=== PATIENT | female | born 1970 | race Caucasian/White ===

== ENCOUNTER → 2018-06-21 08:00 | Outpatient (CLI) | payer BC, SELFPAY ==
--- NOTE | 2018-06-21 08:11 | RAD_ITS ---
PROCEDURE: SMALL BOWEL SERIES DATE OF EXAMINATION: June 21, 2018.. INDICATION: Female, 47 years old. History of small bowel obstruction. PHYSICIAN: Prabhu Andrade M.D. TECHNIQUE: Radiographic and fluoroscopic images were taken of the small intestine following the ingestion of barium. COMPARISON: None. FINDINGS: A preliminary supine KUB was obtained. There is an unremarkable bowel gas pattern. Fecal material is present throughout the colon. Phleboliths are present within the pelvis. Degenerative changes of the lower lumbar spine with mild levoscoliosis. The patient orally ingested approximately 12 ounces of thin barium Normal visualized fundus, body, and antrum of the stomach. Normal duodenal bulb, C-loop, and proximal jejunum. Normal visualized mucosal folds of the jejunum and ileum. There are no demonstrated dilatations, strictures, or masses of the small intestine. There is no mass displacement of the loops of small intestine. There is a normal motor pattern with barium reaching the colon within approximately 16 minutes. Spot films under fluoroscopic observation demonstrated a normal terminal ileum and ileocecal valve. RAD/Small Bowel Series Only IMPRESSION: Normal small bowel series. Electronically Signed: Prabhu Andrade MD at 15:04 EDT Tel [phone], Service support ,
== END ==
PROVIDERS: Referring Provider Internal Medicine Gastroenterology; Visit Provider Internal Medicine Gastroenterology
DX: K56.600 Partial intestinal obstruction, unspecified as to cause (principal); R10.9 Unspecified abdominal pain
CPT/HCPCS: 74250

== ENCOUNTER 2020-02-19 05:54 | Inpatient (IN) | payer BC, SELFPAY ==
[2020-02-19] VITALS (8 sets, daily range): BP systolic 97–124; BP diastolic 53–81; PULSE 52–97; RESP 16–25; TEMP 36.1–37.1; O2SAT 92–100; BMI 30.5; BMI 30.3
--- NOTE | 2020-02-19 06:02 | CT_ITS ---
STUDY: CT ABDOMEN AND PELVIS WITH CONTRAST REASON FOR EXAM: Female, 49 years old. LLQ AND PELVIC PAIN, ACUTE ONSET, HX-COLECTOMY 1997 DUE TO TWISTED COLON RADIATION DOSAGE (If Supplied By Facility): CTDIvol = ( 18.62 ) mGy, DLP = ( 1079.63 ) mGycm TECHNIQUE: Transaxial images were obtained from the dome of the diaphragm to the symphysis pubis without oral contrast. IV 100mL Isovue-370 was administered. Sagittal and coronal images were reconstructed. Individualized dose optimization techniques were used for this CT. COMPARISON: None. FINDINGS: The visualized lung bases are unremarkable. The visualized portions of the heart are within normal limits. Normal liver. Normal gallbladder and extrahepatic biliary system. Normal spleen. Normal pancreas. Normal bilateral adrenal glands. Normal right kidney. Normal left kidney. There is a small hiatal hernia. There is dilatation of few small bowel loops in the pelvis may represent partial small bowel obstruction or ileus. Normal colon. There is non-visualization of the appendix. I Normal abdominal aorta. Normal inferior vena cava. Normal retroperitoneum. Normal urinary bladder. Normal abdominal wall. Normal osseous structures. CT/Abdomen/Pelvis W IV Cont ONLY IMPRESSION: There is dilatation of few small bowel loops in the pelvis may represent partial small bowel obstruction or ileus. Electronically Signed: Jatin Armstrong, at 7:09 EDT Tel , Service support ,
--- NOTE | 2020-02-19 06:04 | ED.DCSUM_ITS ---
- ER Visit Summary Date of Service: 02/19/20 Chief Complaint: Left lower quadrant abdominal and pelvic pain History of Present Illness: The patient is a 49 F history of small bowel obstruction, kidney stone, Niesen fundoplication and a right-sided hemicolectomy. Patient states that she was in her normal state of health. About an hour ago started having severe cramping lower abdominal pelvic pain. She denies any nausea or vomiting. No diarrhea. She states she has chronic constipation. She denies any dysuria or fever. Her last menstrual period was 5 years ago she denies any vaginal bleeding. States she felt fine this morning when she first got up made her breakfast before he went to work. She started having severe pain called him home to bring her to the emergency department. She denies ever having pain like this before. She denies any trauma. Physical Examination: Middle-aged female complaining of pain. Vital signs are stable afebrile. H EENT exam unremarkable. Moist membranes. Neck nontender. Lungs clear to auscultation bilaterally. Heart regular rhythm rate about 70. Abdomen soft. Nondistended. Normal bowel sounds. No peritoneal signs. She points to tenderness in the left lower abdomen and suprapubic area. It is not reproducibly tender. There is no obvious hernia or mass. There is a well- healed midline surgical incision from her prior hemicolectomy. The right upper and right lower quadrants are unremarkable. She is moving all 4 extremities. They are neurovascular intact. There is no edema. Neurologically she is awake and alert with no focal motor deficits. Test Results: White count 7. Hemoglobin 13. No bands. Chemistries unremarkable normal creatinine and gap. UA unremarkable. Serum test negative. CAT scan abdomen and pelvis with IV contrast as read by the radiologist reviewed by me shows partial small bowel obstruction versus ileus. There is also significant stool. I went over all test results with the patient and her . Emergency Department Course and Treatment: Patient was severely suprapubic and left lower quadrant abdominal pain. Not reproducible. Treated with IV fluids, morphine and Zofran. CAT scan and labs are being obtained along with urinalysis. Treatment Plan: Patient is improving at the pain medication but needs some more medication on repeat exam at 07:10 AM. I have the hospitalist and general surgeon on page. Disposition: admission Impression: Acute left lower quadrant and suprapubic abdominal and pelvic pain secondary to partial small bowel obstruction History of prior partial small bowel obstruction History of prior hemicolectomy This note was generated with [employer] dictation software. It may contain incorrect words, spelling, and punctuation that were not noted in review of the chart prior to signing ED Disposition - Plan for ED Patient: Referrals: Roderick Wellington MD [Primary Care Provider] -
[2020-02-19] MEDS: morphine 8 MG/ML Syringe IV (06:09)
[2020-02-19 06:10] LABS: Absolute Lymphocyte Count 3.73 X10^3/uL (0.83-4.51); Absolute Neutrophil Count 2.8 X10^3/uL (2.0-7.7); Basophil# 0.07 X10^3/uL; Basophil% 0.9 % (0-1); Eosinophil# 0.12 X10^3/uL; Eosinophils% 1.6 % (0-5); Hematocrit 43.7 % (37-47); Hemoglobin 13.6 g/dL (12.0-15.0); Lymphocyte # 3.73 X10^3/ul (4.0); Lymphocyte % 49.5 % (19-41); Mean Corp Hgb Conc 31.1 g/dL (32-36); Mean Corpuscular Hgb 28.1 pg (27.0-32.0); Mean Corpuscular Volume 90.3 fL (81-99); Mean Platelet Vol. 9.5 fl (6.2-12.0); Monocyte# 0.81 X10^3/uL; Monocyte% 10.7 % (0-10); NRBC Flagged by Analyzer 0 % (0-5); Neutrophil # 2.79 X10^3/uL (2.7-7.7); Platelet Count 318 K/mm3 (150-450); RBC Distribution Width CV 14.3 % (11.6-14.6); RBC Distribution Width SD 46.7 fl (35.1-43.9); Red Blood Count 4.84 M/mm3 (4.2-5.4); White Blood Count 7.5 K/mm3 (4.4-11.0)
[2020-02-19] MEDS: Ondansetron 4 MG/2 ML Vial IV ×2 (06:10→13:15)
[2020-02-19] MEDS: 0.9% Normal Saline 1,000 ML 125 ML IV (06:20)
[2020-02-19 06:27] LABS: Anion Gap 8 (5-15); BUN 13 mg/dL (7-18); BUN/Creat Ratio 14.8 RATIO (10-20); Calcium,Total 9.5 mg/dL (8.5-10.1); Chloride 105 mmol/L (98-107); Creatinine, Serum 0.88 mg/dL (0.55-1.02); EST Glomerular Filtration Rate 73 mL/min (>60); Est Glom Filt Rate - Afr Amer 88 mL/min (>60); Estimated Creatinine Clearance 82.71 ml/min; Glucose 127 mg/dL (74-106); Potassium 3.7 mmol/L (3.5-5.1); Sodium Level 139 mmol/L (136-145)
[2020-02-19 06:37] LABS: Internal QC Validated? YES +Cl - CLEAR BKGD; Pregnancy, Serum, hCG Quali. NEGATIVE Negative
[2020-02-19 06:47] LABS: Bacteria 0 SEEN /hpf (None Seen); Mucous, Urine 0 SEEN /hpf (<or=2+)
[2020-02-19 06:49] LABS: Color, Urine Yellow (Yellow); Glucose, Dipstick Normal (Normal); Ketone-Dipstick Negative (Negative); Leukocyte Esterase-Dipstick 25 /ul (Negative); Nitrite-Dipstick Negative (Negative); Occult Blood-Urine 10 /ul (Negative); Protein-Dipstick 15 mg/dl (Negative); Urine Bilirubin Dipstick Negative (Negative); Urine Clarity Clear (Clear); Urine Urobilinogen Normal (Normal)
[2020-02-19 07:02] LABS: Red Blood Cells-Urine 0-5 SEEN /hpf (0-5); Squamous Epithelial Cells - UA 5-10 SEEN /hpf (5-10); White Blood Cells 0-5 SEEN /hpf (0-5)
--- NOTE | 2020-02-19 07:23 | PCM.HP.STD ---
Problem List (1) Small bowel obstruction Status: Acute (2) Hypokalemia Status: Acute (3) Abdominal pain Status: Acute (4) Pituitary tumor Status: Chronic (5) Chronic constipation Status: Chronic History of Present Illness Date of Admission: 02/19/20 Chief Complaint: Abdominal pain and constipation The patient is a 49 year old F with history of chronic idiopathic constipation since on amitiza, 2 abdominal surgeries, Jasbir's fundoplication and partial sigmoid colectomy for redundant bowel probably from came to ER with sudden onset of severe crampy lower abdominal pain in the morning today. She had usual bowel movement yesterday which was semisolid but no blood or mucus. Denies nausea or vomiting but has loss of appetite. No fever or chills. She had 2 previous bowel ileus/obstruction which was managed conservatively and did not require surgery, when she was admitted in [place] and last 1 here in 2017. Her surgeon is Dr. Blackburn. In ED, CT abdomen with IV contrast was done which shows dilatation of small bowel loops in the pelvis suggestive of partial small bowel obstruction or ileus. ED vital was in acceptable limit, blood pressure 124/81 no tachycardia or hypoxia or tachypnea. Past Medical History Past Medical History (Chronic Problems): Chronic Problems Pituitary tumor (Chronic) Chronic constipation (Chronic) Allergies No Known Allergies Allergy (Verified 02/19/20 05:59) Home Medications: Ambulatory Orders Medication Instructions Recorded Lubiprostone [Amitiza] 24 mcg PO BID 03/18/17 Surgical History: - - 1998 volvulus and had partial sigmoidectemy jasbir 2 years ago. Smoking Status: Never smoker - *Family History Maternal History Items: Heart Disease, Pulmonary Disease, - - Interstitial lung disease Paternal History Items: Heart Disease Review of Systems Constitutional: Denies: Chills, Fever, Weight Change HEENT: Denies: Head Aches, Sinus Congestion, Sinus Drainage Cardiovascular: Denies: Chest Pain, Palpitations Respiratory: Denies: Cough, Shortness of breath at rest, Sputum production Gastrointestinal: Reports: Abdominal Pain, Constipation. Denies: Hematemesis, Hematochezia, Nausea, Melena, Vomiting Genitourinary: Denies: Dysuria, Frequency, Hesitancy, Incontinence, Retention, Urgency Musculoskeletal: Denies: Joint Pain, Joint Tenderness Skin: Denies: Rash, Wounds Neurological: Denies: Numbness, Tingling, Focal weakness Psychiatric: Denies: Anxiety, Depression, Homicidal Ideations, Suicidal Ideations Hematologic/ Lymphatic: Denies: Easy Bruising, Easy Bleeding VTE Information - Inpt Only VTE Present on Admission: No VTE Mechan Device Prophylaxis: None VTE Pharm Prophylaxis ordered?: Yes Patient Problems: Active and Suspected Problems Small bowel obstruction (Acute) - Physical Exam Vitals/I&O's: Vital Signs Temp Pulse Resp BP Pulse Ox 96.9 F L 70 25 H 124/81 H 100 02/19/20 05:56 02/19/20 05:56 02/19/20 05:56 02/19/20 05:56 02/19/20 05:56 Oxygen Delivery Method Room Air Weight: 212 lb 11.937 oz Body Mass Index (BMI) 30.5 General: Alert, Oriented x3, Cooperative HEENT: Atraumatic, PERRLA, EOMI, Normocephalic Oral: No Gingival or Mucosal Lesions/ Ulcerations, Dry Mucosa Neck: Supple, No JVD, Negative Carotid Bruits Lungs: Clear to auscultation, Normal air movement, No rhonchi, No wheeze, No rales Cardiovascular: Regular rate, Regular Rhythm, Normal S1, Normal S2, No murmurs Abdomen: Bowel Sounds Present, Soft, Non-Distended, Hyperactive Bowel Sounds - Bowel sounds are hyperactive, Tender - Mild tenderness present in left lower quadrant. Extremities: No edema, Capillary Refill Less than 3 Seconds Skin: No rashes, No breakdown Musculoskeletal: No Tenderness to Palpation of Joints or Extremities Neurological: Cranial nerves II-XII grossly intact, Deep Tendon Reflexes 2+/4 and Symmetrical, Neuro grossly intact, Motor Exam 5/5 strength throughout Psych/Mental Status: Normal Affect, Appropriate Laboratory Results 02/19/20 06:00: WBC 7.5, RBC 4.84, Hgb 13.6, Hct 43.7, MCV 90.3, MCH 28.1, MCHC 31.1 L, RDW Std Deviation 46.7 H, RDW Coeff of Aan 14.3, Plt Count 318, MPV 9.5, Immature Gran % (Auto) 0.300, Neut % (Auto) 37.0 L, Lymph % (Auto) 49.5 H, [place] % (Auto) 10.7 H, Eos % (Auto) 1.6, Baso % (Auto) 0.9, Absolute Neuts (auto) 2.8, Absolute Lymphs (auto) 3.73, Nucleated RBC % 0 02/19/20 06:00: Sodium 139, Potassium 3.7, Chloride 105, Carbon Dioxide 26.0, Anion Gap 8, BUN 13, Creatinine 0.88, Estim Creat Clear Calc 82.71, Est GFR (MDRD) Af Amer 88, Est GFR (MDRD) Non-Af 73, BUN/Creatinine Ratio 14.8, Glucose 127 H, Calcium 9.5 02/19/20 06:15: Serum , Qual NEGATIVE 02/19/20 06:38: Urine Color Yellow, Urine Clarity Clear, Urine pH 5.0, Ur Specific Gilman 1.020, Urine Protein 15 H, Urine Glucose (UA) Normal, Urine Ketones Negative, Urine Occult Blood 10 H, Urine Nitrite Negative, Urine Bilirubin Negative, Urine Urobilinogen Normal, Ur Leukocyte Esterase 25 H, Urine RBC 0-5 SEEN, Urine WBC 0-5 SEEN, Ur Squamous Epith Cells 5-10 SEEN, Urine Bacteria 0 SEEN, Urine Mucus 0 SEEN Current Medications Sodium Chloride () 1,000 mls @ 125 mls/hr IV .Q8H MONIQUE Last Admin: 02/19/20 06:20 Dose: 125 mls/hr Documented by: Assessment/Plan All Active Problems Small bowel obstruction (Acute) Hypokalemia (Acute) Abdominal pain (Acute) The patient is a 49 year old F with history of chronic idiopathic constipation since on amitiza, 2 abdominal surgeries, Jasbir's fundoplication and partial sigmoid colectomy for redundant bowel probably from came to ER with sudden onset of severe crampy lower abdominal pain in the morning today. She had usual bowel movement yesterday which was semisolid but no blood or mucus. Denies nausea or vomiting but has loss of appetite. No fever or chills. She had 2 previous bowel ileus/obstruction which was managed conservatively and did not require surgery, when she was admitted in [place] and last 1 here in 2017. Her surgeon is Dr. Blackburn. In ED, CT abdomen with IV contrast was done which shows dilatation of small bowel loops in the pelvis suggestive of partial small bowel obstruction or ileus. 1. Partial small bowel obstruction or ileus probably secondary to adhesions or redundant bowel: [facility] IV fluid Ringer lactate. N.p.o. CT abdomen shows small hiatus hernia but no dilatation of stomach or probable to require NG suction. Surgeon is been consulted. Stool for occult blood, leukocytes and enteric bacteriology panel ordered. Electrolytes including potassium and magnesium levels are normal. No leukocytosis. 2. Chronic idiopathic constipation with history of 2 abdominal surgery and redundant bowel: Amitiza is on hold secondary to ileus. 3. Pituitary tumor in remission: She was on cabergoline for pituitary tumor but she is off for last 5 years and her prolactin hormone is normal as per the patient. 4. DVT prophylaxis: Lovenox 40 minutes of daily. Clinical Impression(s) from Imaging Studies Abdomen/Pelvis CT 02/19/20 06:02 IMPRESSION: There is dilatation of few small bowel loops in the pelvis may represent partial small bowel obstruction or ileus. Inpatient E&M: 72478 Init Hosp L3
[2020-02-19] MEDS: morphine 8 MG/ML Syringe 6 MG IV (08:32)
[2020-02-19] MEDS: Enoxaparin 40 MG/0.4 ML Syringe SC (09:26)
[2020-02-19 10:08] LABS: Magnesium 2.2 mg/dL (1.6-2.6)
[2020-02-19] MEDS: 0.9% Saline Lock 10 ML Syringe IV ×4 (10:41→16:44)
[2020-02-19] MEDS: Morphine 2 MG/ML Syringe IV ×2 (10:41→16:43)
[2020-02-19] MEDS: Lactated Ringers 1,000 ML 125 ML IV ×2 (10:50→19:16)
--- NOTE | 2020-02-19 11:41 | PCM.CONS.B ---
- Consult Date of Consult: 02/19/20 - Reason for Consult Chief Complaint: abdominal pain History of Present Illness: 49 y/o WF presents with sudden onset of sharp lower quadrant abdominal pain early this morning. She states that she had a bowel movement yesterday, does not recall when she last passed flatus but believes that it was yesterday also. She states that normally she would have a bowel movement about once a day, but does have history of chronic constipation and is on Amitiza for this and has been for several years. Denies fevers/chills/sweats. Had previous abdominal pain/SBO admission in 2016. She had abdominal surgery for sigmoid volvulus in . Also had Yomaira fundoplication Denies nausea/emesis. had colonoscopy by Dr. Granados several years ago. Denies changes in bowel habits. Denies noting blood in stools. Denies known colon cancer in family. Past Medical History: pituitary tumor right sided heart position Past Surgical History: sigmoid colon resection for sigmoid volvulus laparoscopic Yomaira Lasix eye surgery Medications: cabergoline lubiprostone Allergies: Has no known drug allergies Social history: TOB use denies ETOH use minimal, occasional social only Review of Systems: General - denies fevers/sweats/chills Cardiovascular denies chest pain, denies history of heart attack Pulmonary denies shortness of breath, denies coughing up blooda Gastrointestinal as per HPI, denies blood in stools Neurological has occasional headaches, denies seizures Genitourinary denies burning with urination, denies blood in urine Hematological denies spontaneous/prolonged bleeding Skin denies open non healing wounds Musculoskeletal denies arthritis Endocrine denies diabetes Psychological denies hallucinations Physical examination: Vital signs Temp 98.7F General WD/WN WF in no apparent distress, alert and oriented, not septic appearing HEENT Normocephalic. EOM intact with sclera clear and no icterus noted. Neck is supple with no jugular venous distention noted. Trachea is midline. Lungs normal breath sounds No rales/rhonchi/wheezing noted. No labored breathing noted, such as retractions. Heart normal S1 and S2 auscultated. No rubs/clicks/murmurs noted. Abdomen soft but distended and generalized tenderness to palpation but no peritoneal signs. Extremities no calf tenderness noted. No pitting edema noted. Genitourinary/Rectal deferred Skin normal skin integrity. Neurological no focal deficits noted Psychological normal affect, patient is calm and appropriate Impression: partial small bowel obstruction Discussion/Plan: I have discussed the above with the patient. I have recommended repeat CT scan with oral contrast - this can be both diagnostic and therapeutic. I suspect that this may be due to patient's chronic constipation - she may have colonic inertia. Will follow patient during hospitalization. I have answered all questions to the patient?s satisfaction and the patient has no further questions.
--- NOTE | 2020-02-19 11:52 | CT_ITS ---
STUDY: CT ABDOMEN AND PELVIS WITHOUT CONTRAST REASON FOR EXAM: Female, 49 years old. ABD PAIN STARTED SUDDENLY. PRIOR CT SHOWED POSS SBO. Pt drank oral contrast but vomited much of it. RADIATION DOSAGE (If Supplied By Facility): CTDIvol = ( 15.74 ) mGy, DLP = ( 798.26 ) mGycm TECHNIQUE: Transaxial images were obtained from the dome of the diaphragm to the symphysis pubis with oral contrast, and without intravenous contrast. Sagittal and coronal images were reconstructed. Individualized dose optimization techniques were used for this CT. COMPARISON: CT abdomen and pelvis same day. FINDINGS: The visualized lung bases are unremarkable. The visualized portions of the heart are within normal limits. Normal liver. Normal gallbladder and extrahepatic biliary system. Normal spleen. Normal pancreas. Normal bilateral adrenal glands. Normal right kidney. Normal left kidney. There is residual contrast within the kidneys ureters and bladder from the prior CT IV contrast exam. Stable postsurgical changes at the GE junction. There is previous partial bowel resection within the pelvis. There is stable calcification right adnexa likely calcified ovary and/or postsurgical changes. There is significant decrease distention of small bowel when compared to prior exam. There is hyperdensity within the colon likely pill Normal abdominal aorta. Normal inferior vena cava. Normal retroperitoneum. Normal urinary bladder. Normal abdominal wall. There is stable multilevel degenerative changes of the lumbar spine. CT/Abdomen/Pel W ORAL Cont Only IMPRESSION: Improving small bowel ileus versus partial small bowel obstruction no CT evidence for complete small bowel obstruction Postsurgical changes with prior partial bowel resection, postsurgical changes at the GE junction Stable calcifications right adnexa, calcified ovary and/or postsurgical changes Stable multilevel spondylosis lumbar spine Electronically Signed: Samson De Los Santos, at 16:34 EDT Tel , Service support ,
--- NOTE | 2020-02-19 13:23 | NURSING ---
Angie in CT scan notified that pt threw up 1/2 of contrast, and ordered to finish the rest very slowly, so the CT scan could be done at 15 or 1600. Will plan to do the scan at 1600.
[2020-02-19] MEDS: proCHLORPERazine 10 MG/2 ML Vial 5 MG IV (16:47)
[2020-02-20 03:00] VITALS: BP 108/61; PULSE 73; RESP 16; TEMP 36.7; O2SAT 95
[2020-02-20] MEDS: Lactated Ringers 1,000 ML 125 ML IV ×2 (03:00→10:57)
[2020-02-20 05:40] LABS: Absolute Lymphocyte Count 1.67 X10^3/uL (0.83-4.51); Absolute Neutrophil Count 4.5 X10^3/uL (2.0-7.7); Basophil# 0.03 X10^3/uL; Basophil% 0.4 % (0-1); Eosinophil# 0.03 X10^3/uL; Eosinophils% 0.4 % (0-5); Hematocrit 36.3 % (37-47); Hemoglobin 11.3 g/dL (12.0-15.0); Lymphocyte # 1.67 X10^3/ul (4.0); Lymphocyte % 24.6 % (19-41); Mean Corp Hgb Conc 31.1 g/dL (32-36); Mean Corpuscular Hgb 28.2 pg (27.0-32.0); Mean Corpuscular Volume 90.5 fL (81-99); Mean Platelet Vol. 9.8 fl (6.2-12.0); Monocyte# 0.55 X10^3/uL; Monocyte% 8.1 % (0-10); NRBC Flagged by Analyzer 0 % (0-5); Neutrophil % 66.4 % (47-70); Platelet Count 215 K/mm3 (150-450); RBC Distribution Width CV 14.5 % (11.6-14.6); RBC Distribution Width SD 47.9 fl (35.1-43.9); Red Blood Count 4.01 M/mm3 (4.2-5.4); White Blood Count 6.8 K/mm3 (4.4-11.0)
[2020-02-20 06:04] LABS: Anion Gap 6 (5-15); BUN 11 mg/dL (7-18); BUN/Creat Ratio 18.4 RATIO (10-20); Calcium,Total 8.4 mg/dL (8.5-10.1); Chloride 109 mmol/L (98-107); EST Glomerular Filtration Rate 113 mL/min (>60); Est Glom Filt Rate - Afr Amer 137 mL/min (>60); Glucose 101 mg/dL (74-106); Potassium 3.5 mmol/L (3.5-5.1); Sodium Level 143 mmol/L (136-145)
[2020-02-20 09:30] VITALS: BP 119/75; PULSE 63; RESP 18; TEMP 36.9; O2SAT 96
[2020-02-20] MEDS: Enoxaparin 40 MG/0.4 ML Syringe SC (09:59)
--- NOTE | 2020-02-20 10:50 | CASEMGMT ---
RN CM Face to Face with patient for initial transition planning/care coordination assessment. RN CM introduced self and role at [facility]. Patient lying in bed, alert and oriented. Patient willing to participate in assessment and is able to answer all questions appropriately. Care providers, pharmacy, and demographics verified. Patient wishes to discharge home, denies need for home health at this time. Patient states he has no further needs or concerns at this time. CM to follow for discharge planning needs that may arise. PCP: [facility] Specialists: RONALDO Granados Preferred Pharmacy: [facility] Insurance: [employer] Prescription Benefit: yes Living Will/HPOA: yes, [place] LNOK: Living Arrangements: Patient lives with in 1 story home with no steps to enter. Patient states she is independent at home. Transportation: self/ DME/HHC: Patient denied HHC and DME Disposition Plan: Patient to discharge home with family support and follow-up plans in place. Yazmin RUIZN, RN, CM
[2020-02-20] MEDS: Acetaminophen 325 MG Tablet 650 MG PO (10:57)
--- NOTE | 2020-02-20 11:46 | DCINST_ITS ---
- Discharge Diagnoses Current Active Problems: Current Active and Chronic Problems Small bowel obstruction (Acute) You will use the following diet at home:: Clear liquid - for 3 days, soft diet. Your food should be the consistency of: Regular Discharge Activity: May Not Drive Call your doctor if you observe: Fever of 101 or Higher, Coldness, Increased Pain, Numbness or Tingling, Change in Color, Inability to urinate, Inability to have a bowel movement, Shortness of breath, Dizziness, Fainting spells, Swelling in the ankles, Chest pain, Prolonged hiccoughing, Increased palpitations (irregular heartbeat), Calf discomfort, Uncontrolled pain Allergies/Adverse Reactions: Allergies No Known Allergies Allergy (Verified 02/19/20 05:59) Medications to take at Discharge Lubiprostone [Amitiza] 24 mcg PO BID 03/18/17 Primary Care Physician: Roderick Wellington MD [Primary Care Provider] - Please follow up with your Primary Care Physician in: in 2 weeks Test Results: Test results from this visit will be discussed in further detail at your follow- up appointment, if applicable. Please Follow Up With: Tessie Blackburn MD When: in 1-2 weeks for referral to [facility]
--- NOTE | 2020-02-20 11:48 | DS.PCM_ITS ---
Discharge Date and Diagnosis Date of Admission: 02/19/20 Date of Discharge: 02/20/20 - Primary Discharge Diagnosis Acute Problems: Active Problems Small bowel obstruction (Acute) - Secondary Discharge Diagnosis Chronic Problems: Chronic Problems Pituitary tumor (Chronic) Chronic constipation (Chronic) Hospital Course and Treatment Summary of Care Provided: [] The patient is a 49 year old F with history of chronic idiopathic constipation since on amitiza, 2 abdominal surgeries, Yomaira's fundoplication and partial sigmoid colectomy for redundant bowel probably from came to ER with sudden onset of severe crampy lower abdominal pain in the morning today. She had usual bowel movement yesterday which was semisolid but no blood or mucus. Denies nausea or vomiting but has loss of appetite. No fever or chills. She had 2 previous bowel ileus/obstruction which was managed conservatively and did not require surgery, when she was admitted in [place] and last 1 here in 2017. Her surgeon is Dr. Blackburn. In ED, CT abdomen with IV contrast was done which shows dilatation of small bowel loops in the pelvis suggestive of partial small bowel obstruction or ileus. 1. Partial small bowel obstruction or ileus probably secondary to redundant large bowel/slow colonic transit time/colonic inertia: [facility] She was managed with IV fluid Ringer lactate. Initially kept n.p.o. and then started on clear liquid. Patient passed flatus. Was given 1 dose of milk of magnesia. She takes milk of magnesia at home. Was co-managed with surgeon Dr. Blackburn. CT abdomen shows small hiatus hernia but no dilatation of stomach or small bowel therefore did not require NG suction. Patient did not have bowel movement for stool collection for enteric bacteriology panel or stool leukocytes. Electrolytes including potassium and magnesium levels are normal. No leukocytosis. 2. Chronic idiopathic constipation with history of 2 abdominal surgery and redundant bowel: Resume Amitiza 3. Pituitary tumor in remission: She was on cabergoline for pituitary tumor but she is off for last 5 years and her prolactin hormone is normal as per the pat ient. 4. DVT prophylaxis: Lovenox 40 minutes of daily. Discharge medication reconciliation done. Discharge follow-up instructions completed. Discharge process discussed with the patient and all questions were answered to patient's satisfaction. Patient is being discharged home. Discussed with surgeon and she will make arrangement for follow-up with [facility] for further work-up for colonic inertia Total time spent, exact 35 minutes on discharge meds reconciliation, examination, coordination of care with nurses and ancillary staff, review of imaging and blood test and discussion with the patient on follow-up instructions Clinical Impression(s) from Imaging Studies Abdomen/Pelvis CT 02/19/20 06:02 IMPRESSION: There is dilatation of few small bowel loops in the pelvis may represent partial small bowel obstruction or ileus. Objective: Patient does not have abdominal pain. Passing flatus. Blood pressure and heart rate is in acceptable limit. No hypoxia or tachypnea. General: Alert, Oriented x3, Cooperative HEENT: Atraumatic, PERRLA, EOMI, Normocephalic Oral: No Gingival or Mucosal Lesions/ Ulcerations, Dry Mucosa Neck: Supple, No JVD, Negative Carotid Bruits Lungs: Clear to auscultation, Normal air movement, No rhonchi, No wheeze, No rales Cardiovascular: Regular rate, Regular Rhythm, Normal S1, Normal S2, No murmurs Abdomen: Bowel Sounds Present, Soft, Non-Distended, hypoactive bowel sounds. No tenderness. No bowel movement. Extremities: No edema, Capillary Refill Less than 3 Seconds Skin: No rashes, No breakdown Musculoskeletal: No Tenderness to Palpation of Joints or Extremities Neurological: Cranial nerves II-XII grossly intact, Deep Tendon Reflexes 2+/4 and Symmetrical, Neuro grossly intact, Motor Exam 5/5 strength throughout Psych/Mental Status: Normal Affect, Appropriate - Physical Exam Vitals/I&O's: Vital Signs Temp Pulse Resp BP Pulse Ox 98.4 F 63 18 119/75 96 02/20/20 09:30 02/20/20 09:30 02/20/20 09:30 02/20/20 09:30 02/20/20 09:30 Oxygen Delivery Method Room Air Weight: 211 lb 3.245 oz Body Mass Index (BMI) 30.3 Intake and Output for Last 24 Hours 02/18/20 02/19/20 02/20/20 23:59 23:59 23:59 Intake Total 1506.25 / 1506.25 1960.42 / 1960.42 Output Total 1100 / 1100 1000 / 1000 Balance 406.25 / 406.25 960.42 / 960.42 Laboratory Results 02/20/20 05:06: Sodium 143, Potassium 3.5, Chloride 109 H, Carbon Dioxide 28.0, Anion Gap 6, BUN 11, Creatinine 0.60, Estim Creat Clear Calc 121.30, Est GFR (MDRD) Af Amer 137, Est GFR (MDRD) Non-Af 113, BUN/Creatinine Ratio 18.4, Glucose 101, Calcium 8.4 L, TSH 1.60 02/20/20 05:06: WBC 6.8, RBC 4.01 L, Hgb 11.3 L, Hct 36.3 L, MCV 90.5, MCH 28.2, MCHC 31.1 L, RDW Std Deviation 47.9 H, RDW Coeff of Ana 14.5, Plt Count 215, MPV 9.8, Immature Gran % (Auto) 0.100, Neut % (Auto) 66.4, Lymph % (Auto) 24.6, [place] % (Auto) 8.1, Eos % (Auto) 0.4, Baso % (Auto) 0.4, Absolute Neuts (auto) 4.5, Absolute Lymphs (auto) 1.67, Nucleated RBC % 0 Current Medications Acetaminophen (Tylenol) 650 mg PO Q4H PRN PRN PRN Reason: Pain or Fever Last Admin: 02/20/20 10:57 Dose: 650 mg Documented by: Dextrose (D50w Syringe) 0 gm IV X1 PRN; Protocol PRN Reason: Hypoglycemia Enoxaparin Sodium (Lovenox) 40 mg SC DAILY [facility] Last Admin: 02/20/20 09:59 Dose: 40 mg Documented by: Glucagon () 1 mg IM .X1 PRN PRN Reason: Hypoglycemia Sodium Chloride () 250 mls @ 15 mls/hr IV .[id number] PRN PRN Reason: Saline Flush Sodium Chloride () 250 mls @ 15 mls/hr IV .[id number] PRN PRN Reason: Additional IVPB Infusion Lactated Ringer's () 1,000 mls @ 125 mls/hr IV .Q8H [facility] Last Admin: 02/20/20 10:57 Dose: 125 mls/hr Documented by: Magnesium Hydroxide (Milk Of Magnesia) 30 ml PO X1 ONE Stop: 02/20/20 11:46 Morphine Sulfate () 2 mg IV Q3H PRN PRN PRN Reason: Pain Score 6-10/10 Last Admin: 02/19/20 16:43 Dose: 2 mg Documented by: Ondansetron HCl (Zofran) 4 mg IV Q8H PRN PRN PRN Reason: NAUSEA/VOMITING Last Admin: 02/19/20 13:15 Dose: 4 mg Documented by: Prochlorperazine Edisylate (Compazine Iv) 5 mg IV Q4H PRN PRN PRN Reason: Breakthrough nausea/vomiting Last Admin: 02/19/20 16:47 Dose: 5 mg Documented by: Sodium Chloride () 10 - 40 ml IV UD PRN PRN Reason: SALINE FLUSH Last Admin: 02/19/20 16:44 Dose: 30 ml Documented by: Discharge Activity: May Not Drive Call your doctor if you observe: Fever of 101 or Higher, Coldness, Increased Pain, Numbness or Tingling, Change in Color, Inability to urinate, Inability to have a bowel movement, Shortness of breath, Dizziness, Fainting spells, Swelling in the ankles, Chest pain, Prolonged hiccoughing, Increased palpitations (irregular heartbeat), Calf discomfort, Uncontrolled pain Home Medications: Medications to take at Discharge Lubiprostone [Amitiza] 24 mcg PO BID 03/18/17 Primary Care Physician: Roderick Wellington MD [Primary Care Provider] - Please follow up with your Primary Care Physician in: in 2 weeks Please Follow Up With: Tessie Blackburn MD When: in 1-2 weeks for referral to [facility] Medical Necessity - Tobacco Use Smoking Status: Never smoker Meaningful Use Info Meaningful Use Diagnoses (Choose all that apply): None applicable Inpatient E&M: 16102 [facility]
[2020-02-20] MEDS: Magnesium Hydroxide 30 ML UDC PO (11:51)
--- NOTE | 2020-02-20 13:06 | PCM.PN.SRG ---
Patient Problems: Active and Suspected Problems Small bowel obstruction (Acute) Subjective: Patient is much improved, denies abdominal pain passing flatus, hasn't had bowel movement yet, but she notes she has chronic constipation - Physical Exam Vitals/I&O's: Vital Signs Temp Pulse Resp BP Pulse Ox 98.4 F 63 18 119/75 96 02/20/20 09:30 02/20/20 09:30 02/20/20 09:30 02/20/20 09:30 02/20/20 09:30 Oxygen Delivery Method Room Air Weight: 95.8 kg Body Mass Index (BMI) 30.3 Intake and Output for Last 24 Hours 02/18/20 02/19/20 02/20/20 23:59 23:59 23:59 Intake Total 1506.25 / 1506.25 2077.09 / 2077.09 Output Total 1100 / 1100 1000 / 1000 Balance 406.25 / 406.25 1077.09 / 1077.09 General: Alert, Oriented x3 Oral: Moist Mucosa Neck: Supple Lungs: Normal air movement Cardiovascular: Regular rate Abdomen: Bowel Sounds Present, Soft Laboratory Results 02/20/20 05:06: Sodium 143, Potassium 3.5, Chloride 109 H, Carbon Dioxide 28.0, Anion Gap 6, BUN 11, Creatinine 0.60, Estim Creat Clear Calc 121.30, Est GFR (MDRD) Af Amer 137, Est GFR (MDRD) Non-Af 113, BUN/Creatinine Ratio 18.4, Glucose 101, Calcium 8.4 L, TSH 1.60 02/20/20 05:06: WBC 6.8, RBC 4.01 L, Hgb 11.3 L, Hct 36.3 L, MCV 90.5, MCH 28.2, MCHC 31.1 L, RDW Std Deviation 47.9 H, RDW Coeff of Ana 14.5, Plt Count 215, MPV 9.8, Immature Gran % (Auto) 0.100, Neut % (Auto) 66.4, Lymph % (Auto) 24.6, [place] % (Auto) 8.1, Eos % (Auto) 0.4, Baso % (Auto) 0.4, Absolute Neuts (auto) 4.5, Absolute Lymphs (auto) 1.67, Nucleated RBC % 0 Current Medications Acetaminophen (Tylenol) 650 mg PO Q4H PRN PRN PRN Reason: Pain or Fever Last Admin: 02/20/20 10:57 Dose: 650 mg Documented by: Dextrose (D50w Syringe) 0 gm IV X1 PRN; Protocol PRN Reason: Hypoglycemia Enoxaparin Sodium (Lovenox) 40 mg SC DAILY [facility] Last Admin: 02/20/20 09:59 Dose: 40 mg Documented by: Glucagon () 1 mg IM .X1 PRN PRN Reason: Hypoglycemia Sodium Chloride () 250 mls @ 15 mls/hr IV .[id number] PRN PRN Reason: Saline Flush Sodium Chloride () 250 mls @ 15 mls/hr IV .[id number] PRN PRN Reason: Additional IVPB Infusion Lactated Ringer's () 1,000 mls @ 125 mls/hr IV .Q8H [facility] Last Infusion: 02/20/20 11:53 Dose: Infused Documented by: Morphine Sulfate () 2 mg IV Q3H PRN PRN PRN Reason: Pain Score 6-10/10 Last Admin: 02/19/20 16:43 Dose: 2 mg Documented by: Ondansetron HCl (Zofran) 4 mg IV Q8H PRN PRN PRN Reason: NAUSEA/VOMITING Last Admin: 02/19/20 13:15 Dose: 4 mg Documented by: Prochlorperazine Edisylate (Compazine Iv) 5 mg IV Q4H PRN PRN PRN Reason: Breakthrough nausea/vomiting Last Admin: 02/19/20 16:47 Dose: 5 mg Documented by: Sodium Chloride () 10 - 40 ml IV UD PRN PRN Reason: SALINE FLUSH Last Admin: 02/19/20 16:44 Dose: 30 ml Documented by: Medical Necessity - Tobacco Use Smoking Status: Never smoker Assessment/Plan All Active Problems Small bowel obstruction (Acute) Hypokalemia (Acute) Abdominal pain (Acute) Impression: bowel obstruction/abdominal pain - resolved Plan: advance diet I will consult main [facility] for patient's diagnosis of colonic inertia and see what options they can give patient. She can be discharged to home
[2020-02-20 13:07] VITALS: BP 118/69; PULSE 72; TEMP 36.7; O2SAT 99
== END 2020-02-20 13:14 | disposition home or self-care (01) | DRG 390 ==
LOC: ED 06:58 → MS3 08:01
PROVIDERS: Admitting Provider Internal Medicine; Emergency Provider Emergency Medicine; PCP Family Medicine; Visit Provider Internal Medicine
DX: K56.600 Partial intestinal obstruction, unspecified as to cause (principal); D49.7 Neoplasm of unspecified behavior of endocrine glands and other parts of nervous system; Z90.49 Acquired absence of other specified parts of digestive tract; K59.04 Chronic idiopathic constipation; K44.9 Diaphragmatic hernia without obstruction or gangrene
CPT/HCPCS: 36415; 74176; 74177; 80048; 81001; 83735; 84443; 84703; 85025; 99251; 99285; J7030; J7120; Q9967; A4216; G0463; J2405

== ENCOUNTER 2020-03-12 09:45 | Inpatient (IN) | payer BC, SELFPAY ==
[2020-02-19 08:47] VITALS: BMI 30.3
[2020-03-12 09:46] VITALS: BP 113/81; PULSE 80; RESP 18; TEMP 36.8; O2SAT 100; BMI 29.3
--- NOTE | 2020-03-12 09:48 | ED.VIS.GEN ---
History of Present Illness Chief Complaint: Abd Pain Narrative: 49-year-old female presenting with abdominal pain. She states she has had this in the past multiple times. She is concerned she has a small bowel obstruction. Patient recently admitted for partial small bowel obstruction. She states that her pain started yesterday and has worsened over the course of 24 hours. She is not had a fever. She states she is nauseous but not vomiting yet. She is not passing gas. Past Medical History - Allergies and Home Meds Allergies/Adverse Reactions: Allergies No Known Allergies Allergy (Verified 03/12/20 09:48) Prior records reviewed: Yes Surgical History: - - 1997 volvulus and had partial sigmoidectemy jasbir 2 years ago. Smoking Status: Never smoker Alcohol: None Drugs: None - Family History Maternal Family History: Reports: Heart Disease, Pulmonary Disease, - - Interstitial lung disease Paternal Family History: Reports: Heart Disease Review of Systems General: Denies: Chills, Fever Eyes: Denies: Visual changes - bilaterally, Diplopia ENT: Denies: Rhinorrhea, Sore throat Cardiovascular: Denies: Chest pain, Palpitations Respiratory: Denies: Dyspnea, Cough, Dyspnea on exertion Gastrointestinal: Reports: Abdominal pain, Nausea, Constipation Genitourinary: Denies: Dysuria Musculoskeletal: Denies: Myalgias Skin: Denies: Rash Neurological: Denies: Headache Psych: Denies: Depression, Anxiety Physical Exam Vital Signs/Narrative: Vital Signs Temp Pulse Resp BP Pulse Ox 03/12/20 09:46 98.3 F 80 18 113/81 H 100 General: Well nourished, Well developed, No Acute Distress Head: Normocephalic, Atraumatic Eyes: Perrl. Negative for: Pale conjunctiva ENT: Moist mucous membranes Cardiovascular: Regular rate, Regular rhythm Respiratory: No distress, CTA bilaterally Abdomen: Tender - Underneath the palpation over the central abdomen Back: Nontender Extremities: Nontender Skin: Normal color, No rash Neurological: Alert, Oriented x3 Psychological: Normal affect Diagnostic/Tx/Re-eval Clinical Impression(s) from Imaging Studies Abdomen/Pelvis CT 03/12/20 09:56 IMPRESSION: Small bowel obstruction. Transition point not clearly identified but is likely in the ileum. Likely causes due to adhesions from previous surgery. No suspicious solid organ abnormality Free fluid in the dependent pelvis Postsurgical changes in the sigmoid Electronically Signed: Maximiliano Albert MD at 12:28 EDT , Service support , Laboratory Data 03/12/20 03/12/20 03/12/20 10:20 10:20 12:00 WBC 8.1 RBC 5.13 Hgb 14.5 Hct 45.3 MCV 88.3 MCH 28.3 MCHC 32.0 RDW Std Deviation 46.4 H RDW Coeff of Ana 14.5 Plt Count 294 MPV 9.6 Immature Gran % (Auto) 0.400 Neut % (Auto) 81.3 H Lymph % (Auto) 11.[address] [facility] % (Auto) 5.8 Eos % (Auto) 0.2 Baso % (Auto) 0.4 Absolute Neuts (auto) 6.6 Absolute Lymphs (auto) 0.97 Nucleated RBC % 0 Sodium 134 L Potassium 3.5 Chloride 99 Carbon Dioxide 30.0 Anion Gap 5 BUN 11 Creatinine 0.96 Estim Creat Clear Calc 75.81 Est GFR (MDRD) Af Amer 79 Est GFR (MDRD) Non-Af 66 BUN/Creatinine Ratio 11.5 Glucose 109 H Calcium 9.5 Total Bilirubin 0.50 AST 15 ALT 20 Alkaline Phosphatase 53 Total Protein 7.8 Albumin 4.3 Globulin 3.5 Albumin/Globulin Ratio 1.2 Lipase 61 L Urine Color Yellow Urine Clarity Clear Urine pH 8.0 Ur Specific [place] 1.010 Urine Protein Negative Urine Glucose (UA) Normal Urine Ketones 5 H Urine Occult Blood 10 H Urine Nitrite Negative Urine Bilirubin Negative Urine Urobilinogen Normal Ur Leukocyte Esterase Negative Urine RBC 0 SEEN Urine WBC 0 SEEN Ur Squamous Epith Cells 0-5 SEEN Urine Bacteria RARE Urine Mucus 0 SEEN - Medical Decision Making Presents with abdominal pain and history of bowel obstruction. Vital signs are stable and she is afebrile. She is nontoxic-appearing. She does have tenderness to palpation over the central portion of her abdomen. Her blood work is unremarkable. CT of the abdomen pelvis with oral and IV contrast shows a small bowel obstruction. Case was discussed with her surgeon Dr. Blackburn however she is out of town and Dr. Lazar felt comfortable managing it. He recommended medical admit. Patient was given an NG tube. ED Disposition - Plan for ED Patient: Disposition: Acute Care Hospital [facility] Diagnosis: Small bowel obstruction
--- NOTE | 2020-03-12 09:56 | CT_ITS ---
STUDY: CT ABDOMEN AND PELVIS WITH CONTRAST REASON FOR EXAM: Female, 49 years old. DIFFUSE ABD PAIN RADIATING INTO BACK, NAUSEA. 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 Oral and amp; IV Gastrografin and amp; 100mL Isovue-300 was administered. Sagittal and coronal images were reconstructed. Individualized dose optimization techniques were used for this CT. COMPARISON: 02/19/2020 FINDINGS: The visualized lung bases are unremarkable. The visualized portions of the heart are within normal limits. Stable elevation of the left hemidiaphragm Normal liver. Normal gallbladder and extrahepatic biliary system. Normal spleen. Normal pancreas. Normal bilateral adrenal glands. Normal right kidney. Normal left kidney. Normal visualized stomach. There are dilated loops of the small intestine with a non-distended colon consistent with a small bowel obstruction. There is a surgical anastomosis in the sigmoid colon free of complication. Majority of the colon is decompressed and unremarkable. There is non-visualization of the appendix. Normal abdominal aorta. Normal inferior vena cava. Normal retroperitoneum. Normal urinary bladder. Normal visualized uterus. No suspicious adnexal mass or the small amount of free fluid in the cul-de-sac. Normal abdominal wall. There are diffuse degenerative changes of the visualized lumbar spine. CT/Abdomen/Pelvis WITH Contrast IMPRESSION: Small bowel obstruction. Transition point not clearly identified but is likely in the ileum. Likely causes due to adhesions from previous surgery. No suspicious solid organ abnormality Free fluid in the dependent pelvis Postsurgical changes in the sigmoid Electronically Signed: Maximiliano Albert MD at 12:28 EDT , Service support ,
[2020-03-12] MEDS: 0.9% Normal Saline 1,000 ML 1000 ML IV (10:17)
[2020-03-12] MEDS: HYDROmorphone 1 MG/ML Syringe 0.5 MG IV (10:17)
[2020-03-12] MEDS: Ondansetron 4 MG/2 ML Vial IM (10:17)
[2020-03-12 10:30] LABS: Absolute Lymphocyte Count 0.97 X10^3/uL (0.83-4.51); Absolute Neutrophil Count 6.6 X10^3/uL (2.0-7.7); Basophil# 0.03 X10^3/uL; Basophil% 0.4 % (0-1); Eosinophil# 0.02 X10^3/uL; Eosinophils% 0.2 % (0-5); Hematocrit 45.3 % (37-47); Hemoglobin 14.5 g/dL (12.0-15.0); Lymphocyte # 0.97 X10^3/ul (4.0); Lymphocyte % 11.9 % (19-41); Mean Corpuscular Hgb 28.3 pg (27.0-32.0); Mean Corpuscular Volume 88.3 fL (81-99); Mean Platelet Vol. 9.6 fl (6.2-12.0); Monocyte# 0.47 X10^3/uL; Monocyte% 5.8 % (0-10); NRBC Flagged by Analyzer 0 % (0-5); Neutrophil % 81.3 % (47-70); Platelet Count 294 K/mm3 (150-450); RBC Distribution Width CV 14.5 % (11.6-14.6); RBC Distribution Width SD 46.4 fl (35.1-43.9); Red Blood Count 5.13 M/mm3 (4.2-5.4); White Blood Count 8.1 K/mm3 (4.4-11.0)
[2020-03-12 10:48] LABS: ALB/GLOB Ratio 1.2 RATIO (0.9-2.4); AST(SGOT) 15 U/L (15-37); Alanine Aminotransfer ALT/SGPT 20 U/L (13-56); Albumin, Serum 4.3 g/dL (3.2-5.0); Alkaline Phosphatase 53 U/L (45-117); Anion Gap 5 (5-15); BUN 11 mg/dL (7-18); BUN/Creat Ratio 11.5 RATIO (10-20); Calcium,Total 9.5 mg/dL (8.5-10.1); Chloride 99 mmol/L (98-107); Creatinine, Serum 0.96 mg/dL (0.55-1.02); EST Glomerular Filtration Rate 66 mL/min (>60); Est Glom Filt Rate - Afr Amer 79 mL/min (>60); Estimated Creatinine Clearance 75.81 ml/min; Globulin 3.5 g/dL (2.2-4.2); Glucose 109 mg/dL (74-106); Lipase 61 U/L (73-393); Potassium 3.5 mmol/L (3.5-5.1); Protein, Total 7.8 g/dL (6.4-8.2); Sodium Level 134 mmol/L (136-145)
[2020-03-12 12:20] LABS: Mucous, Urine 0 SEEN /hpf (<or=2+); Red Blood Cells-Urine 0 SEEN /hpf (0-5); White Blood Cells 0 SEEN /hpf (0-5)
[2020-03-12] MEDS: HYDROmorphone 0.5 MG/0.5 ML SYRINGE IV ×4 (12:22→23:15)
[2020-03-12 12:26] LABS: Color, Urine Yellow (Yellow); Glucose, Dipstick Normal (Normal); Ketone-Dipstick 5 mg/dl (Negative); Leukocyte Esterase-Dipstick Negative /ul (Negative); Nitrite-Dipstick Negative (Negative); Occult Blood-Urine 10 /ul (Negative); Protein-Dipstick Negative (Negative); Urine Bilirubin Dipstick Negative (Negative); Urine Clarity Clear (Clear); Urine Urobilinogen Normal (Normal)
[2020-03-12 12:27] VITALS: BP 138/79; PULSE 61; RESP 16; O2SAT 98
[2020-03-12 12:39] LABS: Bacteria RARE /hpf (None Seen); Squamous Epithelial Cells - UA 0-5 SEEN /hpf (5-10)
--- NOTE | 2020-03-12 13:14 | ED.RN ---
THIS NURSE ATTEMPTED TO INSERT 16 MAORI NG IN BOTH NARES. MEET RESISTANCE ABOUT [address] IN[address] THE TUBE. [address] ROOT IN THE ROOM. NOTIFIED OF THE SAME
--- NOTE | 2020-03-12 13:30 | HP.PCM_ITS ---
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 Patient's abdominal pain began yesterday after eating breakfast. She did have some distention. Similar presentation to when she has had bowel obstructions before. Patient states that her pain is similar but less severe than her bowel obstruction that she had last month. She has been having vomiting and nausea. Also complaining of abdominal distention. NG tube was attempted but was unable to advance very far bilaterally. She is subsequently developed some epistaxis that was mild afterwards. [] Past Medical History Past Medical History (Chronic Problems): Chronic Problems Pituitary tumor (Chronic) Chronic constipation (Chronic) Allergies No Known Allergies Allergy (Verified 03/12/20 09:48) Home Medications: Ambulatory Orders Medication Instructions Recorded Lubiprostone [Amitiza] 24 mcg PO BID 03/18/17 Hyoscyamine Sulfate 0.125 mg SL Q4H PRN PRN 03/12/20 Multivitamin/Iron/Folic Acid 1 ea PO DAILY 03/12/20 [Centrum Women Tablet] Pseudoephedrine [Sudafed] 60 mg PO Q6H PRN PRN 03/12/20 Surgical History: - - 1998 volvulus and had partial sigmoidectemy jasbir 2 years ago. Smoking Status: Never smoker Alcohol: None Drugs: None - *Family History Maternal History Items: Heart Disease, Pulmonary Disease, - - Interstitial lung disease Paternal History Items: Heart Disease Review of Systems Constitutional: Reports: Anorexia. Denies: Chills, Fever Eyes: Denies: Blurred vision, Double vision HEENT: Reports: Sinus Congestion, Sinus Drainage. Denies: Head Aches Cardiovascular: Denies: Chest Pain, Palpitations Respiratory: Denies: Cough, Shortness of breath at rest, Sputum production Gastrointestinal: Denies: Abdominal Pain, Nausea, Vomiting Genitourinary: Denies: Dysuria Musculoskeletal: Denies: Joint Pain, Joint Tenderness Skin: Reports: Dryness - On elbows and on the back of her neck.. Denies: Rash, Wounds Neurological: Denies: Numbness, Tingling, Focal weakness Psychiatric: Denies: Anxiety, Depression, Homicidal Ideations, Suicidal Ideations Hematologic/ Lymphatic: Denies: Easy Bruising, Easy Bleeding, Hx of blood clot VTE Information - Inpt Only VTE Present on Admission: No VTE Mechan Device Prophylaxis: None VTE Pharm Prophylaxis ordered?: Yes - Physical Exam Vitals/I&O's: Vital Signs Temp Pulse Resp BP Pulse Ox 36.8 C 61 16 138/79 H 98 03/12/20 09:46 03/12/20 12:27 03/12/20 12:27 03/12/20 12:27 03/12/20 12:27 Oxygen Delivery Method Room Air Weight: 92.9 kg Body Mass Index (BMI) 29.3 Intake and Output for Last 24 Hours 03/10/20 03/11/20 03/12/20 23:59 23:59 23:59 Intake Total 1000 / 1000 Balance 1000 / 1000 General: Alert, Cooperative, No apparent distress HEENT: Atraumatic, Normocephalic Oral: Moist Mucosa, No Gingival or Mucosal Lesions/ Ulcerations Neck: No Nodes, Thyroid Normal Size and Texture Lungs: Clear to auscultation, Normal air movement, No rhonchi, No wheeze, No rales Cardiovascular: Regular rate, Regular Rhythm, Normal S1, Normal S2, No murmurs Abdomen: Bowel Sounds Present - High-pitched, Soft, Non-Distended, Tender Extremities: No edema, No Calf Tenderness Skin: No rashes, No breakdown Musculoskeletal: No Tenderness to Palpation of Joints or Extremities, No Muscle Wasting Neurological: Muscle tone normal, Sensory exam intact to light touch and pain Psych/Mental Status: Appropriate, Anxious Laboratory Results 03/12/20 10:20: WBC 8.1, RBC 5.13, Hgb 14.5, Hct 45.3, MCV 88.3, MCH 28.3, MCHC 32.0, RDW Std Deviation 46.4 H, RDW Coeff of Ana 14.5, Plt Count 294, MPV 9.6, Immature Gran % (Auto) 0.400, Neut % (Auto) 81.3 H, Lymph % (Auto) 11.9 L, [place] % (Auto) 5.8, Eos % (Auto) 0.2, Baso % (Auto) 0.4, Absolute Neuts (auto) 6.6, Absolute Lymphs (auto) 0.97, Nucleated RBC % 0 03/12/20 10:20: Sodium 134 L, Potassium 3.5, Chloride 99, Carbon Dioxide 30.0, Anion Gap 5, BUN 11, Creatinine 0.96, Estim Creat Clear Calc 75.81, Est GFR ( RD) Af Amer 79, Est GFR (MDRD) Non-Af 66, BUN/Creatinine Ratio 11.5, Glucose 109 H, Calcium 9.5, Total Bilirubin 0.50, AST 15, ALT 20, Alkaline Phosphatase 53, Total Protein 7.8, Albumin 4.3, Globulin 3.5, Albumin/Globulin Ratio 1.2, Lipase 61 L 03/12/20 12:00: Urine Color Yellow, Urine Clarity Clear, Urine pH 8.0, Ur Specific [place] 1.010, Urine Protein Negative, Urine Glucose (UA) Normal, Urine Ketones 5 H, Urine Occult Blood 10 H, Urine Nitrite Negative, Urine Bilirubin Negative, Urine Urobilinogen Normal, Ur Leukocyte Esterase Negative, Urine RBC 0 SEEN, Urine WBC 0 SEEN, Ur Squamous Epith Cells 0-5 SEEN, Urine Bacteria RARE, Urine Mucus 0 SEEN Clinical Impression(s) from Imaging Studies Abdomen/Pelvis CT 03/12/20 09:56 IMPRESSION: Small bowel obstruction. Transition point not clearly identified but is likely in the ileum. Likely causes due to adhesions from previous surgery. No suspicious solid organ abnormality Free fluid in the dependent pelvis Postsurgical changes in the sigmoid Electronically Signed: Maximiliano Albert MD at 12:28 EDT , Service support , Assessment/Plan All Active Problems Small bowel obstruction (Acute) Hypokalemia (Acute) Abdominal pain (Acute) 1. Small bowel obstruction: Subjectively improved and not as severe the patient as it was last month. Patient's normal surgeon, Dr. Blackburn, is out of town so Dr. Lazar will be seeing the patient in consultation. NG tube was attempted in bilateral nares was unsuccessful. Discussed with the patient that we can hold off on that for now being that her abdomen is flat and she is not actively vomiting told her that if her condition changes or worsens that we may need to consider reattempting that. Plan is to make her n.p.o., IV fluids, pain control and antiemetics. Discussed with the patient that the plan is for conservative measures unless symptoms become refractory were surgery would be necessary. 2. VTE prophylaxis moderate risk with low migrate heparin. Inpatient E&M: 18445 Init Hosp L3
[2020-03-12 13:37] VITALS: BP 128/79; PULSE 67; RESP 16; TEMP 36.6; O2SAT 98
[2020-03-12] MEDS: Lidocaine Jelly 2% 20 ML Syringe (URO-JET) 20 APPLIC TOPICAL (13:39)
[2020-03-12] MEDS: Oxymetazoline 0.05% 1 SPRAY SPRAY.BTL 2 SPRAY NASAL (13:39)
--- NOTE | 2020-03-12 13:56 | NURSING ---
DR FAUSTIN IN ROOM
[2020-03-12 14:44] VITALS: BP 113/75; PULSE 51; RESP 16; TEMP 36.8; O2SAT 96; BMI 29.3; BMI 29.4
[2020-03-12] MEDS: 0.9% Normal Saline 1,000 ML 150 ML IV ×2 (15:00→21:25)
[2020-03-12] MEDS: Ondansetron 4 MG/2 ML Vial IV ×2 (15:01→23:12)
--- NOTE | 2020-03-12 15:58 | PCM.CONS.GEN ---
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 Patient's abdominal pain began yesterday after eating breakfast. She did have some distention. Similar presentation to when she has had bowel obstructions before. Patient states that her pain is similar but less severe than her bowel obstruction that she had last month. She has been having vomiting and nausea. Also complaining of abdominal distention. NG tube was attempted but was unable to advance very far bilaterally. She is subsequently developed some epistaxis that was mild afterwards. Past Medical History Past Medical History (Chronic Problems): Chronic Problems Pituitary tumor (Chronic) Chronic constipation (Chronic) Allergies No Known Allergies Allergy (Verified 03/12/20 09:48) Home Medications: Ambulatory Orders Medication Instructions Recorded Lubiprostone [Amitiza] 24 mcg PO BID 03/18/17 Hyoscyamine Sulfate 0.125 mg SL Q4H PRN PRN 03/12/20 Multivitamin/Iron/Folic Acid 1 ea PO DAILY 03/12/20 [Centrum Women Tablet] Pseudoephedrine [Sudafed] 60 mg PO Q6H PRN PRN 03/12/20 Surgical History: - - 1998 volvulus and had partial sigmoidectemy jasbir 2 years ago. Smoking Status: Never smoker Tobacco Use: Non-smoker Alcohol: None Drugs: None - *Family History Maternal History Items: Heart Disease, Pulmonary Disease, - - Interstitial lung disease Paternal History Items: Heart Disease Review of Systems Cardiovascular: Denies: Chest Pain, Chest Pressure, Chest Tightness, Palpitations Respiratory: Denies: Cough, Hemoptysis, Shortness of breath at rest, Shortness of breath upon exertion, Wheezing Gastrointestinal: Reports: Abdominal Pain, Nausea. Denies: Vomiting Genitourinary: Denies: Dysuria, Frequency, Hematuria, Urgency - Physical Exam Vitals/I&O's: Vital Signs Temp Pulse Resp BP Pulse Ox 98.2 F 51 L 16 113/75 96 03/12/20 14:44 03/12/20 14:44 03/12/20 14:44 03/12/20 14:44 03/12/20 14:44 Oxygen Delivery Method Room Air Weight: 204 lb 12.951 oz Body Mass Index (BMI) 29.3 Intake and Output for Last 24 Hours 03/10/20 03/11/20 03/12/20 23:59 23:59 23:59 Intake Total 1000 / 1000 Balance 1000 / 1000 General: Alert, Oriented x3 Lungs: Clear to auscultation Cardiovascular: Regular rate, Regular Rhythm, No murmurs Abdomen: Hypoactive Bowel Sounds, Distended, Tender - No rebound guarding or peritoneal signs are identified Laboratory Results 03/12/20 10:20: WBC 8.1, RBC 5.13, Hgb 14.5, Hct 45.3, MCV 88.3, MCH 28.3, MCHC 32.0, RDW Std Deviation 46.4 H, RDW Coeff of Ana 14.5, Plt Count 294, MPV 9.6, Immature Gran % (Auto) 0.400, Neut % (Auto) 81.3 H, Lymph % (Auto) 11.9 L, [place] % (Auto) 5.8, Eos % (Auto) 0.2, Baso % (Auto) 0.4, Absolute Neuts (auto) 6.6, Absolute Lymphs (auto) 0.97, Nucleated RBC % 0 03/12/20 10:20: Sodium 134 L, Potassium 3.5, Chloride 99, Carbon Dioxide 30.0, Anion Gap 5, BUN 11, Creatinine 0.96, Estim Creat Clear Calc 75.81, Est GFR (MDRD) Af Amer 79, Est GFR (MDRD) Non-Af 66, BUN/Creatinine Ratio 11.5, Glucose 109 H, Calcium 9.5, Total Bilirubin 0.50, AST 15, ALT 20, Alkaline Phosphatase 53, Total Protein 7.8, Albumin 4.3, Globulin 3.5, Albumin/Globulin Ratio 1.2, Lipase 61 L 03/12/20 12:00: Urine Color Yellow, Urine Clarity Clear, Urine pH 8.0, Ur Specific [place] 1.010, Urine Protein Negative, Urine Glucose (UA) Normal, Urine Ketones 5 H, Urine Occult Blood 10 H, Urine Nitrite Negative, Urine Bilirubin Negative, Urine Urobilinogen Normal, Ur Leukocyte Esterase Negative, Urine RBC 0 SEEN, Urine WBC 0 SEEN, Ur Squamous Epith Cells 0-5 SEEN, Urine Bacteria RARE, Urine Mucus 0 SEEN Current Medications Dextrose (D50w Syringe) 0 gm IV X1 PRN; Protocol PRN Reason: Hypoglycemia Enoxaparin Sodium (Lovenox) 40 mg SC DAILY [facility] Glucagon () 1 mg IM .X1 PRN PRN Reason: Hypoglycemia Hydromorphone HCl (Dilaudid Inj) 0.5 mg IV Q4H PRN PRN PRN Reason: Pain Score 6-10/10 Last Admin: 03/12/20 15:01 Dose: 0.5 mg Documented by: Sodium Chloride () 1,000 mls @ 150 mls/hr IV .Q6H40M MONIQUE Last Admin: 03/12/20 15:00 Dose: 150 mls/hr Documented by: Sodium Chloride () 250 mls @ 15 mls/hr IV .[id number] PRN PRN Reason: Saline Flush Sodium Chloride () 250 mls @ 15 mls/hr IV .[id number] PRN PRN Reason: Additional IVPB Infusion Morphine Sulfate () 4 mg IV Q3H PRN PRN PRN Reason: Pain Score 4-5/10 Ondansetron HCl (Zofran) 4 mg IV Q8H PRN PRN PRN Reason: NAUSEA/VOMITING Last Admin: 03/12/20 15:01 Dose: 4 mg Documented by: Sodium Chloride () 10 - 40 ml IV UD PRN PRN Reason: SALINE FLUSH Assessment/Plan All Active Problems Small bowel obstruction (Acute) Hypokalemia (Acute) Abdominal pain (Acute) This point I think conservative measures are appropriate. Her stomach is not greatly distended and she is not vomiting and hopefully I will not need to attempt to place an NG tube in her. Vital signs are stable and her white count is normal and I do not think that she is in need of an emergent exploratory laparotomy and lysis of adhesions. I reviewed her CAT scan from back in 2017 and it is very similar to her appearance today. She resolved on her own at that time and I have hopes that this will be the same. Office Visits / Consults: [id number] IP Consult L3
[2020-03-12] MEDS: Morphine 4 MG/ML Syringe IV ×2 (17:01→21:28)
[2020-03-12 21:18] VITALS: BP 121/64; PULSE 59; RESP 18; TEMP 37.3; O2SAT 95
[2020-03-12] MEDS: 0.9% Saline Lock 10 ML Syringe IV (21:28)
[2020-03-13] MEDS: 0.9% Saline Lock 10 ML Syringe IV (03:55)
[2020-03-13] MEDS: HYDROmorphone 0.5 MG/0.5 ML SYRINGE IV (03:56)
[2020-03-13 04:01] VITALS: BP 137/78; PULSE 75; RESP 18; TEMP 36.9; O2SAT 97
[2020-03-13] MEDS: 0.9% Normal Saline 1,000 ML 150 ML IV ×4 (04:04→23:33)
[2020-03-13 05:39] LABS: Basophil# 0.01 X10^3/uL; Basophil% 0.1 % (0-1); Eosinophil# 0.01 X10^3/uL; Eosinophils% 0.1 % (0-5); Hematocrit 41.7 % (37-47); Hemoglobin 13.2 g/dL (12.0-15.0); Lymphocyte % 7.1 % (19-41); Mean Corp Hgb Conc 31.7 g/dL (32-36); Mean Corpuscular Hgb 28.4 pg (27.0-32.0); Mean Corpuscular Volume 89.7 fL (81-99); Mean Platelet Vol. 9.7 fl (6.2-12.0); Monocyte% 9.5 % (0-10); NRBC Flagged by Analyzer 0 % (0-5); Neutrophil # 7.03 X10^3/uL (2.7-7.7); Neutrophil % 83.1 % (47-70); POSITIVE DIFFERENTIAL YES; Platelet Count 268 K/mm3 (150-450); RBC Distribution Width CV 14.9 % (11.6-14.6); RBC Distribution Width SD 48.4 fl (35.1-43.9); Red Blood Count 4.65 M/mm3 (4.2-5.4); White Blood Count 8.5 K/mm3 (4.4-11.0)
[2020-03-13 05:59] LABS: Anion Gap 4 (5-15); BUN 14 mg/dL (7-18); BUN/Creat Ratio 21.1 RATIO (10-20); Calcium,Total 8.2 mg/dL (8.5-10.1); Chloride 108 mmol/L (98-107); Creatinine, Serum 0.66 mg/dL (0.55-1.02); EST Glomerular Filtration Rate 100 mL/min (>60); Est Glom Filt Rate - Afr Amer 121 mL/min (>60); Estimated Creatinine Clearance 110.27 ml/min; Glucose 120 mg/dL (74-106); Potassium 3.8 mmol/L (3.5-5.1); Sodium Level 139 mmol/L (136-145)
[2020-03-13 06:42] LABS: Differential Indicated SCAN CRITERIA MET
[2020-03-13 07:40] LABS: Red Cell Morphology NORM C+C NORMAL (NORM C&C)
[2020-03-13 07:59] VITALS: BP 137/89; PULSE 100; RESP 16; TEMP 36.8; O2SAT 93
[2020-03-13] MEDS: Acetaminophen 500 MG Tablet PO ×4 (08:14→21:40)
--- NOTE | 2020-03-13 09:55 | CASEMGMT ---
RN CM Face to Face with patient for initial transition planning/care coordination assessment. RN CM introduced self and role at [facility]. Patient lying in bed, alert and oriented. Patient willing to participate in assessment and is able to answer all questions appropriately. Care providers, pharmacy, and demographics verified. Patient wishes to discharge home, denies need for home health at this time. Patient states she has no further needs or concerns at this time. CM to follow for discharge planning needs that may arise. PCP: [facility] Specialists: RONALDO Granados; Patient to see Dr. Soto, colorectal specialist Preferred Pharmacy: [facility] Insurance: [employer] Prescription Benefit: yes Living Will/HPOA: yes, Papo Pierre LNOK: Living Arrangements: Patient lives with in 1 story home. Patient states she is independent Transportation: self/ DME/HHC: Patient denies need for DME or HHC. Disposition Plan: Patient to discharge home with family support and follow-up plans in place. Yazmin HIGGINS, RN, CM
[2020-03-13] MEDS: Enoxaparin 40 MG/0.4 ML Syringe SC (10:29)
[2020-03-13 11:36] VITALS: BP 133/84; PULSE 103; RESP 16; TEMP 37.7; O2SAT 94
--- NOTE | 2020-03-13 11:40 | PCM.PN.HOSP ---
Reason for Visit: SBO Subjective: Feeling better. had vomiting this AM. +Diarrhea this AM. Vitals/I&O's: Vital Signs Temp Pulse Resp BP Pulse Ox 37.7 C H 103 H 16 133/84 H 94 03/13/20 11:36 03/13/20 11:36 03/13/20 11:36 03/13/20 11:36 03/13/20 11:36 Oxygen Delivery Method Room Air Weight: 92.9 kg Body Mass Index (BMI) 29.3 Intake and Output for Last 24 Hours 03/11/20 03/12/20 03/13/20 23:59 23:59 23:59 Intake Total 1962.5 / 1962.5 1967.5 / 1966.5 Output Total 500 / 500 75 / 75 Balance 1462.5 / 1462.5 1892.5 / 1892.5 General: Alert, No apparent distress HEENT: Atraumatic, Normocephalic Oral: Moist Mucosa, No Gingival or Mucosal Lesions/ Ulcerations Neck: No Nodes, Thyroid Normal Size and Texture Lungs: Clear to auscultation, Normal air movement, No rhonchi, No wheeze Cardiovascular: Regular rate, Regular Rhythm, Normal S1, Normal S2, No murmurs Abdomen: Bowel Sounds Present, Soft, Non Tender, Non-Distended, No Hepato-splenomegaly Extremities: No edema, No Calf Tenderness Psych/Mental Status: Normal Affect, Appropriate Laboratory Results 03/12/20 12:00: Urine Color Yellow, Urine Clarity Clear, Urine pH 8.0, Ur Specific [place] 1.010, Urine Protein Negative, Urine Glucose (UA) Normal, Urine Ketones 5 H, Urine Occult Blood 10 H, Urine Nitrite Negative, Urine Bilirubin Negative, Urine Urobilinogen Normal, Ur Leukocyte Esterase Negative, Urine RBC 0 SEEN, Urine WBC 0 SEEN, Ur Squamous Epith Cells 0-5 SEEN, Urine Bacteria RARE, Urine Mucus 0 SEEN 03/13/20 05:10: WBC 8.5, RBC 4.65, Hgb 13.2, Hct 41.7, MCV 89.7, MCH 28.4, MCHC 31.7 L, RDW Std Deviation 48.4 H, RDW Coeff of Ana 14.9 H, Plt Count 268, MPV 9.7, Immature Gran % (Auto) 0.100, Neut % (Auto) 83.1 H, Lymph % (Auto) 7.1 L, [place] % (Auto) 9.5, Eos % (Auto) 0.1, Baso % (Auto) 0.1, Absolute Neuts (auto) 7.0, Absolute Lymphs (auto) 0.60 L, Nucleated RBC % 0, Differential Comment , RBC Morphology NORM C+C 03/13/20 05:10: Sodium 139, Potassium 3.8, Chloride 108 H, Carbon Dioxide 27.0, Anion Gap 4 L, BUN 14, Creatinine 0.66, Estim Creat Clear Calc 110.27, Est GFR (MDRD) Af Amer 121, Est GFR (MDRD) Non-Af 100, BUN/Creatinine Ratio 21.1 H, Glucose 120 H, Calcium 8.2 L Current Medications Acetaminophen (Tylenol) 500 mg PO Q4H PRN PRN PRN Reason: HEADACHE/FEVER (T>102.5) Last Admin: 03/13/20 08:14 Dose: 500 mg Documented by: Acetaminophen (Tylenol) 650 mg RECTAL Q4H PRN PRN PRN Reason: HEADACHE/FEVER (T>102.5) Dextrose (D50w Syringe) 0 gm IV X1 PRN; Protocol PRN Reason: Hypoglycemia Enoxaparin Sodium (Lovenox) 40 mg SC DAILY [facility] Last Admin: 03/13/20 10:29 Dose: 40 mg Documented by: Glucagon () 1 mg IM .X1 PRN PRN Reason: Hypoglycemia Hydromorphone HCl (Dilaudid Inj) 0.5 mg IV Q4H PRN PRN PRN Reason: Pain Score 6-10/10 Last Admin: 03/13/20 03:56 Dose: 0.5 mg Documented by: Sodium Chloride () 1,000 mls @ 150 mls/hr IV .Q6H40M [facility] Last Admin: 03/13/20 10:32 Dose: 150 mls/hr Documented by: Sodium Chloride () 250 mls @ 15 mls/hr IV .[id number] PRN PRN Reason: Saline Flush Sodium Chloride () 250 mls @ 15 mls/hr IV .[id number] PRN PRN Reason: Additional IVPB Infusion Morphine Sulfate () 4 mg IV Q3H PRN PRN PRN Reason: Pain Score 4-5/10 Last Admin: 03/12/20 21:28 Dose: 4 mg Documented by: Ondansetron HCl (Zofran) 4 mg IV Q8H PRN PRN PRN Reason: NAUSEA/VOMITING Last Admin: 03/12/20 23:12 Dose: 4 mg Documented by: Sodium Chloride () 10 - 40 ml IV UD PRN PRN Reason: SALINE FLUSH Last Admin: 03/13/20 03:55 Dose: 10 ml Documented by: STROKE Vital Signs/Narrative: Vital Signs Temp Pulse Resp BP Pulse Ox 03/13/20 11:36 37.7 C H 103 H 16 133/84 H 94 03/13/20 07:59 36.8 C 100 16 137/89 H 93 Medical Necessity - Tobacco Use Smoking Status: Never smoker Tobacco Use: Non-smoker Assessment/Plan All Active Problems Small bowel obstruction (Acute) Hypokalemia (Acute) Abdominal pain (Acute) 1. Small bowel obstruction: Improved today with BM. Advance to clear liquids If tolerates, could possibly discharge 2. VTE prophylaxis moderate risk with low migrate heparin. Inpatient E&M: 89302 [facility] Hosp L2
--- NOTE | 2020-03-13 12:01 | PCM.PN.SRG ---
Subjective: Patient feels much better today. Has had a bowel movement.. Objective: Abdomen is soft nondistended normal active bowel sounds no discomfort - Physical Exam Vitals/I&O's: Vital Signs Temp Pulse Resp BP Pulse Ox 100 F H 103 H 16 133/84 H 94 03/13/20 11:36 03/13/20 11:36 03/13/20 11:36 03/13/20 11:36 03/13/20 11:36 Oxygen Delivery Method Room Air Weight: 204 lb 12.951 oz Body Mass Index (BMI) 29.3 Intake and Output for Last 24 Hours 03/11/20 03/12/20 03/13/20 23:59 23:59 23:59 Intake Total 1962.5 / 1962.5 1967.5 / 1967.5 Output Total 500 / 500 75 / 75 Balance 1462.5 / 1462.5 1892.5 / 1892.5 Laboratory Results 03/12/20 12:00: Urine Color Yellow, Urine Clarity Clear, Urine pH 8.0, Ur Specific [place] 1.010, Urine Protein Negative, Urine Glucose (UA) Normal, Urine Ketones 5 H, Urine Occult Blood 10 H, Urine Nitrite Negative, Urine Bilirubin Negative, Urine Urobilinogen Normal, Ur Leukocyte Esterase Negative, Urine RBC 0 SEEN, Urine WBC 0 SEEN, Ur Squamous Epith Cells 0-5 SEEN, Urine Bacteria RARE, Urine Mucus 0 SEEN 03/13/20 05:10: WBC 8.5, RBC 4.65, Hgb 13.2, Hct 41.7, MCV 89.7, MCH 28.4, MCHC 31.7 L, RDW Std Deviation 48.4 H, RDW Coeff of Ana 14.9 H, Plt Count 268, MPV 9.7, Immature Gran % (Auto) 0.100, Neut % (Auto) 83.1 H, Lymph % (Auto) 7.1 L, [place] % (Auto) 9.5, Eos % (Auto) 0.1, Baso % (Auto) 0.1, Absolute Neuts (auto) 7.0, Absolute Lymphs (auto) 0.60 L, Nucleated RBC % 0, Differential Comment , RBC Morphology NORM C+C 03/13/20 05:10: Sodium 139, Potassium 3.8, Chloride 108 H, Carbon Dioxide 27.0, Anion Gap 4 L, BUN 14, Creatinine 0.66, Estim Creat Clear Calc 110.27, Est GFR (MDRD) Af Amer 121, Est GFR (MDRD) Non-Af 100, BUN/Creatinine Ratio 21.1 H, Glucose 120 H, Calcium 8.2 L Current Medications Acetaminophen (Tylenol) 500 mg PO Q4H PRN PRN PRN Reason: HEADACHE/FEVER (T>102.5) Last Admin: 03/13/20 08:14 Dose: 500 mg Documented by: Acetaminophen (Tylenol) 650 mg RECTAL Q4H PRN PRN PRN Reason: HEADACHE/FEVER (T>102.5) Dextrose (D50w Syringe) 0 gm IV X1 PRN; Protocol PRN Reason: Hypoglycemia Enoxaparin Sodium (Lovenox) 40 mg SC DAILY [facility] Last Admin: 03/13/20 10:29 Dose: 40 mg Documented by: Glucagon () 1 mg IM .X1 PRN PRN Reason: Hypoglycemia Hydromorphone HCl (Dilaudid Inj) 0.5 mg IV Q4H PRN PRN PRN Reason: Pain Score 6-10/10 Last Admin: 03/13/20 03:56 Dose: 0.5 mg Documented by: Sodium Chloride () 1,000 mls @ 150 mls/hr IV .Q6H40M [facility] Last Admin: 03/13/20 10:32 Dose: 150 mls/hr Documented by: Sodium Chloride () 250 mls @ 15 mls/hr IV .[id number] PRN PRN Reason: Saline Flush Sodium Chloride () 250 mls @ 15 mls/hr IV .[id number] PRN PRN Reason: Additional IVPB Infusion Morphine Sulfate () 4 mg IV Q3H PRN PRN PRN Reason: Pain Score 4-5/10 Last Admin: 03/12/20 21:28 Dose: 4 mg Documented by: Ondansetron HCl (Zofran) 4 mg IV Q8H PRN PRN PRN Reason: NAUSEA/VOMITING Last Admin: 03/12/20 23:12 Dose: 4 mg Documented by: Sodium Chloride () 10 - 40 ml IV UD PRN PRN Reason: SALINE FLUSH Last Admin: 03/13/20 03:55 Dose: 10 ml Documented by: Medical Necessity - Tobacco Use Smoking Status: Never smoker Tobacco Use: Non-smoker Assessment/Plan All Active Problems Small bowel obstruction (Acute) Hypokalemia (Acute) Abdominal pain (Acute) Patient is now feeling better I think advancing her diet more likely allowing her to be discharged today would be appropriate. Inpatient E&M: 67842 Subs Hosp L2
[2020-03-13 14:00] VITALS: BP 136/83; PULSE 105; RESP 16; TEMP 37.2; O2SAT 93
[2020-03-13 19:52] VITALS: BP 128/82; PULSE 95; RESP 18; TEMP 37.2; O2SAT 95
[2020-03-13] MEDS: Lubiprostone 24 MCG Capsule PO (21:50)
[2020-03-14 02:01] VITALS: BP 120/78; PULSE 91; RESP 18; TEMP 37; O2SAT 96
[2020-03-14] MEDS: Acetaminophen 500 MG Tablet PO (05:28)
[2020-03-14] MEDS: 0.9% Normal Saline 1,000 ML 150 ML IV (05:30)
[2020-03-14 07:35] VITALS: BP 119/74; PULSE 85; RESP 16; TEMP 37; O2SAT 96
[2020-03-14] MEDS: Enoxaparin 40 MG/0.4 ML Syringe SC (08:32)
[2020-03-14] MEDS: Lubiprostone 24 MCG Capsule PO (08:32)
--- NOTE | 2020-03-14 10:45 | DCINST_ITS ---
You will use the following diet at home:: Other - soft diet, advance slowly as tolerated Call your doctor if you observe: Fever of 101 or Higher, - - worsening abdominal pain. Refractory nausea and vomiting. Allergies/Adverse Reactions: Allergies No Known Allergies Allergy (Verified 03/12/20 09:48) Medications to take at Discharge Lubiprostone [Amitiza] 24 mcg PO BID 03/18/17 Hyoscyamine Sulfate 0.125 mg SL Q4H PRN PRN 03/12/20 Multivitamin/Iron/Folic Acid [Centrum Women Tablet] 1 ea PO DAILY 03/12/20 Pseudoephedrine [Sudafed] 60 mg PO Q6H PRN PRN 03/12/20 Acetaminophen [Tylenol] 500 mg PO Q4H PRN PRN tablet 03/14/20 Ondansetron HCl [Zofran] 8 mg PO TID PRN #20 tab 03/14/20 The following prescriptions were given: Ondansetron HCl [Zofran] 8 mg PO TID PRN #20 tab PRN Reason: nausea and vomiting Transmission Status: Pending to [id number] Primary Care Physician: Roderick Wellington MD [Primary Care Provider] - Within 2 Weeks Test Results: Test results from this visit will be discussed in further detail at your follow- up appointment, if applicable. Please Follow Up With: Tessie Blackburn MD When: 4-6 weeks (or other general surgeon) Proposed Discharge Date: 03/14/20
--- NOTE | 2020-03-14 10:50 | PCM.DC.SUM ---
Discharge Date and Diagnosis - Problem List Patient Problems: Active and Suspected Problems Small bowel obstruction (Acute) Date of Admission: 03/12/20 Date of Discharge: 03/14/20 - Primary Discharge Diagnosis Acute Problems: Active Problems Small bowel obstruction (Acute) - Secondary Discharge Diagnosis Chronic Problems: Chronic Problems Pituitary tumor (Chronic) Chronic constipation (Chronic) Hospital Course and Treatment Imaging Results: Clinical Impression(s) from Imaging Studies Abdomen/Pelvis CT 03/12/20 09:56 IMPRESSION: Small bowel obstruction. Transition point not clearly identified but is likely in the ileum. Likely causes due to adhesions from previous surgery. No suspicious solid organ abnormality Free fluid in the dependent pelvis Postsurgical changes in the sigmoid Electronically Signed: Maximiliano Albert MD at 12:28 EDT , Service support , Telma Lazar, general surgery Operations: None Procedures: None Summary of Care Provided: The patient is a 49 year old F presents with abdominal pain. 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 She had a CAT scan that shows small bowel obstruction both no clear transition point. NG tube was attempted but due to likely nasal turbinate inflammation, was unable to be passed and patient did experience some mild epistaxis following the attempts in both nares. Patient did improve slowly. Patient has been able to tolerate clear diet. Patient was seen in consultation by Dr. Lazar, general surgery, no surgery was recommended at this time as patient has not gotten better. Patient will be discharged home today in stable condition but advised to return if she has worsening abdominal pain, refractory nausea and vomiting. Patient recommend follow-up with general surgery in the next a month or 2 for follow-up. [] Patient Problems: Active and Suspected Problems Small bowel obstruction (Acute) - Physical Exam Vitals/I&O's: Vital Signs Temp Pulse Resp BP Pulse Ox 37.0 C 85 16 119/74 96 03/14/20 07:35 03/14/20 07:35 03/14/20 07:35 03/14/20 07:35 03/14/20 07:35 Oxygen Delivery Method Room Air Weight: 92.9 kg Body Mass Index (BMI) 29.3 Intake and Output for Last 24 Hours 03/12/20 03/13/20 03/14/20 23:59 23:59 23:59 Intake Total 1962.5 / 1962.5 4155.0 / 4155.0 892.5 / 892.5 Output Total 500 / 500 75 / 75 Balance 1462.5 / 1462.5 4080.0 / 4080.0 892.5 / 892.5 General: Alert, No apparent distress HEENT: Atraumatic, Normocephalic Oral: Moist Mucosa, No Gingival or Mucosal Lesions/ Ulcerations Neck: No Nodes, Thyroid Normal Size and Texture Lungs: Clear to auscultation, Normal air movement, No rhonchi, No wheeze Cardiovascular: Regular rate, Regular Rhythm, Normal S1, Normal S2 Abdomen: Bowel Sounds Present, Soft, Non-Distended, Hypoactive Bowel Sounds, Tender Current Medications Acetaminophen (Tylenol) 500 mg PO Q4H PRN PRN PRN Reason: HEADACHE/FEVER (T>102.5) Last Admin: 03/14/20 05:28 Dose: 500 mg Documented by: Acetaminophen (Tylenol) 650 mg RECTAL Q4H PRN PRN PRN Reason: HEADACHE/FEVER (T>102.5) Dextrose (D50w Syringe) 0 gm IV X1 PRN; Protocol PRN Reason: Hypoglycemia Enoxaparin Sodium (Lovenox) 40 mg SC DAILY [facility] Last Admin: 03/14/20 08:32 Dose: 40 mg Documented by: Glucagon () 1 mg IM .X1 PRN PRN Reason: Hypoglycemia Hydromorphone HCl (Dilaudid Inj) 0.5 mg IV Q4H PRN PRN PRN Reason: Pain Score 6-10/10 Last Admin: 03/13/20 03:56 Dose: 0.5 mg Documented by: Hyoscyamine Sulfate (Levsin/Sl) 0.125 mg PO Q4H PRN PRN PRN Reason: stomach Sodium Chloride () 1,000 mls @ 150 mls/hr IV .Q6H40M [facility] Last Admin: 03/14/20 05:30 Dose: 150 mls/hr Documented by: Sodium Chloride () 250 mls @ 15 mls/hr IV .[id number] PRN PRN Reason: Saline Flush Sodium Chloride () 250 mls @ 15 mls/hr IV .[id number] PRN PRN Reason: Additional IVPB Infusion Lubiprostone (Amitiza) 24 mcg PO BID MONIQUE Last Admin: 03/14/20 08:32 Dose: 24 mcg Documented by: Morphine Sulfate () 4 mg IV Q3H PRN PRN PRN Reason: Pain Score 4-5/10 Last Admin: 03/12/20 21:28 Dose: 4 mg Documented by: Ondansetron HCl (Zofran) 4 mg IV Q8H PRN PRN PRN Reason: NAUSEA/VOMITING Last Admin: 03/12/20 23:12 Dose: 4 mg Documented by: Pseudoephedrine HCl (Sudafed) 60 mg PO Q6H PRN PRN PRN Reason: SINUS CONGESTION Last Admin: 03/14/20 05:28 Dose: 60 mg Documented by: Sodium Chloride () 10 - 40 ml IV UD PRN PRN Reason: SALINE FLUSH Last Admin: 03/13/20 03:55 Dose: 10 ml Documented by: Discharge Diet: - - soft, advance as tolerated Discharge Activity: Return to Normal Activity, No Restrictions Call your doctor if you observe: Fever of 101 or Higher, - - worsening abdominal pain. Refractory nausea and vomiting. Home Medications: Medications to take at Discharge Lubiprostone [Amitiza] 24 mcg PO BID 03/18/17 Hyoscyamine Sulfate 0.125 mg SL Q4H PRN PRN 03/12/20 Multivitamin/Iron/Folic Acid [Centrum Women Tablet] 1 ea PO DAILY 03/12/20 Pseudoephedrine [Sudafed] 60 mg PO Q6H PRN PRN 03/12/20 Acetaminophen [Tylenol] 500 mg PO Q4H PRN PRN tablet 03/14/20 Ondansetron HCl [Zofran] 8 mg PO TID PRN #20 tab 03/14/20 Following Prescrptions Were Given to Patient: Ondansetron HCl [Zofran] 8 mg PO TID PRN #20 tab PRN Reason: nausea and vomiting Transmission Status: Pending to [facility]/pharmacy #[id number] Primary Care Physician: Roderick Wellington MD [Primary Care Provider] - Within 2 Weeks Please Follow Up With: Tessie Blackburn MD When: 4-6 weeks (or other general surgeon) Disposition: Home Minutes spent on discharge:: 32 Patient Condition:: Good Medical Necessity - Tobacco Use Smoking Status: Never smoker Tobacco Use: Non-smoker Meaningful Use Info Meaningful Use Diagnoses (Choose all that apply): None applicable Inpatient E&M: 39272 Disch Hosp
[2020-03-14 12:00] VITALS: BP 124/83; PULSE 80; RESP 16; TEMP 36.6; O2SAT 99
--- NOTE | 2020-03-14 12:11 | PHA.DC.MC ---
Pharmacy Service has performed discharge medication reconciliation and counseling for this patient. The patient was counseled on the following discharge medications and changes in medications for homegoing were reviewed. 1. ZOFRAN 2. TYLENOL The Reason for Use, instructions for use, and potential side effects were reviewed for all new medications. The patient's questions regarding all of their medications were answered. The patient was able to verbally demonstrate an understanding of their discharge medications. Home Medications Lubiprostone [Amitiza] 24 mcg PO BID 03/18/17 Hyoscyamine Sulfate 0.125 mg SL Q4H PRN PRN 03/12/20 Multivitamin/Iron/Folic Acid [Centrum Women Tablet] 1 ea PO DAILY 03/12/20 Pseudoephedrine [Sudafed] 60 mg PO Q6H PRN PRN 03/12/20 Acetaminophen [Tylenol] 500 mg PO Q4H PRN PRN tab 03/14/20 Ondansetron HCl [Zofran] 8 mg PO TID PRN #20 tab 03/14/20 The patient's discharge medication list was reviewed for discrepancies and discrepancies were resolved.
== END 2020-03-14 13:30 | disposition home or self-care (01) | DRG 389 ==
LOC: ED 10:01 → MS3 13:30
PROVIDERS: Emergency Provider Student in an Organized Health Care Education/Training Program; PCP Family Medicine
DX: K56.609 Unspecified intestinal obstruction, unspecified as to partial versus complete obstruction (principal); I97.89 Other postprocedural complications and disorders of the circulatory system, not elsewhere classified; Z90.49 Acquired absence of other specified parts of digestive tract; E87.6 Hypokalemia; R04.0 Epistaxis; Y84.8 Other medical procedures as the cause of abnormal reaction of the patient, or of later complication, without mention of misadventure at the time of the procedure
CPT/HCPCS: 36415; 74177; 80048; 80053; 81001; 83690; 85025; 99284; J7030; Q9967; A4216; J2405

== ENCOUNTER 2023-08-09 22:43 | Inpatient (IN) | payer BC, SELFPAY ==
[2023-08-09 22:44] VITALS: BP 116/72; PULSE 66; RESP 18; TEMP 36.3; O2SAT 98
--- NOTE | 2023-08-09 22:55 | EKG12_ITS ---
Test Reason : DYSRHYTHMIA Blood Pressure : / mmHG Vent. Rate : 050 BPM Atrial Rate : 050 BPM P-R Int : 124 ms QRS Dur : 096 ms QT Int : 436 ms P-R-T Axes : 030 057 064 degrees QTc Int : 397 ms Sinus bradycardia Otherwise normal ECG Confirmed by WILL MCELROY, SASCHA ([id number]), video news editor KENDALL YEH ([id number]) on 08/11/2023 5:56:44 AM Referred By: Confirmed By:SASCHA SOLIS MD
--- NOTE | 2023-08-09 22:55 | CT_ITS ---
We are attempting to reach an attending provider to discuss findings. An addendum with communication details will be sent when the communication is complete. EXAM: CT abdomen and pelvis with contrast. HISTORY: abd pain, vomiting. H/O SBO TECHNIQUE: CT Abdomen And Pelvis W/ Contrast Injection. A radiation dose optimization technique was used for this scan. COMPARISON: CT abdomen pelvis March 12, 2020. LIMITATIONS: None. LOWER CHEST: Mild hiatal hernia. Small pericardial effusion. LIVER: Normal. GALLBLADDER: Normal. BILE DUCTS: Normal. PANCREAS: Normal. SPLEEN: Normal. ADRENAL GLANDS: Normal. KIDNEYS/URETERS/BLADDER: Normal. AORTA: Normal caliber. BOWEL/MESENTERY: Postsurgical changes in the epigastric region. There is twisting and distortion of the mesentery in the lower abdomen near the midline. Multiple loops of small bowel are dilated up to 5 cm with air-fluid levels. A zone of transition is in the mid small bowel in the mid abdomen just to the right of midline near the mesenteric twisting. APPENDIX: Not visualized. PERITONEUM: Trace free pelvic fluid. REPRODUCTIVE ORGANS: 1.8 cm fibroid.. BONES/SOFT TISSUES: No acute fracture. OTHER: None. CONCLUSION: High-grade mid small bowel obstruction. Associated distortion and twisting of the mesentery near the zone of transition concerning for adhesions or internal hernia. Electronically Signed: Mason Horvath MD at 0:27 EST , CT/Abdomen/Pelvis W IV Cont ONLY IMPRESSION: undefined
--- NOTE | 2023-08-09 22:57 | EX.ED.DYSGE1 ---
HPI History of Present Illness Chief Complaint: Abd Pain Informant: patient Onset/Context/Timing Onset: Today Current Severity: Moderate Maximum Severity: Moderate Narrative Narrative: Patient presents secondary to abdominal pain with nausea and vomiting. She states her last bowel movement was this morning but she has not been able to pass gas or stool since that time. She does have a history of small bowel obstructions. She states she felt lightheaded and near syncopal but does not believe she has had a fever. No chest pain. [facility] Medical History (Updated 08/10/23 @ 02:[address] Anu Ochoa MD) Pituitary tumor Small bowel obstruction Home Medications lubiprostone 24 mcg capsule (Amitiza) 24 mcg PO BID ibs 03/18/17 [History Last Taken 03/11/20] hyoscyamine sulfate 0.125 mg sublingual tablet 0.125 mg SL Q4H PRN PRN stomach 03/12/20 [History Last Taken 03/12/20] multivitamin-ferrous fumarate-folic acid 18 mg-400 mcg tablet 1 ea PO DAILY supplement 03/12/20 [History Last Taken 03/11/20] pseudoephedrine HCl 60 mg tablet 60 mg PO Q6H PRN PRN Sinus Congestion 03/12/20 [History Last Taken 03/08/20] acetaminophen 500 mg tablet 500 mg PO Q4H PRN PRN Headache/Fever (T>102.5) 03/14/20 [Rx Last Taken Unknown] ondansetron HCl 8 mg tablet 8 mg PO TID PRN nausea and vomiting #20 tabs 03/14/20 [Rx Last Taken Unknown] Allergy/AdvReac Type Severity Reaction Status Date / Time No Known Allergies Allergy Verified 08/09/23 22:44 Surgical History (Updated 08/09/23 @ 23:[address] Anu Ochoa MD) History of bowel resection Status post Yomaira fundoplication Social History Smoking Status: Never smoker ROS ROS ED Constitutional Constitutional ED: Denies chills or fever(s) Eyes Eyes: Denies discharge from eye(s) ENT ENT ED: Denies discharge from eye(s), rhinorrhea or sore throat Cardiovascular Cardiovascular: Denies chest pain or palpitations Respiratory/Chest Respiratory/Chest: Denies cough or dyspnea Gastrointestinal Gastrointestinal: Reports abdominal pain, nausea and vomiting; Denies diarrhea Genitourinary Genitourinary ED: Denies dysuria Musculoskeletal Musculoskeletal: Denies back pain or extremity pain Integumentary Denies Abrasions or rash Neurologic Neurologic: Denies headache(s) or weakness Psychiatric Psychiatric: Denies anxiety or depression Allergic/Immunologic Allergic/Immunologic ED: Denies lip swelling or urticaria EXAM Physical Exam Const Vital Signs: 08/09/23 22:44 08/10/23 00:00 Temperature 97.3 F L Temperature Source Temporal Pulse Rate 66 44 L Respiratory Rate 18 12 Blood Pressure 116/72 112/71 Blood Pressure Mean 86 84 Pulse Ox 98 98 Oxygen Delivery Method Room Air Room Air Positive well nourished and well developed General Appearance ED: well developed Eyes EOMs intact bilaterally Chest Wall inspection of chest normal and palpation of chest normal Resp normal respiratory effort and clear to auscultation bilaterally Cardio regular rate and regular rhythm GI GI Narrative: Abdomen is soft with mild diffuse tenderness. No guarding or rebound. Hypoactive but present bowel sounds are noted. 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 EKG obtained to evaluate for cardiac arrhythmia/ischemia. Labwork obtained to evaluate for leukocytosis, anemia, and electrolyte derangement. CT scan with IV contrast obtained to evaluate for possible small bowel obstruction. History & Record Review Discussion w/independent historian: Patient and Family Additional record(s) reviewed:: Prior inpatient record, Prior ED visit and Prior labs Lab Data Attestation: I reviewed the patient's lab results. Labs: Laboratory Results - last 24 hr 08/09/23 23:10 WBC 11.3 H RBC 5.23 Hgb 13.7 Hct 43.6 MCV 83.4 MCH 26.2 L MCHC 31.4 L RDW Std Deviation 48.5 H RDW Coeff of Ana 16.1 H Plt Count 334 MPV 9.7 Immature Gran % (Auto) 0.300 Neut % (Auto) 77.4 H Lymph % (Auto) 16.1 L [place] % (Auto) 5.4 Eos % (Auto) 0.4 Baso % (Auto) 0.4 Absolute Neuts (auto) 8.7 H Absolute Lymphs (auto) 1.81 Nucleated RBC % 0 Sodium 135 L Potassium 3.4 L Chloride 99 Carbon Dioxide 30.0 Anion Gap 6 BUN 10 Creatinine 0.92 Est GFR (MDRD) Af Amer 82 Est GFR (MDRD) Non-Af 68 BUN/Creatinine Ratio 10.9 Glucose 175 H Calcium 11.2 H Total Bilirubin 0.40 Direct Bilirubin 0.14 AST 16 ALT 22 Alkaline Phosphatase 51 Total Protein 7.8 Albumin 4.1 Globulin 3.7 Lipase 18 Radiography Diagnostic Testing: Clinical Impression(s) from Imaging Studies Abdomen/Pelvis CT 08/09/23 22:55 IMPRESSION: undefined ADDENDUM: 08/10/23 0038 IMPRESSION: undefined Treatment and Re-Evaluation :: CBC was a white count of 11.3 with 77% neutrophils. Chemistry studies reveal slightly low potassium at 3.4. Renal function is normal. Glucose is 175. LFTs and lipase are normal. CT scan of the abdomen pelvis with IV contrast reveals a high-grade mid small bowel obstruction. Associated distortion and twisting of the mesentery near the zone of transition concerning for adhesions or internal hernia. Test results are discussed with Dr. Brennan who reviewed the patient's images. She spoke with the radiologist herself and noted that the images are very similar to her most recent bowel obstruction in 2019. We attempted an NG tube but were unable to pass this. Dr. Brennan asked that I speak with hospitalist to see if they will admit for medical management at this time. Dr. Brennan will see the patient first thing in the morning to discuss options with her at that time. Patient is comfortable with this plan. It is noted the patient has been bradycardic with heart rate in the 40s during her ER stay. Her blood pressure has been adequate. Discharge Plan Triage Chief Complaint: Abd Pain Other Complaint: Nausea/Vomiting ED Provider: Anu Ochoa Dx/Rx/DC Orders Clinical Impression: Bradycardia, Small bowel obstruction Prescriptions: No Action lubiprostone [Amitiza] 24 MCG capsule 24 mcg PO BID Patient Comments: constipation hyoscyamine sulfate 0.125 MG tablet, sublingual 0.125 mg SL Q4H PRN PRN (Reason: stomach) pseudoephedrine HCl 60 MG tablet 60 mg PO Q6H PRN PRN (Reason: Sinus Congestion) [id number] acid 1 EACH tablet 1 ea PO DAILY acetaminophen 500 MG tablet 500 mg PO Q4H PRN PRN (Reason: Headache/Fever (T>102.5)) 0RF ondansetron HCl 8 MG tablet 8 mg PO TID PRN (Reason: nausea and vomiting) Qty: 20 0RF Primary Care Provider: Roderick Wellington Referrals: Roderick Wellington MD [Primary Care Provider] - Disposition Disposition: Acute Care Hospital [facility] [place] [facility]
[2023-08-09 23:22] LABS: Absolute Lymphocyte Count 1.81 X10^3/uL (0.83-4.51); Absolute Neutrophil Count 8.7 X10^3/uL (2.0-7.7); Basophil# 0.04 X10^3/uL; Basophil% 0.4 % (0-1); Eosinophil# 0.04 X10^3/uL; Eosinophils% 0.4 % (0-5); Hematocrit 43.6 % (37-47); Hemoglobin 13.7 g/dL (12.0-15.0); Lymphocyte # 1.81 X10^3/ul (0.83-4.51); Lymphocyte % 16.1 % (19-41); Mean Corp Hgb Conc 31.4 g/dL (32-36); Mean Corpuscular Hgb 26.2 pg (27.0-32.0); Mean Corpuscular Volume 83.4 fL (81-99); Mean Platelet Vol. 9.7 fl (6.2-12.0); Monocyte# 0.61 X10^3/uL; Monocyte% 5.4 % (0-10); NRBC Flagged by Analyzer 0 % (0-5); Neutrophil # 8.73 X10^3/uL (2.7-7.7); Neutrophil % 77.4 % (47-70); Platelet Count 334 K/mm3 (150-450); RBC Distribution Width CV 16.1 % (11.6-14.6); RBC Distribution Width SD 48.5 fl (35.1-43.9); Red Blood Count 5.23 M/mm3 (4.2-5.4); White Blood Count 11.3 K/mm3 (4.4-11.0)
[2023-08-09] MEDS: 0.9% Normal Saline (1000mL) 1,000 ML 150 ML IV (23:23)
[2023-08-09] MEDS: Ondansetron 4 MG/2 ML Vial IV (23:24)
[2023-08-09] MEDS: Morphine 4 MG/ML Syringe IV (23:24)
[2023-08-09 23:40] LABS: AST(SGOT) 16 U/L (15-37); Alanine Aminotransfer ALT/SGPT 22 U/L (13-56); Albumin, Serum 4.1 g/dL (3.2-5.0); Alkaline Phosphatase 51 U/L (45-117); Anion Gap 6 (5-15); BUN 10 mg/dL (7-18); BUN/Creat Ratio 10.9 RATIO (10-20); Bilirubin, Direct 0.14 mg/dL (0.00-0.30); Calcium,Total 11.2 mg/dL (8.5-10.1); Chloride 99 mmol/L (98-107); Creatinine, Serum 0.92 mg/dL (0.55-1.02); EST Glomerular Filtration Rate 68 mL/min (>60); Est Glom Filt Rate - Afr Amer 82 mL/min (>60); Globulin 3.7 g/dL (2.2-4.2); Glucose 175 mg/dL (74-106); Lipase 18 U/L (13-75); Potassium 3.4 mmol/L (3.5-5.1); Protein, Total 7.8 g/dL (6.4-8.2); Sodium Level 135 mmol/L (136-145)
[2023-08-10] VITALS (35 sets, daily range): BP systolic 98–136; BP diastolic 62–93; PULSE 39–102; RESP 12–21; TEMP 36.3–37.4; O2SAT 88–100; BMI 27.9; BMI 28.0
[2023-08-10] MEDS: fentaNYL 100 MCG/2 ML Ampul 25 MCG IV ×3 (00:11→06:31)
--- OUTSIDE RECORDS SUMMARY | 2023-08-10 00:24 | XMS RPT_ITS | CCD ---
Author Name Unknown Address [address] [place] [address] Organization [facility] Care Team Providers Care Diamond Powder Technician Name Role Phone DORETHA HERNÁNDEZ Unavailable Unavailable TASIA BRIONES Unavailable Unavailable Chelsea Wellington MD Primary Care Provider Chelsea Wellington MD Primary Care Provider Chelsea Wellington MD Primary Care Provider Chelsea Wellington MD Primary Care Provider TOM MONSIVAIS Referring Unavailable CHELSEA WELLINGTON Primary Care Unavailable MILAGRO CRAFT Attending Unavailalfredo e CHELSEA WELLINGTON Primary Care Unavailable Allergies Allergy Classification Reported Allergen(s) Allergy Type Date of Onset Reaction(s) Facility (20 sources) Domperidone; Translations: [DOMPERIDONE (BULK)] Drug Allergy 05-06-2005 [facility] Medications Current Medications Medication Drug Class(es) Dates Sig (Normalized) Sig (Original) amoxicillin 875 mg oral tablet (1 source) Penicillin-class Antibacterial Start: 07-13-2022 End: 07-23-2022 take 1 tablet by mouth twice daily amoxicillin (AMOXIL) 875 mg tablet Indications: Pharyngitis, unspecified etiology Take 1 tablet by mouth twice daily for 10 days. 20 tablet 0 07/13/2022 07/23/2022 Active Completed/Discontinued Medications Medication Drug Class(es) Dates Sig (Normalized) Sig (Original) benoxinate hydrochloride 4 mg/ml / fluorescein sodium 2.5 mg/ml ophthalmic solution (3 sources) Diagnostic Dye Start: 04-13-2023 End: 04-14-2023 fluorescein-benoxi isabell 0.25-0.4 % 1 Drop (FLURESS) Problems Active Problems Problem Classification Problem Date Documented Date Episodic/Chronic Allergic reactions (1 source) Inflammatory dermatosis; Translations: [Irritant contact dermatitis, unspecified cause] Episodic Cancer; other and unspecified primary (1 source) History of pituitary adenoma; Translations: [Personal history of other benign neoplasm] Episodic Disorders of lipid metabolism (8 sources) Pure hypercholesterolemia; Translations: [Pure hypercholesterolemia, unspecified] Onset: 06-19-2022 Chronic Headache; including migraine (1 source) Headache; Translations: [Headache, unspecified headache type] Episodic Inflammation; infection of eye (except that caused by tuberculosis or sexually transmitteddisease) (8 sources) Episcleritis of right eye; Translations: [Unspecified episcleritis, right eye] Onset: 04-07-2022 Episodic Joint disorders and dislocations; trauma-related (1 source) Chondromalacia; Translations: [Chondromalacia patellae, left knee] Chronic Other circulatory disease (20 sources) Raynaud's phenomenon; Translations: [Raynaud's syndrome without gangrene] Onset: 03-27-2013 03-27-2013 Chronic Other eye disorders (20 sources) Bilateral vitreous floaters; Translations: [Other vitreous opacities, bilateral] Onset: 10-31-2015 Chronic Other eye disorders (5 sources) Subconjunctival hemorrhage of right eye; Translations: [Conjunctival hemorrhage, right eye] Onset: 04-07-2022 Episodic Other eye disorders (3 sources) Pain around eye; Translations: [Ocular pain, right eye] Onset: 05-12-2022 Episodic Other nutritional; endocrine; and metabolic disorders (7 sources) Obese class I; Translations: [Obesity, unspecified] Onset: 06-19-2022 06-19-2022 Chronic Other screening for suspected conditions (not mental disorders or infectious disease) (3 sources) Patient encounter status; Translations: [Encounter for screening for lipoid disorders] Episodic Other upper respiratory infections (2 sources) Pharyngitis; Translations: [Acute pharyngitis, unspecified] Episodic Past or Other Problems Problem Classification Problem Date Documented Da te Episodic/Chronic Abdominal pain (13 sources) Right upper quadrant pain; Translations: [Right upper quadrant pain] Onset: 06-17-2020 06-17-2020 Episodic Other and unspecified benign neoplasm (14 sources) Pituitary adenoma; Translations: [Benign neoplasm of pituitary gland] Onset: 03-27-2013 08-20-2021 Episodic Other connective tissue disease (20 sources) Pes anserinus bursitis of left knee; Translations: [Other bursitis of knee, left knee] Onset: 03-13-2022 Episodic Other eye disorders (20 sources) Tear film insufficiency; Translations: [Dry eye syndrome of bilateral lacrimal glands] Onset: 10-31-2015 Episodic Other gastrointestinal disorders (13 sources) Disorder of colon; Translations: [Disease of intestine, unspecified] Onset: 03-27-2013 03-27-2013 Episodic Other non-traumatic joint disorders (20 sources) Pain in left knee; Translations: [Pain in joint, lower leg] Onset: 03-13-2022 Episodic Other upper respiratory disease (13 sources) Congestion of nasal sinus; Translations: [Nasal congestion] Onset: 06-17-2020 06-17-2020 Episodic Results Test Name Value Interpretation Reference Range Facil ity Vital Signs Date Time Vital Sign Value Performing Clinician Sruthi ramon 09-17-2022 08:34-0500 Body temperature 97.59 [degF] Bambi Athy PA-C Work Phone: [facility] 09-17-2022 08:34-0500 Body weight 97.16 kg Bambi Athy PA-C Work Phone: [facility] 09-17-2022 08:34-0500 Diastolic blood pressure 82 mm[Hg] Bambi Athy PA-C Work Phone: [facility] 09-17-2022 08:34-0500 Heart rate 68 /min Bambi Athy PA-C Work Phone: [facility] 09-17-2022 08:34-0500 Respiratory rate 18 /min Bambi Athy PA-C Work Phone: [facility] 09-17-2022 08:34-0500 SaO2% (BldA) [Mass fraction] 100 % Bambi Athy PA-C Work Phone: [facility] 09-17-2022 08:34-0500 Systolic blood pressure 122 mm[Hg] Bambi Pelletier PA-C Work Phone: [facility] 07-13-2022 14:55-0500 Body height 175.3 cm Chelsea Wellington MD Work Phone: [facility] 07-13-2022 14:55-0500 Body temperature 98.1 [degF] Chelsea Wellington MD Work Phone: [facility] 07-13-2022 14:55-0500 Body weight 95.71 kg Chelsea Wellington MD Work Phone: [facility] 07-13-2022 14:55-0500 Diastolic blood pressure 88 mm[Hg] Chelsea Wellington MD Work Phone: [facility] 07-13-2022 14:55-0500 Heart rate 83 /min Chelsea Wellington MD Work Phone: [facility] 07-13-2022 14:55-0500 SaO2% (BldA) [Mass fraction] 99 % Chelsea Wellington MD Work Phone: [facility] 07-13-2022 14:55-0500 Systolic blood pressure 124 mm[Hg] Chelsea Wellington MD Work Phone: [facility] 06-19-2022 09:26-0400 Body height 174 cm Tariq Hurt MD Work Phone: [facility] 06-19-2022 09:26-0400 Body weight 94.8 kg Tariq Hurt MD Work Phone: [facility] 06-19-2022 09:26-0400 Diastolic blood pressure 81 mm[Hg] Tariq Hurt MD Work Phone: [facility] 06-19-2022 09:26-0400 Heart rate 88 /min Tariq Hurt MD Work Phone: [facility] 06-19-2022 09:26-0400 SaO2% (BldA) [Mass fraction] 99 % Tariq Hurt MD Work Phone: [facility] 06-19-2022 09:26-0400 Systolic blood pressure 113 mm[Hg] Tariq Hurt MD Work Phone: [facility] 04-20-2022 14:35-0400 Body height 177.8 cm Gabi Clever PA-C Work Phone: [facility] 04-20-2022 14:35-0400 Body weight 99.79 kg Gabi Joseph PA-C Work Phone: [facility] 03-09-2022 15:00-0400 Body height 177.8 cm Gabi Clever PA-C Work Phone: [facility] 03-09-2022 15:00-0400 Body weight 99.79 kg Gabi Joseph PA-C Work Phone: [facility] 02-19-2022 13:10-0400 Diastolic blood pressure 84 mm[Hg] Chelsea Wellington MD Work Phone: [facility] 02-19-2022 13:10-0400 Heart rate 97 /min Chelsea Wellington MD Work Phone: [facility] 02-19-2022 13:10-0400 SaO2% (BldA) [Mass fraction] 96 % Chelsea Wellington MD Work Phone: [facility] 02-19-2022 13:10-0400 Systolic blood pressure 122 mm[Hg] Chelsea Wellington MD Work Phone: [facility] Encounters Encounter Date Encounter Type Care Provider Facility Start: 07-28-2023 ambulatory Chelsea Wellington MD Work Phone: Internal Medicine [facility] Start: 04-13-2023 End: 04-13-2023 ambulatory TOM MONSIVAIS Facility:[facility] Start: 04-13-2023 End: 04-13-2023 Patient encounter procedure Milagro Craft OD Work Phone: Ophthalmology Procedures Date Procedure Procedure Detail Performing Clinician Start: 07-13-2022 STREP A MOLECULAR (POC) Chelsea Patricio Work Phone: Start: 06-24-2022 End: 06-24-2022 Mammography Bulk Order Provider Start: 06-13-2022 Lipid 1996 panel - Serum or Plasma Screen Wstr Start: 05-12-2022 End: 05-12-2022 Visual field xm uni/bi w/interp extended exam Tom Monsivais MD Work Phone: Start: 04-20-2022 Arthrocentesis aspir&/inj major jt/bursa w/o us Gabi Ruiz PA-C Work Phone: Start: 07-24-2021 Adult depression screening assessment Milagro rCaft OD Work Phone: Start: 04-23-2021 Mammography Milagro Craft O D Work Phone: Start: 11-25-2020 Colonoscopy Milagro Craft O D Work Phone: Start: 06-27-2014 History of laser assisted in situ keratomileusis S/P LASIK surgery of both eyes Milagro Craft OD Work Phone: History of laser ass isted in situ keratomileusis S/P LASIK surgery of both eyes Milagro Craft OD Work Phone: History of laser ass isted in situ keratomileusis S/P LASIK surgery of both eyes Tom Monsivais MD Work Phone: History of laser ass isted in situ keratomileusis S/P LASIK surgery of both eyes Tom Monsivais MD Work Phone: History of laser ass isted in situ keratomileusis S/P LASIK surgery of both eyes Tom Monsivais MD Work Phone: History of laser ass isted in situ keratomileusis S/P LASIK surgery of both eyes Milagro Craft OD Work Phone: Plan of Treatment Date Care Activity Detail Author Start: 06-13-2027 Lipid 1996 panel - Serum or Plasma Lipid Screening [facility] Start: 06-13-2027 LIPID SCREEN LIPID SCREEN [facility] Start: 06-13-2025 DIABETES SCREEN DIABETES SCREEN [facility] Start: 06-13-2025 Diabetes Screening Diabetes Screenin g [facility] Start: 07-19-2024 LIPID SCREEN LIPID SCREEN [facility] Start: 11-26-2023 Colonoscopy COLONOSCOPY [facility] Start: 11-26-2023 COLORECTAL CANCER SCREENING COLORECTAL CANCER SCREENING [facility] Start: 06-24-2023 Mammography [facility] Start: 06-13-2023 [facility] Start: 06-10-2023 HPV TESTING HPV TESTING [facility] Start: 06-10-2023 PAP TESTING PAP TESTING [facility] Start: 04-23-2023 Covid-19 Vaccine () Covid-19 Vaccine () [facility] Start: 04-23-2023 Influenza vaccination C [facility] Start: 11-10-2022 SHINGRIX VACCINE (2 of 2) SHINGRIX VACCINE (2 of 2) [facility] Start: 08-23-2022 DEPRESSION ASSESSMENT DEPRESSION ASS ESSMENT [facility] Start: 08-21-2022 End: 10-21-2022 Lipid 1996 panel - Serum or Plasma LIPID PANEL BASIC Lab Routine Screening for lipid disorders Expected: 08/21/2022, Expires: 10/21/2022 [facility] Work Phone: Immunizations Immunization Date Immunization Notes Care Provider Hyacinth stern 09-15-2022 zoster vaccine recombinant Bambi Pelletier PA-C Work Phone: [facility] 06-24-2022 COVID-19 booster vaccine, age 12+ yr, bivalent (PFIZER-BIONTECH) Mammography Coordinator [facility] 06-24-2022 influenza, injectabl e, quadrivalent, contains preservative Mammography Coordinator [facility] 06-24-2022 influenza virus vaccine, unspecified formulation Screen Wstr [facility] 08-07-2021 COVID-19 original vaccine, full dose, monovalent (MODERNA) Mammography Coordinator [facility] 07-28-2021 influenza, injectabl e, quadrivalent, contains preservative Milagro Coopersteveer OD Work Phone: [facility] 06-13-2020 influenza, injectabl e, quadrivalent, contains preservative Milagro Cooperrider OD Work Phone: [facility] 07-04-2019 influenza, injectabl e, quadrivalent, contains preservative Milagro Craft OD Work Phone: [facility] 06-15-2018 influenza virus vaccine, unspecified formulation Milagro Pollarder OD Work Phone: [facility] 06-15-2018 influenza, injectabl e, quadrivalent, preservative free Milagro Craft OD Work Phone: [facility] Payers Date Payer Category Payer Unknown [employer] SS PPO [id number] 2017-Present [phone] [address] [place] [address] PPO [id number] 2017 Unknown [employer]ST[employer] ACCE SS PPO [id number] 2017-Present [phone] [address] [place] [address] PPO [id number] 2017 Unknown [id number] 2017 Unknown [id number] Social History Date Type Detail Facility Start: 02-20-2011 End: 04-20-2022 Tobacco smoking status NHIS Never smoked tobacco [facility] Work Phone: Start: 02-06-2022 End: 04-13-2023 Alcohol intake Current non-drinker of alcohol (finding) [facility] Start: 07-24-2021 End: 07-13-2022 History SDOH Alcohol Frequency 2 [facility] Start: 07-24-2021 End: 07-13-2022 History SDOH Alcohol Std Drinks 1 [facility] Start: 07-24-2021 End: 07-13-2022 History SDOH Social Connections Phone 5 [facility] Start: 07-24-2021 End: 07-13-2022 History SDOH Social Connections Psychiatric 3 [facility] Start: 07-24-2021 History SDOH Social Connections Meetings 98 [facility] Start: 07-24-2021 History SDOH Physica l Activity DPW 4 [facility] Start: 06-13-2020 Education 17 [facility] Start: 1970 Sex Assigned At Not on file C [facility] Start: 02-09-2022 End: 07-13-2022 Exposure to SARS-CoV-2 (event) Not sure [facility] Start: 02-20-2011 End: 04-20-2022 Tobacco use and exposure Smokeless tobacco non-user [facility] Work Phone: Start: 07-13-2022 End: 04-13-2023 History of Social function [place] [facility] Start: 07-13-2022 End: 04-13-2023 Social connection and isolation panel [facility] Do you belong to any clubs or organizations such as anabaptism groups, unions, fraternal or athletic groups, or school groups? Yes [facility] Are you now , , , , never or living with a partner? [facility] How often to you hav e a drink containing alcohol? Monthly or less [facility] How many standard dr inks containing alcohol do you have on a typical day? 1 or 2 [facility] How often do you hav e 6 or more drinks on 1 occasion? Never [facility] How hard is it for y ou to pay for the very basics like food, housing, medical care, and heating Not hard at all [facility] Do you feel stress - tense, restless, nervous, or anxious, or unable to sleep at night because your mind is troubled all the time - these days [OSQ] To some extent [facility] (I/We) worried kristina er (my/our) food would run out before (I/we) got money to buy more. Never true [facility] In the past 12 month s, was there a time when you were not able to pay the mortgage or rent on time? No [facility] Clinical Notes 06-27-2014 to 07-28-2023 Patient InstructionsMilagro Craft OD - 04/13/2023 4:44 PM Bobby Pelletier PA-C - 09/17/2022 10:38 AM ESTPatient InstructionsChelsea Wellington MD - 07/13/2022 2:56 PM ESTPatient Instructions Note Date & Type Note Facility 07-28-2023 Note Patient Outreach (IN [facility]) SANDRA PIERRE ([id number]) 1970 F Date Time Provider Department 07/28/23 CHELSEA WELLINGTON During your visit today, we recorded the following information about you: Allergies As of Date: 07/28/2023 Noted Allergy Reaction DOMPERIDONE (BULK) 05/06/2005 Comments: contraindicated for pituitary tumor, increases prolactin Date Reviewed: 04/13/2023 Reviewed by: Milagro Craft OD - Fully Assessed Visit Diagnosis:Encounter for screening mammogram for breast cancer [Z12.31] Order(s):[facility] SCREENING [[id number]] Order #: [id number] FUTURE Prescriptions as of 08/02/2023 - omega-3 fatty acids (FISH OIL CONCENTRATE ORAL) Take by mouth. - Hyoscyamine Sulfate 0.125 mg-0.25 mg (0.375 mg) TbMP Take 1 tablet by mouth every 4 hours as needed. - lubiprostone (AMITIZA) 24 mcg capsule Take 24 mcg by mouth twice daily with meals. - omeprazole (PRILOSEC) 20 mg capsule Take 1 capsule by mouth twice daily. - multivitamins(DAILY MULTIVITAMIN TAB) Take one(1) tablet daily. - MILK OF MAGNESIA 400 MG/5 ML ORAL SUSP as necessary Problem List As Of Date 07/28/2023 Noted Resolved Raynaud's phenomenon [I73.00] 03/27/2013 Pituitary adenoma (HCC) [D35.2] 03/27/2013 06/19/2022 Other vitreous opacities - Both Eyes [H43.399] 06/27/2014 10/31/2015 Tear film insufficiency, unspecified - Both Eye*06/27/2014 10/31/2015 S/P LASIK surgery of both eyes [Z98.890] 06/27/2014 Dry eye syndrome of both eyes [H04.123] 10/31/2015 Sinus congestion [R09.81] 06/17/2020 06/19/2022 RUQ pain [R10.11] 06/17/2020 06/19/2022 Chronic pain of left knee [M25.562, G89.29] 03/13/2022 Pes anserinus bursitis of left knee [M70.52] 03/13/2022 Subconjunctival hemorrhage of right eye [H11.31]04/07/2022 05/12/2022 Episcleritis of right eye [H15.101] 04/07/2022 06/19/2022 Vitreous floaters, bilateral [H43.393] 04/07/2022 06/19/2022 Pain around right eye [H57.11] 05/12/2022 06/19/2022 Bowel obstruction (HCC) [K56.609] 03/18/2017 06/19/2022 Hyperlipidemia [E78.5] 06/19/2022 Obesity, Class I, BMI 30-34.9 [E66.9] 06/19/2022 Encounter Status:Closed by [employer], PRODUSER on 08/02/23 [facility] 04-13-2023 Note HNO ID: [id number] Author: Milagro Craft OD Service: ? Author Type: CRUSHER SCREEN REPAIRER Type: Progress Notes Filed: 04/13/2023 4:47 PM Note Text: ASSESSMENT/PLAN: 1. Dry eye syndrome of both eyes - ICD9: 375.15, ICD10: H04.123 (primary diagnosis) Controlled at this time. Recommended the use of artificial tears four times per day to maintain good vision and comfort. Discussed contacting the office if there is a change in comfort or vision. Suggested Systane Complete. 2. Vitreous floaters of both eyes - ICD9: 379.24, ICD10: H43.393 Vitreal floaters stable both eyes. Retinas flat and intact with no apparent retinal tear or traction. Discussed symptoms of retinal tear/detachment and if seen patient will return to clinic without delay. 3. S/P LASIK surgery of both eyes - ICD9: V45.69, ICD10: Z98.890 Stable at this time. Recommended yearly dilated exams. Milagro Craft, OD I have confirmed and edited as necessary the relevant ophthalmic history, ROS, and the neuro exam findings as obtained by others. [facility] 04-13-2023 Instructions Milagro Craft, OD - 04/13/2023 4:46 PM EDT ASSESSMENT/PLAN: 1. Dry eye syndrome of both eyes - ICD9: 375.15, ICD10: H04.123 (primary diagnosis) Controlled at this time. Recommended the use of artificial tears four times per day to maintain good vision and comfort. Discussed contacting the office if there is a change in comfort or vision. Suggested Systane Complete. 2. Vitreous floaters of both eyes - ICD9: 379.24, ICD10: H43.393 Vitreal floaters stable both eyes. Retinas flat and intact with no apparent retinal tear or traction. Discussed symptoms of retinal tear/detachment and if seen patient will return to clinic without delay. 3. S/P LASIK surgery of both eyes - ICD9: V45.69, ICD10: Z98.890 Stable at this time. Recommended yearly dilated exams. documented in this encounter [facility] 04-13-2023 History of Present illness Narrative ASSESSMENT/PLAN: 1. Dry eye syndrome of both eyes - ICD9: 375.15, ICD10: H04.123 (primary diagnosis) Controlled at this time. Recommended the use of artificial tears four times per day to maintain good vision and comfort. Discussed contacting the office if there is a change in comfort or vision. Suggested Systane Complete. 2. Vitreous floaters of both eyes - ICD9: 379.24, ICD10: H43.393 Vitreal floaters stable both eyes. Retinas flat and intact with no apparent retinal tear or traction. Discussed symptoms of retinal tear/detachment and if seen patient will return to clinic without delay. 3. S/P LASIK surgery of both eyes - ICD9: V45.69, ICD10: Z98.890 Stable at this time. Recommended yearly dilated exams. Milagro Craft, OD I have confirmed and edited as necessary the relevant ophthalmic history, ROS, and the neuro exam findings as obtained by others. documented in this encounter [facility] 09-17-2022 Note HNO ID: [id number] Author: Bambi Pelletier PA-C Service: ? Author Type: Physician Client Technical Specialist Type: Progress Notes Filed: 09/17/2022 11:16 AM Note Text: This note was created using [employer]. Subjective Sandra Pierre is a 52 year old female. HPI Patient presents with itchiness on the front of her neck over the past 5 or 6 days. She had gotten her hair done at the salon and they had put a piece of tissue paper on her neck underneath of the [place] before they had cut her hair. She states they did wash her hair. She did not get her hair dyed. Later that evening she started getting itchiness in the anterior neck area. No blisters. She has tried cortisone cream for the past 5 days without relief. No new medications. No new soaps. No new foods. No trouble breathing or swelling of her lips tongue or throat. Denies history of eczema or psoriasis. Review of Systems Skin: Positive for rash. All other systems reviewed and are negative. PAST MEDICAL HISTORY Diagnosis Date Bowel obstruction (HCC) 03/18/2017 Migraines Pituitary adenoma (HCC) 03/27/2013 MRI normal 08/12, prolactin normal in 05/2022 PMH - PAST MEDICAL HISTORY OF [place] [facility] - PAST MEDICAL HISTORY OF Raynauds PMH - PAST MEDICAL HISTORY OF pituitary adenoma Seasonal allergies Vitreous floaters, bilateral 04/07/2022 Current Outpatient Medications Medication Sig Dispense Refill omega-3 fatty acids (FISH OIL CONCENTRATE ORAL) Take by mouth. Hyoscyamine Sulfate 0.125 mg-0.25 mg (0.375 mg) TbMP Take 1 tablet by mouth every 4 hours as needed. lubiprostone (AMITIZA) 24 mcg capsule Take 24 mcg by mouth twice daily with meals. omeprazole (PRILOSEC) 20 mg capsule Take 1 capsule by mouth twice daily. 0 multivitamins(DAILY MULTIVITAMIN TAB) Take one(1) tablet daily. 0 MILK OF MAGNESIA 400 MG/5 ML ORAL SUSP as necessary 0 predniSONE (DELTASONE) 10 mg tablet Take 4 tabs daily for 3 days, then 2 tabs daily for 3 days, then 1 tab daily for 3 days with food. 21 tablet 0 No current facility-administered medications for this visit. PAST SURGICAL HISTORY Procedure Laterality Date COLECTOMY PARTIAL W/ANASTOMOSIS 1997 Sigmoidectomy LAP, REVISION CHHAYA FUNDOPLASTY 2016 LASIK Bilateral 10/21/2000 FAMILY HISTORY Problem Relation Age of Onset Diabetes Mother other (benign brain tumor) Mother other (Pulmonary Disease) Mother Diabetes Father Heart Father CABG X2 Heart Maternal Grandmother Cancer Maternal Grandmother SKIN CANCER Heart Maternal Grandfather Cancer Paternal Grandfather Heart Paternal Grandfather Social History Tobacco Use Smoking status: Never Smokeless tobacco: Never Substance Use Topics Alcohol use: No Drug use: No Objective BP 122/82 Pulse 68 Temp 36.4 ?C (97.6 ?F) (Tympanic) Resp 18 Wt 97.2 kg (214 lb 3.2 oz) LMP 11/06/2013 SpO2 100% BMI 31.63 kg/m? Physical Exam Vitals reviewed. Constitutional: Appearance: Normal appearance. HENT: Head: Normocephalic and atraumatic. Neck: Comments: Patient has some erythema of the anterior neck upper chest area. Nonraised. Blanchable. No vesicles. No petechia or purpura. Skin: General: Skin is warm and dry. Neurological: Mental Status: She is alert. Assessment and Plan ASSESSMENT/PLAN: 1. Irritant dermatitis - ICD9: 692.9, ICD10: L24.9 -likely from the tissue paper that was placed on the area during her haircut. - Oral Steriod tx -Prednisone taper - Anti itch therapy of OTC 1% Hydrocortisone cream recommended prn, zyrtec x 1 week - discussed skin care of rash - follow up if symptoms persist or worsen. Bambi Pelletier PA-C [facility] 09-17-2022 History of Present illness Narrative Images from the original note were not included. This note was created using NoteWriter. Subjective Sandra Pierre is a 52 year old female. HPI Patient presents with itchiness on the front of her neck over the past 5 or 6 days. She had gotten her hair done at the salon and they had put a piece of tissue paper on her neck underneath of the [place] before they had cut her hair. She states they did wash her hair. She did not get her hair dyed. Later that evening she started getting itchiness in the anterior neck area. No blisters. She has tried cortisone cream for the past 5 days without relief. No new medications. No new soaps. No new foods. No trouble breathing or swelling of her lips tongue or throat. Denies history of eczema or psoriasis. Review of Systems Skin: Positive for rash. All other systems reviewed and are negative. PAST MEDICAL HISTORY Diagnosis Date Bowel obstruction (HCC) 03/18/2017 Migraines Pituitary adenoma ([facility]) 03/27/2013 MRI normal 08/12, prolactin normal in 05/2022 PMH - PAST MEDICAL HISTORY OF [place] PMH - PAST MEDICAL HISTORY OF [facility] PMH - PAST MEDICAL HISTORY OF pituitary adenoma Seasonal allergies Vitreous floaters, bilateral 04/07/2022 Current Outpatient Medications Medication Sig Dispense Refill omega-3 fatty acids (FISH OIL CONCENTRATE ORAL) Take by mouth. Hyoscyamine Sulfate 0.125 mg-0.25 mg (0.375 mg) TbMP Take 1 tablet by mouth every 4 hours as needed. lubiprostone (AMITIZA) 24 mcg capsule Take 24 mcg by mouth twice daily with meals. omeprazole (PRILOSEC) 20 mg capsule Take 1 capsule by mouth twice daily. 0 multivitamins(DAILY MULTIVITAMIN TAB) Take one(1) tablet daily. 0 MILK OF MAGNESIA 400 MG/5 ML ORAL SUSP as necessary 0 predniSONE (DELTASONE) 10 mg tablet Take 4 tabs daily for 3 days, then 2 tabs daily for 3 days, then 1 tab daily for 3 days with food. 21 tablet 0 No current facility-administered medications for this visit. PAST SURGICAL HISTORY Procedure Laterality Date COLECTOMY PARTIAL W/ANASTOMOSIS 1997 Sigmoidectomy LAP, REVISION CHHAYA FUNDOPLASTY 2016 LASIK Bilateral 10/21/2000 FAMILY HISTORY Problem Relation Age of Onset Diabetes Mother other (benign brain tumor) Mother other (Pulmonary Disease) Mother Diabetes Father Heart Father CABG X2 Heart Maternal Grandmother Cancer Maternal Grandmother SKIN CANCER Heart Maternal Grandfather Cancer Paternal Grandfather Heart Paternal Grandfather Social History Tobacco Use Smoking status: Never Smokeless tobacco: Never Substance Use Topics Alcohol use: No Drug use: No Objective BP 122/82 Pulse 68 Temp 36.4 C (97.6 F) (Tympanic) Resp 18 Wt 97.2 kg (214 lb 3.2 oz) LMP 11/06/2013 SpO2 100% BMI 31.63 kg/m Physical Exam Vitals reviewed. Constitutional: Appearance: Normal appearance. HENT: Head: Normocephalic and atraumatic. Neck: Comments: Patient has some erythema of the anterior neck upper chest area. Nonraised. Blanchable. No vesicles. No petechia or purpura. Skin: General: Skin is warm and dry. Neurological: Mental Status: She is alert. Assessment and Plan ASSESSMENT/PLAN: 1. Irritant dermatitis - ICD9: 692.9, ICD10: L24.9 -likely from the tissue paper that was placed on the area during her haircut. - Oral Steriod tx -Prednisone taper - Anti itch therapy of OTC 1% Hydrocortisone cream recommended prn, zyrtec x 1 week - discussed skin care of rash - follow up if symptoms persist or worsen. Bambi Pelletier PA-C documented in this encounter [facility] 09-17-2022 Instructions Bambi Pelletier PA-C - 09/17/2022 8:55 AM EST May continue cortisone otc for 1 week. Zyrtec 10 mg otc for 1 week. Moisturizing lotion over area. documented in this encounter [facility] 07-13-2022 History of Present illness Narrative Patient presents with: Sore Throat HPI: Patient presents today for office visit for sore throat. Hurts to swallow. Ongoing for 5 days. Was visiting [facility] 07[facility]. Both parents came down with illness on 07/07/22 (cough, congestion). She has tried OTC Tylenol with some relief. Denies fever or any other symptoms. Took at home covid test on 07/10/22 and was NEG. No fever or chills. No significant rhinorrhea or congestion. Mild cough. No shortness of breath. Some fatigue and achiness. Has a bad taste in her mouth but wonders if from her throat intermittently. No nausea or vomiting or diarrhea. Using dayquil, nyquil and tylenol. MEDICATIONS: Current Outpatient Medications Medication Sig omega-3 fatty acids (FISH OIL CONCENTRATE ORAL) Take by mouth. Hyoscyamine Sulfate 0.125 mg-0.25 mg (0.375 mg) TbMP Take 1 tablet by mouth every 4 hours as needed. lubiprostone (AMITIZA) 24 mcg capsule Take 24 mcg by mouth twice daily with meals. omeprazole (PRILOSEC) 20 mg capsule Take 1 capsule by mouth twice daily. multivitamins(DAILY MULTIVITAMIN TAB) Take one(1) tablet daily. MILK OF MAGNESIA 400 MG/5 ML ORAL SUSP as necessary No current facility-administered medications for this visit. ALLERGIES: ALLERGIES Allergen Reactions Domperidone (Bulk) contraindicated for pituitary tumor, increases prolactin PAST MEDICAL HISTORY Diagnosis Date Bowel obstruction (HCC) 03/18/2017 Migraines Pituitary adenoma (HCC) 03/27/2013 MRI normal 08/12, prolactin normal in 05/2022 PMH - PAST MEDICAL HISTORY OF [place] PMH - PAST MEDICAL HISTORY OF [facility] PMH - PAST MEDICAL HISTORY OF pituitary adenoma Seasonal allergies Vitreous floaters, bilateral 04/07/2022 PAST SURGICAL HISTORY Procedure Laterality Date COLECTOMY PARTIAL W/ANASTOMOSIS 1997 Sigmoidectomy LAP, REVISION CHHAYA FUNDOPLASTY 2016 LASIK Bilateral 10/21/2000 FAMILY HISTORY Problem Relation Age of Onset Diabetes Mother other (benign brain tumor) Mother other (Pulmonary Disease) Mother Diabetes Father Heart Father CABG X2 Heart Maternal Grandmother Cancer Maternal Grandmother SKIN CANCER Heart Maternal Grandfather Cancer Paternal Grandfather Heart Paternal Grandfather Social History Tobacco Use Smoking status: Never Smokeless tobacco: Never Substance Use Topics Alcohol use: No Drug use: No Reviewed current medications, allergies, past medical history, surgical history, family history and social history today. REVIEW OF SYSTEMS All other reviewed and negative other than HPI. HEALTH MAINTENANCE: Reviewed health maintenance issues today and recommended the following in detail. HIV SCREENING Never done VITALS: BP 124/88 Pulse 83 Temp 36.7 C (98.1 F) Ht 175.3 cm (5' 9 ) Wt 95.7 kg (211 lb) LMP 11/06/2013 SpO2 99% BMI 31.16 kg/m Last 4 Encounter Wt Readings: Date: Wt: 06/24/2022 96.1 kg (211 lb 12.8 oz) 06/19/2022 94.8 kg (209 lb) 04/20/2022 99.8 kg (220 lb) 03/09/2022 99.8 kg (220 lb) PHYSICAL EXAMINATION: General appearance: Well appearing, alert, in no acute distress, well-hydrated, well nourished. Skin: Skin color, texture, turgor normal, no suspicious rashes or lesions Head: Normocephalic, no masses, lesions, tenderness or abnormalities Eyes: Anicteric sclera. Pupils are equally round and reactive to light. Extraocular movements are intact. Ears: External ears normal, canals clear Nose/Sinuses: Nares normal, septum midline, mucosa normal, no drainage or sinus tenderness Oropharynx: erythematous. No exudate. Uvula midline. Neck: Supple, shoddy lymphadenopathy Lungs: Lungs clear to auscultation. No wheezing, rhonchi, rales Heart: RRR without murmur, gallop, or rubs. No ectopy Abdomen: Normal abdominal exam, Abdomen soft, non-tender. Bowel sounds normal. No masses, organomegaly ASSESSMENT/PLAN: 1. Pharyngitis, unspecified etiology - ICD9: 462, ICD10: J02.9 (primary diagnosis) - Rapid Strep positive in the office today - Discussed risks and benefits of new medication with the patient. Advised them to call if any side effects or questions. Red flags for re-assessment reviewed with patient in detail. Call if symptoms worsen at all or if not better in one to two weeks Reviewed diagnosis and treatment options in detail. Questions were answered. Patient expressed understanding of treatment plan. - STREP A MOLECULAR (POC) 2. URI, acute - ICD9: 465.9, ICD10: J06.9 - Supportive care with fluids and rest - COVID WITH FLUA+B, ROUTINE Chelsea Wellington MD documented in this encounter [facility] 06-25-2022 Miscellaneous Notes June 25, 2022 PID: [id number] Sandra Pierre [address] [place] [address] Dear Ms. Pierre, We are pleased to inform you that the results of your recent breast imaging exam on 06/24/2022 are normal. Early detection of cancer is very important. We also understand recommendations regarding breast cancer screening are controversial. Please discuss with your primary care provider which strategy is best for you and whether a mammogram is right for you. Your imaging studies and report will be kept on file at [facility] as part of your permanent medical record and are available for your continuing care. Thank you for allowing us to help in meeting your health care needs. Sincerely, Dr. Wing Interpreting Radiologist [facility] (Normal over 40) documented in this encounter [facility] 06-24-2022 History of Present illness Narrative Radiology Service Progress Note PATIENT NAME: Sandra Pierre DATE OF SERVICE: June 24, 2022 TIME: 7:22 AM PATIENT IDENTITY VERIFICATION COMPLETED USING TWO (2) IDENTIFIERS: Name and Date of confirmed by patient verbally. FALL SCREENING: Has the patient had 2 falls in the last year or 1 fall with injury or currently using an Ambulatory Assistive Device (Walker, Cane, Wheelchair, Crutches, etc.)? No PATIENT GENDER DATA: Female. status: : No status: NO. PATIENT RELEVANT IMPLANT DATA REVIEWED: Not Applicable RADIOLOGY DEPARTMENT: Mammography PERIPHERAL IV DATA: Not applicable SIGNED BY: Antonio Samayoao Esme June 24, 2022 7:22 AM documented in this encounter [facility] 06-19-2022 Instructions Tariq Hurt MD - 06/19/2022 9:46 AM EDT No evidence of persisting pituitary disease. See me again at Dr. Wellington's suggestion. documented in this encounter [facility] 06-19-2022 History of Present illness Narrative 51 year-old female, patient of Dr. Chelsea Wellington, kindly referred for history of pituitary adenoma. Remote history of pituitary adenoma (1995), presented with galactorrhea. Was well controlled on cabergoline. Stopped cabergoline in 2016, had taken it for 12 years (tried weaning at 5 years, hyperprolactinemia recurred). Galactorrhea has not recurred. . Menses stopped at age 44. Has sinus headaches, no change in pattern. Says bone density test several years ago was normal. Current Outpatient Medications on File Prior to Visit Medication Sig Hyoscyamine Sulfate 0.125 mg-0.25 mg (0.375 mg) TbMP Take 1 tablet by mouth every 4 hours as needed. lubiprostone (AMITIZA) 24 mcg capsule Take 24 mcg by mouth twice daily with meals. omeprazole (PRILOSEC) 20 mg capsule Take 1 capsule by mouth twice daily. multivitamins(DAILY MULTIVITAMIN TAB) Take one(1) tablet daily. MILK OF MAGNESIA 400 MG/5 ML ORAL SUSP as necessary ALLERGIES Allergen Reactions Domperidone (Bulk) contraindicated for pituitary tumor, increases prolactin PAST MEDICAL HISTORY Diagnosis Date Migraines PMH - PAST MEDICAL HISTORY OF [place] PMH - PAST MEDICAL HISTORY OF [facility] PMH - PAST MEDICAL HISTORY OF pituitary adenoma Seasonal allergies PAST SURGICAL HISTORY Procedure Laterality Date COLECTOMY PARTIAL W/ANASTOMOSIS 1997 Sigmoidectomy LAP, REVISION CHHAYA FUNDOPLASTY 2016 LASIK Bilateral 10/21/2000 FAMILY HISTORY Problem Relation Age of Onset Diabetes Mother other (benign brain tumor) Mother other (Pulmonary Disease) Mother Diabetes Father Heart Father CABG X2 Heart Maternal Grandmother Cancer Maternal Grandmother SKIN CANCER Heart Maternal Grandfather Cancer Paternal Grandfather Heart Paternal Grandfather Social History Tobacco Use Smoking status: Never Smokeless tobacco: Never Substance Use Topics Alcohol use: No Drug use: No Answers submitted by the patient for this visit: Endocrine Review of Systems (Submitted on 06/17/2022) Fatigue: Yes Night Sweats: No Recent Unintentional Weight Change: No Skin Color Changes: No Post-Nasal Drip: Yes Thyroid Pain (lower neck): No Trouble Swallowing: No Vision Disturbance: No Chest Pain: No Leg Swelling: No Blood Clots?: No Leg Pain while walking?: No Difficulty Breathing?: No Heartburn: Yes Nausea: No Vomiting?: No Diarrhea: No Constipation: Yes Abdominal Pain: Yes Bone Pain?: No Muscle Aches: Yes Muscle Weakness: Yes Joint Pain or Stiffness: Yes Headaches: Yes Dizziness: No Numbness?: No Urgency to Urinate?: No Increased Urination?: No Slow or Small Urine Stream?: No Are your menstrual cycles regular?: No Are your menstrual cycles irregular?: No Have your menstrual cycles stopped?: Yes Flushing?: No Hot Flashes?: Yes Increased Thirst: No Change in Body Hair?: No Cold Intolerance: No Heat Intolerance?: Yes BP 113/81 Pulse 88 Ht 174 cm (5' 8.5 ) Wt 94.8 kg (209 lb) LMP 11/06/2013 SpO2 99% BMI 31.31 kg/m General appearance: Well-appearing, obese (BMI greater than 30) female, alert, in no acute distress, well-hydrated, well nourished. BP normal. Skin: Skin color, texture, turgor normal, no suspicious rashes or lesions Head: normocephalic, no masses, lesions, tenderness or abnormalities Eyes: Anicteric sclera. Pupils are equally round. Extraocular movements are intact. Ears: not examined Nose/Sinuses: Nares normal. No drainage or sinus tenderness. Oropharynx: Lips, mucosa, and tongue normal, teeth and gums not examined. Neck: Supple, no adenopathy; no palpable thyroid enlargement. Lungs: Breathing unlabored. Heart: RRR. No ectopy Abdomen: deferred Extremities: No deformities, edema, skin discoloration, clubbing or cyanosis. Good capillary refill. Musculoskeletal: Spine range of motion not tested. Muscular strength intact, No joint swelling, deformity, or tenderness Peripheral pulses: Normal Neuro: Gait normal. Sensation grossly intact. Latest Reference Range & Units 06/13/22 07:58 Sodium 136 - 144 mmol/L 139 Potassium 3.7 - 5.1 mmol/L 4.4 Chloride 97 - 105 mmol/L 103 CO2 22 - 30 mmol/L 25 BUN 7 - 21 mg/dL 13 Creatinine 0.58 - 0.96 mg/dL 0.81 Glucose 74 - 99 mg/dL 78 Protein, Total 6.3 - 8.0 g/dL 6.6 Calcium 8.5 - 10.2 mg/dL 9.6 Albumin 3.9 - 4.9 g/dL 4.4 Bilirubin, Total 0.2 - 1.3 mg/dL 0.3 Alkaline Phosphatase 34 - 123 U/L 46 ALT 7 - 38 U/L 13 AST 13 - 35 U/L 18 Anion Gap 9 - 18 mmol/L 11 eGFR >=60 mL/min/1.73m 87 Cholesterol, Total <200 mg/dL 246 (H) Triglyceride <150 mg/dL 79 HDL Cholesterol >39 mg/dL 62 LDL Cholesterol <100 mg/dL 168 (H) Hematocrit 36.0 - 46.0 % 42.4 TSH 0.270 - 4.200 mIU/L 1.530 Prolactin 4.5 - 26.8 ng/mL 15.0 (H): Data is abnormally high MRI pituitary 07/2021 showed no evidence of pituitary adenoma. IMPRESSION: History of pituitary adenoma - no evidence that this problem is presently active, no further testing needed presently Hyperlipidemia - she says she will discuss possible need for a statin with Dr. Wellington PLAN: Continue with Dr. Wellington for routine health care needs See me again at Dr. Wellington's suggestion Tariq Hurt MD Consultation requested by Dr. Chelsea Wellington for an opinion regarding pituitary adenoma. My final recommendations will be communicated back to the requesting physician by way of shared Medical record or letter to requesting physician via US mail. I spent 30 minutes in the visit, with more than 50% of the total [id number] time of the visit in counseling / coordination of care. documented in this encounter [facility] documented as of this encounter (statuses as of 06/19/2022) [facility] History of Past illness Narrative* Problem Noted Date Resolved Date Pain around right eye 05/12/2022 06/19/2022 Subconjunctival hemorrhage of right eye 04/07/2005/12/2022 Episcleritis of right eye 04/07/20222021 Vitreous floaters, bilateral 04/07/2022 Sinus congestion 06/17/2020 06/19/2022 RUQ pain 06/17/2020 06/19/2022 Bowel obstruction 03/18/2017 06/19/2022 Other vitreous opacities - Both Eyes 06/27/2014 10/31/2015 Tear film insufficiency, unspecified - Both Eyes 06/27/2014 10/31/2015 Pituitary adenoma 03/27/2013 06/19/2022 Overview: MRI normal 08/12, prolactin normal in 05/2022 documented as of this encounter (statuses as of 06/27/2022) [facility] History of Past illness Narrative* Problem Noted Date Resolved Date Pain around right eye 05/12/2022 06/19/2022 Subconjunctival hemorrhage of right eye 04/07/20 22 05/12/2022 Episcleritis of right eye 04/07/20222021 Vitreous floaters, bilateral 04/07/2022 Sinus congestion 06/17/2020 06/19/2022 RUQ pain 06/17/2020 06/19/2022 Bowel obstruction 03/18/2017 06/19/2022 Other vitreous opacities - Both Eyes 06/27/2014 10/31/2015 Tear film insufficiency, unspecified - Both Eyes 06/27/2014 10/31/2015 Pituitary adenoma 03/27/2013 06/19/2022 Overview: MRI normal 08/12, prolactin normal in 05/2022 documented as of this encounter (statuses as of 07/13/2022) [facility] History of Past illness Narrative* Problem Noted Date Resolved Date Pain around right eye 05/12/2022 06/19/2022 Subconjunctival hemorrhage of right eye 04/07/20 22 05/12/2022 Episcleritis of right eye 04/07/20222021 Vitreous floaters, bilateral 04/07/2022 Sinus congestion 06/17/2020 06/19/2022 RUQ pain 06/17/2020 06/19/2022 Bowel obstruction 03/18/2017 06/19/2022 Other vitreous opacities - Both Eyes 06/27/2014 10/31/2015 Tear film insufficiency, unspecified - Both Eyes 06/27/2014 10/31/2015 Pituitary adenoma 03/27/2013 06/19/2022 Overview: MRI normal /, prolactin normal in 05/2022 documented as of this encounter (statuses as of 09/17/2022) [facility] History of Past illness Narrative* Problem Noted Date Diagnosed Date Resolved Date Pain around right eye 05/12/20222021 Subconjunctival hemorrhage of right eye 04/07/2022 05/12/2022 Episcleritis of right eye 04/07/2022 Vitreous floaters, bilateral 04/07/2022 06/19/2022 Sinus congestion 06/17/2020 06/19/2022 RUQ pain 06/17/2020 06/19/2022 Bowel obstruction 03/18/2017 06/19/2022 Other vitreous opacities - Both Eyes 06/27/2014 10/31/2015 Tear film insufficiency, uns pecified - Both Eyes 06/27/2014 10/31/2015 Pituitary adenoma 03/27/2013 06/19/2022 Overview: MRI normal 08/12, prolactin normal in 05/2022 documented as of this encounter (statuses as of 04/14/2023) [facility] History of Past illness Narrative* Problem Noted Date Diagnosed Date Resolved Date Pain around right eye 05/12/20222021 Subconjunctival hemorrhage of right eye 04/07/2022 05/12/2022 Episcleritis of right eye 04/07/2022 Vitreous floaters, bilateral 04/07/2022 06/19/2022 Sinus congestion 06/17/2020 06/19/2022 RUQ pain 06/17/2020 06/19/2022 Bowel obstruction 03/18/2017 06/19/2022 Other vitreous opacities - Both Eyes 06/27/2014 10/31/2015 Tear film insufficiency, uns pecified - Both Eyes 06/27/2014 10/31/2015 Pituitary adenoma 03/27/2013 06/19/2022 Overview: MRI normal /, prolactin normal in 05/2022 documented as of this encounter (statuses as of 06/27/2023) [facility] History of Past illness Narrative* Problem Noted Date Diagnosed Date Resolved Date Pain around right eye 05/12/20222021 Subconjunctival hemorrhage of right eye 04/07/2022 05/12/2022 Episcleritis of right eye 04/07/2022 Vitreous floaters, bilateral 04/07/2022 06/19/2022 Sinus congestion 06/17/2020 06/19/2022 RUQ pain 06/17/2020 06/19/2022 Bowel obstruction 03/18/2017 06/19/2022 Other vitreous opacities - Both Eyes 06/27/2014 10/31/2015 Tear film insufficiency, uns pecified - Both Eyes 06/27/2014 10/31/2015 Pituitary adenoma 03/27/2013 06/19/2022 Overview: MRI normal 08/12, prolactin normal in 05/2022 documented as of this encounter (statuses as of 08/02/2023) [facility] Miscellaneous Notes* Telephone Encounter - Waldemar Hinton LPN - 05/12/2022 1:57 PM EDT Pt notified. Schedulers please assist pt with scheduling Neuro appt. Waldemar Hinton LPN * Telephone Encounter - Chelsea Wellington MD - 05/12/2022 1:42 PM EDT Yes keep appt * Telephone Encounter - Waldemar Hinton LPN - 05/12/2022 1:36 PM EDT TC to pt, notified of provider response. She states it's more of a dull, constant headache with pain behind R eye, not like headaches she's had in the past. However, it's not as painful as headaches she's had in the past either. She is agreeable to Neurology and aware she needs to go the ER with any severe symptoms. Pt asking if she needs to keep appt with you on 05/18? *Schedulers please assist pt with scheduling appt with Neurology. Waldemar Hinton LPN * Telephone Encounter - Chelsea Wellington MD - 05/12/2022 11:55 AM EDT Discussed with Dr. Monsivais. For the headache, he recommended neurology. If worst headache she has ever had or has unusual symptoms for her, needs seen by one of us or if severe, ER since may take a while to get into neuro [facility] History of Present illness Narrative* Tom Monsivais MD - 05/12/2022 11:43 AM EDT ASSESSMENT/PLAN: 1. Pain around right eye - ICD9: 379.91, ICD10: H57.11 (primary diagnosis) - VISUAL FIELD 24-2 OU (BOTH EYES) - OCT MACULA CIRRUS OU (BOTH EYES) Ocular examination normal. Patient has seen Neurology in the past. No organic cause found. Patient states she has sinus issues. Patient recommended to see Dr. Wellington and have him set up appointment with Neurology. Monitor 3. Dry eye syndrome of both eyes - ICD9: 375.15, ICD10: H04.123 Continue: Systane Complete solution instill 1 drop 3 times daily Both Eyes. Tom Monsivais MD I have confirmed and edited as necessary the relevant ophthalmic history, review of systems, surgical history, and ophthalmological examination findings as obtained by the ophthalmic technical staff.I have seen and examined Sandra Pierre. I have discussed the examination findings, diagnosis, and treatment options with Sandra Pierre and/or her family. I have also reviewed and agree withthe assessment and plan as stated above and agree with all its relevant components. I gave the patient the opportunity to ask questions about the findings, diagnosis, and treatment options. documented [place] encounter[facility] [id number] History of Present illness Narrative* Gabi Ruiz PA-C - 04/20/2022 2:49 PM EDTAssociated Order(s): Large Joint Arthro/Inj: L knee joint Post-Procedure Diagnose(s): Chronic pain of left knee; Chondromalacia of patellofemoral joint, left Gabi Ruiz PA-C Established Patient Department of Orthopaedics [facility] [address] [address] Dept: [phone] April 20, 2022 SUBJECTIVE: CHIEF COMPLAINT: Established Patient and Knee Pain of the Left Knee HPI: Ms. Sandra Pierre is a 51 year old female. She was last seen in the office on 03/09/2022 where she was consulted to physical therapy with iontophoresis. She is here today for follow up. Today she rates her pain a 3 on a scale of 0 to 10. She has been participating in therapy with somerelief in her symptoms but states she is not yet back to her baseline. She has not been taking any mediation for the pain. She denies any recent injury or the onset of new or worsening symptoms. Past Medical History: PAST MEDICAL HISTORY Diagnosis Date PMH - PAST MEDICAL HISTORY OF [place] PMH - PAST MEDICAL HISTORY OF [facility] PMH - PAST MEDICAL HISTORY OF pituitary adenoma Past Surgical History: PAST SURGICAL HISTORY Procedure Laterality Date COLECTOMY PARTIAL W/ANASTOMOSIS 1997 Sigmoidectomy LAP, REVISION CHHAYA FUNDOPLASTY 2016 LASIK Bilateral 10/21/2000 Family History: FAMILY HISTORY Problem Relation Age of Onset Diabetes Mother other (benign brain tumor) Mother other (Pulmonary Disease) Mother Diabetes Father Heart Father CABG X2 Heart Maternal Grandmother Cancer Maternal Grandmother SKIN CANCER Heart Maternal Grandfather Cancer Paternal Grandfather Heart Paternal Grandfather Social History: Social History Tobacco Use Smoking status: Never Smokeless tobacco: Never Substance Use Topics Alcohol use: No Drug use: No Medications: Current Outpatient Medications Medication Sig fluorometholone (FML LIQUID FILM) 0.1 % ophthalmic suspension Use 1 Drop in the right eye three times daily. Use 1 drop in the right eye 2 times daily for 2 days, 1 time daily for 2 days then discontinue dexAMETHasone sodium phosphate (DEXONTO) 0.4 % solution For use with iontophoresis meloxicam (MOBIC) 15 mg tablet Take 1 tablet by mouth once daily. Take with food. Hyoscyamine Sulfate 0.125 mg-0.25 mg (0.375 mg) TbMP Take 1 tablet by mouth every 4 hours as needed. lubiprostone (AMITIZA) 24 mcg capsule Take 24 mcg by mouth twice daily with meals. omeprazole (PRILOSEC) 20 mg capsule Take 1 capsule by mouth twice daily. multivitamins(DAILY MULTIVITAMIN TAB) Take one(1) tablet daily. MILK OF MAGNESIA 400 MG/5 ML ORAL SUSP as necessary No current facility-administered medications for this visit. Allergies: Domperidone (Bulk) ROS: General: negative for fatigue, malaise, weight loss/gain Musculoskeletal: see HPI Psych: no depression, anxiety OBJECTIVE: Ms. Sandra Pierre is a pleasant 51 year old in no apparent distress. Gen:Ht 5' 10 (1.78m) Wt 220 lb (99.8kg) LMP 11/06/2013 BMI 31.57 kg/(m^2). nl development, non obese, no deformities ENT: Normocephalic, normal hearing, moist mucosa CV: Pulses:DP/PT= 2+ and symmetric, capillary refill < 2 secs, no peripheral edema/varicosities Skin: no rash, bruising or lesions. Good turgor. Psych: cooperative and appropriate, alert and oriented x 3, good mood and affect. Musculoskeletal: Right knee, bilateral hips and ankles FROM without pain or limitation. 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 Discussed treatment options for persistent pain despite therapy including advanced imaging and corticosteroid injection. Left knee corticosteroid injection agreed upon and administered today. Patient agreeable with plan and will follow up as needed. PROCEDURE: Large Joint Arthro/Inj: L knee joint Informed Consent Consent Obtained: Verbal [place] Protocol A moment to CARE was completed. SIGN IN Personnel directly involved with the procedure wore the appropriate PPE. Special Equipment: N/A Patient/Surrogate Stated/Verified: Patient name, Date of , Relevant allergies and Intended procedure TIME OUT Intended patient and procedure match the source document(s). Consent documented and matches the intended procedure. Relevant labs, photos, and/or imaging studies have been reviewed. Correct side/site marked and visible. Medications required for procedure verified. No fire risk assessment and interventions applicable. No implant(s) inserted. 04/20/2022 4:19 PM The procedure site was prepped in the usual sterile fashion. Site: L knee joint Medications: 12 mg betamethasone acetate-betamethasone sodium phosphate 6 mg/mL Anesthetics: 3 mL lidocaine (PF) 10 mg/mL (1 %) Outcome: Tolerated well, no immediate complications Post-injection instructions were reviewed with the patient and the patient voiced understanding of these instructions. SIGN OUT No specimen collected. No instruments, equipment or retained foreign bodies applicable. Post-procedure follow-up management communicated and Plan of Care Visit completed when applicable FOLLOW UP INSTRUCTIONS: As needed Gabi Ruiz PA-C documented in this encounterNationwide [facility] History of Present illness Narrative* James Hoskins, PT - 04/14/2022 5:32 PM EDT Episode Visit Count: 5 Therapist That Will Oversee The Plan Of Care: James Hoskins Start of Care Date: 03/13/22 Onset Date: 02/17/22 Patient Identified by Name and Date of : Yes REHABILITATION AND SPORTS THERAPY PHYSICAL THERAPY PROGRESS REPORT PLAN OF CARE UPDATE: Assessment: Sandra Pierre demonstrates improvements in standing tolerance, LE strength, pain intensity, and improved level of independence with the HEP. She hasprogressed toward goals. Patient continues to present with impairments in ADL's, independence in exercise, and strength that interferewith standing;walking;stair negotiation . Current prognosis is Good due to: current objective clinical presentation;good overall health status . She will benefit from continued skilled therapy services to meet the updated goals for this plan of care as noted below. Goals updated 04/14/2022 Goals for Episode of Care: created on 03/13/22 through 05/08/22 Pt will demo LLE strength of 5/5 with MMT to imrpoved knee stability - Progressing, will continue Pt will report overall improvement of symptoms by 70% or greater in 8 weeks or less - Nearly met, will continue Pt will be able to stand for prolonged periods of time without increased Pain - MET [place] in home exercise program. - MET so far Patient Goals: Take away the pain Planned Interventions, Frequency, and Duration: 1x/week, 4 weeks Total Number of Visits Planned: 4 Patient to be seen for Therapeutic exercise (99490);Neuromuscular re-education (09092);Manual therapy (81751);Self-shelter management (32383);Patient/Family/Caregiver Education PLAN FOR NEXT VISIT: Progress wall slides as tolerated SUBJECTIVE: Patient Reason for Visit: No catching pain. Pt feels 65%. Pt feels the pain is better and so is the mobility. Pt states the pain with L knee flexion is still there. Pt still gets occasional swelling. Functional Limitations: standing;walking;stair negotiation Prior Level of Function: Independent without limitations Intake Information: Prescription present Pain: Pain Pain Level: 3 Pain Location: Knee - Left Description: Dull Post Treatment Pain Post Treatment Pain Level: No Change Post Treatment Pain Location: Knee - Left PROMIS Scales Higher is Better 02/17/2022 03/12/2022 04/13/2022 Phys Func - Score - 47 (within normal limits) 51 (within normal limits) Phys Func - Percentile - 38 % 54 % Social Roles - Score - 47 (within normal limits) 52 (within normal limits) Social Role - Percentile - 38 % 58 % GH Physical - Score 44.9 (Good) - - GH Physical - Percentile 31 % - - GH Mental - Score 48.3 (Very Good) - - GH Mental - Percentile 43 % - - Self-Eff Symptom - Score - 44 (Average) 42 (Average) Self-Eff Symptom - Percentile - 27 % 21 % T-scores: mean of general population = 50. 5 points is clinically meaningfully difference Percentiles provide an indication of how the patient's score ranks in relation to the general population. Higher percentile rankings indicate better function/quality of life. 50th percentile is the average of the general population and indicates half of respondents had a worse score. Lower is Better 03/12/2022 04/13/2022 Fatigue - Score 60 (mild) 59 (mild) Fatigue - Percentile 16 % 18 % T-scores: mean of general population = 50. 5 points is clinically meaningfully difference Percentiles provide an indication of how the patient's score ranks in relation to the general population. Higher percentile rankings indicate better function/quality of life. 50th percentile is the average of the general population and indicates half of respondents had a worse score. OBJECTIVE MEASURES WITH LEVEL OF FUNCTION: LE AROM R LE AROM: WNL L LE AROM: WNL L Knee Extension: 0 Degrees L Knee Flexion: 130 Degrees (Anterior knee pain) LE Strength R LE Strength: Grossly 5/5 L Knee Extension (L3): 4+/5 L Knee Flexion: 4+/5 L Ankle Dorsiflexion (L4): 4+/5 Gait Gait Observation: WNL TREATMENT: Therapeutic Exercise: 1: All objective measures taken this session 2: Heel slides x 20 reps 3: Discussed modifications to the HEP to prevent pain and improved LE strength and mobility 4: Wall slides 2 x 7 reps Skilled Intervention: Patient was educated in proper exercise technique and purpose for exercises. Provided written instruction for home exercise program to facilitate proper performance and compliance. Correct performance of therapeutic exercises was facilitated with verbal and visual cuing. Billing Therapeutic Exercise Treatment Minutes: 32 Total Treatment Time Minutes (timed/untimed): 32 James Hoskins PT documented in this encounterNationwide [facility]08-[facility] History of Present illness Narrative* Tom Monsivais MD - 04/13/2022 4:42 PM EDT ASSESSMENT/PLAN: 1. Episcleritis of right eye - ICD9: 379.00, ICD10: H15.101 (primary diagnosis) Current Ophthalmic Meds fluorometholone (FML LIQUID FILM) 0.1 % ophthalmic suspension Use 1 Drop in the right eye two timesdaily for 2 days, once daily for 2 days then discontinue 2. S/P LASIK surgery of both eyes - ICD9: V45.69, ICD10: Z98.890 3. Dry eye syndrome of both eyes - ICD9: 375.15, ICD10: H04.123 -Continue Systane Complete one drop in both eyes three times harshad 4. Vitreous floaters of both eyes - ICD9: 379.24, ICD10: H43.393 -Stable/Monitor I have confirmed and edited as necessary the relevant ophthalmic history, review of systems, surgical history, and ophthalmological examination findings as obtained by the ophthalmic technical staff.I have seen and examined Sandra Pierre. I have discussed the examination findings, diagnosis, and treatment options with Sandra Pierre and/or her family. I have also reviewed and agree withthe assessment and plan as stated above and agree with all its relevant components. I gave the patient the opportunity to ask questions about the findings, diagnosis, and treatment options. Tom Monsivais MD documented in this encounterNationwide [facility]08-16-2022 History of Past illness Narrative* Problem Noted Date Resolved Date Subconjunctival hemorrhage of right eye 04/07/20 22 05/12/2022 Other vitreous opacities - Both Eyes 06/27/2014 10/31/2015 Tear film insufficiency, unspecified - Both Eyes 06/27/2014 10/31/2015 documented as of this encounter (statuses as of 05/12/2022) [facility] of Past illness Narrative* Problem Noted Date Resolved Date Subconjunctival hemorrhage of right eye 04/07/20 22 05/12/2022 Other vitreous opacities - Both Eyes 06/27/2014 10/31/2015 Tear film insufficiency, unspecified - Both Eyes 06/27/2014 10/31/2015 documented as of this encounter (statuses as of 06/02/2022) [facility] Instructions* Patient Instructions* Tom Monsivais MD - 04/07/2022 9:17 AM EDT Begin: Current Ophthalmic Meds fluorometholone (FML LIQUID FILM) 0.1 % ophthalmic suspension Use 1 Drop in the right eye three times daily. Systane Complete 1 drop in both eyes three times daily Ice packs as directed documented in this encounterNationwide Children'[facility]08-16-2022 History of Present illness Narrative* Tom Monsivais MD - 04/07/2022 9:16 AM EDT ASSESSMENT/PLAN: 1. Subconjunctival hemorrhage of right eye - ICD9: 372.72, ICD10: H11.31 (primary diagnosis) 2. Episcleritis of right eye - ICD9: 379.00, ICD10: H15.101 Begin: Current Ophthalmic Meds fluorometholone (FML LIQUID FILM) 0.1 % ophthalmic suspension Use 1 Drop in the right eye three times daily. Systane Complete 1 drop in both eyes three times daily Ice packs as directed 3. Vitreous floaters, bilateral - ICD9: 379.24, ICD10: H43.393 - Patient was given both written and verbal information on flashes and floaters. Patient was instructed to call the office ([phone]) immediately upon noticing flashes of light, increase in floaters, or changes in vision. 4. S/P LASIK surgery of both eyes - ICD9: V45.69, ICD10: Z98.890 - Stable I have confirmed and edited as necessary the relevant ophthalmic history, review of systems, surgical history, and ophthalmological examination findings as obtained by the ophthalmic technical staff.I have seen and examined Sandra Pierre. I have discussed the examination findings, diagnosis, and treatment options with Sandra Pierre and/or her family. I have also reviewed and agree withthe assessment and plan as stated above and agree with all its relevant components. I gave the patient the opportunity to ask questions about the findings, diagnosis, and treatment options. Tom Monsivais MD documented in this encounterNationwide [facility]08-11-2022 History of Present illness Narrative* James Hoskins PT - 04/02/2022 7:33 AM EDT Episode Visit Count: 4 Therapist That Will Oversee The Plan Of Care: James Hoskins Start of Care Date: 03/13/22 Onset Date: 02/17/22 Patient Identified by Name and Date of : Yes REHABILITATION AND SPORTS THERAPY PHYSICAL THERAPY TREATMENT NOTE ASSESSMENT: Sandra Pierre tolerated the session with some pain with end range knee flexion. She demonstrated no increased pain with new HEP. The patient will continue to benefit from ongoing skilled physical therapy to progress toward set goals. PLAN FOR NEXT VISIT: POC update SUBJECTIVE: Patient Reason for Visit: The catching pain in the hip is better. The knee hurts the same. the swelling is still there Pain: Pain Pain Level: 3 Pain Location: Knee - Left OBJECTIVE MEASURES WITH LEVEL OF FUNCTION: Swelling medial joint line of L knee with pain TREATMENT: Therapeutic Exercise: 1: SciFit x 5 min (collecting subjective and discussing HEP) 2: Quad set on towel x 10 (3 sec hold) 3: Seated LAQ x 10 reps 4: Heel slides x 10 Skilled Intervention: Patient was educated in proper exercise technique and purpose for exercises. Correct performance of therapeutic exercises was facilitated with verbal cuing. Manual Therapy: 1: Knee distraction with flexion in prone x 10 Skilled Intervention: Manual skills to improve joint mobility, ROM, and decrease pain. Utilized anatomy knowledge of the therapist, and assessment of patient's response to intervention. Billing Therapeutic Exercise Treatment Minutes: 35 Manual TherapyTreatment Minutes: 5 Total Treatment Time Minutes (timed/untimed): 40 James Hoskins PT documented in this encounterNationwide [facility]08-02-2022 History of Present illness Narrative* James Hoskins PT - 03/24/2022 3:56 PM EDT Episode Visit Count: 3 Therapist That Will Oversee The Plan Of Care: James Hoskins Start of Care Date: 03/13/22 Onset Date: 02/17/22 Patient Identified by Name and Date of : Yes REHABILITATION AND SPORTS THERAPY PHYSICAL THERAPY TREATMENT NOTE ASSESSMENT: Sandra Pierre tolerated the session with continued pain of the L hip. The patient will continue to benefit from ongoing skilled physical therapy to progress toward set goals. PLAN FOR NEXT VISIT: Progress strengthening as tolerated SUBJECTIVE: Patient Reason for Visit: The knee was very swollen last night. tight still now. Pain: Pain Pain Level: 3 Pain Location: Knee - Left OBJECTIVE MEASURES WITH LEVEL OF FUNCTION: Catching in anterior hip with eccentric phase of SLR Pain with palpation at tendon of rectus femoris at AIIS Hip IR painful near end range Hip ER relieves pain Standing lumbar flexion WNL Standing lumbar ext WNL TREATMENT: Therapeutic Exercise: 1: Hooklying bridge x 10 reps 2: Clam GTB 3 x 10 3: Captain fl[place] 3 x 40 sec Skilled Intervention: Patient was educated in proper exercise technique and purpose for exercises. Skilled judgment was provided in selection of appropriate interventions. Provided written instruction for home exercise program to facilitate proper performance and compliance. Billing Therapeutic Exercise Treatment Minutes: 41 Total Treatment Time Minutes (timed/untimed): 41 James Hoskins PT documented in this encounterNationwide [facility]07-28-2022 History of Present illness Narrative* James Hoskins PT - 03/19/2022 7:31 AM EDT Episode Visit Count: 2 Therapist That Will Oversee The Plan Of Care: James Hoskins Start of Care Date: 03/13/22 Onset Date: 02/17/22 Patient Identified by Name and Date of : Yes REHABILITATION AND SPORTS THERAPY PHYSICAL THERAPY TREATMENT NOTE ASSESSMENT: Sandra Pierre tolerated the session with no issues. She demonstrated no increased pain with therapeutic exercises and good form with all. The patient will continue to benefit from ongoing skilled physical therapy to progress toward set goals. PLAN FOR NEXT VISIT: Possibly add in glute bridges. Re-assess knee SUBJECTIVE: Patient Reason for Visit: Pt fell yesterday. This may be the reason she has some pain today. Was walking down to the pond and there was a hole. Pain: Pain Pain Level: 3 Pain Location: Knee - Left Description: Dull ( You just know it's there ) OBJECTIVE MEASURES WITH LEVEL OF FUNCTION: LE Flexibility Flexibility: Quadriceps Flexibility;Hip Flexor Flexibility R Hip Flexor Flexibility: WNL L Hip Flexor Flexibility: WNL R Quadriceps Flexibility: WNL L Quadriceps Flexibility: WNL TREATMENT: Therapeutic Exercise: 1: Supine SLR x 10 2: Supine SLR 1# 2 x 10 3: S/L hip abd 2 x 10 reps 4: S/L clam x 10 5: S/L clam GTB 2 x 10 reps 6: Discussed extensor hallucis stretch and proper length of time to hold any stretch 7: SciFit x 4 min (Discussed HEP and subjective at this time) Skilled Intervention: Patient was educated in proper exercise technique and purpose for exercises. Provided written instruction for home exercise program to facilitate proper performance and compliance. Correct performance of therapeutic exercises was facilitated with verbal and visual cuing. Billing Therapeutic Exercise Treatment Minutes: 38 Total Treatment Time Minutes (timed/untimed): 38 James Hoskins PT documented in this encounterNationwide Children'[facility]07-22-2022 History of Present illness Narrative* James Hoskins PT - 03/13/2022 7:24 AM EDT Episode Visit Count: 1 Therapist That Will Oversee The Plan Of Care: James Hoskins Start of Care Date: 03/13/22 Onset Date: 02/17/22 Patient Identified by Name and Date of : Yes REHABILITATION AND SPORTS THERAPY PHYSICAL THERAPY EVALUATION PLAN OF CARE: Assessment: Sandra Pierre presents with chief complaint of L knee pain that interferes with standing;walking . She presents with impairments in ADL's, independence in exercise, strength and tissue tenderness. PROMIS (Patient- Reported Outcomes Measurement Information System) scores were reviewed and fatigue domain identified as a rehabilitation concern. Prognosis for therapy is Good due to: current objective clinical presentation;good overall health status . PT demonstrates negative ligamentous and meniscus testing. She will benefit from skilled therapy services to meet the goals established for this plan of care as noted below. Goals for Episode of Care: created on 03/13/22 through 05/08/22 Pt will demo LLE strength of 5/5 with MMT to imrpoved knee stability Pt will report overall improvement of symptoms by 70% or greater in 8 weeks or less Pt will be able to stand for prolonged periods of time without increased pain [place] in home exercise program. Patient Goals: Take away the pain Planned Interventions, Frequency, and Duration: Current Frequency: 1x/week Duration: 4 weeks Total Number of Visits Planned: 4 Planned Treatment Interventions: Therapeutic exercise (46735);Neuromuscular re- education (41179);Manual therapy (05061);Self-shelter management (69551);Patient/Family/Caregiver Education PLAN FOR NEXT VISIT: Progress L knee strengthening as tolerated. Assess LE flexibility Patient demonstrates good understanding of plan of care and treatment. The above goals and plan of care were discussed and agreed upon by patient/family. SUBJECTIVE: Sandra Pierre is a 51 year old female seen today for L knee pain. Jumping rope when injured. [place] a pop and pain after this. The front of the knee gets swollen. No continuous popping. No giving out. Was not able to walk on it when it happened. Was on crutches for 1 week. Pain originally shoot down to the ankle. Going up/down stairs is pretty good . Ice and elevation helps. When at its worst there was pain in the back of the knee.Feels like there is a band around the bottom of the knee. 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 Hobbies / Interests: [employer] Intake Information: Prescription present Previous Treatment: [place] Interview: No positive findings with falls interview Pain: Pain Pain Level: 3 (810 last night) Pain Location: Knee - Right Description: Dull;Aching PROMIS Scales Higher is Better 07/24/2021 02/17/2022 03/12/2022 Phys Func - Score - - 47 (within normal limits) Phys Func - Percentile - - 38 % Social Roles - Score - - 47 (within normal limits) Social Role - Percentile - - 38 % GH Physical - Score 47.7 (Good) 44.9 (Good) - GH Physical - Percentile 41 % 31 % - GH Mental - Score 50.8 (Very Good) 48.3 (Very Good) - GH Mental - Percentile 53 % 43 % - Self-Eff Symptom - Score - - 44 (Average) Self-Eff Symptom - Percentile - - 27 % T-scores: mean of general population = 50. 5 points is clinically meaningfully difference Percentiles provide an indication of how the patient's score ranks in relation to the general population. Higher percentile rankings indicate better function/quality of life. 50th percentile is the average of the general population and indicates half of respondents had a worse score. Lower is Better 03/12/2022 Fatigue - Score 60 (mild) Fatigue - Percentile 16 % T-scores: mean of general population = 50. 5 points is clinically meaningfully difference Percentiles provide an indication of how the patient's score ranks in relation to the general population. Higher percentile rankings indicate better function/quality of life. 50th percentile is the average of the general population and indicates half of respondents had a worse score. OBJECTIVE MEASURES WITH LEVEL OF FUNCTION: Posture / Alignment Posture: Good Knee Observations L Knee Presents with: Swelling L Knee Palpation Tenderness: Patellar tendon;Medial joint line;Lateral joint line;Pes anserinus LE AROM R LE AROM: WNL L LE AROM: WNL L Knee Flexion: (Full but painful all over the knee) LE Strength R LE Strength: Grossly 5/5 L LE Strength: Grossly 5/5 L Hip ABduction: 3+/5 L Hip External Rotation: (painful and causes a catch in the Lateral knee) L Knee Extension (L3): 4/5 L Knee Flexion: 4/5 Special Tests - Knee Knee Special Tests: Anterior Drawer;Shadi's Test Anterior Drawer: Right Negative;Left Negative Shadi's Test: Right Negative;Left Negative Gait Gait Observation: WNL Education: Education Learning Preferences: Demonstration;Explanation;Performance;Printed Materials Barriers: None Learning/educational needs: Home exercise program;Plan of Care Education Provided: Yes, see treatment interventions for education provided Education Provided To: Patient Education Mode/Type: Demonstration;Explanation/Discussion;Literature/Printed Materials;Performance Response to Education/Teach Back: States/Identifies;Return Demonstration TREATMENT: PT Treatment Interventions: Therapeutic Exercise Evaluation Therapeutic Exercise: 1: Discussed therapy goals, exam findings, and purpose of the HEP. 2: Supine SLR 3 x 10 reps 3: SL hip abd x 10 Skilled Intervention: Patient was educated in proper exercise technique and purpose for exercises. Skilled judgment was provided in selection of appropriate interventions. Provided written instruction for home exercise program to facilitate proper performance and compliance. Correct performance of therapeutic exercises was facilitated with verbal cuing. Billing * Evaluation Low Complexity: 1 Unit Therapeutic Exercise Treatment Minutes: 24 Total Treatment Time Minutes (timed/untimed): 46 James Hoskins PT documented in this encounterNationwide Children'[facility]07-18-2022 History of Present illness Narrative* Gabi Ruiz PA-C - 03/09/2022 3:06 PM EDT Gabi Ruiz PA-C Department of Orthopaedics Orthopaedics [address] [place] [id number] Dept: [phone] March 09, 2022 SUBJECTIVE: CHIEF COMPLAINT: New, Knee Pain, and Swelling of the Left Knee HPI: Ms. Sandra Pierre is a 51 year old female. She presents today with left knee pain that has been present for the past 3 months but has been significantly worse since 02/18 when she felt a popwhile jumping rope. Today she rates her pain a 2 on a scale of 0 to 10. She describes the pain as stiff and achy. She was taking meloxicam for the pain but stopped about a week ago. She is not taking any current medication. She has not been able to identify any aggravating factors. She denies any numbness/tingling, weakness, locking/catching, giving out or previous knee surgeries. This patient was consulted to orthopedics by Chelsea Wellington MD. This note will be communicated back to them. Past Medical History: PAST MEDICAL HISTORY Diagnosis Date PMH - PAST MEDICAL HISTORY OF [place] PMH - PAST MEDICAL HISTORY OF Raynauds PMH - PAST MEDICAL HISTORY OF pituitary adenoma Past Surgical History: PAST SURGICAL HISTORY Procedure Laterality Date COLECTOMY PARTIAL W/ANASTOMOSIS 1997 Sigmoidectomy LAP, REVISION CHHAYA FUNDOPLASTY 2016 LASIK Bilateral 10/21/2000 Family History: FAMILY HISTORY Problem Relation Age of Onset Diabetes Mother other (benign brain tumor) Mother other (Pulmonary Disease) Mother Diabetes Father Heart Father CABG X2 Heart Maternal Grandmother Cancer Maternal Grandmother SKIN CANCER Heart Maternal Grandfather Cancer Paternal Grandfather Heart Paternal Grandfather Social History: Social History Tobacco Use Smoking status: Never Smoker Smokeless tobacco: Never Used Substance Use Topics Alcohol use: No Drug use: No Medications: Current Outpatient Medications Medication Sig meloxicam (MOBIC) 15 mg tablet Take 1 tablet by mouth once daily. Take with food. Hyoscyamine Sulfate 0.125 mg-0.25 mg (0.375 mg) TbMP Take 1 tablet by mouth every 4 hours as needed. lubiprostone (AMITIZA) 24 mcg capsule Take 24 mcg by mouth twice daily with meals. omeprazole (PRILOSEC) 20 mg ORAL capsule Take 1 capsule by mouth twice daily. multivitamins(DAILY MULTIVITAMIN TAB) Take one(1) tablet daily. MILK OF MAGNESIA 400 MG/5 ML ORAL SUSP as necessary dexAMETHasone sodium phosphate (DEXONTO) 0.4 % solution For use with iontophoresis No current facility-administered medications for this visit. Allergies: Domperidone (Bulk) ROS: General: negative for fatigue, malaise, weight loss/gain Musculoskeletal: see HPI Psych: no depression, anxiety OBJECTIVE: Ms. Sandra Pierre is a pleasant 51 year old in no apparent distress. Gen:Ht 5' 10 (1.78m) Wt 220 lb (99.8kg) LMP 11/06/2013 BMI 31.57 kg/(m^2). nl development, non obese, no deformities ENT: Normocephalic, normal hearing, moist mucosa CV: Pulses:DP/PT= 2+ and symmetric, capillary refill < 2 secs, no peripheral edema/varicosities Skin: no rash, bruising or lesions. Good turgor. Psych: cooperative and appropriate, alert and oriented x 3, good mood and affect. Musculoskeletal: Right knee, bilateral hips and ankles FROM without pain or limitation. LT Knee: Alignment: Neutral Active Extension 0 and Active Flexion 120 Extension lag: No Pain with ROM: No Effusion: Slight Erythema: No Ecchymosis: No Tender to the palpation of Pes anserine bursa and Medial joint line Pain with patellar compression: No Stability: Anterior/Posterior stable and Varus/Valgus stable Patellofemoral crepitus: No Quad Atrophy: No Shadi's: Negative Anterior drawer: Negative IMAGIN02/19/2022 4:37 PM - Radiology, [place] In Impression IMPRESSION: Negative [employer] Consultant: RENETTA Transcribe Date/Time: Feb 19 2022 4:34P Dictated by : GRAHAM GARCIA MD This examination was interpreted and the report reviewed and electronically signed by: GRAHAM GARCIA MD on Feb 19 2022 4:35PM EST Results-Findings * * *Final Report* * * DATE OF EXAM: Feb 19 2022 2:16PM WOX 5202 - XR KNEE 4V AP/PA BOTH+LAT/HERMES LT / PROCEDURE REASON: Acute pain of left knee * * * * Physician Interpretation * * * * PROCEDURE: Left knee INDICATION: Acute pain of left knee .Posterior left knee pain after running and turning quickly x 1 day ago TECHNIQUE: XR KNEE 4V AP/PA BOTH+LAT/HERMES LT COMPARISON: None FINDINGS: PROCEDURE: INDICATION: Acute pain of left knee .Posterior left knee pain after running and turning quickly x 1 day ago TECHNIQUE: XR KNEE 4V AP/PA BOTH+LAT/HERMES LT COMPARISON: None FINDINGS: No fractures or dislocations are seen. The bones, joint spaces and soft tissues are unremarkable. ASSESSMENT: M25.562, G89.29 Chronic pain of left knee (primary encounter diagnosis) M25.562 Acute pain of left knee M70.52 Pes anserinus bursitis of left knee PLAN: Reviewed images taken today. Recommendation for chronic left knee pain and pes anserine bursitis isphysical therapy coupled with iontophoresis. Patient agreeable with plan and will follow up in 6 weeks. If she is no better at that time we may consider additional imaging. FOLLOW UP INSTRUCTIONS: 6 weeks Gabi Ruiz PA-C [facility] Nurse [facility]* Cora Martinez LPN - 02/19/2022 1:05 PM EDT Patient complains of: left leg pain. Mostly behind knee and down leg. Duration: 1 month Location:behind knee and down leg Last night jumping rope felt pop now with knee pain. Aggravating factors:can't put weight on leg with foot flat but ok on toes Using Tylenol. Uses ice last night. Also has achiness in ankle. documented in this encounterN[facility] History of Present illness Narrative* Chelsea Wellington MD - 02/19/2022 1:01 PM EDT No chief complaint on file. HPI: Patient presents today for office visit for follow up. Nursing Notes: Cora Martinez LPN 02/19/2022 1:12 PM Signed Patient complains of: left leg pain. Mostly behind knee and down leg. Duration: 1 month Location:behind knee and down leg Last night jumping rope felt pop now with knee pain. Aggravating factors:can't put weight on leg with foot flat but ok on toes Using Tylenol. Uses ice last night. Also has achiness in ankle. MSK: No pain on flexion and extension. No pain on hyperextension. Pain on hyperflexion. Patient notes it feels tight Pain with internal rotation. No pain with external rotation. Tenderness upon superficial to deep palpation Patient notes slight swelling to knee in comparison to the right. Left ankle more swollen than right ankle. Using crutches. Patient mentions not being able to sleep d/t pain. Did have an MRI last year but did not get ordered labs. Discussed with patient. Patient to get labs. Was referred to endo. Patient mentions because the MRI was good, cancelled Endo consult. MEDICATIONS: Current Outpatient Medications Medication Sig Hyoscyamine Sulfate 0.125 mg-0.25 mg (0.375 mg) TbMP Take 1 tablet by mouth every 4 hours as needed. lubiprostone (AMITIZA) 24 mcg capsule Take 24 mcg by mouth twice daily with meals. omeprazole (PRILOSEC) 20 mg ORAL capsule Take 1 capsule by mouth twice daily. vitamin b complex (B COMPLEX 1) ORAL Tab Take 1 tablet by mouth once daily. multivitamins(DAILY MULTIVITAMIN TAB) Take one(1) tablet daily. MILK OF MAGNESIA 400 MG/5 ML ORAL SUSP as necessary No current facility-administered medications for this visit. ALLERGIES: ALLERGIES Allergen Reactions Domperidone (Bulk) contraindicated for pituitary tumor, increases prolactin PAST MEDICAL HISTORY Diagnosis Date PMH - PAST MEDICAL HISTORY OF [place] PMH - PAST MEDICAL HISTORY OF Raynauds PMH - PAST MEDICAL HISTORY OF pituitary adenoma PAST SURGICAL HISTORY Procedure Laterality Date COLECTOMY PARTIAL W/ANASTOMOSIS 1997 Sigmoidectomy LAP, REVISION CHHAYA FUNDOPLASTY 2016 LASIK Bilateral 10/21/2000 FAMILY HISTORY Problem Relation Age of Onset Diabetes Mother other (benign brain tumor) Mother other (Pulmonary Disease) Mother Diabetes Father Heart Father CABG X2 Heart Maternal Grandmother Cancer Maternal Grandmother SKIN CANCER Heart Maternal Grandfather Cancer Paternal Grandfather Heart Paternal Grandfather Social History Tobacco Use Smoking status: Never Smoker Smokeless tobacco: Never Used Substance Use Topics Alcohol use: No Drug use: No Reviewed current medications, allergies, past medical history, surgical history, family history andsocial history today. REVIEW OF SYSTEMS All other reviewed and negative other than HPI. VITALS: BP 122/84 Pulse 97 LMP 11/06/2013 SpO2 96% Last 4 Encounter Wt Readings: Date: Wt: 07/28/2021 95.3 kg (210 lb) 06/17/2020 91.6 kg (202 lb) 06/13/2020 93 kg (205 lb) 08/18/2019 86.6 kg (191 lb) PHYSICAL EXAMINATION: General appearance: Well appearing, alert, in no acute distress, well-hydrated, well nourished. Skin: Skin color, texture, turgor normal, no suspicious rashes or lesions Head: Normocephalic, no masses, lesions, tenderness or abnormalities Eyes: Anicteric sclera. Pupils are equally round and reactive to light. Extraocular movements are intact. Back: Normal exam Lungs: Lungs clear to auscultation. No wheezing, rhonchi, rales Heart: RRR without murmur, gallop, or rubs. No ectopy Abdomen: Normal abdominal exam, Abdomen soft, non-tender. Bowel sounds normal. No masses, organomegaly Extremities: No deformities, edema, skin discoloration, clubbing or cyanosis. Good capillary refill. Musculoskeletal: Positive findings: Left knee shows mild effusion. Painful to touch which makes full exam difficult.. Pain with internal rotation. Cannot fully assess anterior drawer sign. No rednessor warmth. Peripheral pulses: Normal Neuro: Gait normal. Reflexes normal and symmetric. Sensation grossly intact. ASSESSMENT/PLAN: 1. Acute pain of left knee - ICD9: 719.46, ICD10: M25.562 (primary diagnosis) - continue use of crutches. Ortho. mobic prn. Rest and elevate. Discussed risks and benefits of new medication with the patient. Advised them to call if any side effects or questions. - Red flags for re-assessment reviewed with patient in detail. - XR KNEE GENERAL 4V AP BOTH/PA BOTH/LAT/MERC LEFT 2. Pituitary adenoma (HCC) - ICD9: 227.3, ICD10: D35.2 - get labs and follow with endo - CBC + DIFF - COMP METABOLIC PANEL - TSH BLD - PROLACTIN BLD - CONSULT TO ENDOCRINOLOGY 3. Screening for lipid disorders - ICD9: V77.91, ICD10: Z13.220 - LIPID PANEL BASIC Chelsea Wellington documented in this encounterN[facility]06[facility] Instructions* Patient Instructions* Milagro Craft, OD - 02/06/2022 3:56 PM EDT ASSESSMENT/PLAN: 1. Vitreous floaters of both eyes - ICD9: 379.24, ICD10: H43.393 (primary diagnosis) Vitreal floaters stable both eyes. Retinas flat and intact with no apparent retinal tear or traction. Discussed symptoms of retinal tear/detachment and if seen patient will return to clinic without delay. 2. Dry eye syndrome of both eyes - ICD9: 375.15, ICD10: H04.123 Continue to use her Blink tears daily . Discussed that she can use them up to 3- 4 times per day. 3. S/P LASIK surgery of both eyes - ICD9: V45.69, ICD10: Z98.890 Stable. Recommended yearly exams. documented in this encounterN[facility]06-17-[facility] History of Present illness Narrative* Milagro Craft, OD - 02/06/2022 3:55 PM EDT ASSESSMENT/PLAN: 1. Vitreous floaters of both eyes - ICD9: 379.24, ICD10: H43.393 (primary diagnosis) Vitreal floaters stable both eyes. Retinas flat and intact with no apparent retinal tear or traction. Discussed symptoms of retinal tear/detachment and if seen patient will return to clinic without delay. 2. Dry eye syndrome of both eyes - ICD9: 375.15, ICD10: H04.123 Continue to use her Blink tears daily . Discussed that she can use them up to 3- 4 times per day. 3. S/P LASIK surgery of both eyes - ICD9: V45.69, ICD10: Z98.890 Stable. Recommended yearly exams. Milagro Craft, OD I have confirmed and edited as necessary the relevant ophthalmic history, ROS, and the neuro exam findings as obtained by others. I have seen and examined this patient. documented in this encounterN[facility]11-[facility] History of Past illness Narrative* Problem Noted Date Resolved Date Other vitreous opacities - Both Eyes 06/27/2014 10/31/2015 Tear film insufficiency, unspecified - Both Eyes 06/27/2014 10/31/2015 documented as of this encounter (statuses as of 02/06/2022) [address]05-2014 History of Past illness Narrative* Problem Noted Date Resolved Date Other vitreous opacities - Both Eyes 06/27/2014 10/31/2015 Tear film insufficiency, unspecified - Both Eyes 06/27/2014 10/31/2015 documented as of this encounter (statuses as of 02/19/2022) [address]05[address]2014 History of Past illness Narrative* Problem Noted Date Resolved Date Other vitreous opacities - Both Eyes 06/27/2014 10/31/2015 Tear film insufficiency, unspecified - Both Eyes 06/27/2014 10/31/2015 documented as of this encounter (statuses as of 03/09/2022) [address]05[address]2014 History of Past illness Narrative* Problem Noted Date Resolved Date Other vitreous opacities - Both Eyes 06/27/2014 10/31/2015 Tear film insufficiency, unspecified - Both Eyes 06/27/2014 10/31/2015 documented as of this encounter (statuses as of 03/13/2022) [place] [address]05-2014 History of Past illness Narrative* Problem Noted Date Resolved Date Other vitreous opacities - Both Eyes 06/27/2014 10/31/2015 Tear film insufficiency, unspecified - Both Eyes 06/27/2014 10/31/2015 documented as of this encounter (statuses as of 03/19/2022) [place] [address]2014 History of Past illness Narrative* Problem Noted Date Resolved Date Other vitreous opacities - Both Eyes 06/27/2014 10/31/2015 Tear film insufficiency, unspecified - Both Eyes 06/27/2014 10/31/2015 documented as of this encounter (statuses as of 03/24/2022) [address]05[address]2014 History of Past illness Narrative* Problem Noted Date Resolved Date Other vitreous opacities - Both Eyes 06/27/2014 10/31/2015 Tear film insufficiency, unspecified - Both Eyes 06/27/2014 10/31/2015 documented as of this encounter (statuses as of 04/02/2022) [place] [address]2014 History of Past illness Narrative* Problem Noted Date Resolved Date Other vitreous opacities - Both Eyes 06/27/2014 10/31/2015 Tear film insufficiency, unspecified - Both Eyes 06/27/2014 10/31/2015 documented as of this encounter (statuses as of 04/07/2022) [place] [address]2014 History of Past illness Narrative* Problem Noted Date Resolved Date Other vitreous opacities - Both Eyes 06/27/2014 10/31/2015 Tear film insufficiency, unspecified - Both Eyes 06/27/2014 10/31/2015 documented as of this encounter (statuses as of 04/13/2022) [facility] Narrative* Problem Noted Date Resolved Date Other vitreous opacities - Both Eyes 06/27/2014 10/31/2015 Tear film insufficiency, unspecified - Both Eyes 06/27/2014 10/31/2015 documented as of this encounter (statuses as of 04/14/2022) [address]2014 History of Past illness Narrative* Problem Noted Date Resolved Date Other vitreous opacities - Both Eyes 06/27/2014 10/31/2015 Tear film insufficiency, unspecified - Both Eyes 06/27/2014 10/31/2015 documented as of this encounter (statuses as of 04/20/2022) [facility] Vitreous floaters of both eyes- Primary Dry eye syndrome of both eyes S/P LASIK surgery of both eyes [facility] Acute pain of left knee- Primary Pituitary adenoma (HCC) Benign neoplasm of pituitary gland and craniopharyngeal duct (pouch) Screening for lipid disorders [facility] Diagnosis Chronic pain of left knee- Primary Pain in joint, lower leg Acute pain of left knee Pes anserinus bursitis of left knee Pes anserinus tendinitis or bursitis [facility]* Diagnosis Chronic pain of left knee Pain in joint, lower leg Pes anserinus bursitis of left knee Pes anserinus tendinitis or bursitis [facility]* Diagnosis Pes anserinus bursitis of left knee- Primary Pes anserinus tendinitis or bursitis [facility] Diagnosis Pes anserinus bursitis of left knee- Primary Pes anserinus tendinitis or bursitis Chronic pain of left knee Pain in joint, lower leg [facility]* Diagnosis Subconjunctival hemorrhage of right eye- Primary Episcleritis of right eye Scleritis, unspecified Vitreous floaters, bilateral S/P LASIK surgery of both eyes [facility]* Diagnosis Episcleritis of right eye- Primary Scleritis, unspecified S/P LASIK surgery of both eyes Dry eye syndrome of both eyes Vitreous floaters of both eyes [facility]* Diagnosis Pes anserinus bursitis of left knee- Primary Pes anserinus tendinitis or bursitis Chronic pain of left knee Pain in joint, lower leg [facility]* Diagnosis Chronic pain of left knee- Primary Pain in joint, lower leg Chondromalacia of patellofemoral joint, left [facility] this [facility]* Diagnosis Pain around right eye- Primary S/P LASIK surgery of both eyes Dry eye syndrome of both eyes [facility]* Diagnosis Headache, unspecified headache type- Primary [facility]* Diagnosis History of pituitary adenoma- Primary Pure hypercholesterolemia documented [facility] this encounter [facility]* Diagnosis Pharyngitis, unspecified etiology- Primary URI, acute Acute upper respiratory infections of unspecified site [facility] this [facility]* Diagnosis Irritant dermatitis- Primary Contact dermatitis and other eczema, due to unspecified cause documented [facility] this encounter [facility]* Diagnosis Dry eye syndrome of both eyes- Primary Vitreous floaters of both eyes S/P LASIK surgery of both eyes [facility] encounter [facility]* Diagnosis Encounter for screening mammogram for breast cancer documented [facility] encounter [facility]* Diagnosis Encounter for screening mammogram for breast cancer documented in this encounter [facility] for referral (narrative)* Diagnostic Procedure Only (Routine) - Closed Specialty Diagnoses / Procedures Referred By Andres liang Referred To Contact [facility] Diagnoses Encounter for screening mammogram for breast cancer Procedures SERGE SCREENING SCREENING MAMMOGRAPHY BI 2-VIEW BREAST INC Chelsea Jerry MD [address] [place] [address] [facility] [address] [place] [address] Referral ID Status Reason Start Date Expiration Date V isits Requested Visits Authorized [id number] Closed Auto-Generate d Referral 06/17/2022 08/22/2022 1 1 [facility] for referral (narrative)* Diagnostic Procedure Only (Routine) - Pending Review Specialty Diagnoses / Procedures Referred By Andres liang Referred To Contact [facility] Diagnoses Encounter for screening mammogram for breast cancer Procedures SERGE SCREENING SCREENING MAMMOGRAPHY BI 2-VIEW BREAST INC Chelsea Jerry MD [facility] [place] [address] [facility] [address] [place] [address] Referral ID Status Reason Start Date Expiration Date Visits Requested Visits Authorized [id number] Pending Review Auto-Generat ed Referral 07/28/2023 08/26/2024 1 1 [facility] for visit Narrative* Diagnostic Procedure Only (Routine) - Closed Specialty Diagnoses / Procedures Referred By Andres t Referred To Contact [facility] Diagnoses Encounter for screening mammogram for breast cancer Procedures SERGE SCREENING SCREENING MAMMOGRAPHY BI 2-VIEW BREAST INC Chelsea Jerry MD [facility] [place] [address] [facility] [address] [place] [address] Referral ID Status Reason Start Date Expiration Date V isits Requested Visits Authorized [id number] Closed Auto-Generate d Referral 06/17/2022 08/22/2022 1 1 [facility] Summary Purpose Family History No Family History Records FoundNo Family History Records Found Advance Directives No Advanced Directives Records FoundNo Advanced Directives Records Found Medications Administered Section Inactive Administered Medications - up to 3 most recent administrations Medication Order MAR Action Action Date Dose Rate Site proparacaine 0.5 % 1 Drop (ALCAINE) 1 Drop, BOTH EYES, ONCE, 1 dose, On Wed02/06/22 at 1600, FOR THE EYE Given 02/06/2022 4:00 PM EDT 1 Drop tropicamide 1 % 1 Drop (MYDRIACYL) 1 Drop, BOTH EYES, ONCE, 1 dose, On Wed02/06/22 at 1600, FOR THE EYE Given 02/06/2022 4:00 PM EDT 1 Drop Inactive Administered Medications - up to 3 most recent administrations Medication Order MAR Action Action Date Dose Rate Site betamethasone acetate-betamethasone sodium phosphate 12 mg injection (CELESTONE) 12 mg, Injection - FOR ORTHO USE ONLY, ONE TIME INJECTION, 1 dose, Starting on Wed04/20/22 at 1619, Until Wed04/20/22 at 1619 Given 04/20/2022 4:19 PM EDT 12 mg Kn ee, Left lidocaine (PF) 10 mg/mL (1 %) 3 mL injection (XYLOCAINE) 3 mL, Injection - FOR ORTHO USE ONLY, ONE TIME INJECTION, 1 dose, Starting on Wed04/20/22 at 1619, Until Wed04/20/22 at 1619 Given 04/20/2022 4:19 PM EDT 3 mL Kn ee, Left Inactive Administered Medications - up to 3 most recent administrations Medication Order MAR Action Action Date Dose Rate Site fluorescein-benoxinate 0.25-0.4 % 1 Drop (FLURESS) 1 Drop, BOTH EYES, DIRECTED, Starting on Wed04/13/23 at 1630, Until Wed04/14/23 at 0429, Administer for applanation tonometry. In the event of a Fluress shortage, administer Simona-Fluor 1 drop into both eyes as directed for applanation tonometry Given 04/13/2023 4:30 PM EDT 1 Drop PHENYLephrine 2.5 % 1 Drop (AK-DILATE, SUKHWINDER-SYNEPHRINE) 1 Drop, BOTH EYES, DIRECTED, Starting on Wed04/13/23 at 1630, Until Wed04/14/23 at 0429, Administer for dilation PROTECT FROM LIGHT Given 04/13/2023 4:30 PM EDT 1 Drop tropicamide 1 % 1 Drop (MYDRIACYL) 1 Drop, BOTH EYES, DIRECTED, Starting on Wed04/13/23 at 1630, Until Wed04/14/23 at 0429, Administer for dilation Given 04/13/2023 4:30 PM EDT 1 Drop Reason for Referral Specialty Diagnoses / Procedures Referred By Contac t Referred To Contact Orthopedics Diagnoses Acute pain of left knee Procedures CONSULT TO ORTHOPAEDICS OFFICE/OUTPATIENT [facility] 60-74 MINUTES Chelsea Wellington MD [address] [place] [address] Referral ID Status Reason Start Date Expiration Date Visits Requested Visits Authorized [id number] Authorized PCP Requested Referral 02/19/2022 02/19/2023 1 1 Specialty Diagnoses / Procedures Referred By Contac t Referred To Contact Endocrinology Diagnoses Pituitary adenoma (HCC) Procedures CONSULT TO ENDOCRINOLOGY OFFICE/OUTPATIENT [facility] 60-74 MINUTES Chelsea Wellington MD [address] [place] [address] Referral ID Status Reason Start Date Expiration Date Visits Requested Visits Authorized [id number] Authorized PCP Requested Referral 02/19/2022 02/19/2023 1 1 Specialty Diagnoses / Procedures Referred By Contac t Referred To Contact XR IMAGING Diagnoses Acute pain of left knee Procedures XR KNEE GENERAL 4V AP BOTH/PA BOTH/LAT/MERC LEFT RADIOLOGIC EXAM KNEE COMPLETE 4/MORE VIEWS Chelsea Wellington MD [address] [place] [address] Xr Imaging Referral ID Status Reason Start Date Expiration Date V isits Requested Visits Authorized [id number] Closed Auto-Generate d Referral 02/19/2022 03/21/2023 1 1 Specialty Diagnoses / Procedures Referred By Contac t Referred To Contact [facility] Diagnoses Chronic pain of left knee Pes anserinus bursitis of left knee Procedures CONSULT TO PHYSICAL THERAPY PHYSICAL THERAPY EVALUATION HIGH COMPLEX 45 MINS Gabi Ruiz PA-C [address] [place] [address] [facility] [place] [address] [place] [address] Referral ID Status Reason Start Date Expiration Date Visits Requested Visits Authorized [id number] Authorized Auto-Generat ed Referral 08/23/2021 08/22/2022 20 20 Specialty Diagnoses / Procedures Referred By Contac t Referred To Contact [facility] Diagnoses Chronic pain of left knee Pes anserinus bursitis of left knee Procedures PT REHAB FOLLOW UP ORDER THERAPEUTIC EXERCISES RE, EA 15 MIN. [facility] [address] [place] [address] Referral ID Status Reason Start Date Expiration Date Visits Requested Visits Authorized [id number] Pending Review PCP Requested Referral Auto-Generate d Referral 03/13/2022 06/11/2022 1 1 Specialty Diagnoses / Procedures Referred By Contac t Referred To Contact [facility] Diagnoses Pes anserinus bursitis of left knee Chronic pain of left knee Procedures PT REHAB FOLLOW UP ORDER THERAPEUTIC EXERCISES RE, EA 15 MIN. [facility] [address] [place] [address] Referral ID Status Reason Start Date Expiration Date Visits Requested Visits Authorized [id number] Pending Review PCP Requested Referral Auto-Generate d Referral 04/14/2022 07/13/2022 1 1 Specialty Diagnoses / Procedures Referred By Contac t Referred To Contact Neurology Diagnoses Headache, unspecified headache type Procedures CONSULT TO NEUROLOGY OFFICE/OUTPATIENT [facility] 60-74 MINUTES Chelsea Wellington MD [address] [place] [address] Referral ID Status Reason Start Date Expiration Date Visits Requested Visits Authorized [id number] Authorized PCP Requested Referral 05/12/2022 05/12/2023 1 1 Additional Source Comments INFORMATION SOURCE (unrecogn ized section and content) DATE CREATED AUTHOR AUTHOR'S ORGANIZ ATION 08/03/2023 [facility] Source Comments (unrecognize d section and content) In the event this informatio n is protected by the Federal Confidentiality of Alcohol and Drug Abuse Patient Records regulations: The Federal rules restrict any use of the information to criminally investigate or prosecute any alcohol or drug abuse patient.[facility] the event this information is protected by the Federal Confidentiality of Alcohol and Drug Abuse Patient Records regulations: The Federal rules restrict any use of the information to criminally investigate or prosecute any alcohol or drug abuse patient.[facility] the event this information is protected by the Federal Confidentiality of Alcohol and Drug Abuse Patient Records regulations: The Federal rules restrict any use of the information to criminally investigate or prosecute any alcohol or drug abuse patient.[facility] the event this information is protected by the Federal Confidentiality of Alcohol and Drug Abuse Patient Records regulations: The Federal rules restrict any use of the information to criminally investigate or prosecute any alcohol or drug abuse patient.[facility] Hospital[facility] the event this information is protected by the Federal Confidentiality of Alcohol and Drug Abuse Patient Records regulations: The Federal rules restrict any use of the information to criminally investigate or prosecute any alcohol or drug abuse patient.[facility] Hospital[facility] the event this information is protected by the Federal Confidentiality of Alcohol and Drug Abuse Patient Records regulations: The Federal rules restrict any use of the information to criminally investigate or prosecute any alcohol or drug abuse patient.[facility] Hospital[facility] the event this information is protected by the Federal Confidentiality of Alcohol and Drug Abuse Patient Records regulations: The Federal rules restrict any use of the information to criminally investigate or prosecute any alcohol or drug abuse patient.[facility] HospitalIn the event this information is protected by the Federal Confidentiality of Alcohol and Drug Abuse Patient Records regulations: The Federal rules restrict any use of the information to criminally investigate or prosecute any alcohol or drug abuse patient.[facility] Hospital[facility] the event this information is protected by the Federal Confidentiality of Alcohol and Drug Abuse Patient Records regulations: The Federal rules restrict any use of the information to criminally investigate or prosecute any alcohol or drug abuse patient.[facility] Hospital[facility] the event this information is protected by the Federal Confidentiality of Alcohol and Drug Abuse Patient Records regulations: The Federal rules restrict any use of the information to criminally investigate or prosecute any alcohol or drug abuse patient.[facility] HospitalIn the event this information is protected by the Federal Confidentiality of Alcohol and Drug Abuse Patient Records regulations: The Federal rules restrict any use of the information to criminally investigate or prosecute any alcohol or drug abuse patient.[facility] HospitalIn the event this information is protected by the Federal Confidentiality of Alcohol and Drug Abuse Patient Records regulations: The Federal rules restrict any use of the information to criminally investigate or prosecute any alcohol or drug abuse patient.[facility] HospitalIn the event this information is protected by the Federal Confidentiality of Alcohol and Drug Abuse Patient Records regulations: The Federal rules restrict any use of the information to criminally investigate or prosecute any alcohol or drug abuse patient.[facility] HospitalIn the event this information is protected by the Federal Confidentiality of Alcohol and Drug Abuse Patient Records regulations: The Federal rules restrict any use of the information to criminally investigate or prosecute any alcohol or drug abuse patient.[facility] HospitalIn the event this information is protected by the Federal Confidentiality of Alcohol and Drug Abuse Patient Records regulations: The Federal rules restrict any use of the information to criminally investigate or prosecute any alcohol or drug abuse patient.[facility] HospitalIn the event this information is protected by the Federal Confidentiality of Alcohol and Drug Abuse Patient Records regulations: The Federal rules restrict any use of the information to criminally investigate or prosecute any alcohol or drug abuse patient.[facility] HospitalIn the event this information is protected by the Federal Confidentiality of Alcohol and Drug Abuse Patient Records regulations: The Federal rules restrict any use of the information to criminally investigate or prosecute any alcohol or drug abuse patient.[facility] HospitalIn the event this information is protected by the Federal Confidentiality of Alcohol and Drug Abuse Patient Records regulations: The Federal rules restrict any use of the information to criminally investigate or prosecute any alcohol or drug abuse patient.[facility] HospitalIn the event this information is protected by the Federal Confidentiality of Alcohol and Drug Abuse Patient Records regulations: The Federal rules restrict any use of the information to criminally investigate or prosecute any alcohol or drug abuse patient.[facility] HospitalIn the event this information is protected by the Federal Confidentiality of Alcohol and Drug Abuse Patient Records regulations: The Federal rules restrict any use of the information to criminally investigate or prosecute any alcohol or drug abuse patient.[facility] Reason for Visit (unrecogniz ed section and content) Specialty Diagnoses / Procedures Referred By Contac t Referred To Contact [facility] Diagnoses Chronic pain of left knee Pes anserinus bursitis of left knee Procedures CONSULT TO PHYSICAL THERAPY PHYSICAL THERAPY EVALUATION HIGH COMPLEX 45 MINS Gabi Ruiz PA-C [address] [place] [address] [facility] [address] [address] Referral ID Status Reason Start Date Expiration Date Visits Requested Visits Authorized [id number] Authorized Auto-Generat ed Referral 08/23/2021 08/22/2022 20 20 Reason Comments Vitreous Floaters Follow Up Bilateral Dry Eye Syndrome Follow Up Bilateral Reason Comments Musculoskeletal Problem Reason Comments New Knee Pain Swelling Specialty Diagnoses / Procedures Referred By Andres liang Referred To Contact Orthopedics Diagnoses Acute pain of left knee Procedures CONSULT TO ORTHOPAEDICS OFFICE/OUTPATIENT [facility] 60-74 MINUTES Chelsea Wellington MD [address] [place] [address] Referral ID Status Reason Start Date Expiration Date V isits Requested Visits Authorized [id number] Closed PCP Requested Referral 02/19/2022 02/19/2023 1 1 Reason Comments PT Eval Reason Comments Physical Therapy Specialty Diagnoses / Procedures Referred By Andres liang Referred To Contact [facility] Diagnoses Chronic pain of left knee Pes anserinus bursitis of left knee Procedures CONSULT TO PHYSICAL THERAPY PHYSICAL THERAPY EVALUATION HIGH COMPLEX 45 MINS Gabi Ruiz PA-C [address] [place] [address] [facility] [address] [address] Reason Comments Subconjunctival Hemorrhage Evaluation X 5 days Bump on right eye Reason Comments Subconjuctival Hemorrhage Follow Up Episcleritis Follow Up Reason Comments Established Patient Knee Pain Reason Comments Eye Pain Right Eye For 3 days, progress ively getting worse since yesterday Swelling Around Right Eye For 3 days Reason Comments Patient Update Reason Comments Consult Specialty Diagnoses / Procedures Referred By Andres liang Referred To Contact Endocrinology Diagnoses Pituitary adenoma (HCC) Procedures CONSULT TO ENDOCRINOLOGY OFFICE/OUTPATIENT [facility] 60-74 MINUTES Chelsea Wellington MD [address] [place] [address] Referral ID Status Reason Start Date Expiration Date V isits Requested Visits Authorized [id number] Closed PCP Requested Referral 02/19/2022 02/19/2023 1 1 Reason Comments Sore Throat Reason Comments itchy neck Red and itchy neck x 5 days Reason Comments Eye Itching Both Eyes Dry Eye(s) Both Eyes Floaters [facility] Care Teams (unrecognized sec tion and content) Diamond Powder Technician Relationship Specialty Start Date End Date Chelsea Wellington MD [address] [place], [place] [id number] PCP - General Family Practice 08/18/19 Diamond Powder Technician Relationship Specialty Start Date End Date Chelsea Wellington MD [address] [place] [address] [id number] PCP - General Family Practice 08/18/19 Diamond Powder Technician Relationship Specialty Start Date End Date Chelsea Wellington MD [address] [place] [id number] PCP - General Family Practice 08/18/19 Diamond Powder Technician Relationship Specialty Start Date End Date Chelsea Wellington MD [address] [place] [address] [id number] PCP - General Family Practice 08/18/19 Diamond Powder Technician Relationship Specialty Start Date End Date Chelsea Wellington MD [address] [place] [address] [id number] PCP - General Family Practice 08/18/19 Diamond Powder Technician Relationship Specialty Start Date End Date Chelsea Wellington MD [address] [place] [address] [id number] PCP - General Family Practice 08/18/19 Diamond Powder Technician Relationship Specialty Start Date End Date Chelsea Wellington MD [address] [place] [id number] PCP - General Family Practice 08/18/19 Diamond Powder Technician Relationship Specialty Start Date End Date Chelsea Wellington MD [address] [facility] [address] PCP - General Family Practice 08/18/19 Diamond Powder Technician Relationship Specialty Start Date End Date Chelsea Wellington MD [address] [facility] [address] PCP - General Family Medicine 08/18/19 Diamond Powder Technician Relationship Specialty Start Date End Date Chelsea Wellington MD [address] [facility] [address] PCP - General Family Medicine 08/18/19 Diamond Powder Technician Relationship Specialty Start Date End Date Chelsea Wellington MD [address] [facility] [address] PCP - General Family Medicine 08/18/19 Diamond Powder Technician Relationship Specialty Start Date End Date Chelsea Wellington MD [address] [place] [address] PCP - General Family Medicine 08/18/19 Diamond Powder Technician Relationship Specialty Start Date End Date Chelsea Wellington MD [address] [facility] [address] PCP - General Family Medicine 08/18/19 Diamond Powder Technician Relationship Specialty Start Date End Date Chelsea Wellington MD [address] [place] [address] PCP - General Family Medicine 08/18/19 Diamond Powder Technician Relationship Specialty Start Date End Date Chelsea Wellington MD [address] [facility] [address] PCP - General Family Medicine 08/18/19 Diamond Powder Technician Relationship Specialty Start Date End Date Chelsea Wellington MD [address] [place] [address] PCP - General Family Medicine 08/18/19 FOR RECORDS PERTAINING TO PATIENTS WHO ARE OR HAVE BEEN ENROLLED IN A CHEMICAL DEPENDENCY/SUBSTANCEABUSE PROGRAM, SOME INFORMATION MAY BE OMITTED. This clinical summary was aggregated from multiple sources. Caution should be exercised in using it in the provision of clinical care. This summary normalizes information from multiple sources, and as a consequence, information in this document may materially change the coding, format and clinical context of patient data. In addition, data may be omitted in some cases. CLINICAL DECISIONS SHOULD BE BASED ON THE PRIMARY CLINICAL RECORDS. [facility] [employer] [facility]. provides no warranty or guarantee of the accuracy or completeness of information in this document.
[2023-08-10] MEDS: Oxymetazoline 0.05% 1 SPRAY SPRAY.BTL 2 SPRAY NASAL (01:19)
--- NOTE | 2023-08-10 01:54 | PCM.HP.STD ---
[facility] - General General Date of Admission: 08/10/23 Date of Service: 08/10/23 Chief Complaint: Abdominal Pain, Nausea and Vomiting. HPI Narrative JENNA PIERRE, is a 53 F with a past medical history of pituitary tumor, history of recurrent small bowel obstructions; with history of partial sigmoid resection at [facility] (1997) and previous small bowel obstructions x 2 treated here (2019), GERD; status post Yomaira fundoplication and irritable bowel syndrome; on lubiprostone who presents to [facility] ER complaining of abdominal pain, nausea and vomiting. Ms. Pierre reports her symptoms began approximately 1 day prior to admission with her last bowel movement on the morning of 08/09/2023 with patient unable to pass gas or stool since that time. She does have a history of small bowel obstructions and endorses that this is very similar to her previous bouts of this illness. She also admits to a similar but less severe bout of GI upset about a week ago that resolved spontaneously and she states she has been feeling lightheaded and had a near syncopal event but she denies fever, chills, chest pain or palpitations. She also reports that she has a severe headache in response to morphine and would like to avoid this agent. Finally, she recently started 'Weight Watchers' a little over a month ago with a subsequent ~24 pound weight loss that seems to have provoked her current symptoms. In the ER her CT scan of the abdomen pelvis was positive for evidence of suspected small bowel obstruction; similar in appearance to her previous admissions complicated by laboratory evidence of mild hypokalemia of 3.4 mmol/L present on admission and mild hypercalcemia of 11.2 mg/dL present on admission she was then admitted to the general medical floor with telemetry for a stay that is expected to be greater than 48 hours. [facility] Medical History Pituitary tumor Small bowel obstruction Home Medications lubiprostone 24 mcg capsule (Amitiza) 24 mcg PO BID ibs 03/18/17 [History Last Taken 03/11/20] hyoscyamine sulfate 0.125 mg sublingual tablet 0.125 mg SL Q4H PRN PRN stomach 03/12/20 [History Last Taken 03/12/20] multivitamin-ferrous fumarate-folic acid 18 mg-400 mcg tablet 1 ea PO DAILY supplement 03/12/20 [History Last Taken 03/11/20] pseudoephedrine HCl 60 mg tablet 60 mg PO Q6H PRN PRN Sinus Congestion 03/12/20 [History Last Taken 03/08/20] acetaminophen 500 mg tablet 500 mg PO Q4H PRN PRN Headache/Fever (T>102.5) 03/14/20 [Rx Last Taken Unknown] ondansetron HCl 8 mg tablet 8 mg PO TID PRN nausea and vomiting #20 tabs 03/14/20 [Rx Last Taken Unknown] Allergy/AdvReac Type Severity Reaction Status Date / Time No Known Allergies Allergy Verified 08/09/23 22:44 Surgical History History of bowel resection Status post Yomaira fundoplication Social History Smoking Status: Never smoker ROS ROS Narrative Review of systems: General: Patient denies fevers or chills. HENT: Denies headache, denies stuffy nose, denies sore throat EYES: Denies changes in vision Resp: Denies cough, denies shortness of breath Cardiac: Denies chest pain palpitations. GI: Patient admits to abdominal pain and nausea with bilious emesis. He denies diarrhea. : Denies changes in urination Extremity: Denies swelling Musculoskeletal: Feels somewhat generally weak and unwell Neuro: Denies any numbness/tingling Heme: Denies any bleeding or bruising Skin: Denies rashes Psychiatric: No complaints voiced Endocrine: No polyuria The rest of the 14 point ROS was negative except for positives in HPI. Vital Signs Vital Signs Vital Signs: 08/09/23 22:44 08/10/23 00:00 Temperature 97.3 F L Temperature Source Temporal Pulse Rate 66 44 L Respiratory Rate 18 12 Blood Pressure 116/72 112/71 Blood Pressure Mean 86 84 Pulse Ox 98 98 Oxygen Delivery Method Room Air Room Air Physical Exam Const alert, oriented x3, average body habitus and healthy appearing Constitutional Narrative: Mild distress noted. General Appearance: cooperative HEENT normocephalic, head/scalp atraumatic and hearing grossly normal bilaterally HEENT Narrative: Oropharynx dry. Eyes PERRL, EOMs intact bilaterally and conjunctivae normal Neck no lymphadenopathy, supple and no JVD Resp normal respiratory effort, no retractions, no use of accessory muscles and clear to auscultation bilaterally Cardio regular rate and regular rhythm Cardio Narrative: Bradycardia in the low ~50 bpm range noted. GI GI Narrative: Abdomen is soft with hypoactive bowel sounds throughout and mild diffuse tenderness. There is no evidence of guarding or rebound at this time. Auscultation: hypoactive bowel sounds Palpation: tender Extremity normal to inspection, full ROM and no clubbing, cyanosis or edema Skin Skin Narrative: Patient has no evidence of rash at this time. Neuro oriented x3, CN's II-XII intact bilaterally, moves all extremities and no focal motor deficits Sensorium / Orientation: awake, alert, oriented to person, oriented to place and oriented to time Speech: speech normal Motor Exam: strength 5/5 throughout Psych affect normal Results Medical Records Data Attestation: I reviewed the patient's medical records Lab / Micro Data Attestation: I reviewed the patient's lab results. 08/10/23 04:10 08/10/23 04:10 Labs: Laboratory Results - last 24 hr 08/09/23 23:10: WBC 11.3 H, RBC 5.23, Hgb 13.7, Hct 43.6, MCV 83.4, MCH 26.2 L, MCHC 31.4 L, RDW Std Deviation 48.5 H, RDW Coeff of Ana 16.1 H, Plt Count 334, MPV 9.7, Immature Gran % (Auto) 0.300, Neut % (Auto) 77.4 H, Lymph % (Auto) 16.1 L, Hitchcock % (Auto) 5.4, Eos % (Auto) 0.4, Baso % (Auto) 0.4, Absolute Neuts (auto) 8.7 H, Absolute Lymphs (auto) 1.81, Nucleated RBC % 0, Sodium 135 L, Potassium 3.4 L, Chloride 99, Carbon Dioxide 30.0, Anion Gap 6, BUN 10, Creatinine 0.92, Est GFR (MDRD) Af Amer 82, Est GFR (MDRD) Non-Af 68, BUN/Creatinine Ratio 10.9, Glucose 175 H, Calcium 11.2 H, Total Bilirubin 0.40, Direct Bilirubin 0.14, AST 16, ALT 22, Alkaline Phosphatase 51, Total Protein 7.8, Albumin 4.1, Globulin 3.7, Lipase 18 Imagaing Radiology Impression Abdomen/Pelvis CT 08/09/23 22:55 IMPRESSION: undefined ADDENDUM: 08/10/23 0038 IMPRESSION: undefined Assessment & Plan Assessment/Plan (1) Small bowel obstruction: (2) Bradycardia: (3) Hypokalemia: (4) Abdominal pain: QUALIFIERS: Abdominal location: generalized Qualified Code(s): R10.84 - Generalized abdominal pain (5) Hypercalcemia: PLAN: Plan 1. Small bowel obstruction; recurrent - Admit to general medical floor with telemetry on aspiration precautions. NG tube could not be placed in the ER due to epistaxis general surgery will be asked to help with placement. Keep strict n.p.o. and give IV Protonix. Give acetaminophen CA as needed for mild to moderate level 1-5 out of 10 pain and fever. Continue IV fentanyl as needed for severe level 6-10 out of 10 pain given the fact the patient has severe headache secondary to morphine. Check serum lactate and recheck KUB in the a.m. to assess for potential improvement. Finally, we will consult the general surgeon on-call to see this patient on rounds in the a.m. for further recommendations with help appreciated in advance. 2. Intractable nausea vomiting attributable to #1 - Aggressively volume resuscitate with LR at 150 cc/h and give Zofran as needed for nausea vomiting. 3. Hypokalemia of 3.4 mmol/L present on admission complicating #1 & #2 - Give supplemental IV potassium chloride and recheck level in the a.m. to ensure improvement. 4. Mild hypercalcemia of 11.2 mg/dL present on admission - Check PTH and ionized calcium. We will also check vitamin D level. 5. History of irritable bowel syndrome of constipation type; on lubiprostone - Hold this agent until small bowel obstruction resolves and is deemed safe to restart by general surgery. 6. History of GERD; status post Yomaira fundoplication - Patient will be started on IV Protonix for #1. 7. History of pituitary tumor - Apparently stable. Check TSH this admission. 8. DVT prophylaxis - Start heparin 5,000 units SQ 3 times daily since epistaxis has resolved. Also start SCDs. Total time: Approximately 55 minutes. Charges/Coding Visit Charges Inpatient E&M: 12809 Init Hosp L2
[2023-08-10] MEDS: fentaNYL 100 MCG/2 ML Ampul 50 MCG IV (02:04)
--- OUTSIDE RECORDS SUMMARY | 2023-08-10 02:33 | XMS RPT_ITS | CCD ---
Author Name Unknown Address [address] [place] [address] Organization [facility] Care Team Providers Care Chief Unit Forester Name Role Phone DORETHA HERNÁNDEZ Unavailable Unavailable [...] Domperidone; Translations: [DOMPERIDONE (BULK)] Drug Allergy 05-06-2005 [facility] Medications Current Medications Medication Drug Class(es) [...] 97.59 [degF] Bambi Athy PA-C Work Phone: [facility] 09-17-2022 08:34-0500 Body weight 97.16 kg Bambi Athy PA-C Work Phone: [facility] 09-17-2022 08:34-0500 Diastolic blood pressure 82 mm[Hg] Bambi Athy PA-C Work Phone: [facility] 09-17-2022 08:34-0500 Heart rate 68 /min Bambi Athy PA-C Work Phone: [facility] 09-17-2022 08:34-0500 Respiratory rate 18 /min Bambi Athy PA-C Work Phone: [facility] 09-17-2022 08:34-0500 SaO2% (BldA) [Mass fraction] 100 % Bambi Athy PA-C Work Phone: [facility] 09-17-2022 08:34-0500 Systolic blood pressure 122 mm[Hg] Bambi Pelletier PA-C Work Phone: [facility] 07-13-2022 14:55-0500 Body height 175.3 cm Chelsea Wellington MD Work Phone: [facility] 07-13-2022 14:55-0500 Body temperature 98.1 [degF] Chelsea Wellington MD Work Phone: [facility] 07-13-2022 14:55-0500 Body weight 95.71 kg Chelsea Wellington MD Work Phone: [facility] 07-13-2022 14:55-0500 Diastolic blood pressure 88 mm[Hg] Chelsea Wellington MD Work Phone: [facility] 07-13-2022 14:55-0500 Heart rate 83 /min Chelsea Wellington MD Work Phone: [facility] 07-13-2022 14:55-0500 SaO2% (BldA) [Mass fraction] 99 % Chelsea Wellington MD Work Phone: [facility] 07-13-2022 14:55-0500 Systolic blood pressure 124 mm[Hg] Chelsea Wellington MD Work Phone: [facility] 06-19-2022 09:26-0400 Body height 174 cm Tariq Hurt MD Work Phone: [facility] 06-19-2022 09:26-0400 Body weight 94.8 kg Tariq Hurt MD Work Phone: [facility] 06-19-2022 09:26-0400 Diastolic blood pressure 81 mm[Hg] Tariq Hurt MD Work Phone: [facility] 06-19-2022 09:26-0400 Heart rate 88 /min Tariq Hurt MD Work Phone: [facility] 06-19-2022 09:26-0400 SaO2% (BldA) [Mass fraction] 99 % Tariq Hurt MD Work Phone: [facility] 06-19-2022 09:26-0400 Systolic blood pressure 113 mm[Hg] Tariq Hurt MD Work Phone: [facility] 04-20-2022 14:35-0400 Body height 177.8 cm Gabi Ridgeland PA-C Work Phone: [facility] 04-20-2022 14:35-0400 Body weight 99.79 kg Gabi Joseph PA-C Work Phone: [facility] 03-09-2022 15:00-0400 Body height 177.8 cm Gabi Ridgeland PA-C Work Phone: [facility] 03-09-2022 15:00-0400 Body weight 99.79 kg Gabi Joseph PA-C Work Phone: [facility] 02-19-2022 13:10-0400 Diastolic blood pressure 84 mm[Hg] Chelsea Wellington MD Work Phone: [facility] 02-19-2022 13:10-0400 Heart rate 97 /min Chelsea Wellington MD Work Phone: [facility] 02-19-2022 13:10-0400 SaO2% (BldA) [Mass fraction] 96 % Chelsea Wellington MD Work Phone: [facility] 02-19-2022 13:10-0400 Systolic blood pressure 122 mm[Hg] Chelsea Wellington MD Work Phone: [facility] Encounters Encounter Date Encounter Type Care Provider Facility Start: 07-28-2023 ambulatory Chelsea Wellington MD Work Phone: Internal Medicine [facility] Start: 04-13-2023 End: 04-13-2023 ambulatory TOM MONSIVAIS Facility:[facility] Start: 04-13-2023 End: 04-13-2023 Patient encounter procedure [...] Start: 07-24-2021 Adult depression screening assessment Milagro Craft OD Work Phone: Start: 04-23-2021 Mammography Milagro [...] panel - Serum or Plasma Lipid Screening [facility] Start: 06-13-2027 LIPID SCREEN LIPID SCREEN [facility] Start: 06-13-2025 DIABETES SCREEN DIABETES SCREEN [facility] Start: 06-13-2025 Diabetes Screening Diabetes Screenin g [facility] Start: 07-19-2024 LIPID SCREEN LIPID SCREEN [facility] Start: 11-26-2023 Colonoscopy COLONOSCOPY [facility] Start: 11-26-2023 COLORECTAL CANCER SCREENING COLORECTAL CANCER SCREENING [facility] Start: 06-24-2023 Mammography [facility] Start: 06-13-2023 DIABETES SCREEN [facility]CRE[facility] Start: 06-10-2023 HPV TESTING HPV TESTING [facility] Start: 06-10-2023 PAP TESTING PAP TESTING [facility] Start: 04-23-2023 Covid-19 Vaccine () Covid-19 Vaccine () [facility] Start: 04-23-2023 Influenza vaccination [facility] Start: 11-10-2022 SHINGRIX VACCINE (2 of 2) SHINGRIX VACCINE (2 of 2) [facility] Start: 08-23-2022 DEPRESSION ASSESSMENT DEPRESSION ASS ESSMENT [facility] Start: 08-21-2022 End: 10-21-2022 Lipid 1996 panel - Serum or Plasma LIPID PANEL BASIC Lab Routine Screening for lipid disorders Expected: 08/21/2022, Expires: 10/21/2022 Work Phone: Immunizations Immunization Date Immunization Notes Care Provider Hyacinth stern 09-15-2022 zoster vaccine recombinant Bambi Pelletier PA-C Work Phone: [facility] 06-24-2022 COVID-19 booster vaccine, age 12+ yr, bivalent (PFIZER-BIONTECH) Mammography Coordinator [facility] 06-24-2022 influenza, injectabl e, quadrivalent, contains preservative Mammography Coordinator [facility] 06-24-2022 influenza virus vaccine, unspecified formulation Screen [facility]str [facility] 08-07-2021 COVID-19 original vaccine, full dose, monovalent (MODERNA) Mammography Coordinator [facility] 07-28-2021 influenza, injectabl e, quadrivalent, contains preservative Milagro Coopersteveer OD Work Phone: [facility] 06-13-2020 influenza, injectabl e, quadrivalent, contains preservative Milagro Cooperrider OD Work Phone: [facility] 07-04-2019 influenza, injectabl e, quadrivalent, contains preservative Milagro Craft OD Work Phone: [facility] 06-15-2018 influenza virus vaccine, unspecified formulation Milagro Pollarder OD Work Phone: [facility] 06-15-2018 influenza, injectabl e, quadrivalent, preservative free Milagro Craft OD Work Phone: [facility] Payers Date Payer Category Payer Unknown [employer] SS PPO [id number] 2017-Present [phone] [address] [place] [address] PPO [id number] 2017 Unknown [employer] SS PPO [id number] 2017-Present [phone] [address] [place] [address] PPO [id number] 2017 Unknown [id number] 2017 Unknown [id number] Social History Date Type Detail Facility Start: 02-20-2011 End: 04-20-2022 Tobacco smoking status NHIS Never smoked tobacco [facility] Work Phone: Start: 02-06-2022 End: 04-13-2023 Alcohol intake Current non-drinker of alcohol (finding) [facility] Start: 07-24-2021 End: 07-13-2022 History SDOH Alcohol Frequency 2 [facility] Start: 07-24-2021 End: 07-13-2022 History SDOH Alcohol Std Drinks 1 [facility] Start: 07-24-2021 End: 07-13-2022 History SDOH Social Connections Phone 5 [facility] Start: 07-24-2021 End: 07-13-2022 History SDOH Social Connections [facility] 3 [facility] Start: 07-24-2021 History SDOH Social Connections Meetings 98 [facility] Start: 07-24-2021 History SDOH Physica l Activity DPW 4 [facility] Start: 06-13-2020 Education 17 [facility] Start: 1970 Sex Assigned At Not on file [facility] Start: 02-09-2022 End: 07-13-2022 Exposure to SARS-CoV-2 (event) Not sure [facility] Start: 02-20-2011 End: 04-20-2022 Tobacco use and exposure Smokeless tobacco non-user [facility] Work Phone: Start: 07-13-2022 End: 04-13-2023 History of Social function [facility] Start: 07-13-2022 End: 04-13-2023 Social connection and isolation panel [facility] Do you belong to any clubs or organizations such as temple groups, unions, fraternal or athletic groups, or school groups? Yes [facility] Are you now , , , , never or living with a partner? [facility] How often to you hav e a drink containing alcohol? Monthly or less [facility] How many standard dr inks containing alcohol do you have on a typical day? 1 or 2 [facility] How often do you hav e 6 or more drinks on 1 occasion? Never [facility] How hard is it for y ou to pay for the very basics like food, housing, medical care, and heating Not hard at all [facility] Do you feel stress - tense, restless, nervous, or anxious, or unable to sleep at night because your mind is troubled all the time - these days [OSQ] To some extent [facility] (I/We) worried kristina er (my/our) food would run out before (I/we) got money to buy more. Never true [facility] In the past 12 month s, was there a time when you were not able to pay the mortgage or rent on time? No [facility] Clinical Notes 06-27-2014 to 07-28-2023 Patient InstructionsMilagro Craft OD - 04/13/2023 4:44 PM Bobby Pelletier PA-C - 09/17/2022 10:38 AM ESTPatient InstructionsChelsea Wellington MD - 07/13/2022 2:56 PM ESTPatient Instructions Note Date & Type Note Facility 07-28-2023 Note Patient Outreach (IN TMMN) SANDRA PIERRE ([id number]) 1970 F Date Time Provider Department 07/28/23 CHELSEA WELLINGTON During your visit today, we recorded the following information about you: Allergies As of Date: 07/28/2023 Noted Allergy Reaction DOMPERIDONE (BULK) 05/06/2005 Comments: contraindicated for pituitary tumor, increases prolactin Date Reviewed: 04/13/2023 Reviewed by: Milagro Craft OD - Fully Assessed Visit Diagnosis:Encounter for screening mammogram for breast cancer [Z12.31] Order(s):[facility] SCREENING [[id number]] Order #: [id number] FUTURE Prescriptions as of 08/02/2023 - omega-3 [...] BMI 30-34.9 [E66.9] 06/19/2022 Encounter Status:Closed by [facility] [employer] [facility], PRODUSER on 08/02/23 [facility] 04-13-2023 Note HNO ID: [id number] Author: Milagro Craft OD Service: ? Author Type: PAPER CONSERVATOR Type: Progress Notes Filed: 04/13/2023 4:47 PM [...] neuro exam findings as obtained by others. [facility] 04-13-2023 Instructions Milagro Craft, OD - [...] yearly dilated exams. documented in this encounter [facility] 04-13-2023 History of Present illness Narrative [...] obtained by others. documented in this encounter [facility] 09-17-2022 Note HNO ID: [id number] Author: Bambi Pelletier PA-C Service: ? Author Type: Physician Payroll Specialist Type: Progress Notes Filed: 09/17/2022 11:16 AM Note Text: This note was created using [employer]. Subjective Sandra Pierre is a 52 year [...] symptoms persist or worsen. Bambi Pelletier PA-C [facility] 09-17-2022 History of Present illness Narrative [...] Bowel obstruction (HCC) 03/18/2017 Migraines Pituitary adenoma ([facility]) 03/27/2013 MRI normal 08/12, prolactin normal in [...] Bambi Pelletier PA-C documented in this encounter [facility] 09-17-2022 Instructions Bambi Pelletier PA-C - 09/17/2022 8:55 AM EST May continue cortisone otc for 1 week. Zyrtec 10 mg otc for 1 week. Moisturizing lotion over area. documented in this encounter [facility] 07-13-2022 History of Present illness Narrative Patient presents with: Sore Throat HPI: Patient presents today for office visit for sore throat. Hurts to swallow. Ongoing for 5 days. [place] [facility] [place]. Both parents came down with [...] Chelsea Wellington MD documented in this encounter [facility] 06-25-2022 Miscellaneous Notes June 25, 2022 PID: [id number] Sandra Pierre [id number] [place] [address] Dear Ms. Pierre, We are pleased to [...] report will be kept on file at [facility] as part of your permanent medical record and are available for your continuing care. Thank you for allowing us to help in meeting your health care needs. Sincerely, Dr. Wing Interpreting Radiologist [facility] (Normal over 40) documented in this encounter [facility] 06-24-2022 History of Present illness Narrative [...] 2022 7:22 AM documented in this encounter [facility] 06-19-2022 Instructions Tariq Hurt MD - 06/19/2022 9:46 AM EDT No evidence of persisting pituitary disease. See me again at Dr. Wellington's suggestion. documented in this encounter [facility] 06-19-2022 History of Present illness Narrative [...] with more than 50% of the total [id number] time of the visit in counseling / coordination of care. documented in this encounter [facility] documented as of this encounter (statuses as of 06/19/2022) [facility] History of Past illness Narrative* Problem [...] of this encounter (statuses as of 06/27/2022) [facility] of Past illness Narrative* Problem [...] of this encounter (statuses as of 07/13/2022) [facility] of Past [facility] Narrative* Problem [...] of this encounter (statuses as of 09/17/2022) [facility] Past [facility] Narrative* Problem [...] of this encounter (statuses as of 04/14/2023) [facility] of Past [facility] Narrative* Problem [...] of this encounter (statuses as of 06/27/2023) [facility] Narrative* Problem [...] of this encounter (statuses as of 08/02/2023) [facility] Miscellaneous Notes* Telephone Encounter - Waldemar [...] to get into neuro documented in [facility]Grant [facility] History of Present illness Narrative* Tom [...] and treatment options. documented in this encounterCleveland [id number] History of Present illness Narrative* Gabi Ruiz PA-C - 04/20/2022 2:49 PM EDTAssociated Order(s): Large Joint Arthro/Inj: L knee joint Post-Procedure Diagnose(s): Chronic pain of left knee; Chondromalacia of patellofemoral joint, left Gabi Ruiz PA-C Established Patient Department of Orthopaedics Orthopaedics [address] [address] Dept: [phone] April 20, 2022 SUBJECTIVE: CHIEF COMPLAINT: Established [...] knee joint Informed Consent Consent Obtained: Verbal [place] Protocol A moment to CARE was completed. [...] needed Gabi Ruiz PA-C documented in this encounterGrant [facility]08-[facility] History of Present illness Narrative* James [...] of time without increased Pain - MET [place] in home exercise program. - MET so far Patient Goals: Take away the pain Planned Interventions, Frequency, and Duration: 1x/week, 4 weeks Total Number of Visits Planned: 4 Patient to be seen for Therapeutic exercise (17792);Neuromuscular re-education (52245);Manual therapy (73739);Self-jail management (62524);Patient/Family/Caregiver Education PLAN FOR NEXT VISIT: Progress wall [...] 32 James Hoskins PT documented in this encounterGrant [facility]08-[facility] History of Present illness Narrative* Tom [...] options. Tom Monsivais MD documented in this encounterGrant Hospital08-16-[facility] History of Past illness Narrative* Problem Noted Date Resolved Date Subconjunctival hemorrhage of right eye 04/07/20 22 05/12/2022 Other vitreous opacities - Both Eyes 06/27/2014 10/31/2015 Tear film insufficiency, unspecified - Both Eyes 06/27/2014 10/31/2015 documented as of this encounter (statuses as of 05/12/2022) [facility] of Past [facility] Narrative* Problem Noted Date Resolved Date Subconjunctival hemorrhage of right eye 04/07/20 22 05/12/2022 Other vitreous opacities - Both Eyes 06/27/2014 10/31/2015 Tear film insufficiency, unspecified - Both Eyes 06/27/2014 10/31/2015 documented as of this encounter (statuses as of 06/02/2022) [facility] Instructions* Patient Instructions* Tom Monsivais MD - 04/07/2022 9:17 AM EDT Begin: Current Ophthalmic Meds fluorometholone (FML LIQUID FILM) 0.1 % ophthalmic suspension Use 1 Drop in the right eye three times daily. Systane Complete 1 drop in both eyes three times daily Ice packs as directed documented in this encounterGrant Hospital08-16-2022 History of Present illness Narrative* Tom [...] Patient was instructed to call the office ([phone]) immediately upon noticing flashes of light, increase [...] options. Tom Monsivais MD documented in this encounterGrant Hospital08-11-20[facility] History of Present illness Narrative* James [...] 40 James Hoskins PT documented in this encounterGrant Hospital08-02-2022 History of Present illness Narrative* James [...] 41 James Hoskins PT documented in this encounterGrant Hospital07-28-2022 History of Present illness Narrative* James [...] 38 James Hoskins PT documented in this encounterGrant Hospital07-22-2022 History of Present illness Narrative* James [...] prolonged periods of time without increased pain [place] in home exercise program. Patient Goals: Take away the pain Planned Interventions, Frequency, and Duration: Current Frequency: 1x/week Duration: 4 weeks Total Number of Visits Planned: 4 Planned Treatment Interventions: Therapeutic exercise (76595);Neuromuscular re- education (70882);Manual therapy (01723);Self-jail management (70572);Patient/Family/Caregiver Education PLAN FOR NEXT VISIT: Progress L knee strengthening as tolerated. Assess LE flexibility Patient demonstrates good understanding of plan of care and treatment. The above goals and plan of care were discussed and agreed upon by patient/family. SUBJECTIVE: Sandra Pierre is a 51 year old female seen today for L knee pain. Jumping rope when injured. [place] a pop and pain after this. 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 Hobbies / Interests: Close Intake Information: Prescription present Previous Treatment: Ice [...] 45 James Hoskins PT documented in this encounterGrant Hospital07-18-2022 History of Present illness Narrative* Gabi Ruiz PA-C - 03/09/2022 3:06 PM EDT Gabi Ruiz PA-C Department of Orthopaedics Orthopaedics [address] [place] [id number] Dept: [phone] March 09, 2022 SUBJECTIVE: CHIEF COMPLAINT: New, [...] - Radiology, [place] In Impression IMPRESSION: Negative Business Objects Analyst: RENETTA Transcribe Date/Time: Feb 19 2022 4:34P [...] weeks Gabi Ruiz PA-C documented in this encounterGrant Hospital06-30-2022 Nurse Note* Cora Martinez LPN - [...] has achiness in ankle. documented in this encounterGrant Hospital06-30-2022 History of Present illness Narrative* Chelsea [...] PANEL BASIC Chelsea Wellington documented in this encounterGrant Hospital06-17-2022 Instructions* Patient Instructions* Milagro Craft, OD [...] Stable. Recommended yearly exams. documented in this encounterGrant Hospital06-17-2022 History of Present illness Narrative* Milagro [...] and examined this patient. documented in this encounterGrant Hospital11-05-2014 History of Past illness Narrative* Problem Noted Date Resolved Date Other vitreous opacities - Both Eyes 06/27/2014 10/31/2015 Tear film insufficiency, unspecified - Both Eyes 06/27/2014 10/31/2015 documented as of this encounter (statuses as of 02/06/2022) [address]05[address] History of Past illness Narrative* Problem Noted Date Resolved Date Other vitreous opacities - Both Eyes 06/27/2014 10/31/2015 Tear film insufficiency, unspecified - Both Eyes 06/27/2014 10/31/2015 documented as of this encounter (statuses as of 02/19/2022) [address] History of Past illness Narrative* Problem Noted Date Resolved Date Other vitreous opacities - Both Eyes 06/27/2014 10/31/2015 Tear film insufficiency, unspecified - Both Eyes 06/27/2014 10/31/2015 documented as of this encounter (statuses as of 03/09/2022) [address] History of Past illness Narrative* Problem Noted Date Resolved Date Other vitreous opacities - Both Eyes 06/27/2014 10/31/2015 Tear film insufficiency, unspecified - Both Eyes 06/27/2014 10/31/2015 documented as of this encounter (statuses as of 03/13/2022) [place] [address]-05-2014 History of Past illness Narrative* Problem Noted Date Resolved Date Other vitreous opacities - Both Eyes 06/27/2014 10/31/2015 Tear film insufficiency, unspecified - Both Eyes 06/27/2014 10/31/2015 documented as of this encounter (statuses as of 03/19/2022) [place] [address]05-2014 History of Past illness Narrative* Problem Noted Date Resolved Date Other vitreous opacities - Both Eyes 06/27/2014 10/31/2015 Tear film insufficiency, unspecified - Both Eyes 06/27/2014 10/31/2015 documented as of this encounter (statuses as of 03/24/2022) [address] History of Past illness Narrative* Problem Noted Date Resolved Date Other vitreous opacities - Both Eyes 06/27/2014 10/31/2015 Tear film insufficiency, unspecified - Both Eyes 06/27/2014 10/31/2015 documented as of this encounter (statuses as of 04/02/2022) [place] [address]05-2014 History of Past illness Narrative* Problem Noted Date Resolved Date Other vitreous opacities - Both Eyes 06/27/2014 10/31/2015 Tear film insufficiency, unspecified - Both Eyes 06/27/2014 10/31/2015 documented as of this encounter (statuses as of 04/07/2022) [place] [address]-2014 History of Past illness Narrative* Problem Noted Date Resolved Date Other vitreous opacities - Both Eyes 06/27/2014 10/31/2015 Tear film insufficiency, unspecified - Both Eyes 06/27/2014 10/31/2015 documented as of this encounter (statuses as of 04/13/2022) [facility] of [facility] Narrative* Problem Noted Date Resolved Date Other vitreous opacities - Both Eyes 06/27/2014 10/31/2015 Tear film insufficiency, unspecified - Both Eyes 06/27/2014 10/31/2015 documented as of this encounter (statuses as of 04/14/2022) [address] History of Past illness Narrative* Problem Noted Date Resolved Date Other vitreous opacities - Both Eyes 06/27/2014 10/31/2015 Tear film insufficiency, unspecified - Both Eyes 06/27/2014 10/31/2015 documented as of this encounter (statuses as of 04/20/2022) [facility] Vitreous floaters of both eyes- Primary Dry eye syndrome of both eyes S/P LASIK surgery of both eyes [facility] Diagnosis Acute pain of left [...] tendinitis or bursitis [facility] Diagnosis Pes anserinus bursitis of left knee- Primary Pes anserinus tendinitis or bursitis Chronic pain of left knee Pain in joint, lower leg [facility]* Diagnosis Subconjunctival hemorrhage of right eye- Primary Episcleritis of right eye Scleritis, unspecified Vitreous floaters, bilateral S/P LASIK surgery of both eyes [facility]* Diagnosis Episcleritis of right eye- Primary Scleritis, unspecified S/P LASIK surgery of both eyes Dry eye syndrome of both eyes Vitreous floaters of both eyes [facility]* Diagnosis Pes anserinus bursitis of left knee- Primary Pes anserinus tendinitis or bursitis Chronic pain of left knee Pain in joint, lower leg [facility]* Diagnosis Chronic pain of left knee- Primary Pain in joint, lower leg Chondromalacia of patellofemoral joint, left [facility]* Diagnosis Pain around right eye- Primary S/P LASIK surgery of both eyes Dry eye syndrome of both eyes [facility]* Diagnosis Headache, unspecified headache type- Primary documented [facility]* Diagnosis History of pituitary adenoma- Primary Pure hypercholesterolemia documented [facility] encounter [facility]* Diagnosis Pharyngitis, unspecified etiology- Primary URI, acute Acute upper respiratory infections of unspecified site [facility]* Diagnosis Irritant dermatitis- Primary Contact dermatitis and other eczema, due to unspecified cause [facility]* Diagnosis Dry eye syndrome of both eyes- Primary Vitreous floaters of both eyes S/P LASIK surgery of both eyes [facility]* Diagnosis Encounter for screening mammogram for breast cancer documented in this [facility] Diagnosis Encounter for screening mammogram for breast cancer documented in this encounter [facility] for referral (narrative)* Diagnostic Procedure Only (Routine) - Closed Specialty Diagnoses / Procedures Referred By Andres liagn Referred To Contact [facility] Diagnoses Encounter for screening mammogram for breast cancer Procedures SERGE SCREENING SCREENING MAMMOGRAPHY BI 2-VIEW BREAST INC Chelsea Jerry MD [address] [place] [address] [facility] [address] [place] [address] Referral ID Status Reason Start Date Expiration Date V isits Requested Visits Authorized [id number] Closed Auto-Generate d Referral 06/17/2022 08/22/2022 1 1 [facility] for referral (narrative)* Diagnostic Procedure Only (Routine) - Pending Review Specialty Diagnoses / Procedures Referred By Andres liang Referred To Contact [facility] Diagnoses Encounter for screening mammogram for breast cancer Procedures SERGE SCREENING SCREENING MAMMOGRAPHY BI 2-VIEW BREAST INC Chelsea Jerry MD [facility] [place] [address] [facility] [address] [place] [address] Referral ID Status Reason Start Date Expiration Date Visits Requested Visits Authorized [id number] Pending Review Auto-Generat ed Referral 07/28/2023 08/26/2024 1 1 [facility] for visit Narrative* Diagnostic Procedure Only (Routine) - Closed Specialty Diagnoses / Procedures Referred By Andres t Referred To Contact [facility] Diagnoses Encounter for screening mammogram for breast cancer Procedures SERGE SCREENING SCREENING MAMMOGRAPHY BI 2-VIEW BREAST INC Chelsea Jerry MD [facility] [place] [address] [facility] [address] [place] [address] Referral ID Status Reason Start Date Expiration Date V isits Requested Visits Authorized [id number] Closed Auto-Generate d Referral 06/17/2022 08/22/2022 1 1 [facility] Summary Purpose Family History No Family [...] left knee Procedures CONSULT TO ORTHOPAEDICS OFFICE/OUTPATIENT [facility] 60-74 MINUTES Chelsea Wellington MD [address] [place] [address] Referral ID Status Reason Start Date Expiration Date Visits Requested Visits Authorized [id number] Authorized PCP Requested Referral 02/19/2022 02/19/2023 1 1 Specialty Diagnoses / Procedures Referred By Contac t Referred To Contact Endocrinology Diagnoses Pituitary adenoma (HCC) Procedures CONSULT TO ENDOCRINOLOGY OFFICE/OUTPATIENT [facility] 60-74 MINUTES Chelsea Wellington MD [address] [place] [address] Referral ID Status Reason Start Date Expiration Date Visits Requested Visits Authorized [id number] Authorized PCP Requested Referral 02/19/2022 02/19/2023 1 1 Specialty Diagnoses / Procedures Referred By Contac t Referred To Contact XR IMAGING Diagnoses Acute pain of left knee Procedures XR KNEE GENERAL 4V AP BOTH/PA BOTH/LAT/MERC LEFT RADIOLOGIC EXAM KNEE COMPLETE 4/MORE VIEWS Chelsea Wellington MD [address] [place] [address] Xr Imaging Referral ID Status Reason Start Date Expiration Date V isits Requested Visits Authorized [id number] Closed Auto-Generate d Referral 02/19/2022 03/21/2023 1 1 Specialty Diagnoses / Procedures Referred By Contac t Referred To Contact [facility] Diagnoses Chronic pain of left knee Pes anserinus bursitis of left knee Procedures CONSULT TO PHYSICAL THERAPY PHYSICAL THERAPY EVALUATION HIGH COMPLEX 45 MINS Gabi Ruiz PA-C [address] [place] [address] [facility] [address] [place] [address] Referral ID Status Reason Start Date Expiration Date Visits Requested Visits Authorized [id number] Authorized Auto-Generat ed Referral 08/23/2021 08/22/2022 20 20 Specialty Diagnoses / Procedures Referred By Contac t Referred To Contact [facility] Diagnoses Chronic pain of left knee Pes anserinus bursitis of left knee Procedures PT REHAB FOLLOW UP ORDER THERAPEUTIC EXERCISES RE, EA 15 MIN. [facility] [address] [place] [address] Referral ID Status Reason Start Date Expiration Date Visits Requested Visits Authorized [id number] Pending Review PCP Requested Referral Auto-Generate d Referral 03/13/2022 06/11/2022 1 1 Specialty Diagnoses / Procedures Referred By Contac t Referred To Contact [facility] Diagnoses Pes anserinus bursitis of left knee Chronic pain of left knee Procedures PT REHAB FOLLOW UP ORDER THERAPEUTIC EXERCISES RE, EA 15 MIN. [facility] [address] [place] [address] Referral ID Status Reason Start Date Expiration Date Visits Requested Visits Authorized [id number] Pending Review PCP Requested Referral Auto-Generate d Referral 04/14/2022 07/13/2022 1 1 Specialty Diagnoses / Procedures Referred By Contac t Referred To Contact Neurology Diagnoses Headache, unspecified headache type Procedures CONSULT TO NEUROLOGY OFFICE/OUTPATIENT [facility] 60-74 MINUTES Chelsea Wellington MD [address] [place] [address] Referral ID Status Reason Start Date Expiration Date Visits Requested Visits Authorized [id number] Authorized PCP Requested Referral 05/12/2022 05/12/2023 1 1 Additional Source Comments INFORMATION SOURCE (unrecogn ized section and content) DATE CREATED AUTHOR AUTHOR'S ORGANIZ ATION 08/03/2023 [facility] Source Comments (unrecognize d section and content) In the event this informatio n is protected by the Federal Confidentiality of Alcohol and Drug Abuse Patient Records regulations: The Federal rules restrict any use of the information to criminally investigate or prosecute any alcohol or drug abuse patient.[facility] HospitalIn the event this information is protected by the Federal Confidentiality of Alcohol and Drug Abuse Patient Records regulations: The Federal rules restrict any use of the information to criminally investigate or prosecute any alcohol or drug abuse patient.[facility] HospitalIn the event this information is protected by the Federal Confidentiality of Alcohol and Drug Abuse Patient Records regulations: The Federal rules restrict any use of the information to criminally investigate or prosecute any alcohol or drug abuse patient.[facility] HospitalIn the event this information is protected by the Federal Confidentiality of Alcohol and Drug Abuse Patient Records regulations: The Federal rules restrict any use of the information to criminally investigate or prosecute any alcohol or drug abuse patient.[facility] Hospital[facility] the event this information is protected by the Federal Confidentiality of Alcohol and Drug Abuse Patient Records regulations: The Federal rules restrict any use of the information to criminally investigate or prosecute any alcohol or drug abuse patient.[facility] HospitalIn the event this information is protected by the Federal Confidentiality of Alcohol and Drug Abuse Patient Records regulations: The Federal rules restrict any use of the information to criminally investigate or prosecute any alcohol or drug abuse patient.[facility] HospitalIn the event this information is protected by the Federal Confidentiality of Alcohol and Drug Abuse Patient Records regulations: The Federal rules restrict any use of the information to criminally investigate or prosecute any alcohol or drug abuse patient.[facility] HospitalIn the event this information is protected by the Federal Confidentiality of Alcohol and Drug Abuse Patient Records regulations: The Federal rules restrict any use of the information to criminally investigate or prosecute any alcohol or drug abuse patient.[facility] HospitalIn the event this information is protected by the Federal Confidentiality of Alcohol and Drug Abuse Patient Records regulations: The Federal rules restrict any use of the information to criminally investigate or prosecute any alcohol or drug abuse patient.[facility] HospitalIn the event this information is protected by the Federal Confidentiality of Alcohol and Drug Abuse Patient Records regulations: The Federal rules restrict any use of the information to criminally investigate or prosecute any alcohol or drug abuse patient.[facility] HospitalIn the event this information is protected by the Federal Confidentiality of Alcohol and Drug Abuse Patient Records regulations: The Federal rules restrict any use of the information to criminally investigate or prosecute any alcohol or drug abuse patient.[facility] HospitalIn the event this information is protected by the Federal Confidentiality of Alcohol and Drug Abuse Patient Records regulations: The Federal rules restrict any use of the information to criminally investigate or prosecute any alcohol or drug abuse patient.[facility] HospitalIn the event this information is protected by the Federal Confidentiality of Alcohol and Drug Abuse Patient Records regulations: The Federal rules restrict any use of the information to criminally investigate or prosecute any alcohol or drug abuse patient.[facility] HospitalIn the event this information is protected by the Federal Confidentiality of Alcohol and Drug Abuse Patient Records regulations: The Federal rules restrict any use of the information to criminally investigate or prosecute any alcohol or drug abuse patient.[facility] HospitalIn the event this information is protected by the Federal Confidentiality of Alcohol and Drug Abuse Patient Records regulations: The Federal rules restrict any use of the information to criminally investigate or prosecute any alcohol or drug abuse patient.[facility] HospitalIn the event this information is protected by the Federal Confidentiality of Alcohol and Drug Abuse Patient Records regulations: The Federal rules restrict any use of the information to criminally investigate or prosecute any alcohol or drug abuse patient.[facility] HospitalIn the event this information is protected by the Federal Confidentiality of Alcohol and Drug Abuse Patient Records regulations: The Federal rules restrict any use of the information to criminally investigate or prosecute any alcohol or drug abuse patient.[facility] HospitalIn the event this information is protected by the Federal Confidentiality of Alcohol and Drug Abuse Patient Records regulations: The Federal rules restrict any use of the information to criminally investigate or prosecute any alcohol or drug abuse patient.[facility] HospitalIn the event this information is protected by the Federal Confidentiality of Alcohol and Drug Abuse Patient Records regulations: The Federal rules restrict any use of the information to criminally investigate or prosecute any alcohol or drug abuse patient.[facility] HospitalIn the event this information is protected by the Federal Confidentiality of Alcohol and Drug Abuse Patient Records regulations: The Federal rules restrict any use of the information to criminally investigate or prosecute any alcohol or drug abuse patient.[facility] Reason for Visit (unrecogniz ed section and content) Specialty Diagnoses / Procedures Referred By Contac t Referred To Contact [facility] Diagnoses Chronic pain of left knee Pes anserinus bursitis of left knee Procedures CONSULT TO PHYSICAL THERAPY PHYSICAL THERAPY EVALUATION HIGH COMPLEX 45 MINS Gabi Ruiz PA-C [address] [place] [address] [facility] [address] [address] Referral ID Status Reason Start Date Expiration Date Visits Requested Visits Authorized [id number] Authorized Auto-Generat ed Referral 08/23/2021 08/22/2022 20 20 Reason Comments Vitreous Floaters Follow Up Bilateral Dry Eye Syndrome Follow Up Bilateral Reason Comments Musculoskeletal Problem Reason Comments New Knee Pain Swelling Specialty Diagnoses / Procedures Referred By Andres liang Referred To Contact Orthopedics Diagnoses Acute pain of left knee Procedures CONSULT TO ORTHOPAEDICS OFFICE/OUTPATIENT [facility] 60-74 MINUTES Chelsea Wellington MD [address] [place] [address] Referral ID Status Reason Start Date Expiration Date V isits Requested Visits Authorized [id number] Closed PCP Requested Referral 02/19/2022 02/19/2023 1 1 Reason Comments PT Eval Reason Comments Physical Therapy Specialty Diagnoses / Procedures Referred By Andres liang Referred To Contact [facility] Diagnoses Chronic pain of left knee Pes anserinus bursitis of left knee Procedures CONSULT TO PHYSICAL THERAPY PHYSICAL THERAPY EVALUATION HIGH COMPLEX 45 MINS Gabi Ruiz PA-C [address] [place] [address] [facility] [address] [address] Reason Comments Subconjunctival Hemorrhage Evaluation X 5 [...] adenoma (HCC) Procedures CONSULT TO ENDOCRINOLOGY OFFICE/OUTPATIENT [facility] 60-74 MINUTES Chelsea Wellington MD [address] [place] [address] Referral ID Status Reason Start Date Expiration Date V isits Requested Visits Authorized [id number] Closed PCP Requested Referral 02/19/2022 02/19/2023 1 1 Reason Comments Sore Throat Reason Comments itchy neck Red and itchy neck x 5 days Reason Comments Eye Itching Both Eyes Dry Eye(s) Both Eyes Floaters [facility] Care Teams (unrecognized sec tion and content) Chief Unit Forester Relationship Specialty Start Date End Date Chelsea Wellington MD [address] [place], [place] [id number] PCP - General Family Practice 08/18/19 Chief Unit Forester Relationship Specialty Start Date End Date Chelsea Wellington MD [address] [place] [address] [id number] PCP - General Family Practice 08/18/19 Chief Unit Forester Relationship Specialty Start Date End Date Chelsea Wellington MD [address] [place] [address] PCP - General Family Practice 08/18/19 Chief Unit Forester Relationship Specialty Start Date End Date Chelsea Wellington MD [address] [place] [address] [id number] PCP - General Family Practice 08/18/19 Chief Unit Forester Relationship Specialty Start Date End Date Chelsea Wellignton MD [address] [place] [address] [id number] PCP - General Family Practice 08/18/19 Chief Unit Forester Relationship Specialty Start Date End Date Chelsea Wellington MD [address] [place] [address] [id number] PCP - General Family Practice 08/18/19 Chief Unit Forester Relationship Specialty Start Date End Date Chelsea Wellington MD [address] [place] [address] PCP - General Family Practice 08/18/19 Chief Unit Forester Relationship Specialty Start Date End Date Chelsea Wellington MD [address] [place] [address] PCP - General Family Practice 08/18/19 Chief Unit Forester Relationship Specialty Start Date End Date Chelsea Wellington MD [address] [place] [address] PCP - General Family Medicine 08/18/19 Chief Unit Forester Relationship Specialty Start Date End Date Chelsea Wellington MD [address] [place] [address] PCP - General Family Medicine 08/18/19 Chief Unit Forester Relationship Specialty Start Date End Date Chelsea Wellington MD [address] [place] [address] PCP - General Family Medicine 08/18/19 Chief Unit Forester Relationship Specialty Start Date End Date Chelsea Wellington MD [address] [place] [address] PCP - General Family Medicine 08/18/19 Chief Unit Forester Relationship Specialty Start Date End Date Chelsea Wellington MD [address] [place] [address] PCP - General Family Medicine 08/18/19 Chief Unit Forester Relationship Specialty Start Date End Date Chelsea Wellington MD [address] [facility] [place] [address] PCP - General Family Medicine 08/18/19 Chief Unit Forester Relationship Specialty Start Date End Date Chelsae Wellington MD [address] [place] [address] PCP - General Family Medicine 08/18/19 Chief Unit Forester Relationship Specialty Start Date End Date Chelsea Wellington MD [address] [place] [address] PCP - General Family Medicine 08/18/19 FOR [...] BE BASED ON THE PRIMARY CLINICAL RECORDS. [facility] [employer] [facility]. provides no warranty or guarantee of the accuracy or completeness of information in this document.
--- NOTE | 2023-08-10 02:42 | ED.RN ---
Two attempts made to insert NG tube with no success, one attempt made by this nurse and one attempt made by Sudha Morton Provider notified see physician notification.
[2023-08-10] MEDS: Lactated Ringers 1,000 ML 150 ML IV ×3 (03:20→23:05)
[2023-08-10] MEDS: Pantoprazole Sodium 40 MG in 0.9% Normal Saline (100mL MB+) 100 ML 330 MG IV (03:31)
[2023-08-10 04:22] LABS: Absolute Lymphocyte Count 0.65 X10^3/uL (0.83-4.51); Absolute Neutrophil Count 8.7 X10^3/uL (2.0-7.7); Basophil# 0.02 X10^3/uL; Basophil% 0.2 % (0-1); Hematocrit 40.2 % (37-47); Hemoglobin 12.4 g/dL (12.0-15.0); Lymphocyte # 0.65 X10^3/ul (0.83-4.51); Lymphocyte % 6.7 % (19-41); Mean Corp Hgb Conc 30.8 g/dL (32-36); Mean Corpuscular Hgb 25.8 pg (27.0-32.0); Mean Corpuscular Volume 83.8 fL (81-99); Mean Platelet Vol. 9.6 fl (6.2-12.0); Monocyte# 0.33 X10^3/uL; Monocyte% 3.4 % (0-10); NRBC Flagged by Analyzer 0 % (0-5); Neutrophil # 8.74 X10^3/uL (2.7-7.7); Neutrophil % 89.4 % (47-70); Platelet Count 275 K/mm3 (150-450); RBC Distribution Width SD 48.7 fl (35.1-43.9); White Blood Count 9.8 K/mm3 (4.4-11.0)
[2023-08-10 04:25] LABS: Ionized Calcium 4.87 mg/dL (4.36-5.20)
[2023-08-10 05:05] LABS: ALB/GLOB Ratio 1.2 RATIO (0.9-2.4); AST(SGOT) 13 U/L (15-37); Alanine Aminotransfer ALT/SGPT 18 U/L (13-56); Albumin, Serum 3.7 g/dL (3.2-5.0); Alkaline Phosphatase 43 U/L (45-117); Anion Gap 10 (5-15); BUN 9 mg/dL (7-18); BUN/Creat Ratio 11.9 RATIO (10-20); Calcium,Total 9.2 mg/dL (8.5-10.1); Chloride 100 mmol/L (98-107); Creatinine, Serum 0.76 mg/dL (0.55-1.02); EST Glomerular Filtration Rate 84 mL/min (>60); Est Glom Filt Rate - Afr Amer 102 mL/min (>60); Estimated Creatinine Clearance 91.51 ml/min; Globulin 3.2 g/dL (2.2-4.2); Glucose 151 mg/dL (74-106); Potassium 3.4 mmol/L (3.5-5.1); Protein, Total 6.9 g/dL (6.4-8.2); Sodium Level 139 mmol/L (136-145); Thyroid Stim Hormone (TSH) 1.59 uIU/mL (0.358-3.74)
[2023-08-10 05:18] LABS: Lactic Acid 1.2 mmol/L (0.4-1.9)
--- NOTE | 2023-08-10 05:56 | EX.PCM.CON.S ---
Assessment & Plan Assessment/Plan (1) Small bowel obstruction: PLAN: Plan Will plan for her to go for diagnostic laparoscopy, possible laparotomy, possible bowel resection. Discussed procedure including risk including but not limited to bleeding, infection, injury to another organ (i.e. small bowel/colon, etc.), hernia at incision. Patient no further questions this time. Nona Brennan M.D. Pager: [phone] [facility] [address] [place] [address], Outpatient [place], [address] [place] [address] Office: [phone] HPI Consult Data Date of Consult: 08/10/23 HPI Narrative HPI Narrative: JENNA RUCKER, is a 53 F who presents due to abdominal pain nausea and vomiting. Patient does have history of small bowel obstructions last one was in February 2020 & 2016 which did resolve conservatively. Patient states the pain started yesterday a.m. at 9 AM denies any flatus since then. Patient did have a normal bowel movement for her in the morning and did not have the nausea and vomiting yesterday. Did attempt an NG in the ER however unable to place and patient did have a minor nosebleed. CT abdomen pelvis called high-grade obstruction due to possible adhesions or internal hernia. Patient's previous CAT scan from 2019 appeared similar?even after reviewing with the radiologist he agreed. Patient still having abdominal pain this morning and nausea, denies any flatus or bowel movements. 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 [facility] Medical History Pituitary tumor Small bowel obstruction Home Medications lubiprostone 24 mcg capsule (Amitiza) 24 mcg PO BID ibs 03/18/17 [History Last Taken 03/11/20] hyoscyamine sulfate 0.125 mg sublingual tablet 0.125 mg SL Q4H PRN PRN stomach 03/12/20 [History Last Taken 03/12/20] multivitamin-ferrous fumarate-folic acid 18 mg-400 mcg tablet 1 ea PO DAILY supplement 03/12/20 [History Last Taken 03/11/20] pseudoephedrine HCl 60 mg tablet 60 mg PO Q6H PRN PRN Sinus Congestion 03/12/20 [History Last Taken 03/08/20] acetaminophen 500 mg tablet 500 mg PO Q4H PRN PRN Headache/Fever (T>102.5) 03/14/20 [Rx Last Taken Unknown] ondansetron HCl 8 mg tablet 8 mg PO TID PRN nausea and vomiting #20 tabs 03/14/20 [Rx Last Taken Unknown] Allergy/AdvReac Type Severity Reaction Status Date / Time No Known Allergies Allergy Verified 08/09/23 22:44 Surgical History History of bowel resection Status post Yomaira fundoplication Social History Smoking Status: Never smoker Physical Exam Const alert, oriented x3 and no apparent distress HEENT normocephalic and head/scalp atraumatic Resp normal respiratory effort Cardio regular rate GI soft to palpation GI Narrative: mild distension Palpation: tender other (diffuse, no PS); Negative for guarding Extremity no clubbing, cyanosis or edema Neuro CN's II-XII intact bilaterally Psych mental status grossly normal Lab / Micro Data 08/10/23 04:10 08/10/23 04:10 Labs: Laboratory Results - last 24 hr 08/09/23 23:10: WBC 11.3 H, RBC 5.23, Hgb 13.7, Hct 43.6, MCV 83.4, MCH 26.2 L, MCHC 31.4 L, RDW Std Deviation 48.5 H, RDW Coeff of Ana 16.1 H, Plt Count 334, MPV 9.7, Immature Gran % (Auto) 0.300, Neut % (Auto) 77.4 H, Lymph % (Auto) 16.1 L, Potter % (Auto) 5.4, Eos % (Auto) 0.4, Baso % (Auto) 0.4, Absolute Neuts (auto) 8.7 H, Absolute Lymphs (auto) 1.81, Nucleated RBC % 0, Sodium 135 L, Potassium 3.4 L, Chloride 99, Carbon Dioxide 30.0, Anion Gap 6, BUN 10, Creatinine 0.92, Est GFR (MDRD) Af Amer 82, Est GFR (MDRD) Non-Af 68, BUN/Creatinine Ratio 10.9, Glucose 175 H, Calcium 11.2 H, Total Bilirubin 0.40, Direct Bilirubin 0.14, AST 16, ALT 22, Alkaline Phosphatase 51, Total Protein 7.8, Albumin 4.1, Globulin 3.7, Lipase 18 08/10/23 04:10: WBC 9.8, RBC 4.80, Hgb 12.4, Hct 40.2, MCV 83.8, MCH 25.8 L, MCHC 30.8 L, RDW Std Deviation 48.7 H, RDW Coeff of Ana 16.0 H, Plt Count 275, MPV 9.6, Immature Gran % (Auto) 0.300, Neut % (Auto) 89.4 H, Lymph % (Auto) 6.7 L, Potter % (Auto) 3.4, Eos % (Auto) 0.0, Baso % (Auto) 0.2, Absolute Neuts (auto) 8.7 H, Absolute Lymphs (auto) 0.65 L, Nucleated RBC % 0, Sodium 139, Potassium 3.4 L, Chloride 100, Carbon Dioxide 29.0, Anion Gap 10, BUN 9, Creatinine 0.76, Estim Creat Clear Calc 91.51, Est GFR (MDRD) Af Amer 102, Est GFR (MDRD) Non-Af 84, BUN/Creatinine Ratio 11.9, Glucose 151 H, Lactic Acid 1.2, Calcium 9.2, Total Bilirubin 0.30, AST 13 L, ALT 18, Alkaline Phosphatase 43 L, Total Protein 6.9, Albumin 3.7, Globulin 3.2, Albumin/Globulin Ratio 1.2, TSH 1.59 08/10/23 04:21: Ionized Calcium 4.87 Imagaing Radiology Impression Abdomen/Pelvis CT 08/09/23 22:55 IMPRESSION: undefined ADDENDUM: 08/10/23 0038 IMPRESSION: undefined
[2023-08-10] MEDS: Ondansetron 4 MG/2 ML Vial IV (06:25)
[2023-08-10] MEDS: Potassium Chloride 10mEq/100mL 10 MEQ/100 ML IV.SOLN. 100 MEQ IV BOLUS ×4 (06:56→11:26)
--- NOTE | 2023-08-10 07:18 | PCM.PN.HOSP ---
Subjective Subjective Still with abdominal pain. NG tube was unable to be placed. States that she saw ENT previously and they said that she did not have a deviated septum that would prevent an NG tube being placed in the past. She vomited prior to my arrival and her abdomen is less distended since then. Objective Data Objective Data Vital Signs: Vital Signs Temp Pulse Resp BP Pulse Ox O2 Del Method 36.6 C 57 L 16 122/83 H 99 Room Air 08/10/23 03:21 08/10/23 03:21 08/10/23 03:21 08/10/23 03:21 08/10/23 03:21 08/10/23 03:30 Oxygen Delivery Method Room Air Weight: 88.6 kg Body Mass Index (BMI) 28.0 Intake & Output: Intake and Output for Last 24 Hours 08/08/23 08/09/23 08/10/23 23:59 23:59 23:59 Intake Total 652.5 / 652.5 Balance 652.5 / 652.5 Lab / Micro Data 08/10/23 04:10 08/10/23 04:10 Labs: Laboratory Results - last 24 hr 08/09/23 23:10: WBC 11.3 H, RBC 5.23, Hgb 13.7, Hct 43.6, MCV 83.4, MCH 26.2 L, MCHC 31.4 L, RDW Std Deviation 48.5 H, RDW Coeff of Ana 16.1 H, Plt Count 334, MPV 9.7, Immature Gran % (Auto) 0.300, Neut % (Auto) 77.4 H, Lymph % (Auto) 16.1 L, [place] % (Auto) 5.4, Eos % (Auto) 0.4, Baso % (Auto) 0.4, Absolute Neuts (auto) 8.7 H, Absolute Lymphs (auto) 1.81, Nucleated RBC % 0, Sodium 135 L, Potassium 3.4 L, Chloride 99, Carbon Dioxide 30.0, Anion Gap 6, BUN 10, Creatinine 0.92, Est GFR (MDRD) Af Amer 82, Est GFR (MDRD) Non-Af 68, BUN/Creatinine Ratio 10.9, Glucose 175 H, Calcium 11.2 H, Total Bilirubin 0.40, Direct Bilirubin 0.14, AST 16, ALT 22, Alkaline Phosphatase 51, Total Protein 7.8, Albumin 4.1, Globulin 3.7, Lipase 18 08/10/23 04:10: WBC 9.8, RBC 4.80, Hgb 12.4, Hct 40.2, MCV 83.8, MCH 25.8 L, MCHC 30.8 L, RDW Std Deviation 48.7 H, RDW Coeff of Ana 16.0 H, Plt Count 275, MPV 9.6, Immature Gran % (Auto) 0.300, Neut % (Auto) 89.4 H, Lymph % (Auto) 6.7 L, [place] % (Auto) 3.4, Eos % (Auto) 0.0, Baso % (Auto) 0.2, Absolute Neuts (auto) 8.7 H, Absolute Lymphs (auto) 0.65 L, Nucleated RBC % 0, Sodium 139, Potassium 3.4 L, Chloride 100, Carbon Dioxide 29.0, Anion Gap 10, BUN 9, Creatinine 0.76, Estim Creat Clear Calc 91.51, Est GFR (MDRD) Af Amer 102, Est GFR (MDRD) Non-Af 84, BUN/Creatinine Ratio 11.9, Glucose 151 H, Lactic Acid 1.2, Calcium 9.2, Total Bilirubin 0.30, AST 13 L, ALT 18, Alkaline Phosphatase 43 L, Total Protein 6.9, Albumin 3.7, Globulin 3.2, Albumin/Globulin Ratio 1.2, TSH 1.59 08/10/23 04:21: Ionized Calcium 4.87 Radiography Diagnostic Testing: Radiology Impression Abdomen/Pelvis CT 08/09/23 22:55 IMPRESSION: undefined ADDENDUM: 08/10/23 0038 IMPRESSION: undefined Physical Exam Const alert and no apparent distress Resp normal respiratory effort, no retractions, no use of accessory muscles and clear to auscultation bilaterally Cardio regular rate, regular rhythm, S1 normal heart sound and S2 normal heart sound GI normal to inspection, nondistended, normoactive bowel sounds, soft to palpation, non-tender and non-distended Extremity normal to inspection Neuro Sensorium / Orientation: awake and alert Assessment & Plan Assessment/Plan (1) Small bowel obstruction: (2) Bradycardia: (3) Hypokalemia: (4) Abdominal pain: QUALIFIERS: Abdominal location: generalized Qualified Code(s): R10.84 - Generalized abdominal pain (5) Hypercalcemia: PLAN: Plan 1. Small bowel obstruction; recurrent - NG tube could not be placed in the ER. n.p.o. and give IV Protonix. Give acetaminophen [place] as needed for mild to moderate level 1-5 out of 10 pain and fever. Continue IV fentanyl as needed for severe level 6-10 out of 10 pain given the fact the patient has severe headache secondary to morphine. General surgery on consult. Plan for diagnostic laparoscopy today. 2. Intractable nausea vomiting attributable to #1 - IVF and antiemetics. 3. Hypokalemia of 3.4 mmol/L present on admission complicating #1 & #2 - Replace 4. Mild hypercalcemia of 11.2 mg/dL present on admission - Resolved. May be lab error. PTH and ionized calcium within normal limits. 25 OH D level pending Chronic conditions: History of irritable bowel syndrome of constipation type; on lubiprostone - Hold this agent until small bowel obstruction resolves and is deemed safe to restart by general surgery. History of GERD; status post Yomaira fundoplication - Patient will be started on IV Protonix for #1. History of pituitary tumor - Apparently stable. Check TSH this admission. DVT prophylaxis - Start heparin 5,000 units SQ 3 times daily since epistaxis has resolved. Also start SCDs. Charges/Coding Visit Charges Inpatient E&M: 73225 Subs Hosp L2
[2023-08-10] MEDS: Morphine 2 MG/ML Syringe IV ×2 (08:42→18:22)
[2023-08-10] MEDS: 0.9% Saline Lock 10 ML Syringe IV ×3 (08:42→18:22)
--- NOTE | 2023-08-10 11:50 | CASEMGMT ---
Addendum entered by Jessica Funez 08/10/23 15:12: Pt remains off of the floor. Original Note: RN CM into pt room, pt is off of the floor at this time. RN to complete assessment at a later time.
[2023-08-10] MEDS: Cefotetan 2 GM in 0.9% Normal Saline (100mL MB+) 100 ML IV (12:05)
--- NOTE | 2023-08-10 13:21 | OP.PCM_ITS ---
Report of Operation Date of Procedure: 08/10/23 Pre-Operative Diagnosis: Small bowel obstruction Post-Operative Diagnosis: Same Surgery/Procedure Performed:: Diagnostic laparoscopy converted to laparotomy, lysis of adhesion release of small bowel obstruction Surgeon: Nona Brennan corn husk baler: Gregg Dozier Type of Anesthesia: General/Supplemental Anesthesiologist: Berny Medellin Special Medications: Cefotetan 2 g IV x 1 Specimen's removed: None Drains: martins 100 cc Estimated Blood Loss (mL): 20 cc Description of Procedure: Indications: this is a 53 year-old female who developed abdominal pain/nausea/vomiting and on workup was found to have small bowel obstruction. Description procedure: The patient was placed on operating table in supine position. A timeout was completed verifying correct patient, procedure, site, position and special equipment prior to beginning procedure. General Anesthesia was induced. The abdomen was prepped and draped in usual sterile fashion. Martins catheter was placed. An incision was made in the natural skin line in the epigastrium above her previous scar. The fascia was elevated and incised. The peritoneum was elevated and incised. Entry into the peritoneum was confirmed visually and no bowel was noted in the vicinity of the incision. Steiner trocar was placed. The abdomen was insufflated with carbon dioxide to a pressure of 12-15 mmHg. Patient tolerated insufflation well. The laparoscope was then inserted and abdomen inspected-adhesions of the omentum was noted to the upper midline. No injuries from initial trocar placement were noted. Additional trochars were then inserted in the following locations 5 mm trocar in the left mid quadrant, left lower quadrant and lower midline. The abdomen was inspected and only able to really see the dilated small bowel. The table is placed in Trendelenburg position with the right side up. Adhesions of the omentum to the midline were taken down using scissors. Due to dilated small bowel and no able to find decompressed bowel well this converted to a HandPort near the umbilicus. Electrocautery was used to make the incision dissected down to the fascia. HandPort was placed. Able to find area of adhesion causing the bowel obstruction however this was a very tight adhesion and difficult to see with all the dilated small bowel thus converted to a laparotomy. Incision was enlarged with electrocautery. Wound protector was replaced. Trocars were removed. Terminal ileum was ran to the area of adhesions. Adhesions were carefully taken down with Metzenbaum scissors. This allowed the decompressed bowel to fill easily. Additional dilated small bowel bowel was ran and no other sites of adhesions were found. Wound protector was removed. fascia was closed with 1-0 PDS suture. A 12 mm fascial site was also closed with 0 Vicryl?[id number]. Skin was closed with skin ramirez. The patient tolerated procedure well and was taken to the postanesthesia care unit in stable condition. Complications none
[2023-08-10] MEDS: Bupivacaine Mpf 0.5% 30 ML VIAL (13:30)
[2023-08-10] MEDS: Heparin Injection (Vial) 5,000 UNIT/ML VIAL 5000 UNIT SC (16:14)
[2023-08-10] MEDS: Ketorolac 15 MG/ML Vial IV (22:02)
[2023-08-11 00:03] VITALS: BP 122/74; PULSE 90; RESP 16; TEMP 37.1; O2SAT 95
[2023-08-11] MEDS: 0.9% Saline Lock 10 ML Syringe IV ×3 (01:29→18:45)
[2023-08-11] MEDS: Morphine 2 MG/ML Syringe IV ×3 (02:07→23:59)
[2023-08-11 04:03] VITALS: BP 125/66; PULSE 92; RESP 16; TEMP 36.6; O2SAT 97
--- NOTE | 2023-08-11 05:15 | RAD_ITS ---
EXAM: XR ABDOMEN, 1 VIEW CLINICAL INDICATION: Small bowel obstruction TECHNIQUE: Frontal supine view of the abdomen/pelvis. COMPARISON: Abdomen and pelvis CT August 09, 2023. FINDINGS: LOWER THORAX: Persistent elevation of the left hemidiaphragm. The patient is rotated to the right on the exam including the lung bases. GASTROINTESTINAL TRACT: Persistent dilated small bowel loops in the upper abdomen similar to blindstitch lapel padder exam for the prior CT. Small bowel loop of 5.8 cm in the medial right upper abdomen, it was 4.6 cm. New right paramedian vertical incision with superficial surgical clips compared to prior CT. Prominent new bowel gas in a structure thought to be distended cecum or sigmoid colon projecting over the pelvis. ORGANS: Unremarkable as visualized. No organomegaly. No abnormal calcifications. BONES/JOINTS: No acute pathology. SOFT TISSUES: No acute pathology. RAD/Abdomen Single View (Portable) IMPRESSION: 1. Postoperative exam. 2. Prominent bowel gas within what appears to be a segment of colon projecting over the pelvis, new. Increased diameter of gas-filled small bowel loops in the upper abdomen. Electronically Signed: Arpita Ramirez MD at 8:22 EST ,
[2023-08-11 05:16] VITALS: BMI 27.6
[2023-08-11] MEDS: Lactated Ringers 1,000 ML 150 ML IV (05:59)
[2023-08-11] MEDS: Ketorolac 15 MG/ML Vial IV ×2 (06:16→18:45)
[2023-08-11 06:41] LABS: Absolute Lymphocyte Count 0.85 X10^3/uL (0.83-4.51); Absolute Neutrophil Count 5.7 X10^3/uL (2.0-7.7); Basophil# 0.02 X10^3/uL; Basophil% 0.3 % (0-1); Eosinophil# 0.01 X10^3/uL; Eosinophils% 0.1 % (0-5); Hematocrit 38.7 % (37-47); Hemoglobin 12.2 g/dL (12.0-15.0); Lymphocyte # 0.85 X10^3/ul (0.83-4.51); Lymphocyte % 11.5 % (19-41); Mean Corp Hgb Conc 31.5 g/dL (32-36); Mean Corpuscular Hgb 26.5 pg (27.0-32.0); Mean Corpuscular Volume 83.9 fL (81-99); Mean Platelet Vol. 9.9 fl (6.2-12.0); Monocyte% 10.8 % (0-10); NRBC Flagged by Analyzer 0 % (0-5); Neutrophil # 5.68 X10^3/uL (2.7-7.7); Platelet Count 269 K/mm3 (150-450); RBC Distribution Width CV 16.8 % (11.6-14.6); RBC Distribution Width SD 51.9 fl (35.1-43.9); Red Blood Count 4.61 M/mm3 (4.2-5.4); White Blood Count 7.4 K/mm3 (4.4-11.0)
[2023-08-11 07:07] LABS: Anion Gap 4 (5-15); BUN 13 mg/dL (7-18); BUN/Creat Ratio 16.3 RATIO (10-20); Calcium,Total 8.8 mg/dL (8.5-10.1); Chloride 106 mmol/L (98-107); EST Glomerular Filtration Rate 80 mL/min (>60); Est Glom Filt Rate - Afr Amer 97 mL/min (>60); Estimated Creatinine Clearance 86.93 ml/min; Glucose 125 mg/dL (74-106); Magnesium 2.3 mg/dL (1.6-2.6); Potassium 3.9 mmol/L (3.5-5.1); Sodium Level 139 mmol/L (136-145)
[2023-08-11 07:51] VITALS: BP 115/67; PULSE 92; RESP 18; TEMP 37.4; O2SAT 96
--- NOTE | 2023-08-11 08:17 | PN.HOSP_ITS ---
Subjective Subjective Feels better, though still with abdominal pain. No flatus. No BM. Objective Data Objective Data Vital Signs: Vital Signs Temp Pulse Resp BP Pulse Ox O2 Del Method O2 Flow Rate 37.4 C H 92 18 115/67 96 Room Air 2 08/11/23 07:51 08/11/23 07:51 08/11/23 07:51 08/11/23 07:51 08/11/23 07:51 08/11/23 07:52 08/11/23 04:03 Oxygen Flow Rate (L/min) 2 Oxygen Delivery Method Room Air Weight: 87.5 kg Body Mass Index (BMI) 27.6 Intake & Output: Intake and Output for Last 24 Hours 08/09/23 08/10/23 08/11/23 23:59 23:59 23:59 Intake Total 4152.5 / 4152.5 1000 / 1000 Output Total 410 / 810 1150 / 1150 Balance 3742.5 / 3342.5 -150 / -150 Lab / Micro Data 08/11/23 05:47 08/11/23 05:47 Labs: Laboratory Results - last 24 hr 08/11/23 05:47: WBC 7.4, RBC 4.61, Hgb 12.2, Hct 38.7, MCV 83.9, MCH 26.5 L, MCHC 31.5 L, RDW Std Deviation 51.9 H, RDW Coeff of Ana 16.8 H, Plt Count 269, MPV 9.9, Immature Gran % (Auto) 0.300, Neut % (Auto) 77.0 H, Lymph % (Auto) 11.5 L, [place] % (Auto) 10.8 H, Eos % (Auto) 0.1, Baso % (Auto) 0.3, Absolute Neuts (auto) 5.7, Absolute Lymphs (auto) 0.85, Nucleated RBC % 0, Sodium 139, Potassium 3.9, Chloride 106, Carbon Dioxide 29.0, Anion Gap 4 L, BUN 13, Creatinine 0.80, Estim Creat Clear Calc 86.93, Est GFR (MDRD) Af Amer 97, Est GFR (MDRD) Non-Af 80, BUN/Creatinine Ratio 16.3, Glucose 125 H, Calcium 8.8, Magnesium 2.3 Physical Exam Const alert and no apparent distress HEENT head/scalp atraumatic Resp normal respiratory effort, no retractions, no use of accessory muscles and clear to auscultation bilaterally Cardio regular rate, regular rhythm, S1 normal heart sound and S2 normal heart sound GI normal to inspection, nondistended, normoactive bowel sounds GI Narrative: tender Auscultation: hypoactive bowel sounds Assessment & Plan Assessment/Plan (1) Small bowel obstruction: (2) Bradycardia: (3) Hypokalemia: (4) Abdominal pain: QUALIFIERS: Abdominal location: generalized Qualified Code(s): R10.84 - Generalized abdominal pain (5) Hypercalcemia: PLAN: Plan 1. Small bowel obstruction; recurrent - * NG tube could not be placed in the ER. * n.p.o. and give IV Protonix. On LR. * Give acetaminophen [place] as needed for mild to moderate level 1-5 out of 10 pain and fever. Continue IV fentanyl as needed for severe level 6-10 out of 10 pain given the fact the patient has severe headache secondary to morphine. * General surgery on consult. Pt underwent laprotomy, FLORIN release of SBO. 2. Intractable nausea vomiting attributable to #1 - * IVF and antiemetics. 3. Hypokalemia of 3.4 mmol/L present on admission complicating #1 & #2 - * Replace 4. Mild hypercalcemia of 11.2 mg/dL present on admission - * Resolved. May be lab error. * PTH and ionized calcium within normal limits. * 25 OH D level pending Chronic conditions: * History of irritable bowel syndrome of constipation type; on lubiprostone - Hold this agent until small bowel obstruction resolves and is deemed safe to restart by general surgery. * History of GERD; status post Yomaira fundoplication - Patient will be started on IV Protonix for #1. * History of pituitary tumor - Apparently stable. Check TSH this admission. DVT prophylaxis - Start heparin 5,000 units SQ 3 times daily since epistaxis has resolved. Also start SCDs. Charges/Coding Visit Charges Inpatient E&M: 85648 Subs Hosp L2
--- NOTE | 2023-08-11 08:41 | PN.SURG_ITS ---
Objective Data Objective Data Vital Signs: Vital Signs Temp Pulse Resp BP Pulse Ox O2 Del Method O2 Flow Rate 99.4 F H 92 18 115/67 96 Room Air 2 08/11/23 07:51 08/11/23 07:51 08/11/23 07:51 08/11/23 07:51 08/11/23 07:51 08/11/23 07:52 08/11/23 04:03 Oxygen Flow Rate (L/min) 2 Oxygen Delivery Method Room Air Weight: 192 lb 14.472 oz Body Mass Index (BMI) 27.6 Intake & Output: Intake and Output for Last 24 Hours 08/09/23 08/10/23 08/11/23 23:59 23:59 23:59 Intake Total 4152.5 / 4152.5 1000 / 1000 Output Total 410 / 810 1150 / 1150 Balance 3742.5 / 3342.5 -150 / -150 Lab / Micro Data 08/11/23 05:47 08/11/23 05:47 Labs: Laboratory Results - last 24 hr 08/11/23 05:47: WBC 7.4, RBC 4.61, Hgb 12.2, Hct 38.7, MCV 83.9, MCH 26.5 L, MCHC 31.5 L, RDW Std Deviation 51.9 H, RDW Coeff of Ana 16.8 H, Plt Count 269, MPV 9.9, Immature Gran % (Auto) 0.300, Neut % (Auto) 77.0 H, Lymph % (Auto) 11.5 L, [place] % (Auto) 10.8 H, Eos % (Auto) 0.1, Baso % (Auto) 0.3, Absolute Neuts (auto) 5.7, Absolute Lymphs (auto) 0.85, Nucleated RBC % 0, Sodium 139, P otassium 3.9, Chloride 106, Carbon Dioxide 29.0, Anion Gap 4 L, BUN 13, Creat inine 0.80, Estim Creat Clear Calc 86.93, Est GFR (MDRD) Af Amer 97, Est GFR (MDRD) Non-Af 80, BUN/Creatinine Ratio 16.3, Glucose 125 H, Calcium 8.8, Magnesium 2.3 Radiography Diagnostic Testing: Radiology Impression KUB X-Ray 08/11/23 05:15 IMPRESSION: 1. Postoperative exam. 2. Prominent bowel gas within what appears to be a segment of colon projecting over the pelvis, new. Increased diameter of gas-filled small bowel loops in the upper abdomen. Electronically Signed: Arpita Ramirez MD at 8:22 EST , Physical Exam Resp normal respiratory effort Cardio regular rate GI GI Narrative: Abdomen: Soft, nondistended, tender near incision's dressed clean dry and intact, no peritoneal signs Assessment & Plan Assessment/Plan (1) S/P laparotomy with lysis of adhesions: PLAN: Plan Awaiting bowel function. Okay for sips and chips and medications. Likely will have to start patient's Amitiza that she does not go without it. Continue pain control and ambulation Lovenox for DVT prophylaxis Nona Brennan M.D. Pager: [phone] [facility] [address] [place] [address], [facility], [address] [place] [address] Office: [phone]
[2023-08-11] MEDS: Pantoprazole Sodium 40 MG in 0.9% Normal Saline (100mL MB+) 100 ML 330 MG IV (09:16)
[2023-08-11] MEDS: Enoxaparin 40 MG/0.4 ML Syringe SC (09:16)
--- OUTSIDE RECORDS SUMMARY | 2023-08-11 10:40 | XMS RPT_ITS | CCD ---
Author Name Unknown Address [address] [place] [address] Organization [facility] Care Team Providers Care Television And Radio Repairer Name Role Phone DORETHA HERNÁNDEZ Unavailable Unavailable [...] Domperidone; Translations: [DOMPERIDONE (BULK)] Drug Allergy 05-06-2005 [facility] Medications Current Medications Medication Drug Class(es) [...] 97.59 [degF] Bambi Athy PA-C Work Phone: [facility] 09-17-2022 08:34-0500 Body weight 97.16 kg Bambi Athy PA-C Work Phone: [facility] 09-17-2022 08:34-0500 Diastolic blood pressure 82 mm[Hg] Bambi Athy PA-C Work Phone: [facility] 09-17-2022 08:34-0500 Heart rate 68 /min Bambi Athy PA-C Work Phone: [facility] 09-17-2022 08:34-0500 Respiratory rate 18 /min Bambi Athy PA-C Work Phone: [facility] 09-17-2022 08:34-0500 SaO2% (BldA) [Mass fraction] 100 % Bambi Athy PA-C Work Phone: [facility] 09-17-2022 08:34-0500 Systolic blood pressure 122 mm[Hg] Bambi Pelletier PA-C Work Phone: [facility] 07-13-2022 14:55-0500 Body height 175.3 cm Chelsea Wellington MD Work Phone: [facility] 07-13-2022 14:55-0500 Body temperature 98.1 [degF] Chelsea Wellington MD Work Phone: [facility] 07-13-2022 14:55-0500 Body weight 95.71 kg Chelsea Wellington MD Work Phone: [facility] 07-13-2022 14:55-0500 Diastolic blood pressure 88 mm[Hg] Chelsea Wellington MD Work Phone: [facility] 07-13-2022 14:55-0500 Heart rate 83 /min Chelsea Wellington MD Work Phone: [facility] 07-13-2022 14:55-0500 SaO2% (BldA) [Mass fraction] 99 % Chelsea Wellington MD Work Phone: [facility] 07-13-2022 14:55-0500 Systolic blood pressure 124 mm[Hg] Chelsea Wellington MD Work Phone: [facility] 06-19-2022 09:26-0400 Body height 174 cm Tariq Hurt MD Work Phone: [facility] 06-19-2022 09:26-0400 Body weight 94.8 kg Tariq Hurt MD Work Phone: [facility] 06-19-2022 09:26-0400 Diastolic blood pressure 81 mm[Hg] Tariq Hurt MD Work Phone: [facility] 06-19-2022 09:26-0400 Heart rate 88 /min Tariq Hurt MD Work Phone: [facility] 06-19-2022 09:26-0400 SaO2% (BldA) [Mass fraction] 99 % Tariq Hurt MD Work Phone: [facility] 06-19-2022 09:26-0400 Systolic blood pressure 113 mm[Hg] Tariq Hurt MD Work Phone: [facility] 04-20-2022 14:35-0400 Body height 177.8 cm Gabi Bethune PA-C Work Phone: [facility] 04-20-2022 14:35-0400 Body weight 99.79 kg Gabi Joseph PA-C Work Phone: [facility] 03-09-2022 15:00-0400 Body height 177.8 cm Gabi Bethune PA-C Work Phone: [facility] 03-09-2022 15:00-0400 Body weight 99.79 kg Gabi Joseph PA-C Work Phone: [facility] 02-19-2022 13:10-0400 Diastolic blood pressure 84 mm[Hg] Chelsea Wellington MD Work Phone: [facility] 02-19-2022 13:10-0400 Heart rate 97 /min Chelsea Wellington MD Work Phone: [facility] 02-19-2022 13:10-0400 SaO2% (BldA) [Mass fraction] 96 % Chelsea Wellington MD Work Phone: [facility] 02-19-2022 13:10-0400 Systolic blood pressure 122 mm[Hg] Chelsea Wellingtno MD Work Phone: [facility] Encounters Encounter Date Encounter Type Care Provider Facility Start: 07-28-2023 ambulatory Chelsea Wellington MD Work Phone: Internal [facility] Start: 04-13-2023 End: 04-13-2023 ambulatory TOM MONSIVAIS Facility:[facility] Start: 04-13-2023 End: 04-13-2023 Patient encounter procedure [...] panel - Serum or Plasma Lipid Screening [facility] Start: 06-13-2027 LIPID SCREEN LIPID SCREEN [facility] Start: 06-13-2025 DIABETES SCREEN DIABETES SCREEN [facility] Start: 06-13-2025 Diabetes Screening Diabetes Screenin g [facility] Start: 07-19-2024 LIPID SCREEN LIPID SCREEN [facility] Start: 11-26-2023 Colonoscopy COLONOSCOPY [facility] Start: 11-26-2023 COLORECTAL CANCER SCREENING COLORECTAL CANCER SCREENING [facility] Start: 06-24-2023 Mammography [facility] Start: 06-13-2023 [facility]ABET[facility]CRE[facility] Start: 06-10-2023 HPV TESTING HPV TESTING [facility] Start: 06-10-2023 PAP TESTING PAP TESTING [facility] Start: 04-23-2023 Covid-19 Vaccine () Covid-19 Vaccine () [facility] Start: 04-23-2023 Influenza vaccination [facility] Start: 11-10-2022 SHINGRIX VACCINE (2 of 2) SHINGRIX VACCINE (2 of 2) [facility] Start: 08-23-2022 DEPRESSION ASSESSMENT DEPRESSION ASS ESSMENT [facility] Start: 08-21-2022 End: 10-21-2022 Lipid 1996 panel - Serum or Plasma LIPID PANEL BASIC Lab Routine Screening for lipid disorders Expected: 08/21/2022, Expires: 10/21/2022 [facility] Work Phone: Immunizations Immunization Date Immunization Notes Care Provider Hyacinth stern 09-15-2022 zoster vaccine recombinant Bambi Pelletier PA-C Work Phone: [facility] 06-24-2022 COVID-19 booster vaccine, age 12+ yr, bivalent (PFIZER-BIONTECH) Mammography Coordinator [facility] 06-24-2022 influenza, injectabl e, quadrivalent, contains preservative Mammography Coordinator [facility] 06-24-2022 influenza virus vaccine, unspecified formulation Screen [facility]str [facility] 08-07-2021 COVID-19 original vaccine, full dose, monovalent (MODERNA) Mammography Coordinator [facility] 07-28-2021 influenza, injectabl e, quadrivalent, contains preservative Milagro Coopersteveer OD Work Phone: [facility] 06-13-2020 influenza, injectabl e, quadrivalent, contains preservative Milagro Cooperrider OD Work Phone: [facility] 07-04-2019 influenza, injectabl e, quadrivalent, contains preservative Milagro Craft OD Work Phone: [facility] 06-15-2018 influenza virus vaccine, unspecified formulation Milagro Pollarder OD Work Phone: [facility] 06-15-2018 influenza, injectabl e, quadrivalent, preservative free Milagro Craft OD Work Phone: [facility] Payers Date Payer Category Payer Unknown [employer] PPO [id number] 2017-Present [phone] [address] [place] [address] PPO [id number] 2017 Unknown [employer] PPO [id number] 2017-Present [phone] [address] [place] [address] PPO [id number] 2017 Unknown [id number] 2017 Unknown [id number] Social History Date Type Detail Facility Start: 02-20-2011 End: 04-20-2022 Tobacco smoking status NHIS Never smoked tobacco [facility] Work Phone: Start: 02-06-2022 End: 04-13-2023 Alcohol intake Current non-drinker of alcohol (finding) [facility] Start: 07-24-2021 End: 07-13-2022 History SDOH Alcohol Frequency 2 [facility] Start: 07-24-2021 End: 07-13-2022 History SDOH Alcohol Std Drinks 1 [facility] Start: 07-24-2021 End: 07-13-2022 History SDOH Social Connections Phone 5 [facility] Start: 07-24-2021 End: 07-13-2022 History SDOH Social Connections [facility] 3 [facility] Start: 07-24-2021 History SDOH Social Connections Meetings 98 [facility] Start: 07-24-2021 History SDOH Physica l Activity DPW 4 [facility] Start: 06-13-2020 Education 17 [facility] Start: 1970 Sex Assigned At Not on file [facility] Start: 02-09-2022 End: 07-13-2022 Exposure to SARS-CoV-2 (event) Not sure [facility] Start: 02-20-2011 End: 04-20-2022 Tobacco use and exposure Smokeless tobacco non-user [facility] Work Phone: Start: 07-13-2022 End: 04-13-2023 History of Social function [facility] Start: 07-13-2022 End: 04-13-2023 Social connection and isolation panel [facility] Do you belong to any clubs or organizations such as pentecostal groups, unions, fraternal or athletic groups, or school groups? Yes [facility] Are you now , , , , never or living with a partner? [facility] How often to you hav e a drink containing alcohol? Monthly or less [facility] How many standard dr inks containing alcohol do you have on a typical day? 1 or 2 [facility] How often do you hav e 6 or more drinks on 1 occasion? Never [facility] How hard is it for y ou to pay for the very basics like food, housing, medical care, and heating Not hard at all [facility] Do you feel stress - tense, restless, nervous, or anxious, or unable to sleep at night because your mind is troubled all the time - these days [OSQ] To some extent [facility] (I/We) worried kristina er (my/our) food would run out before (I/we) got money to buy more. Never true [facility] In the past 12 month s, was there a time when you were not able to pay the mortgage or rent on time? No [facility] Clinical Notes 06-27-2014 to 07-28-2023 Patient InstructionsMilagro Craft OD - 04/13/2023 4:44 PM Bobby Pelletier PA-C - 09/17/2022 10:38 AM ESTPatient InstructionsChelsea Wellington MD - 07/13/2022 2:56 PM ESTPatient Instructions Note Date & Type Note Facility 07-28-2023 Note Patient Outreach (IN TMM[facility]) SANDRA PIERRE ([id number]) 1970 F Date Time Provider Department 07/28/23 CHELSEA WELLINGTON During your visit today, we recorded the following information about you: Allergies As of Date: 07/28/2023 Noted Allergy Reaction DOMPERIDONE (BULK) 05/06/2005 Comments: contraindicated for pituitary tumor, increases prolactin Date Reviewed: 04/13/2023 Reviewed by: Milagro Craft OD - Fully Assessed Visit Diagnosis:Encounter for screening mammogram for breast cancer [Z12.31] Order(s):[facility] SCREENING [[id number]] Order #: [id number] FUTURE Prescriptions as of 08/02/2023 - omega-3 [...] BMI 30-34.9 [E66.9] 06/19/2022 Encounter Status:Closed by [employer], PRODUSER on 08/02/23 [facility] 04-13-2023 Note HNO ID: [id number] Author: Milagro Craft OD Service: ? Author Type: COOLER OPERATOR Type: Progress Notes Filed: 04/13/2023 4:47 PM [...] neuro exam findings as obtained by others. [facility] 04-13-2023 Instructions Milagro Craft, OD - [...] yearly dilated exams. documented in this encounter [facility] 04-13-2023 History of Present illness Narrative [...] obtained by others. documented in this encounter [facility] 09-17-2022 Note HNO ID: [id number] Author: Bambi Pelletier PA-C Service: ? Author Type: Physician Budder Type: Progress Notes Filed: 09/17/2022 11:16 AM Note Text: This note was created using [employer]. Subjective Sandra Pierre is a 52 year [...] symptoms persist or worsen. Bambi Pelletier PA-C [facility] 09-17-2022 History of Present illness Narrative [...] Bowel obstruction (HCC) 03/18/2017 Migraines Pituitary adenoma ([facility]) 03/27/2013 MRI normal 08/12, prolactin normal in [...] Bambi Pelletier PA-C documented in this encounter [facility] 09-17-2022 Instructions Bambi Pelletier PA-C - 09/17/2022 8:55 AM EST May continue cortisone otc for 1 week. Zyrtec 10 mg otc for 1 week. Moisturizing lotion over area. documented in this encounter [facility] 07-13-2022 History of Present illness Narrative Patient presents with: Sore Throat HPI: Patient presents today for office visit for sore throat. Hurts to swallow. Ongoing for 5 days. Was visiting parents at halfway on 07/04/22. Both parents came down with [...] Chelsea Wellington MD documented in this encounter [facility] 06-25-2022 Miscellaneous Notes June 25, 2022 PID: [id number] Sandra Pierre [address] [place] [address] Dear Ms. Pierre, We are pleased to [...] report will be kept on file at [facility] as part of your permanent medical record and are available for your continuing care. Thank you for allowing us to help in meeting your health care needs. Sincerely, Dr. Wing Interpreting Radiologist [facility] (Normal over 40) documented in this encounter [facility] 06-24-2022 History of Present illness Narrative [...] 2022 7:22 AM documented in this encounter [facility] 06-19-2022 Instructions Tariq Hurt MD - 06/19/2022 9:46 AM EDT No evidence of persisting pituitary disease. See me again at Dr. Wellington's suggestion. documented in this encounter [facility] 06-19-2022 History of Present illness Narrative [...] with more than 50% of the total [id number] time of the visit in counseling / coordination of care. documented in this encounter [facility] documented as of this encounter (statuses as of 06/19/2022) [facility] History of Past illness Narrative* Problem [...] of this encounter (statuses as of 06/27/2022) [facility] History of Past illness Narrative* Problem [...] of this encounter (statuses as of 07/13/2022) [facility] History of Past illness Narrative* Problem [...] of this encounter (statuses as of 09/17/2022) [facility] History of Past illness Narrative* Problem [...] of this encounter (statuses as of 04/14/2023) [facility] Past [facility] Narrative* Problem [...] of this encounter (statuses as of 06/27/2023) [facility] of Past illness Narrative* Problem [...] of this encounter (statuses as of 08/02/2023) [facility] Miscellaneous Notes* Telephone Encounter - Waldemar [...] to get into neuro documented in [facility] encounter[facility] History of Present illness Narrative* Tom [...] and treatment options. documented in this encounterCleveland [phone] History of Present illness Narrative* Gabi Ruiz PA-C - 04/20/2022 2:49 PM EDTAssociated Order(s): Large Joint Arthro/Inj: L knee joint Post-Procedure Diagnose(s): Chronic pain of left knee; Chondromalacia of patellofemoral joint, left Gabi Ruiz PA-C Established Patient Department of Orthopaedics Orthopaedics [address] [address] Dept: [phone] April 20, 2022 SUBJECTIVE: CHIEF COMPLAINT: Established [...] knee joint Informed Consent Consent Obtained: Verbal [place] Protocol A moment to CARE was completed. [...] needed Gabi Ruiz PA-C documented in [facility] encounterM[facility] History of Present illness Narrative* James [...] of time without increased Pain - MET [place] in home exercise program. - MET so far Patient Goals: Take away the pain Planned Interventions, Frequency, and Duration: 1x/week, 4 weeks Total Number of Visits Planned: 4 Patient to be seen for Therapeutic exercise (91025);Neuromuscular re-education (29614);Manual therapy (13086);Self-halfway management (22408);Patient/Family/Caregiver Education PLAN FOR NEXT VISIT: Progress wall [...] 32 James Hoskins PT documented in this encounterM[facility] History of Present illness Narrative* Tom [...] options. Tom Monsivais MD documented in this encounterM[facility] History of Past illness Narrative* Problem Noted Date Resolved Date Subconjunctival hemorrhage of right eye 04/07/20 22 05/12/2022 Other vitreous opacities - Both Eyes 06/27/2014 10/31/2015 Tear film insufficiency, unspecified - Both Eyes 06/27/2014 10/31/2015 documented as of this encounter (statuses as of 05/12/2022) [facility] of Past illness Narrative* Problem Noted Date Resolved Date Subconjunctival hemorrhage of right eye 04/07/20 22 05/12/2022 Other vitreous opacities - Both Eyes 06/27/2014 10/31/2015 Tear film insufficiency, unspecified - Both Eyes 06/27/2014 10/31/2015 documented as of this encounter (statuses as of 06/02/2022) [facility] Instructions* Patient Instructions* Tom Monsivais MD - 04/07/2022 9:17 AM EDT Begin: Current Ophthalmic Meds fluorometholone (FML LIQUID FILM) 0.1 % ophthalmic suspension Use 1 Drop in the right eye three times daily. Systane Complete 1 drop in both eyes three times daily Ice packs as directed documented in this encounterMans[facility] Hospital08-[facility]22 History of Present illness Narrative* Tom [...] Patient was instructed to call the office ([phone]) immediately upon noticing flashes of light, increase [...] options. Tom Monsivais MD documented in this encounterM[facility]08-[facility] History of Present illness Narrative* James [...] 40 James Hoskins PT documented in this encounterM[facility]08-02-2022 History of Present illness Narrative* James [...] 41 James Hoskins PT documented in this encounterM[facility]07-28-2022 History of Present illness Narrative* James [...] 38 James Hoskins PT documented in this encounterM[facility] Hospital07-[facility]22 History of Present illness Narrative* James [...] prolonged periods of time without increased pain [place] in home exercise program. Patient Goals: Take away the pain Planned Interventions, Frequency, and Duration: Current Frequency: 1x/week Duration: 4 weeks Total Number of Visits Planned: 4 Planned Treatment Interventions: Therapeutic exercise (65647);Neuromuscular re- education (81504);Manual therapy (24181);Self-halfway management (76996);Patient/Family/Caregiver Education PLAN FOR NEXT VISIT: Progress L knee strengthening as tolerated. Assess LE flexibility Patient demonstrates good understanding of plan of care and treatment. The above goals and plan of care were discussed and agreed upon by patient/family. SUBJECTIVE: Sandra Pierre is a 51 year old female seen today for L knee pain. Jumping rope when injured. [place] a pop and pain after this. 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 Hobbies / Interests: [email or web address] Intake Information: Prescription present Previous Treatment: Ice [...] 45 James Hoskins PT documented in this encounterM[facility] Hospital07-18-[facility] History of Present illness Narrative* Gabi Ruiz PA-C - 03/09/2022 3:06 PM EDT Gabi Ruiz PA-C Department of Orthopaedics Orthopaedics [address] [place] [address] Dept: [phone] March 09, 2022 SUBJECTIVE: CHIEF COMPLAINT: New, [...] - Radiology, [place] In Impression IMPRESSION: Negative Community Outreach Manager: RENETTA Transcribe Date/Time: Feb 19 2022 4:34P [...] weeks Gabi Ruiz PA-C documented in this encounterMans[facility] Hospital06-30-[facility]22 Nurse Note* Cora Martinez LPN - [...] has achiness in ankle. documented in this encounterMansfield Hospital06-30-2022 History of Present illness Narrative* Chelsea [...] PANEL BASIC Chelsea Wellington documented in this encounterMansfield Hospital06-17-2022 Instructions* Patient Instructions* Milagro Craft, OD [...] Stable. Recommended yearly exams. documented in this encounterMansfield Hospital06-17-2022 History of Present illness Narrative* Milagro [...] and examined this patient. documented in this encounterM[facility]11-[facility]-2014 History of Past illness Narrative* Problem Noted Date Resolved Date Other vitreous opacities - Both Eyes 06/27/2014 10/31/2015 Tear film insufficiency, unspecified - Both Eyes 06/27/2014 10/31/2015 documented as of this encounter (statuses as of 02/06/2022) [address]05[address] History of Past illness Narrative* Problem Noted Date Resolved Date Other vitreous opacities - Both Eyes 06/27/2014 10/31/2015 Tear film insufficiency, unspecified - Both Eyes 06/27/2014 10/31/2015 documented as of this encounter (statuses as of 02/19/2022) [address]05[address]2014 History of Past illness Narrative* Problem Noted Date Resolved Date Other vitreous opacities - Both Eyes 06/27/2014 10/31/2015 Tear film insufficiency, unspecified - Both Eyes 06/27/2014 10/31/2015 documented as of this encounter (statuses as of 03/09/2022) [address]2014 History of Past illness Narrative* Problem Noted Date Resolved Date Other vitreous opacities - Both Eyes 06/27/2014 10/31/2015 Tear film insufficiency, unspecified - Both Eyes 06/27/2014 10/31/2015 documented as of this encounter (statuses as of 03/13/2022) [place] [address]05-2014 History of Past illness Narrative* Problem Noted Date Resolved Date Other vitreous opacities - Both Eyes 06/27/2014 10/31/2015 Tear film insufficiency, unspecified - Both Eyes 06/27/2014 10/31/2015 documented as of this encounter (statuses as of 03/19/2022) [place] [address]2014 History of Past illness Narrative* Problem Noted Date Resolved Date Other vitreous opacities - Both Eyes 06/27/2014 10/31/2015 Tear film insufficiency, unspecified - Both Eyes 06/27/2014 10/31/2015 documented as of this encounter (statuses as of 03/24/2022) [address] History of Past illness Narrative* Problem Noted Date Resolved Date Other vitreous opacities - Both Eyes 06/27/2014 10/31/2015 Tear film insufficiency, unspecified - Both Eyes 06/27/2014 10/31/2015 documented as of this encounter (statuses as of 04/02/2022) [place] [address]2014 History of Past illness Narrative* Problem Noted Date Resolved Date Other vitreous opacities - Both Eyes 06/27/2014 10/31/2015 Tear film insufficiency, unspecified - Both Eyes 06/27/2014 10/31/2015 documented as of this encounter (statuses as of 04/07/2022) [place] [address] History of Past illness Narrative* Problem Noted Date Resolved Date Other vitreous opacities - Both Eyes 06/27/2014 10/31/2015 Tear film insufficiency, unspecified - Both Eyes 06/27/2014 10/31/2015 documented as of this encounter (statuses as of 04/13/2022) [facility] of Past [facility] Narrative* Problem Noted Date Resolved Date Other vitreous opacities - Both Eyes 06/27/2014 10/31/2015 Tear film insufficiency, unspecified - Both Eyes 06/27/2014 10/31/2015 documented as of this encounter (statuses as of 04/14/2022) [address] History of Past illness Narrative* Problem Noted Date Resolved Date Other vitreous opacities - Both Eyes 06/27/2014 10/31/2015 Tear film insufficiency, unspecified - Both Eyes 06/27/2014 10/31/2015 documented as of this encounter (statuses as of 04/20/2022) [facility] Vitreous floaters of both eyes- Primary Dry eye syndrome of both eyes S/P LASIK surgery of both eyes [facility] Acute pain of left [...] tendinitis or bursitis [facility] [place] [facility] Diagnosis Pes anserinus bursitis of left knee- Primary Pes anserinus tendinitis or bursitis Chronic pain of left knee Pain in joint, lower leg [facility] Diagnosis Subconjunctival hemorrhage of right eye- Primary Episcleritis of right eye Scleritis, unspecified Vitreous floaters, bilateral S/P LASIK surgery of both eyes documented [facility] this encounter [facility] [place] [facility]* Diagnosis Episcleritis of right eye- Primary Scleritis, unspecified S/P LASIK surgery of both eyes Dry eye syndrome of both eyes Vitreous floaters of both eyes [facility] this encounter [facility] [place] [facility]* Diagnosis Pes anserinus bursitis of left knee- Primary Pes anserinus tendinitis or bursitis Chronic pain of left knee Pain in joint, lower leg documented [facility] encounter [facility] [place] [facility]* Diagnosis Chronic pain of left knee- Primary Pain in joint, lower leg Chondromalacia of patellofemoral joint, left documented in this encounter [facility] [place] [facility]* Diagnosis Pain around right eye- Primary S/P LASIK surgery of both eyes Dry eye syndrome of both eyes [facility] encounter [facility] [place] [facility]* Diagnosis Headache, unspecified headache type- Primary documented in this encounter [facility] [place] [facility]* Diagnosis History of pituitary adenoma- Primary Pure hypercholesterolemia documented in this encounter [facility] [place] [facility]* Diagnosis Pharyngitis, unspecified etiology- Primary URI, acute Acute upper respiratory infections of unspecified site [facility] [place] [facility] Diagnosis Irritant dermatitis- Primary Contact dermatitis and other eczema, due to unspecified cause [facility] [place] [facility] Diagnosis Dry eye syndrome of both eyes- Primary Vitreous floaters of both eyes S/P LASIK surgery of both eyes documented [facility] [place] [facility] Diagnosis Encounter for screening mammogram for breast cancer [facility] [place] [facility] Diagnosis Encounter for screening mammogram for breast cancer documented in this encounter [facility] for referral (narrative)* Diagnostic Procedure Only (Routine) - Closed Specialty Diagnoses / Procedures Referred By Andres liang Referred To Contact [facility] Diagnoses Encounter for screening mammogram for breast cancer Procedures SERGE SCREENING SCREENING MAMMOGRAPHY BI 2-VIEW BREAST INC Chelsea Jerry MD [address] [place] [address] [facility] [address] [place] [address] Referral ID Status Reason Start Date Expiration Date V isits Requested Visits Authorized [id number] Closed Auto-Generate d Referral 06/17/2022 08/22/2022 1 1 [facility] for referral (narrative)* Diagnostic Procedure Only (Routine) - Pending Review Specialty Diagnoses / Procedures Referred By Andres liang Referred To Contact [facility] Diagnoses Encounter for screening mammogram for breast cancer Procedures SERGE SCREENING SCREENING MAMMOGRAPHY BI 2-VIEW BREAST INC Chelsea eJrry MD [facility] [place] [address] [facility] [address] [place] [address] Referral ID Status Reason Start Date Expiration Date Visits Requested Visits Authorized [id number] Pending Review Auto-Generat ed Referral 07/28/2023 08/26/2024 1 1 [facility] for visit Narrative* Diagnostic Procedure Only (Routine) - Closed Specialty Diagnoses / Procedures Referred By Andres t Referred To Contact [facility] Diagnoses Encounter for screening mammogram for breast cancer Procedures SERGE SCREENING SCREENING MAMMOGRAPHY BI 2-VIEW BREAST INC Chelsea Jerry MD [facility] [place] [address] [facility] [address] [place] [address] Referral ID Status Reason Start Date Expiration Date V isits Requested Visits Authorized [id number] Closed Auto-Generate d Referral 06/17/2022 08/22/2022 1 1 [facility] Summary Purpose Family History No Family [...] left knee Procedures CONSULT TO ORTHOPAEDICS OFFICE/OUTPATIENT [facility] 60-74 MINUTES Chelsea Wellington MD [address] [place] [address] Referral ID Status Reason Start Date Expiration Date Visits Requested Visits Authorized [id number] Authorized PCP Requested Referral 02/19/2022 02/19/2023 1 1 Specialty Diagnoses / Procedures Referred By Contac t Referred To Contact Endocrinology Diagnoses Pituitary adenoma (HCC) Procedures CONSULT TO ENDOCRINOLOGY OFFICE/OUTPATIENT [facility] 60-74 MINUTES Chelsea Wellington MD [address] [place] [address] Referral ID Status Reason Start Date Expiration Date Visits Requested Visits Authorized [id number] Authorized PCP Requested Referral 02/19/2022 02/19/2023 1 1 Specialty Diagnoses / Procedures Referred By Contac t Referred To Contact XR IMAGING Diagnoses Acute pain of left knee Procedures XR KNEE GENERAL 4V AP BOTH/PA BOTH/LAT/MERC LEFT RADIOLOGIC EXAM KNEE COMPLETE 4/MORE VIEWS Chelsea Wellington MD [address] [place] [address] Xr Imaging Referral ID Status Reason Start Date Expiration Date V isits Requested Visits Authorized [id number] Closed Auto-Generate d Referral 02/19/2022 03/21/2023 1 1 Specialty Diagnoses / Procedures Referred By Contac t Referred To Contact [facility] Diagnoses Chronic pain of left knee Pes anserinus bursitis of left knee Procedures CONSULT TO PHYSICAL THERAPY PHYSICAL THERAPY EVALUATION HIGH COMPLEX 45 MINS Gabi Ruiz PA-C [address] [place] [address] [facility] [address] [place] [address] Referral ID Status Reason Start Date Expiration Date Visits Requested Visits Authorized [id number] Authorized Auto-Generat ed Referral 08/23/2021 08/22/2022 20 20 Specialty Diagnoses / Procedures Referred By Contac t Referred To Contact [facility] Diagnoses Chronic pain of left knee Pes anserinus bursitis of left knee Procedures PT REHAB FOLLOW UP ORDER THERAPEUTIC EXERCISES RE, EA 15 MIN. [facility] [address] [place] [address] Referral ID Status Reason Start Date Expiration Date Visits Requested Visits Authorized [id number] Pending Review PCP Requested Referral Auto-Generate d Referral 03/13/2022 06/11/2022 1 1 Specialty Diagnoses / Procedures Referred By Contac t Referred To Contact [facility] Diagnoses Pes anserinus bursitis of left knee Chronic pain of left knee Procedures PT REHAB FOLLOW UP ORDER THERAPEUTIC EXERCISES RE, EA 15 MIN. [facility] [address] [place] [address] Referral ID Status Reason Start Date Expiration Date Visits Requested Visits Authorized [id number] Pending Review PCP Requested Referral Auto-Generate d Referral 04/14/2022 07/13/2022 1 1 Specialty Diagnoses / Procedures Referred By Contac t Referred To Contact Neurology Diagnoses Headache, unspecified headache type Procedures CONSULT TO NEUROLOGY OFFICE/OUTPATIENT [facility] 60-74 MINUTES Chelsea Wlelington MD [address] [place] [address] Referral ID Status Reason Start Date Expiration Date Visits Requested Visits Authorized [id number] Authorized PCP Requested Referral 05/12/2022 05/12/2023 1 1 Additional Source Comments INFORMATION SOURCE (unrecogn ized section and content) DATE CREATED AUTHOR AUTHOR'S ORGANIZ ATION 08/03/2023 [facility] Source Comments (unrecognize d section and content) In the event this informatio n is protected by the Federal Confidentiality of Alcohol and Drug Abuse Patient Records regulations: The Federal rules restrict any use of the information to criminally investigate or prosecute any alcohol or drug abuse patient.[facility] this information is protected by the Federal Confidentiality of Alcohol and Drug Abuse Patient Records regulations: The Federal rules restrict any use of the information to criminally investigate or prosecute any alcohol or drug abuse patient.[facility] the event this information is protected by the Federal Confidentiality of Alcohol and Drug Abuse Patient Records regulations: The Federal rules restrict any use of the information to criminally investigate or prosecute any alcohol or drug abuse patient.[facility] the event this information is protected by the Federal Confidentiality of Alcohol and Drug Abuse Patient Records regulations: The Federal rules restrict any use of the information to criminally investigate or prosecute any alcohol or drug abuse patient.[facility] the event this information is protected by the Federal Confidentiality of Alcohol and Drug Abuse Patient Records regulations: The Federal rules restrict any use of the information to criminally investigate or prosecute any alcohol or drug abuse patient.[facility] the event this information is protected by the Federal Confidentiality of Alcohol and Drug Abuse Patient Records regulations: The Federal rules restrict any use of the information to criminally investigate or prosecute any alcohol or drug abuse patient.[facility] the event this information is protected by the Federal Confidentiality of Alcohol and Drug Abuse Patient Records regulations: The Federal rules restrict any use of the information to criminally investigate or prosecute any alcohol or drug abuse patient.[facility] the event this information is protected by the Federal Confidentiality of Alcohol and Drug Abuse Patient Records regulations: The Federal rules restrict any use of the information to criminally investigate or prosecute any alcohol or drug abuse patient.[facility] the event this information is protected by the Federal Confidentiality of Alcohol and Drug Abuse Patient Records regulations: The Federal rules restrict any use of the information to criminally investigate or prosecute any alcohol or drug abuse patient.[facility] the event this information is protected by the Federal Confidentiality of Alcohol and Drug Abuse Patient Records regulations: The Federal rules restrict any use of the information to criminally investigate or prosecute any alcohol or drug abuse patient.[facility] the event this information is protected by the Federal Confidentiality of Alcohol and Drug Abuse Patient Records regulations: The Federal rules restrict any use of the information to criminally investigate or prosecute any alcohol or drug abuse patient.[facility] the event this information is protected by the Federal Confidentiality of Alcohol and Drug Abuse Patient Records regulations: The Federal rules restrict any use of the information to criminally investigate or prosecute any alcohol or drug abuse patient.[facility] the event this information is protected by the Federal Confidentiality of Alcohol and Drug Abuse Patient Records regulations: The Federal rules restrict any use of the information to criminally investigate or prosecute any alcohol or drug abuse patient.[facility] the event this information is protected by the Federal Confidentiality of Alcohol and Drug Abuse Patient Records regulations: The Federal rules restrict any use of the information to criminally investigate or prosecute any alcohol or drug abuse patient.[facility] Hospital[facility] the event this information is protected by the Federal Confidentiality of Alcohol and Drug Abuse Patient Records regulations: The Federal rules restrict any use of the information to criminally investigate or prosecute any alcohol or drug abuse patient.[facility] Hospital[facility] the event this information is protected by the Federal Confidentiality of Alcohol and Drug Abuse Patient Records regulations: The Federal rules restrict any use of the information to criminally investigate or prosecute any alcohol or drug abuse patient.[facility] Hospital[facility] the event this information is protected by the Federal Confidentiality of Alcohol and Drug Abuse Patient Records regulations: The Federal rules restrict any use of the information to criminally investigate or prosecute any alcohol or drug abuse patient.[facility] Hospital[facility] the event this information is protected by the Federal Confidentiality of Alcohol and Drug Abuse Patient Records regulations: The Federal rules restrict any use of the information to criminally investigate or prosecute any alcohol or drug abuse patient.[facility] Hospital[facility] the event this information is protected by the Federal Confidentiality of Alcohol and Drug Abuse Patient Records regulations: The Federal rules restrict any use of the information to criminally investigate or prosecute any alcohol or drug abuse patient.[facility] Hospital[facility] the event this information is protected by the Federal Confidentiality of Alcohol and Drug Abuse Patient Records regulations: The Federal rules restrict any use of the information to criminally investigate or prosecute any alcohol or drug abuse patient.[facility] Reason for Visit (unrecogniz ed section and content) Specialty Diagnoses / Procedures Referred By Contac t Referred To Contact [facility] Diagnoses Chronic pain of left knee Pes anserinus bursitis of left knee Procedures CONSULT TO PHYSICAL THERAPY PHYSICAL THERAPY EVALUATION HIGH COMPLEX 45 MINS Gabi Ruiz PA-C [address] [place] [address] [facility] [address] [address] Referral ID Status Reason Start Date Expiration Date Visits Requested Visits Authorized [id number] Authorized Auto-Generat ed Referral 08/23/2021 08/22/2022 20 20 Reason Comments Vitreous Floaters Follow Up Bilateral Dry Eye Syndrome Follow Up Bilateral Reason Comments Musculoskeletal Problem Reason Comments New Knee Pain Swelling Specialty Diagnoses / Procedures Referred By Andres liang Referred To Contact Orthopedics Diagnoses Acute pain of left knee Procedures CONSULT TO ORTHOPAEDICS OFFICE/OUTPATIENT [facility] 60-74 MINUTES Chelsea Wellington MD [address] [place] [address] Referral ID Status Reason Start Date Expiration Date V isits Requested Visits Authorized [id number] Closed PCP Requested Referral 02/19/2022 02/19/2023 1 1 Reason Comments PT Eval Reason Comments Physical Therapy Specialty Diagnoses / Procedures Referred By Andres liang Referred To Contact [facility] Diagnoses Chronic pain of left knee Pes anserinus bursitis of left knee Procedures CONSULT TO PHYSICAL THERAPY PHYSICAL THERAPY EVALUATION HIGH COMPLEX 45 MINS Gabi Ruiz PA-C [address] [place] [address] [facility] [address] [address] Reason Comments Subconjunctival Hemorrhage Evaluation X 5 [...] adenoma (HCC) Procedures CONSULT TO ENDOCRINOLOGY OFFICE/OUTPATIENT [facility] 60-74 MINUTES Chelsea Wellington MD [address] [place] [address] Referral ID Status Reason Start Date Expiration Date V isits Requested Visits Authorized [id number] Closed PCP Requested Referral 02/19/2022 02/19/2023 1 1 Reason Comments Sore Throat Reason Comments itchy neck Red and itchy neck x 5 days Reason Comments Eye Itching Both Eyes Dry Eye(s) Both Eyes Floaters [facility] Care Teams (unrecognized sec tion and content) [employer] Relationship Specialty Start Date End Date Chelsea Wellington MD [address] [place], [place] [address] PCP - General Family Practice 08/18/19 [employer] Rep[employer]r Relationship Specialty Start Date End Date Chelsea Wellington MD [address] [place] [address] [id number] PCP - General Family Practice 08/18/19 [employer] Repairer Relationship Specialty Start Date End Date Chelsea Wellington MD [address] [place] [address] PCP - General Family Practice 08/18/19 [employer] Repairer Relationship Specialty Start Date End Date Chelsea Wellington MD [address] [place] [address] [id number] PCP - General Family Practice 08/18/19 Television [employer] Repairer Relationship Specialty Start Date End Date Chelsea Wellington MD [address] [place] [address] [id number] PCP - General Family Practice 08/18/19 Television And Radio Repairer Relationship Specialty Start Date End Date Chelsea Wellington MD [address] [place] [address] [id number] PCP - General Family Practice 08/18/19 Television And [employer] Repairer Relationship Specialty Start Date End Date Chelsea Wellington MD [address] [place] [address] PCP - General Family Practice 08/18/19 Television And Radio Repairer Relationship Specialty Start Date End Date Chelsea Wellington MD [address] [facility] [place] [address] PCP - General Family Practice 08/18/19 Television And Radio Repairer Relationship Specialty Start Date End Date Chelsea Wellington MD [address] [facility] [place] [address] PCP - General Family Medicine 08/18/19 Television And Radio Repairer Relationship Specialty Start Date End Date Chelsea Wellington MD [address] [facility] [place] [address] PCP - General Family Medicine 08/18/19 Television And Radio Repairer Relationship Specialty Start Date End Date Chelsea Wellington MD [address] [facility] [place] [address] PCP - General Family Medicine 08/18/19 Television And Radio Repairer Relationship Specialty Start Date End Date Chelsea Wellington MD [address] [place] [address] PCP - General Family Medicine 08/18/19 Television And Radio Repairer Relationship Specialty Start Date End Date Chelsea Wellington MD [address] [facility] [place] [address] PCP - General Family Medicine 08/18/19 Television And Radio Repairer Relationship Specialty Start Date End Date Chelsea Wellington MD [address] [place] [address] PCP - General Family Medicine 08/18/19 Television And Radio Repairer Relationship Specialty Start Date End Date Chelsea Wellington MD [address] [facility] [place] [address] PCP - General Family Medicine 08/18/19 Television And Radio Repairer Relationship Specialty Start Date End Date Chelsea Wellington MD [address] [place] [address] PCP - General Family Medicine 08/18/19 FOR [...] BE BASED ON THE PRIMARY CLINICAL RECORDS. [facility] [employer] [facility]. provides no warranty or guarantee of the accuracy or completeness of information in this document.
--- NOTE | 2023-08-11 12:00 | CASEMGMT ---
RADHA WEBBER assessment: RN CM to room to meet with patient for initial transition planning/care coordination assessment. RN LAWANDA introduced self and role at [facility]. Patient lying in bed, alert and oriented. Patient willing to participate in assessment and is able to answer all questions appropriately. Care providers, pharmacy, and demographics verified. PCP: Dr Wellington Specialists: Dr Granados, GI; Dr. Soto, colorectal specialist Preferred Pharmacy: [facility] Retail @ discharge Insurance: [place] Prescription Benefit: yes Living Will/HPOA: Has both LW and HCPOA, who is her [place] LNOK: Living Arrangements: Patient lives with in 1 story home w/no steps to enter. Patient states she is independent w/ADL's and does most home mgnt tasks. Transportation: both pt and drive and pt denies any transportation concerns. DME: Pt denies using or needing any DME. SNF/HHC: No hx of either. No needs identified. Pt wishes to return home and states has no concerns with going home at time of discharge.? ?CM?to follow for any discharge planning/needs.? Pt voices no concerns/needs at this time.? Advised pt to ask for?CM?if any questions/concerns/needs arise.? Voices understanding. PLAN:??Home [employer]?RN?CM
[2023-08-11 12:45] VITALS: BP 119/68; PULSE 92; RESP 16; TEMP 37.7; O2SAT 96
[2023-08-11] MEDS: Acetaminophen 325 MG Tablet 650 MG PO ×2 (13:21→23:13)
--- NOTE | 2023-08-11 15:12 | CHAPLAIN ---
Type of Pastoral Visit ___ Initial Visit ___ Follow-up Visit ___ On-call Visit ___ General Patient Visit ___ Spiritual Assessment ___ Family Conference ___ Bereavement ___ Rapid Response ___ Code Blue ___ Other (describe below) Pastoral Care Referral From ___ Patient ___ Family ___ Nurse ___ Physician ___ Soft Shoe Dancer ___ Insole Rounder ___ Other (describe below) Sacrament/Intervention ___ Active listening ___ Anointing ___ Presybeterian ___ Bereavement ___ Communion ___ Chacha exploration ___ ___ Life review ___ Prayer ___ Reconciliation ___ Sacrament of Sick ___ Supportive presence ___ Wedding ___ Other (describe below) Pastoral Comments patient was asleep and did not awaken to entrance into room by this assessment analyst
[2023-08-11] MEDS: Lactated Ringers 1,000 ML 80 ML IV (15:51)
[2023-08-11 16:03] VITALS: BP 116/67; PULSE 91; RESP 18; TEMP 36.4; O2SAT 93
[2023-08-11] MEDS: Famotidine 20 MG Tablet PO (18:17)
[2023-08-11 20:10] VITALS: BP 121/76; PULSE 92; RESP 16; TEMP 36.6; O2SAT 95
[2023-08-11] MEDS: Lubiprostone 24 MCG Capsule PO (21:40)
[2023-08-11] MEDS: Sodium Chloride 0.65% 1 SPRAY SPRAY.BTL NASAL (23:13)
[2023-08-12] VITALS (7 sets, daily range): BP systolic 123–133; BP diastolic 69–78; PULSE 79–86; RESP 16–18; TEMP 36.3–37; O2SAT 93–98; BMI 27.6
[2023-08-12] MEDS: Lactated Ringers 1,000 ML 80 ML IV ×2 (04:21→17:26)
[2023-08-12] MEDS: Ketorolac 15 MG/ML Vial IV ×3 (04:24→17:26)
[2023-08-12 06:52] LABS: Absolute Lymphocyte Count 0.83 X10^3/uL (0.83-4.51); Absolute Neutrophil Count 4.3 X10^3/uL (2.0-7.7); Basophil# 0.02 X10^3/uL; Basophil% 0.3 % (0-1); Eosinophil# 0.05 X10^3/uL; Eosinophils% 0.9 % (0-5); Hematocrit 35.3 % (37-47); Hemoglobin 10.6 g/dL (12.0-15.0); Lymphocyte # 0.83 X10^3/ul (0.83-4.51); Lymphocyte % 14.4 % (19-41); Mean Corpuscular Hgb 25.7 pg (27.0-32.0); Mean Corpuscular Volume 85.5 fL (81-99); Mean Platelet Vol. 9.7 fl (6.2-12.0); Monocyte# 0.53 X10^3/uL; Monocyte% 9.2 % (0-10); NRBC Flagged by Analyzer 0 % (0-5); Neutrophil # 4.32 X10^3/uL (2.7-7.7); Neutrophil % 74.7 % (47-70); Platelet Count 235 K/mm3 (150-450); RBC Distribution Width CV 17.1 % (11.6-14.6); RBC Distribution Width SD 53.4 fl (35.1-43.9); Red Blood Count 4.13 M/mm3 (4.2-5.4); White Blood Count 5.8 K/mm3 (4.4-11.0)
--- NOTE | 2023-08-12 06:56 | PN.HOSP_ITS ---
Subjective Subjective Feels well. Objective Data Objective Data Vital Signs: Vital Signs Temp Pulse Resp BP Pulse Ox O2 Del Method O2 Flow Rate 37.0 C 86 16 132/77 H 93 Room Air 2 08/12/23 04:30 08/12/23 04:30 08/12/23 04:30 08/12/23 04:30 08/12/23 04:30 08/12/23 04:30 08/11/23 04:03 Oxygen Flow Rate (L/min) 2 Oxygen Delivery Method Room Air Weight: 87.6 kg Body Mass Index (BMI) 27.6 Intake & Output: Intake and Output for Last 24 Hours 08/10/23 08/11/23 08/12/23 23:59 23:59 23:59 Intake Total 4152.5 / 4152.5 2102.5 / 2152.5 1050 / 1050 Output Total 410 / 810 1300 / 1700 600 / 600 Balance 3742.5 / 3342.5 802.5 / 452.5 450 / 450 Lab / Micro Data 08/12/23 06:10 08/12/23 06:10 Labs: Laboratory Results - last 24 hr 08/11/23 05:47: Sodium 139, Potassium 3.9, Chloride 106, Carbon Dioxide 29.0, Anion Gap 4 L, BUN 13, Creatinine 0.80, Estim Creat Clear Calc 86.93, Est GFR (MDRD) Af Amer 97, Est GFR (MDRD) Non-Af 80, BUN/Creatinine Ratio 16.3, Glucose 125 H, Calcium 8.8, Magnesium 2.3 08/12/23 06:10: WBC 5.8, RBC 4.13 L, Hgb 10.6 L, Hct 35.3 L, MCV 85.5, MCH 25.7 L, MCHC 30.0 L, RDW Std Deviation 53.4 H, RDW Coeff of Ana 17.1 H, Plt Count 235, MPV 9.7, Immature Gran % (Auto) 0.500, Neut % (Auto) 74.7 H, Lymph % (Auto) 14.4 L, Nash % (Auto) 9.2, Eos % (Auto) 0.9, Baso % (Auto) 0.3, Absolute Neuts (auto) 4.3, Absolute Lymphs (auto) 0.83, Nucleated RBC % 0 Radiography Diagnostic Testing: Radiology Impression KUB X-Ray 08/11/23 05:15 IMPRESSION: 1. Postoperative exam. 2. Prominent bowel gas within what appears to be a segment of colon projecting over the pelvis, new. Increased diameter of gas-filled small bowel loops in the upper abdomen. Electronically Signed: Arpita Ramirez MD at 8:22 EST Reading Location ID and State: [facility] / [place] Tel , Service support , Physical Exam Const alert and no apparent distress HEENT head/scalp atraumatic and moist oral mucous membranes Resp normal respiratory effort, no retractions, no use of accessory muscles and clear to auscultation bilaterally Cardio regular rate, regular rhythm, S1 normal heart sound and S2 normal heart sound GI GI Narrative: distended, but still soft. generalized abdominal tenderness. Auscultation: hypoactive bowel sounds Neuro Sensorium / Orientation: awake and alert Assessment & Plan Assessment/Plan (1) Small bowel obstruction: (2) Bradycardia: (3) Hypokalemia: (4) Abdominal pain: QUALIFIERS: Abdominal location: generalized Qualified Code(s): R10.84 - Generalized abdominal pain (5) Hypercalcemia: PLAN: Plan 1. Small bowel obstruction; recurrent - * NG tube could not be placed in the ER. * n.p.o. and give IV Protonix. On LR. * Give acetaminophen OH as needed for mild to moderate level 1-5 out of 10 pain and fever. Continue IV fentanyl as needed for severe level 6-10 out of 10 pain given the fact the patient has severe headache secondary to morphine. * General surgery on consult. Pt underwent laprotomy, FLORIN release of SBO on the . 2. Intractable nausea vomiting attributable to #1 - * IVF and antiemetics. 3. Hypokalemia of 3.4 mmol/L present on admission complicating #1 & #2 - * Replace 4. Mild hypercalcemia of 11.2 mg/dL present on admission - * Resolved. May be lab error. * PTH and ionized calcium within normal limits. * 25 OH D level pending Chronic conditions: * History of irritable bowel syndrome of constipation type; on lubiprostone - Hold this agent until small bowel obstruction resolves and is deemed safe to restart by general surgery. * History of GERD; status post Yomaira fundoplication - Patient will be started on IV Protonix for #1. * History of pituitary tumor - Apparently stable. TSH WNL DVT prophylaxis - Start heparin 5,000 units SQ 3 times daily since epistaxis has resolved. Also start SCDs. Disposition: Disposition, diet to be determined by general surgery. Charges/Coding Visit Charges Inpatient E&M: 06603 Subs Hosp L2
[2023-08-12 07:25] LABS: Anion Gap 5 (5-15); BUN 14 mg/dL (7-18); BUN/Creat Ratio 20.4 RATIO (10-20); Calcium,Total 8.9 mg/dL (8.5-10.1); Chloride 107 mmol/L (98-107); Creatinine, Serum 0.69 mg/dL (0.55-1.02); EST Glomerular Filtration Rate 95 mL/min (>60); Est Glom Filt Rate - Afr Amer 115 mL/min (>60); Estimated Creatinine Clearance 100.79 ml/min; Glucose 97 mg/dL (74-106); Potassium 3.8 mmol/L (3.5-5.1); Sodium Level 139 mmol/L (136-145)
--- NOTE | 2023-08-12 07:49 | PCM.PN.SRG ---
Subjective Subjective Patient still denies any flatus or bowel movement. Patient also denies any nausea. Pain controlled with meds, patient has been ambulating Objective Data Objective Data Vital Signs: Vital Signs Temp Pulse Resp BP Pulse Ox O2 Del Method O2 Flow Rate 98.6 F 86 16 132/77 H 93 Room Air 2 08/12/23 04:30 08/12/23 04:30 08/12/23 04:30 08/12/23 04:30 08/12/23 04:30 08/12/23 04:30 08/11/23 04:03 Oxygen Flow Rate (L/min) 2 Oxygen Delivery Method Room Air Weight: 193 lb 1.999 oz Body Mass Index (BMI) 27.6 Intake & Output: Intake and Output for Last 24 Hours 08/10/23 08/11/23 08/12/23 23:59 23:59 23:59 Intake Total 4152.5 / 4152.5 2102.5 / 2152.5 1050 / 1050 Output Total 410 / 810 1300 / 1700 600 / 600 Balance 3742.5 / 3342.5 802.5 / 452.5 450 / 450 Lab / Micro Data 08/12/23 06:10 08/12/23 06:10 Labs: Laboratory Results - last 24 hr 08/12/23 06:10: WBC 5.8, RBC 4.13 L, Hgb 10.6 L, Hct 35.3 L, MCV 85.5, MCH 25.7 L, MCHC 30.0 L, RDW Std Deviation 53.4 H, RDW Coeff of Ana 17.1 H, Plt Count 235, MPV 9.7, Immature Gran % (Auto) 0.500, Neut % (Auto) 74.7 H, Lymph % (Auto) 14.4 L, [place] % (Auto) 9.2, Eos % (Auto) 0.9, Baso % (Auto) 0.3, Absolute Neuts (auto) 4.3, Absolute Lymphs (auto) 0.83, Nucleated RBC % 0, Sodium 139, Potassium 3.8, Chloride 107, Carbon Dioxide 27.0, Anion Gap 5, BUN 14, Creatinine 0.69, Estim Creat Clear Calc 100.79, Est GFR (MDRD) Af Amer 115, Est GFR (MDRD) Non-Af 95, BUN/Creatinine Ratio 20.4 H, Glucose 97, Calcium 8.9 Radiography Diagnostic Testing: Radiology Impression KUB X-Ray 08/11/23 05:15 IMPRESSION: 1. Postoperative exam. 2. Prominent bowel gas within what appears to be a segment of colon projecting over the pelvis, new. Increased diameter of gas-filled small bowel loops in the upper abdomen. Electronically Signed: Arpita Ramirez MD at 8:22 EST Reading Location ID and State: [facility] / [place] Tel , Service support , Physical Exam Resp normal respiratory effort Cardio regular rate GI GI Narrative: Abdomen: Soft, nondistended, tender near incision's dressed clean dry and intact?ramirez at midline incision, no peritoneal signs Assessment & Plan Assessment/Plan (1) S/P laparotomy with lysis of adhesions: PLAN: Plan Awaiting bowel function. Okay for sips and chips and medications. Did restart patient's Amitiza last night. Continue pain control and ambulation Lovenox for DVT prophylaxis Nona Brennan M.D. Pager: [phone] [facility] [address] [place] [address], [facility], [address] [place] [address] Office: [phone]
[2023-08-12] MEDS: Pantoprazole Sodium 40 MG in 0.9% Normal Saline (100mL MB+) 100 ML 330 MG IV (09:47)
[2023-08-12] MEDS: Acetaminophen 325 MG Tablet 650 MG PO (09:48)
[2023-08-12] MEDS: Enoxaparin 40 MG/0.4 ML Syringe SC (09:48)
[2023-08-12] MEDS: Lubiprostone 24 MCG Capsule PO ×2 (09:48→20:49)
--- NOTE | 2023-08-12 12:01 | CHAPLAIN ---
Type of Pastoral Visit _x__ Initial Visit ___ Follow-up Visit ___ On-call Visit ___ General Patient Visit ___ Spiritual Assessment ___ Family Conference ___ Bereavement ___ Rapid Response ___ Code Blue ___ Other (describe below) Pastoral Care Referral From _x__ Patient ___ Family ___ Nurse ___ Physician ___ Vocational Examiner ___ Burn Nurse ___ Other (describe below) Sacrament/Intervention _x__ Active listening ___ Anointing ___ Church ___ Bereavement ___ Communion ___ Chacha exploration ___ ___ Life review _x__ Prayer ___ Reconciliation ___ Sacrament of Sick _x__ Supportive presence ___ Wedding ___ Other (describe below) Pastoral Comments 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
[2023-08-12 13:08] LABS: Vitamin D 1,25-Dihydroxy 49.7 pg/mL (24.8-81.5)
[2023-08-12] MEDS: Morphine 2 MG/ML Syringe IV ×3 (13:49→20:57)
[2023-08-12] MEDS: 0.9% Saline Lock 10 ML Syringe IV (13:49)
--- NOTE | 2023-08-12 15:28 | CASEMGMT ---
Social Work SW met with pt to discuss advance directives.? Pt confirms she has completed a living will and health care POA naming her Papo Pierre.? Pt notified that documents are not on file at [facility] and SW requested they be brought in for scanning into the EMR.? SHARONDA Nielsen
[2023-08-13] MEDS: Ketorolac 15 MG/ML Vial IV ×2 (01:56→21:04)
[2023-08-13 01:58] VITALS: BP 134/79; PULSE 73; RESP 18; TEMP 36.6; O2SAT 92
[2023-08-13] MEDS: Morphine 2 MG/ML Syringe IV ×3 (03:41→11:50)
[2023-08-13] MEDS: Lactated Ringers 1,000 ML 80 ML IV ×2 (03:43→18:34)
[2023-08-13 04:21] VITALS: BMI 27.7
--- NOTE | 2023-08-13 07:11 | PCM.PN.SRG ---
Subjective Subjective Patient's been ambulating, Still denies any flatus or bowel movement. Denies any nausea Objective Data Objective Data Vital Signs: Vital Signs Temp Pulse Resp BP Pulse Ox O2 Del Method O2 Flow Rate 98 F 73 18 134/79 H 92 Room Air 2 08/13/23 01:58 08/13/23 01:58 08/13/23 01:58 08/13/23 01:58 08/13/23 01:58 08/13/23 02:00 08/11/23 04:03 Oxygen Flow Rate (L/min) 2 Oxygen Delivery Method Room Air Weight: 193 lb 1.999 oz Body Mass Index (BMI) 27.7 Intake & Output: Intake and Output for Last 24 Hours 08/11/23 08/12/23 08/13/23 23:59 23:59 23:59 Intake Total 2102.5 / 2152.5 2210 / 2210 822.67 / 822.67 Output Total 1300 / 1700 900 / 900 Balance 802.5 / 452.5 1310 / 1310 822.67 / 822.67 Lab / Micro Data 08/12/23 06:10 08/12/23 06:10 Labs: Laboratory Results - last 24 hr 08/10/23 04:10: Vit D 1,25-Dihydroxy 49.7 08/12/23 06:10: Sodium 139, Potassium 3.8, Chloride 107, Carbon Dioxide 27.0, Anion Gap 5, BUN 14, Creatinine 0.69, Estim Creat Clear Calc 100.79, Est GFR (MDRD) Af Amer 115, Est GFR (MDRD) Non-Af 95, BUN/Creatinine Ratio 20.4 H, Glucose 97, Calcium 8.9 Physical Exam Resp normal respiratory effort Cardio regular rate GI GI Narrative: Abdomen: Soft, nondistended, tender near incision's dressed clean dry and intact?ramirez at midline incision, no peritoneal signs Assessment & Plan Assessment/Plan (1) S/P laparotomy with lysis of adhesions: PLAN: Plan Awaiting bowel function. Okay for sips and chips and medications. Did restart patient's Amitiza. Continue pain control and ambulation Lovenox for DVT prophylaxis Nona Brennan M.D. Pager: [phone] [facility] [address] [place] [address], [facility], [address] [place] [address] Office: [phone]
--- NOTE | 2023-08-13 08:06 | PN.HOSP_ITS ---
Subjective Subjective Still no flatus. Still with abdominal distention and pain but tolerable. Objective Data Objective Data Vital Signs: Vital Signs Temp Pulse Resp BP Pulse Ox O2 Del Method O2 Flow Rate 36.6 C 73 18 134/79 H 92 Room Air 2 08/13/23 01:58 08/13/23 01:58 08/13/23 01:58 08/13/23 01:58 08/13/23 01:58 08/13/23 02:00 08/11/23 04:03 Oxygen Flow Rate (L/min) 2 Oxygen Delivery Method Room Air Weight: 87.6 kg Body Mass Index (BMI) 27.7 Intake & Output: Intake and Output for Last 24 Hours 08/11/23 08/12/23 08/13/23 23:59 23:59 23:59 Intake Total 2102.5 / 2152.5 2210 / 2210 822.67 / 822.67 Output Total 1300 / 1700 900 / 900 Balance 802.5 / 452.5 1310 / 1310 822.67 / 822.67 Lab / Micro Data 08/12/23 06:10 08/12/23 06:10 Labs: Laboratory Results - last 24 hr 08/10/23 04:10: Vit D 1,25-Dihydroxy 49.7 Physical Exam Const alert and no apparent distress Resp normal respiratory effort, no retractions, no use of accessory muscles and clear to auscultation bilaterally Cardio regular rate, regular rhythm, S1 normal heart sound and S2 normal heart sound GI GI Narrative: Soft but slightly distended and tender Auscultation: hypoactive bowel sounds Extremity normal to inspection Assessment & Plan Assessment/Plan (1) Small bowel obstruction: (2) Bradycardia: (3) Hypokalemia: (4) Abdominal pain: QUALIFIERS: Abdominal location: generalized Qualified Code(s): R10.84 - Generalized abdominal pain (5) Hypercalcemia: PLAN: Plan 1. Small bowel obstruction; recurrent - * NG tube could not be placed in the ER. * n.p.o. and give IV Protonix. On LR. * Give acetaminophen PA as needed for mild to moderate level 1-5 out of 10 pain and fever. Continue IV fentanyl as needed for severe level 6-10 out of 10 pain given the fact the patient has severe headache secondary to morphine. * General surgery on consult. Pt underwent laprotomy, FLORIN release of SBO on the . 2. Intractable nausea vomiting attributable to #1 - * IVF and antiemetics. 3. Hypokalemia of 3.4 mmol/L present on admission complicating #1 & #2 - * Resolved after replacement 4. Mild hypercalcemia of 11.2 mg/dL present on admission - * Resolved. May be lab error. * PTH and ionized calcium within normal limits. * 25 OH D within normal limits Chronic conditions: * History of irritable bowel syndrome of constipation type; on lubiprostone - Hold this agent until small bowel obstruction resolves and is deemed safe to restart by general surgery. * History of GERD; status post Yomaira fundoplication - Patient will be started on IV Protonix for #1. * History of pituitary tumor - Apparently stable. TSH WNL DVT prophylaxis - Start heparin 5,000 units SQ 3 times daily since epistaxis has resolved. Also start SCDs. Disposition: No active med acute issues at present. Disposition, diet to be determined by general surgery in regards to small bowel obstruction. Charges/Coding Visit Charges Inpatient E&M: 16997 Subs Hosp L2
[2023-08-13 08:17] VITALS: O2SAT 95
[2023-08-13 08:40] VITALS: BP 128/78; PULSE 68; RESP 18; TEMP 37.1; O2SAT 95
[2023-08-13] MEDS: 0.9% Saline Lock 10 ML Syringe IV ×3 (08:45→21:04)
[2023-08-13] MEDS: Lubiprostone 24 MCG Capsule PO (08:55)
[2023-08-13] MEDS: Enoxaparin 40 MG/0.4 ML Syringe SC (08:55)
[2023-08-13] MEDS: Pantoprazole Sodium 40 MG in 0.9% Normal Saline (100mL MB+) 100 ML 330 MG IV (10:06)
--- NOTE | 2023-08-13 11:59 | RAD_ITS ---
STUDY: X-RAY - ABDOMEN/PELVIS REASON FOR EXAM: Female, 53 years old. Pain/nausea -- portable TECHNIQUE: AP supine and upright views of the abdomen and pelvis. COMPARISON: Comparison is made with prior study dated August 11, 2023. FINDINGS: Patchy bibasilar infiltrates more prominent on the left side. Elevation of the left hemidiaphragm. There is a paralytic ileus of the small intestine with mild gaseous distention. There is no demonstrated free abdominal air. The visualized liver, spleen and kidneys are grossly normal in size and morphology. Normal soft tissue structures. Normal visualized osseous structures. RAD/Abd Decub and/or Erect(Portabl IMPRESSION: Persistent dilatation of small bowel loops. Electronically Signed: Prabhu Andrade MD at 16:10 EST ,
[2023-08-13] MEDS: Ondansetron 4 MG/2 ML Vial IV (12:00)
[2023-08-13 12:46] VITALS: BP 131/77; PULSE 69; RESP 18; TEMP 37.3; O2SAT 96
--- NOTE | 2023-08-13 13:34 | RAD_ITS ---
STUDY: X-RAY - ABDOMEN/PELVIS REASON FOR EXAM: Female, 53 years old. NGT placement -- KUB with both diaphragms for NG/OG Verification - TECHNIQUE: Single AP view of the abdomen / pelvis. COMPARISON: None. FINDINGS: Elevation of the left hemidiaphragm. The tip of the nasogastric tube is seen within the fundal portion of the stomach. There is evidence of hiatal hernia. RAD/Abdomen Single View (Portable) IMPRESSION: The tip of the nasogastric tube is in the fundal portion of the stomach. Electronically Signed: Prabhu Andrade MD at 15:12 EST ,
[2023-08-13] MEDS: Oxymetazoline 0.05% 1 SPRAY SPRAY.BTL 2 SPRAY NASAL (14:44)
[2023-08-13] MEDS: BENZOCAINE/MENTHOL 1 LOZENGE MUCOUS MEM ×2 (17:17→21:04)
[2023-08-13 20:53] VITALS: BP 131/80; PULSE 73; RESP 18; TEMP 36.8; O2SAT 96
[2023-08-14 03:52] VITALS: BP 131/77; PULSE 62; RESP 18; TEMP 36.6; O2SAT 96
[2023-08-14] MEDS: Lactated Ringers 1,000 ML 80 ML IV ×2 (03:56→17:25)
[2023-08-14] MEDS: BENZOCAINE/MENTHOL 1 LOZENGE MUCOUS MEM ×2 (04:01→21:28)
[2023-08-14 06:00] VITALS: BMI 27.8
--- NOTE | 2023-08-14 07:42 | PN.HOSP_ITS ---
Reason for Visit Reason for Visit: Diagnoses Hypercalcemia (08/10/23) Hypokalemia (08/10/23) Unspecified intestinal obstruction, unspecified as to partial versus complete obstruction (08/10/23) Bradycardia, unspecified (08/10/23) Generalized abdominal pain (08/10/23) Unspecified abdominal pain (08/10/23) Other specified postprocedural states (08/10/23) Subjective Subjective NG tube placed yesterday after patient vomited. Currently feeling okay. NG clamped this morning. Is having stools. Objective Data Objective Data Vital Signs: Vital Signs Temp Pulse Resp BP Pulse Ox O2 Del Method O2 Flow Rate 36.6 C 62 18 131/77 H 96 Room Air 2 08/14/23 03:52 08/14/23 03:52 08/14/23 03:52 08/14/23 03:52 08/14/23 03:52 08/14/23 03:52 08/11/23 04:03 Oxygen Flow Rate (L/min) 2 Oxygen Delivery Method Room Air Weight: 88 kg Body Mass Index (BMI) 27.8 Intake & Output: Intake and Output for Last 24 Hours 08/12/23 08/13/23 08/14/23 23:59 23:59 23:59 Intake Total 2210 / 2210 2122.67 / 2122.67 799.33 / 799.33 Output Total 900 / 900 1010 / 1010 0 / 0 Balance 1310 / 1310 1112.67 / 1112.67 799.33 / 799.33 Lab / Micro Data 08/12/23 06:10 08/14/23 10:33 Radiography Diagnostic Testing: Radiology Impression Abdomen X-Ray 08/13/23 11:59 IMPRESSION: Persistent dilatation of small bowel loops. Electronically Signed: Prabhu Andrade MD at 16:10 EST , KUB X-Ray 08/13/23 13:34 IMPRESSION: The tip of the nasogastric tube is in the fundal portion of the stomach. Electronically Signed: Prabhu Andrade MD at 15:12 EST , Physical Exam Const alert and no apparent distress Constitutional Narrative: Up in chair. Extremity normal to inspection Neuro Sensorium / Orientation: awake and alert Assessment & Plan Assessment/Plan (1) Small bowel obstruction: (2) Bradycardia: (3) Hypokalemia: (4) Abdominal pain: QUALIFIERS: Abdominal location: generalized Qualified Code(s): R10.84 - Generalized abdominal pain (5) Hypercalcemia: PLAN: Plan 1. Small bowel obstruction; recurrent - * NG tube could not be placed in the ER. * n.p.o. and give IV Protonix. On LR. * Give acetaminophen ND as needed for mild to moderate level 1-5 out of 10 pain and fever. Continue IV fentanyl as needed for severe level 6-10 out of 10 pain given the fact the patient has severe headache secondary to morphine. * General surgery on consult. Pt underwent laprotomy, FLORIN release of SBO on the . * NG tube placed on the . Clamped this morning. Management per general surgery. 2. Intractable nausea vomiting attributable to #1 - * IVF and antiemetics. 3. Hypokalemia of 3.4 mmol/L present on admission complicating #1 & #2 - * Resolved after replacement 4. Mild hypercalcemia of 11.2 mg/dL present on admission - * Resolved. May be lab error. * PTH and ionized calcium within normal limits. * 25 OH D within normal limits Chronic conditions: * History of irritable bowel syndrome of constipation type; on lubiprostone - Hold this agent until small bowel obstruction resolves and is deemed safe to restart by general surgery. * History of GERD; status post Yomaira fundoplication - Patient will be started on IV Protonix for #1. * History of pituitary tumor - Apparently stable. TSH WNL DVT prophylaxis - Start heparin 5,000 units SQ 3 times daily since epistaxis has resolved. Also start SCDs. Disposition: No active med acute issues at present. Disposition, diet to be determined by general surgery in regards to small bowel obstruction. Charges/Coding Visit Charges Inpatient E&M: 27053 Subs Hosp L1
[2023-08-14 08:05] VITALS: PULSE 80
--- NOTE | 2023-08-14 08:43 | PN.SURG_ITS ---
Subjective Subjective Patient seen and examined during AM rounds. She is found sitting out of bed in the chair. She reports that she just completed a bowel movement that was somewhat hard to pass. She also shares that she has some diarrhea overnight. She continues to pass flatus. She shares that she has had minimal nausea and for a fleeting moment had an appetite. Objective Data Objective Data Vital Signs: Vital Signs Temp Pulse Resp BP Pulse Ox O2 Del Method O2 Flow Rate 97.8 F 80 18 131/77 H 96 Room Air 2 08/14/23 03:52 08/14/23 08:05 08/14/23 03:52 08/14/23 03:52 08/14/23 03:52 08/14/23 03:52 08/11/23 04:03 Oxygen Flow Rate (L/min) 2 Oxygen Delivery Method Room Air Weight: 194 lb 0.108 oz Body Mass Index (BMI) 27.8 Intake & Output: Intake and Output for Last 24 Hours 08/12/23 08/13/23 08/14/23 23:59 23:59 23:59 Intake Total 2210 / 2210 2122.67 / 2122.67 829.33 / 829.33 Output Total 900 / 900 1010 / 1010 0 / 0 Balance 1310 / 1310 1112.67 / 1112.67 829.33 / 829.33 Lab / Micro Data 08/12/23 06:10 08/12/23 06:10 Radiography Diagnostic Testing: Radiology Impression Abdomen X-Ray 08/13/23 11:59 IMPRESSION: Persistent dilatation of small bowel loops. Electronically Signed: Prabhu Andrade MD at 16:10 EST , KUB X-Ray 08/13/23 13:34 IMPRESSION: The tip of the nasogastric tube is in the fundal portion of the stomach. Electronically Signed: Prabhu Andrade MD at 15:12 EST , Physical Exam Const oriented x3 and no apparent distress Resp normal respiratory effort GI GI Narrative: Decreased abdominal distention, wounds appear appropriate beneath dressings which are now discontinued there is some ecchymotic change about patient's lapar otomy incision. Otherwise patient's abdominal exam is quite benign and she is soft and nontender. Nasogastric tube with minimal thin serous output Assessment & Plan Assessment/Plan (1) S/P laparotomy with lysis of adhesions: PLAN: Plan Patient likely with postoperative ileus yesterday required placement of nasogastric tube at bedside. She does appear to have had return of bowel function following the tube placement and the output is minimal. Still, given the difficulty with having the tube inserted I would like to proceed with a clamp trial this morning to ensure as best as possible that it has served its full purpose. Orders have been given for nursing to proceed with this trial this morning. I then began clear liquids if we are able to discontinue the tube later today. Since patient's nutrition has been disrupted by her obstruction and her postoperative recovery, I am obtaining laboratories today to assess the status of her electrolytes and we will plan to replete as necessary. Continue pain control and ambulation Lovenox for DVT prophylaxis Luigi Menchaca MD General Surgery Endocrine Surgery Pager: [facility] [address] [place] [address], [facility], [address] [place] [address] Office: [phone] Charges/Coding Visit Charges Inpatient E&M: 66724 [facility] Hosp L2
[2023-08-14] MEDS: Pantoprazole Sodium 40 MG in 0.9% Normal Saline (100mL MB+) 100 ML 330 MG IV (10:14)
[2023-08-14] MEDS: Enoxaparin 40 MG/0.4 ML Syringe SC (10:15)
[2023-08-14 10:19] VITALS: BP 132/84; PULSE 68; RESP 15; TEMP 36.6; O2SAT 99
[2023-08-14] MEDS: Ketorolac 15 MG/ML Vial IV ×2 (10:46→21:28)
[2023-08-14] MEDS: 0.9% Saline Lock 10 ML Syringe IV ×2 (10:47→21:28)
[2023-08-14 11:02] LABS: Anion Gap 8 (5-15); BUN 15 mg/dL (7-18); BUN/Creat Ratio 32.3 RATIO (10-20); Calcium,Total 8.9 mg/dL (8.5-10.1); Chloride 106 mmol/L (98-107); Creatinine, Serum 0.46 mg/dL (0.55-1.02); EST Glomerular Filtration Rate 149 mL/min (>60); Est Glom Filt Rate - Afr Amer 180 mL/min (>60); Estimated Creatinine Clearance 151.19 ml/min; Glucose 92 mg/dL (74-106); Magnesium 2.2 mg/dL (1.6-2.6); Phosphorus 2.4 mg/dL (2.5-4.9); Potassium 3.3 mmol/L (3.5-5.1); Sodium Level 137 mmol/L (136-145)
--- NOTE | 2023-08-14 13:47 | RAD_ITS ---
STUDY: X-RAY - ABDOMEN/PELVIS REASON FOR EXAM: Female, 53 years old. f/u ileus w persistent bloating TECHNIQUE: Single AP view of the abdomen / pelvis. COMPARISON: 08/13/2023 FINDINGS: Nasogastric tube with the tip in the left upper quadrant likely in the fundus the stomach. Skin ramirez in midline consistent with recent abdominal surgery. There are dilated loops of the small intestine with a non-distended colon consistent with a small bowel obstruction. The visualized liver, spleen and kidneys are grossly normal in size and morphology. Normal soft tissue structures. Mild levoscoliosis of the lumbar spine. RAD/Abdomen Single View (Portable) IMPRESSION: No change in severe small bowel obstruction. Electronically Signed: Tariq Padron MD at 14:51 EST ,
[2023-08-14 14:59] VITALS: PULSE 80
--- NOTE | 2023-08-14 17:30 | RAD_ITS ---
CLINICAL HISTORY: Female, 53 years old. Abdominal pain PROCEDURE: Small bowel follow-through TECHNIQUE: (All elements of maximal sterile barrier technique followed, including US elements as applicable) After the ministration of contrast through the patient''s existing nasogastric tube, multiple images of the abdomen were obtained. FINDINGS: Skin ramirez in midline consistent with recent abdominal surgery. Nasogastric tube with the tip in the left upper quadrant likely in the fundus of the stomach. Examination immediate image demonstrates oral contrast within the stomach duodenum and jejunum. Examination the 3 hour image demonstrates contrast within the dilated jejunum which is severely dilated consistent with a small bowel obstruction. Examination the 12 hour image demonstrates dilution oral contrast was severely dilated small bowel. RAD/Small Bowel Series Only IMPRESSION: Severe small bowel obstruction. Electronically Signed: Tariq Padron MD at 15:10 EST ,
[2023-08-14 20:26] VITALS: BP 138/80; PULSE 71; RESP 18; TEMP 36.8; O2SAT 96
--- NOTE | 2023-08-15 02:00 | PN.SURG_ITS ---
Subjective Subjective Patient seen and examined during AM rounds. She is found walking the halls and just recently returned to her room. She shares that she has some mild bloating but this is what is typical for her and that she now has a consistent appetite and thirst. She does confirm that she had a very restless night due to multiple bowel movements. She also denies any nausea despite having her nasogastric tube clamped since yesterday at 530PM. Objective Data Objective Data Vital Signs: Vital Signs Temp Pulse Resp BP Pulse Ox O2 Del Method O2 Flow Rate 98.2 F 71 18 138/80 H 96 Room Air 2 08/14/23 20:26 08/14/23 20:26 08/14/23 20:26 08/14/23 20:26 08/14/23 20:26 08/14/23 20:26 08/11/23 04:03 Oxygen Flow Rate (L/min) 2 Oxygen Delivery Method Room Air Weight: 194 lb 0.108 oz Body Mass Index (BMI) 27.8 Intake & Output: Intake and Output for Last 24 Hours 08/13/23 08/14/23 08/15/23 23:59 23:59 23:59 Intake Total 2122.67 / 2122.67 2069.33 / 2068.33 Output Total 1010 / 1010 75 / 75 Balance 1112.67 / 1112.67 1993.33 / 1993.33 Lab / Micro Data 08/12/23 06:10 08/14/23 10:33 Labs: Laboratory Results - last 24 hr 08/14/23 10:33: Sodium 137, Potassium 3.3 L, Chloride 106, Carbon Dioxide 23.0, Anion Gap 8, BUN 15, Creatinine 0.46 L, Estim Creat Clear Calc 151.19, Est GFR (MDRD) Af Amer 180, Est GFR (MDRD) Non-Af 149, BUN/Creatinine Ratio 32.3 H, Glucose 92, Calcium 8.9, Phosphorus 2.4 L, Magnesium 2.2 Radiography Diagnostic Testing: Radiology Impression KUB X-Ray 08/14/23 13:47 IMPRESSION: No change in severe small bowel obstruction. Electronically Signed: Tariq Padron MD at 14:51 EST , Physical Exam Resp normal respiratory effort GI GI Narrative: Nondistended, operative sites with stable ecchymosis, nontender to palpation x 4 quadrants Assessment & Plan Assessment/Plan (1) S/P laparotomy with lysis of adhesions: PLAN: Plan Patient likely resolution of postoperative ileus yesterday as she had 11 bowel movements and tolerated clamping of her nasogastric tube for the past 18 hours. I reconnected her to suction this morning and the aspirate was much less bilious and less than 100 mL so the tube was pulled. I have instructed patient to be very conservative as she resumes her diet and we will continue to support her with intravenous fluids. I have reordered her labs to be sure that her electrolytes remain appropriate. Additionally, I do believe her x-rays are somewhat misleading as I appreciate that she likely has a element of chr onically?dilated small bowel from a chronic partial bowel obstruction. Will now plan to follow-up per tolerance of a diet and advance as tolerated. Continue pain control and ambulation Lovenox for DVT prophylaxis Luigi Menchaca MD General Surgery Endocrine Surgery Pager: [facility] [address] [place] [address], [facility], [address] [place] [address] Office: [phone] Charges/Coding Visit Charges Inpatient E&M: 74418 Subs Hosp L2
[2023-08-15] MEDS: NORMAL SALINE 0.9% IV (02:48)
[2023-08-15] MEDS: POTASSIUM PHOSPHATE IV (02:48)
[2023-08-15 02:51] VITALS: BP 143/81; PULSE 65; RESP 18; TEMP 36.7; O2SAT 94
[2023-08-15] MEDS: Lactated Ringers 1,000 ML 80 ML IV ×2 (05:49→18:41)
[2023-08-15 06:00] VITALS: BMI 27.8
--- NOTE | 2023-08-15 07:32 | PN.HOSP_ITS ---
Subjective Subjective +BMs. NGT clamped. Objective Data Objective Data Vital Signs: Vital Signs Temp Pulse Resp BP Pulse Ox O2 Del Method O2 Flow Rate 36.7 C 65 18 143/81 H 94 Room Air 2 08/15/23 02:51 08/15/23 02:51 08/15/23 02:51 08/15/23 02:51 08/15/23 02:51 08/15/23 02:51 08/11/23 04:03 Oxygen Flow Rate (L/min) 2 Oxygen Delivery Method Room Air Weight: 88 kg Body Mass Index (BMI) 27.8 Intake & Output: Intake and Output for Last 24 Hours 08/13/23 08/14/23 08/15/23 23:59 23:59 23:59 Intake Total 2122.67 / 2122.67 2069.33 / 2068.33 1171.00 / 1171.00 Output Total 1010 / 1010 75 / 75 Balance 1112.67 / 1112.67 1993.33 / 1993.33 1171.00 / 1171.00 Lab / Micro Data 08/12/23 06:10 08/14/23 10:33 Labs: Laboratory Results - last 24 hr 08/14/23 10:33: Sodium 137, Potassium 3.3 L, Chloride 106, Carbon Dioxide 23.0, Anion Gap 8, BUN 15, Creatinine 0.46 L, Estim Creat Clear Calc 151.19, Est GFR (MDRD) Af Amer 180, Est GFR (MDRD) Non-Af 149, BUN/Creatinine Ratio 32.3 H, Glucose 92, Calcium 8.9, Phosphorus 2.4 L, Magnesium 2.2 Radiography Diagnostic Testing: Radiology Impression KUB X-Ray 08/14/23 13:47 IMPRESSION: No change in severe small bowel obstruction. Electronically Signed: Tariq Padron MD at 14:51 EST , Physical Exam Const alert and no apparent distress Resp normal respiratory effort, no retractions, no use of accessory muscles and clear to auscultation bilaterally Cardio regular rate, regular rhythm, S1 normal heart sound and S2 normal heart sound GI GI Narrative: distended. hypoactive BS. Neuro Sensorium / Orientation: awake and alert Assessment & Plan Assessment/Plan (1) Small bowel obstruction: (2) Bradycardia: (3) Hypokalemia: (4) Abdominal pain: QUALIFIERS: Abdominal location: generalized Qualified Code(s): R10.84 - Generalized abdominal pain (5) Hypercalcemia: PLAN: Plan 1. Small bowel obstruction; recurrent - * NG tube could not be placed in the ER. * n.p.o. and give IV Protonix. On LR. * Give acetaminophen [place] as needed for mild to moderate level 1-5 out of 10 pain and fever. Continue IV fentanyl as needed for severe level 6-10 out of 10 pain given the fact the patient has severe headache secondary to morphine. * General surgery on consult. Pt underwent laprotomy, FLORIN release of SBO on the . * NG tube placed on the . Clamped this morning. Management per general surgery. * GES ordered. SBFT ordered. 2. Intractable nausea vomiting attributable to #1 - * IVF and antiemetics. 3. Hypokalemia of 3.4 mmol/L present on admission complicating #1 & #2 - * Resolved after replacement 4. Mild hypercalcemia of 11.2 mg/dL present on admission - * Resolved. May be lab error. * PTH and ionized calcium within normal limits. * 25 OH D within normal limits Chronic conditions: * History of irritable bowel syndrome of constipation type; on lubiprostone - Hold this agent until small bowel obstruction resolves and is deemed safe to restart by general surgery. * History of GERD; status post Yomaira fundoplication - Patient will be started on IV Protonix for #1. * History of pituitary tumor - Apparently stable. TSH WNL DVT prophylaxis - Start heparin 5,000 units SQ 3 times daily since epistaxis has resolved. Also start SCDs. Disposition: No active med acute issues at present. Disposition, diet to be determined by general surgery in regards to small bowel obstruction. Charges/Coding Visit Charges Inpatient E&M: 29530 Subs Hosp L2
[2023-08-15] MEDS: Enoxaparin 40 MG/0.4 ML Syringe SC (08:44)
[2023-08-15] MEDS: Pantoprazole Sodium 40 MG in 0.9% Normal Saline (100mL MB+) 100 ML 330 MG IV (08:44)
[2023-08-15 08:47] VITALS: BP 128/82; PULSE 68; RESP 18; TEMP 36.8; O2SAT 97
[2023-08-15 13:14] LABS: Anion Gap 9 (5-15); BUN 15 mg/dL (7-18); BUN/Creat Ratio 39.8 RATIO (10-20); Calcium,Total 8.3 mg/dL (8.5-10.1); Chloride 113 mmol/L (98-107); Creatinine, Serum 0.38 mg/dL (0.55-1.02); EST Glomerular Filtration Rate 189 mL/min (>60); Est Glom Filt Rate - Afr Amer 229 mL/min (>60); Estimated Creatinine Clearance 183.02 ml/min; Glucose 112 mg/dL (74-106); Phosphorus 2.8 mg/dL (2.5-4.9); Potassium 3.1 mmol/L (3.5-5.1); Sodium Level 143 mmol/L (136-145)
[2023-08-15 15:00] VITALS: BP 130/82; PULSE 69; RESP 18; TEMP 36.7; O2SAT 98
[2023-08-15] MEDS: Potassium Chloride 10mEq/100mL 10 MEQ/100 ML IV.SOLN. 100 MEQ IV BOLUS ×4 (16:33→22:13)
[2023-08-15 20:13] VITALS: BP 126/82; PULSE 75; RESP 16; TEMP 36.8; O2SAT 95
[2023-08-15] MEDS: Lubiprostone 24 MCG Capsule PO (22:13)
[2023-08-16 02:23] VITALS: BP 127/83; PULSE 76; RESP 16; TEMP 36.6; O2SAT 94
[2023-08-16 03:21] VITALS: BMI 27.8
[2023-08-16] MEDS: Lactated Ringers 1,000 ML 80 ML IV ×2 (06:05→20:19)
[2023-08-16 07:09] LABS: Anion Gap 8 (5-15); BUN 7 mg/dL (7-18); BUN/Creat Ratio 14.5 RATIO (10-20); Calcium,Total 8.7 mg/dL (8.5-10.1); Chloride 110 mmol/L (98-107); Creatinine, Serum 0.48 mg/dL (0.55-1.02); EST Glomerular Filtration Rate 143 mL/min (>60); Est Glom Filt Rate - Afr Amer 173 mL/min (>60); Estimated Creatinine Clearance 144.89 ml/min; Glucose 108 mg/dL (74-106); Magnesium 1.9 mg/dL (1.6-2.6); Phosphorus 3.2 mg/dL (2.5-4.9); Potassium 3.7 mmol/L (3.5-5.1); Sodium Level 140 mmol/L (136-145)
--- NOTE | 2023-08-16 07:31 | PN.HOSP_ITS ---
Reason for Visit Reason for Visit: Diagnoses Hypercalcemia (08/10/23) Hypokalemia (08/10/23) Unspecified intestinal obstruction, unspecified as to partial versus complete obstruction (08/10/23) Bradycardia, unspecified (08/10/23) Generalized abdominal pain (08/10/23) Unspecified abdominal pain (08/10/23) Other specified postprocedural states (08/10/23) Subjective Subjective NG tube removed. Patient has been tolerating clear liquid diet. For liquid diets Objective Data Objective Data Vital Signs: Vital Signs Temp Pulse Resp BP Pulse Ox O2 Del Method O2 Flow Rate 36.6 C 76 16 127/83 H 94 Room Air 2 08/16/23 02:23 08/16/23 02:23 08/16/23 02:23 08/16/23 02:23 08/16/23 02:23 08/16/23 02:23 08/11/23 04:03 Oxygen Flow Rate (L/min) 2 Oxygen Delivery Method Room Air Weight: 88 kg Body Mass Index (BMI) 27.8 Intake & Output: Intake and Output for Last 24 Hours 08/14/23 08/15/23 08/16/23 23:59 23:59 23:59 Intake Total 2069.33 / 2068.33 2681.00 / 2681.00 912 / 912 Output Total 75 / 75 100 / 100 Balance 33 / 1993. 2581.00 / 2581.00 912 / 912 Lab / Micro Data 08/12/23 06:10 08/16/23 04:45 Labs: Laboratory Results - last 24 hr 08/15/23 12:50: Sodium 143, Potassium 3.1 L, Chloride 113 H, Carbon Dioxide 21.0, Anion Gap 9, BUN 15, Creatinine 0.38 L, Estim Creat Clear Calc 183.02, Est GFR (MDRD) Af Amer 229, Est GFR (MDRD) Non-Af 189, BUN/Creatinine Ratio 39.8 H, Glucose 112 H, Calcium 8.3 L, Phosphorus 2.8, Magnesium 2.0 08/16/23 04:45: Sodium 140, Potassium 3.7, Chloride 110 H, Carbon Dioxide 22.0, Anion Gap 8, BUN 7, Creatinine 0.48 L, Estim Creat Clear Calc 144.89, Est GFR (MDRD) Af Amer 173, Est GFR (MDRD) Non-Af 143, BUN/Creatinine Ratio 14.5, Glucose 108 H, Calcium 8.7, Phosphorus 3.2, Magnesium 1.9 Radiography Diagnostic Testing: Radiology Impression Small Bowel X-Ray 08/14/23 17:30 IMPRESSION: Severe small bowel obstruction. Electronically Signed: Tariq Padron MD at 15:10 EST , Physical Exam Const alert and no apparent distress Resp normal respiratory effort, no retractions, no use of accessory muscles and clear to auscultation bilaterally Cardio regular rate, regular rhythm, S1 normal heart sound and S2 normal heart sound GI normal to inspection, nondistended, normoactive bowel sounds Neuro Sensorium / Orientation: awake and alert Assessment & Plan Assessment/Plan (1) Small bowel obstruction: (2) Bradycardia: (3) Hypokalemia: (4) Abdominal pain: QUALIFIERS: Abdominal location: generalized Qualified Code(s): R10.84 - Generalized abdominal pain (5) Hypercalcemia: PLAN: Plan 1. Small bowel obstruction; recurrent - * NG tube could not be placed in the ER. * n.p.o. and give IV Protonix. On LR. * Give acetaminophen [place] as needed for mild to moderate level 1-5 out of 10 pain and fever. Continue IV fentanyl as needed for severe level 6-10 out of 10 pain given the fact the patient has severe headache secondary to morphine. * General surgery on consult. Pt underwent laprotomy, FLORIN release of SBO on the . * NG tube placed on the , removed on the . * 08/16: diet advanced to full liquid. 2. Intractable nausea vomiting attributable to #1 - * IVF and antiemetics. 3. Hypokalemia of 3.4 mmol/L present on admission complicating #1 & #2 - * Resolved after replacement 4. Mild hypercalcemia of 11.2 mg/dL present on admission - * Resolved. May be lab error. * PTH and ionized calcium within normal limits. * 25 OH D within normal limits Chronic conditions: * History of irritable bowel syndrome of constipation type; on lubiprostone - Hold this agent until small bowel obstruction resolves and is deemed safe to restart by general surgery. * History of GERD; status post Yomaira fundoplication - Patient will be started on IV Protonix for #1. * History of pituitary tumor - Apparently stable. TSH WNL DVT prophylaxis - Start heparin 5,000 units SQ 3 times daily since epistaxis has resolved. Also start SCDs. Disposition: No active med acute issues at present. Disposition, diet to be determined by general surgery in regards to small bowel obstruction. Charges/Coding Visit Charges Inpatient E&M: 26048 Subs Hosp L2
[2023-08-16 07:41] VITALS: BP 121/78; PULSE 75; RESP 16; TEMP 37.1; O2SAT 97
--- NOTE | 2023-08-16 08:15 | PN.SURG_ITS ---
Subjective Subjective Patient seen and examined during AM rounds. She is sitting out of bed in a chair. She states that she was relieved this morning to awaken to her abdomen feeling less distended. She also reports a number of bowel movements overnight and again this morning. These remain loose in character. She denies nausea with her diet and confirms just mild amount of bloating. Objective Data Objective Data Vital Signs: Vital Signs Temp Pulse Resp BP Pulse Ox O2 Del Method O2 Flow Rate 98.8 F 75 16 121/78 H 97 Room Air 2 08/16/23 07:41 08/16/23 07:41 08/16/23 07:41 08/16/23 07:41 08/16/23 07:41 08/16/23 07:41 08/11/23 04:03 Oxygen Flow Rate (L/min) 2 Oxygen Delivery Method Room Air Weight: 194 lb 0.108 oz Body Mass Index (BMI) 27.8 Intake & Output: Intake and Output for Last 24 Hours 08/14/23 08/15/23 08/16/23 23:59 23:59 23:59 Intake Total 2069.33 / 2068.33 2681.00 / 2681.00 912 / 912 Output Total 75 / 75 100 / 100 Balance 1994.33 / 1993.33 2581.00 / 2581.00 912 / 912 Lab / Micro Data 08/12/23 06:10 08/16/23 04:45 Labs: Laboratory Results - last 24 hr 08/15/23 12:50: Sodium 143, Potassium 3.1 L, Chloride 113 H, Carbon Dioxide 21.0, Anion Gap 9, BUN 15, Creatinine 0.38 L, Estim Creat Clear Calc 183.02, Est GFR (MDRD) Af Amer 229, Est GFR (MDRD) Non-Af 189, BUN/Creatinine Ratio 39.8 H, Glucose 112 H, Calcium 8.3 L, Phosphorus 2.8, Magnesium 2.0 08/16/23 04:45: Sodium 140, Potassium 3.7, Chloride 110 H, Carbon Dioxide 22.0, Anion Gap 8, BUN 7, Creatinine 0.48 L, Estim Creat Clear Calc 144.89, Est GFR (MDRD) Af Amer 173, Est GFR (MDRD) Non-Af 143, BUN/Creatinine Ratio 14.5, Gluc ose 108 H, Calcium 8.7, Phosphorus 3.2, Magnesium 1.9 Radiography Diagnostic Testing: Radiology Impression Small Bowel X-Ray 08/14/23 17:30 IMPRESSION: Severe small bowel obstruction. Electronically Signed: Tariq Padron MD at 15:10 EST , Physical Exam Const oriented x3 and no apparent distress Resp normal respiratory effort GI GI Narrative: Ecchymosis along patient's laparotomy incision superiorly otherwise appears to be healing well. Patient's abdomen is soft and minimally distended. She is minimally tender with palpation. Assessment & Plan Assessment/Plan (1) S/P laparotomy with lysis of adhesions: PLAN: Plan Patient confirms resolution of postoperative ileus as she is tolerating a clear liquid diet with ongoing bowel function. I recommended today that we advance her to full liquids and plan to discharge her with this diet and instructions to gradually increase up to a soft low residue diet over the next 2 weeks. Her labs were reviewed after repletion of her potassium yesterday and she is now within normal limits. She shares that she normally has some extended period of recovery after a bowel obstruction event and is overall pleased with her progress to date. I discussed considering implementation of a probiotic as she is likely had translocation of bacteria now altering her gut motility. If patient tolerates full liquid diet at her next meal she may be discharged from a surgical standpoint and instructed to follow-up with Dr. Brennan in the next 1 to 2 weeks for review of her clinical progress and staple removal. Continue pain control and ambulation Lovenox for DVT prophylaxis Luigi Menchaca MD General Surgery Endocrine Surgery Pager: [facility] [address] [place] [address], [facility], [address] [place] [address] Office: [phone] Charges/Coding Visit Charges Inpatient E&M: 25111 Subs Hosp L2
--- NOTE | 2023-08-16 10:49 | DCINST_ITS ---
Discharge Instructions Diet Discharge Diet: - (bland diet, advance as tolerated. ) Activity Discharge Activity: Return to Normal Activity Dressing / Incision Call your doctor if your incision/area has: Continuous Slow Oozing, Sudden Increased Bleeding, Increased Pain/ Swelling, Increased Redness, Foul Smelling Discharge and Swelling at the incision site Call your doctor if you observe: - (worsening abdominal pain. ) Follow Up Care Test Results: Test results from this visit will be discussed in further detail at your follow- up appointment, if applicable. Discharge Plan Admission Admit Date/Time: 08/10/23 02:18 Primary Reason for Your Visit: SBO Attending Provider: Berny Hernandez Primary Care Provider: Roderick Wellington Consulting Providers: Papo Brownlee Discharge Orders/Prescriptions Prescriptions: Continued lubiprostone [Amitiza] 24 MCG capsule 24 mcg PO BID Patient Comments: constipation hyoscyamine sulfate 0.125 MG tablet, sublingual 0.125 mg SL Q4H PRN PRN (Reason: stomach) pseudoephedrine HCl 60 MG tablet 60 mg PO Q6H PRN PRN (Reason: Sinus Congestion) [id number] acid 1 EACH tablet 1 ea PO DAILY acetaminophen 500 MG tablet 500 mg PO Q4H PRN PRN (Reason: Headache/Fever (T>102.5)) 0RF ondansetron HCl 8 MG tablet 8 mg PO TID PRN (Reason: nausea and vomiting) Qty: 20 0RF Referrals / Follow Up: Nona Brennan MD [Med Staff - Active Staff] - Within 2 Weeks Roderick Wellington MD [Primary Care Provider] - Within 2 Weeks Disposition Disposition (needs filled in before D/C Order can be placed): Home, Self Care
[2023-08-16] MEDS: Pantoprazole Sodium 40 MG in 0.9% Normal Saline (100mL MB+) 100 ML 330 MG IV (10:51)
[2023-08-16] MEDS: Lubiprostone 24 MCG Capsule PO ×2 (10:52→20:20)
[2023-08-16] MEDS: Enoxaparin 40 MG/0.4 ML Syringe SC (10:52)
[2023-08-16 16:00] VITALS: BP 118/70; PULSE 70; RESP 18; TEMP 36.8; O2SAT 98
[2023-08-16 20:33] VITALS: BP 120/74; PULSE 80; RESP 16; TEMP 37.4; O2SAT 97
[2023-08-17 05:43] VITALS: BP 112/70; PULSE 68; RESP 16; TEMP 36.7; O2SAT 95
[2023-08-17 05:48] VITALS: BMI 27.8
[2023-08-17 06:42] LABS: Absolute Lymphocyte Count 1.53 X10^3/uL (0.83-4.51); Absolute Neutrophil Count 3.8 X10^3/uL (2.0-7.7); Basophil# 0.02 X10^3/uL; Basophil% 0.3 % (0-1); Eosinophils% 1.6 % (0-5); Hematocrit 31.2 % (37-47); Hemoglobin 9.8 g/dL (12.0-15.0); Lymphocyte # 1.53 X10^3/ul (0.83-4.51); Lymphocyte % 24.4 % (19-41); Mean Corp Hgb Conc 31.4 g/dL (32-36); Mean Corpuscular Hgb 26.4 pg (27.0-32.0); Mean Corpuscular Volume 84.1 fL (81-99); Mean Platelet Vol. 9.3 fl (6.2-12.0); Monocyte# 0.69 X10^3/uL; NRBC Flagged by Analyzer 0.8 % (0-5); Neutrophil # 3.79 X10^3/uL (2.7-7.7); Neutrophil % 60.3 % (47-70); Platelet Count 277 K/mm3 (150-450); RBC Distribution Width CV 16.5 % (11.6-14.6); RBC Distribution Width SD 50.6 fl (35.1-43.9); Red Blood Count 3.71 M/mm3 (4.2-5.4); White Blood Count 6.3 K/mm3 (4.4-11.0)
[2023-08-17 06:59] LABS: Anion Gap 5 (5-15); BUN 2 mg/dL (7-18); BUN/Creat Ratio 4.1 RATIO (10-20); Calcium,Total 8.1 mg/dL (8.5-10.1); Chloride 112 mmol/L (98-107); Creatinine, Serum 0.49 mg/dL (0.55-1.02); EST Glomerular Filtration Rate 140 mL/min (>60); Est Glom Filt Rate - Afr Amer 169 mL/min (>60); Estimated Creatinine Clearance 141.93 ml/min; Glucose 108 mg/dL (74-106); Potassium 3.4 mmol/L (3.5-5.1); Sodium Level 143 mmol/L (136-145)
--- NOTE | 2023-08-17 07:12 | PN.SURG_ITS ---
Subjective Subjective Patient tolerating liquids having bowel movements?loose. Objective Data Objective Data Vital Signs: Vital Signs Temp Pulse Resp BP Pulse Ox O2 Del Method O2 Flow Rate 98.1 F 68 16 112/70 95 Room Air 2 08/17/23 05:43 08/17/23 05:43 08/17/23 05:43 08/17/23 05:43 08/17/23 05:43 08/17/23 05:43 08/11/23 04:03 Oxygen Flow Rate (L/min) 2 Oxygen Delivery Method Room Air Weight: 193 lb 9.054 oz Body Mass Index (BMI) 27.8 Intake & Output: Intake and Output for Last 24 Hours 08/15/23 08/16/23 08/17/23 23:59 23:59 23:59 Intake Total 2681.00 / 2681.00 4252 / 4252 500 / 500 Output Total 100 / 100 200 / 200 Balance 2581.00 / 2581.00 4052 / 4052 500 / 500 Lab / Micro Data 08/17/23 06:20 08/17/23 06:20 Labs: Laboratory Results - last 24 hr 08/17/23 06:20: WBC 6.3, RBC 3.71 L, Hgb 9.8 L, Hct 31.2 L, MCV 84.1, MCH 26.4 L , MCHC 31.4 L, RDW Std Deviation 50.6 H, RDW Coeff of Ana 16.5 H, Plt Count 277, MPV 9.3, Immature Gran % (Auto) 2.400 H, Neut % (Auto) 60.3, Lymph % (Auto) 24.4, [place] % (Auto) 11.0 H, Eos % (Auto) 1.6, Baso % (Auto) 0.3, Absolute Neuts (auto) 3.8, Absolute Lymphs (auto) 1.53, Nucleated RBC % 0.8, Sodium 143, Potassium 3.4 L, Chloride 112 H, Carbon Dioxide 26.0, Anion Gap 5, BUN 2 L, Creatinine 0.49 L, Estim Creat Clear Calc 141.93, Est GFR (MDRD) Af Amer 169, Est GFR (MDRD) Non-Af 140, BUN/Creatinine Ratio 4.1 L, Glucose 108 H, Calcium 8.1 L Physical Exam Const oriented x3 and no apparent distress Resp normal respiratory effort GI GI Narrative: Ecchymosis along patient's laparotomy incision superiorly otherwise appears to be healing well?skin ramirez removed at bedside Steri-Strips placed. Patient's abdomen is soft and minimally distended. She is minimally tender with palpation. Assessment & Plan Assessment/Plan (1) S/P laparotomy with lysis of adhesions: PLAN: Plan Patient tolerating full liquids we will send patient home on full/some soft diet and have patient follow-up in office in 1 to 2 weeks. Skin ramirez removed at bedside. Nona Brennan M.D. Pager: [phone] [facility] [address] [place] [address], [address] [place] [address] Office: [phone]
[2023-08-17 07:30] VITALS: BP 118/66; PULSE 70; RESP 18; TEMP 36.8; O2SAT 95
--- NOTE | 2023-08-17 07:33 | PN.HOSP_ITS ---
Subjective Subjective Feeling better. Tolerating diet. Objective Data Objective Data Vital Signs: Vital Signs Temp Pulse Resp BP Pulse Ox O2 Del Method O2 Flow Rate 36.7 C 68 16 112/70 95 Room Air 2 08/17/23 05:43 08/17/23 05:43 08/17/23 05:43 08/17/23 05:43 08/17/23 05:43 08/17/23 05:43 08/11/23 04:03 Oxygen Flow Rate (L/min) 2 Oxygen Delivery Method Room Air Weight: 87.8 kg Body Mass Index (BMI) 27.8 Intake & Output: Intake and Output for Last 24 Hours 08/15/23 08/16/23 08/17/23 23:59 23:59 23:59 Intake Total 2681.00 / 2681.00 4252 / 4252 500 / 500 Output Total 100 / 100 200 / 200 Balance 2581.00 / 2581.00 4052 / 4052 500 / 500 Lab / Micro Data 08/17/23 06:20 08/17/23 06:20 Labs: Laboratory Results - last 24 hr 08/17/23 06:20: WBC 6.3, RBC 3.71 L, Hgb 9.8 L, Hct 31.2 L, MCV 84.1, MCH 26.4 L , MCHC 31.4 L, RDW Std Deviation 50.6 H, RDW Coeff of Ana 16.5 H, Plt Count 277, MPV 9.3, Immature Gran % (Auto) 2.400 H, Neut % (Auto) 60.3, Lymph % (Auto) 24.4, [place] % (Auto) 11.0 H, Eos % (Auto) 1.6, Baso % (Auto) 0.3, Absolute Neuts (auto) 3.8, Absolute Lymphs (auto) 1.53, Nucleated RBC % 0.8, Sodium 143, Potassium 3.4 L, Chloride 112 H, Carbon Dioxide 26.0, Anion Gap 5, BUN 2 L, Creatinine 0.49 L, Estim Creat Clear Calc 141.93, Est GFR (MDRD) Af Amer 169, Est GFR (MDRD) Non-Af 140, BUN/Creatinine Ratio 4.1 L, Glucose 108 H, Calcium 8.1 L Physical Exam Const alert and no apparent distress GI normal to inspection, nondistended, normoactive bowel sounds GI Narrative: soft NT/ND. Assessment & Plan Assessment/Plan (1) Small bowel obstruction: (2) Small bowel obstruction: PLAN: Plan 1. Small bowel obstruction; recurrent - * NG tube could not be placed in the ER. * n.p.o. and give IV Protonix. On LR. * Give acetaminophen CT as needed for mild to moderate level 1-5 out of 10 pain and fever. Continue IV fentanyl as needed for severe level 6-10 out of 10 pain given the fact the patient has severe headache secondary to morphine. * General surgery on consult. Pt underwent laprotomy, FLORIN release of SBO on the . * NG tube placed on the , removed on the . * 08/16: diet advanced to full liquid. * 08/17: per Dr. Brennan, stable for discharge. Soft diet. 2. Intractable nausea vomiting attributable to #1 - * IVF and antiemetics. 3. Hypokalemia of 3.4 mmol/L present on admission complicating #1 & #2 - * Resolved after replacement 4. Mild hypercalcemia of 11.2 mg/dL present on admission - * Resolved. May be lab error. * PTH and ionized calcium within normal limits. * 25 OH D within normal limits Chronic conditions: * History of irritable bowel syndrome of constipation type; on lubiprostone - Hold this agent until small bowel obstruction resolves and is deemed safe to restart by general surgery. * History of GERD; status post Yomaira fundoplication - Patient will be started on IV Protonix for #1. * History of pituitary tumor - Apparently stable. TSH WNL DVT prophylaxis - Start heparin 5,000 units SQ 3 times daily since epistaxis has resolved. Also start SCDs. Disposition: Stable for discharge.
--- NOTE | 2023-08-17 07:35 | DCINST_ITS ---
Discharge Instructions Diet Discharge Diet: - (full liquid ok for some soft --AVOID peels) Activity Discharge Activity: May Not Drive (while taking narcotic pain medications.) May shower in (days): 1 Lifting Restrictions: no lifting >20 lbs x 2 wks, no strenuous exercise for 4 wks Dressing / Incision Call your doctor if your incision/area has: Continuous Slow Oozing, Sudden Inc reased Bleeding, Increased Pain/ Swelling, Increased Redness, Foul Smelling Discharge and Swelling at the incision site Call your doctor if you observe: - (worsening abdominal pain. ) Remove Dressing in: 2 days Cleanse incision/area with: Soap & Water Additional Dressing/Incision Instructions:: Steri-Strips will fall off in 7 to 10 days, if they do not fall off okay to remove after 10 days. Follow Up Care Please Follow Up With: Nona Brennan MD When: Call the office for a follow-up appointment 1-2 weeks; after 5 PM and on the weekends call [phone] with any concerns. Test Results: Test results from this visit will be discussed in further detail at your follow- up appointment, if applicable. Discharge Plan Admission Admit Date/Time: 08/10/23 02:18 Primary Reason for Your Visit: SBO Attending Provider: Berny Hernandez Primary Care Provider: Roderick Wellington Consulting Providers: Papo Brownlee Discharge Orders/Prescriptions Prescriptions: Continued lubiprostone [Amitiza] 24 MCG capsule 24 mcg PO BID Patient Comments: constipation hyoscyamine sulfate 0.125 MG tablet, sublingual 0.125 mg SL Q4H PRN PRN (Reason: stomach) pseudoephedrine HCl 60 MG tablet 60 mg PO Q6H PRN PRN (Reason: Sinus Congestion) [id number] acid 1 EACH tablet 1 ea PO DAILY acetaminophen 500 MG tablet 500 mg PO Q4H PRN PRN (Reason: Headache/Fever (T>102.5)) 0RF ondansetron HCl 8 MG tablet 8 mg PO TID PRN (Reason: nausea and vomiting) Qty: 20 0RF Referrals / Follow Up: Nona Brennan MD [Med Staff - Active Staff] - Within 2 Weeks Roderick Wellington MD [Primary Care Provider] - Within 2 Weeks Disposition Disposition (needs filled in before D/C Order can be placed): Home, Self Care
[2023-08-17] MEDS: Potassium Chloride Oral Tablet 20 MEQ 40 MEQ PO (09:00)
--- NOTE | 2023-08-17 09:39 | DS.PCM_ITS ---
Providers Date of Admission: 08/10/23 Primary Care Physician: Dr. Roderick Wellington MD Reason For Visit: SMALL BOWEL OBSTRUCTION WITH HYPOKALEMIA Diagnosis Discharge Diagnosis (1) Small bowel obstruction: Status: Deleted Code(s): K56.609 - Unspecified intestinal obstruction, unspecified as to partial versus complete obstruction Plan 1. Small bowel obstruction; recurrent - * NG tube could not be placed in the ER. * n.p.o. and give IV Protonix. On LR. * Give acetaminophen MA as needed for mild to moderate level 1-5 out of 10 pain and fever. Continue IV fentanyl as needed for severe level 6-10 out of 10 pain given the fact the patient has severe headache secondary to morphine. * General surgery on consult. Pt underwent laprotomy, FLORIN release of SBO on the . * NG tube placed on the , removed on the . * 08/16: diet advanced to full liquid. * 08/17: per Dr. Brennan, stable for discharge. Soft diet. 2. Intractable nausea vomiting attributable to #1 - * IVF and antiemetics. 3. Hypokalemia of 3.4 mmol/L present on admission complicating #1 & #2 - * Resolved after replacement 4. Mild hypercalcemia of 11.2 mg/dL present on admission - * Resolved. May be lab error. * PTH and ionized calcium within normal limits. * 25 OH D within normal limits Chronic conditions: * History of irritable bowel syndrome of constipation type; on lubiprostone - Hold this agent until small bowel obstruction resolves and is deemed safe to restart by general surgery. * History of GERD; status post Yomaira fundoplication - Patient will be started on IV Protonix for #1. * History of pituitary tumor - Apparently stable. TSH WNL DVT prophylaxis - Start heparin 5,000 units SQ 3 times daily since epistaxis has resolved. Also start SCDs. Disposition: Stable for discharge. Medications at Discharge Home Medications lubiprostone 24 mcg capsule (Amitiza) 24 mcg PO BID ibs 03/18/17 hyoscyamine sulfate 0.125 mg sublingual tablet 0.125 mg SL Q4H PRN PRN stomach 03/12/20 multivitamin-ferrous fumarate-folic acid 18 mg-400 mcg tablet 1 ea PO DAILY supplement 03/12/20 pseudoephedrine HCl 60 mg tablet 60 mg PO Q6H PRN PRN Sinus Congestion 03/12/20 acetaminophen 500 mg tablet 500 mg PO Q4H PRN PRN Headache/Fever (T>102.5) 03/14/20 ondansetron HCl 8 mg tablet 8 mg PO TID PRN nausea and vomiting #20 tabs Weight / BMI Weight Weight: 87.8 kg Body Mass Index (BMI) 27.8 ABG / Lab / Microbiology Data 08/17/23 06:20 08/17/23 06:20 Laboratory: Laboratory Results - last 24 hr 08/17/23 06:20: WBC 6.3, RBC 3.71 L, Hgb 9.8 L, Hct 31.2 L, MCV 84.1, MCH 26.4 L , MCHC 31.4 L, RDW Std Deviation 50.6 H, RDW Coeff of Ana 16.5 H, Plt Count 277, MPV 9.3, Immature Gran % (Auto) 2.400 H, Neut % (Auto) 60.3, Lymph % (Auto) 24.4, Gaston % (Auto) 11.0 H, Eos % (Auto) 1.6, Baso % (Auto) 0.3, Absolute Neuts (auto) 3.8, Absolute Lymphs (auto) 1.53, Nucleated RBC % 0.8, Sodium 143, Potassium 3.4 L, Chloride 112 H, Carbon Dioxide 26.0, Anion Gap 5, BUN 2 L, Creatinine 0.49 L, Estim Creat Clear Calc 141.93, Est GFR (MDRD) Af Amer 169, Est GFR (MDRD) Non-Af 140, BUN/Creatinine Ratio 4.1 L, Glucose 108 H, Calcium 8.1 L D/C Instructions Discharge Diet: - (full liquid ok for some soft --AVOID peels) May shower in (days): 1 Call your doctor if your incision/area has: Continuous Slow Oozing, Sudden Increased Bleeding, Increased Pain/ Swelling, Increased Redness, Foul Smelling Discharge and Swelling at the incision site Call your doctor if you observe: - (worsening abdominal pain. ) Cleanse incision/area with: Soap & Water Additional Dressing/Incision Instructions: Steri-Strips will fall off in 7 to 10 days, if they do not fall off okay to remove after 10 days. Please Follow Up With: Nona Brennan MD When: Call the office for a follow-up appointment 1-2 weeks; after 5 PM and on the weekends call [phone] with any concerns. Meaningful Use Info Meaningful Use Diagnoses (Choose all that apply): None applicable Discharge Plan Admission Admit Date/Time: 08/10/23 02:18 Primary Reason for Your Visit: SBO Attending Provider: Berny Hernandez Primary Care Provider: Roderick Wellington Consulting Providers: Papo Brownlee Discharge Orders/Prescriptions Prescriptions: Continued lubiprostone [Amitiza] 24 MCG capsule 24 mcg PO BID Patient Comments: constipation hyoscyamine sulfate 0.125 MG tablet, sublingual 0.125 mg SL Q4H PRN PRN (Reason: stomach) pseudoephedrine HCl 60 MG tablet 60 mg PO Q6H PRN PRN (Reason: Sinus Congestion) avtbhwxchzxy-wwdf-cxetx acid 1 EACH tablet 1 ea PO DAILY acetaminophen 500 MG tablet 500 mg PO Q4H PRN PRN (Reason: Headache/Fever (T>102.5)) 0RF ondansetron HCl 8 MG tablet 8 mg PO TID PRN (Reason: nausea and vomiting) Qty: 20 0RF Referrals / Follow Up: Nona Brennan MD [Med Staff - Active Staff] - Within 2 Weeks Roderick Wellington MD [Primary Care Provider] - Within 2 Weeks Disposition Disposition (needs filled in before D/C Order can be placed): Home, Self Care Charges/Coding Visit Charges Inpatient E&M: 35675 Disch Hosp
--- NOTE | 2023-08-17 09:58 | CASEMGMT ---
RADHA CM into pt room, pt sitting up in chair in no distress. Pt denies any homegoing needs and pt is ready to be dc'd.
[2023-08-17] MEDS: Pantoprazole Sodium 40 MG in 0.9% Normal Saline (100mL MB+) 100 ML 330 MG IV (10:57)
[2023-08-17 12:49] VITALS: BP 129/80; PULSE 76; RESP 16; TEMP 37.2; O2SAT 98
== END 2023-08-17 13:00 | disposition home or self-care (01) | DRG 337 ==
LOC: ED 08-10 02:00 → MS3 08-10 06:32
PROVIDERS: Surgery; Admitting Provider Internal Medicine; Emergency Provider Emergency Medicine; PCP Family Medicine
PROC: 0DN80ZZ Release Small Intestine, Open Approach (ICD-10-PCS; CPT 49320; principal; 2023-08-10 11:45)
DX: K56.51 Intestinal adhesions [bands], with partial obstruction (principal); E87.6 Hypokalemia; K58.1 Irritable bowel syndrome with constipation; K21.9 Gastro-esophageal reflux disease without esophagitis; Z53.31 Laparoscopic surgical procedure converted to open procedure; Z90.49 Acquired absence of other specified parts of digestive tract; Z79.899 Other long term (current) drug therapy
CPT/HCPCS: 36415; 74018; 74019; 74177; 74250; 80048; 80053; 80076; 82330; 82652; 83605; 83690; 83735; 83970; 84100; 84443; 85025; 93005; 94668; 97803; 99252; 99284; J7030; J7050; J7120; Q9967; A4216; C1760; G0463; J2405; J3490

== ENCOUNTER → 2024-11-15 | Outpatient (CLI) | payer BC, SELFPAY ==
--- NOTE | 2024-11-15 07:20 | US_ITS ---
PROCEDURE: ABDOMEN LIMITED 11/15/2024 REASON FOR EXAM: 54-year-old female, bloating. COMPARISON: Abdominal radiographs 08/14/2023. FINDINGS: Liver: Diffusely echogenic suggesting fatty infiltration, mildly enlarged measuring 17.8 cm. Unremarkable bile ducts. The main portal vein is patent with normal directional flow. Gallbladder: No stones, sludge, wall thickening or tenderness. Common bile duct: Normal measuring 0.4 cm. Pancreas: Obscured by bowel gas. Other: Visualized portions of the right kidney are unremarkable. No right upper quadrant ascites. The spleen is normal in size. US/Abdomen Limited IMPRESSION: Mild hepatomegaly with diffuse hepatic steatosis. Reading Location: [id number]
== END | disposition home or self-care (01) ==
PROVIDERS: PCP Family Medicine; Referring Provider Nurse Practitioner Acute Care; Visit Provider Nurse Practitioner Acute Care
DX: R14.0 Abdominal distension (gaseous) (principal)
CPT/HCPCS: 76705

== ENCOUNTER 2024-11-25 16:10 | Emergency (ER) | payer BC, SELFPAY ==
[2024-11-25 16:11] VITALS: BP 133/80; PULSE 102; RESP 25; TEMP 36.5; O2SAT 100; BMI 26.6
--- NOTE | 2024-11-25 16:19 | RAD_ITS ---
PROCEDURE: SHOULDER MIN 2 VIEWS 11/25/2024 REASON FOR EXAM: TRAUMA TECHNIQUE: Four radiographic views of the left shoulder COMPARISON: Left clavicle today. FINDINGS: Bones: The glenohumeral articulation is intact. No fracture or dislocation involving the left glenohumeral articulations. There is a complex comminuted fracture of the midshaft of the left clavicle with downward displacement of the primary distal fracture fragment. Soft tissues: Unremarkable. Other: RAD/Shoulder min 2 Views IMPRESSION: Complex left clavicle fracture. Glenohumeral bones and joints intact. Reading Location: [facility]
--- NOTE | 2024-11-25 16:20 | RAD_ITS ---
PROCEDURE: CLAVICLE 11/25/2024 REASON FOR EXAM: TRAUMA TECHNIQUE: 1 view(s) of each clavicle COMPARISON: Left shoulder today. FINDINGS: LEFT CLAVICLE: Comminuted left clavicle fracture with separate fracture fragment between the proximal and distal ends of the clavicle in the mid clavicle. There is downward angulation in downward displacement of the distal clot clavicle relative to the proximal clavicle. RAD/Clavicle IMPRESSION: Complex left clavicle fracture. Reading Location: [facility]
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
[2024-11-25] MEDS: oxyCODONE 5 MG Tablet PO (17:22)
[2024-11-25 17:37] VITALS: BP 128/90; PULSE 100; RESP 22; TEMP 36.6; O2SAT 99
== END 2024-11-25 17:38 | disposition home or self-care (01) ==
PROVIDERS: Emergency Provider Emergency Medicine; PCP Family Medicine; Visit Provider Emergency Medicine
DX: S42.022A Displaced fracture of shaft of left clavicle, initial encounter for closed fracture (principal); V43.52XA Car driver injured in collision with other type car in traffic accident, initial encounter; K21.9 Gastro-esophageal reflux disease without esophagitis
CPT/HCPCS: 73000; 73030; 99284; A4216

== ENCOUNTER 2024-11-28 10:50 | Day surgery (SDC) | payer BC, SELFPAY ==
[2024-11-28] VITALS (11 sets, daily range): BP systolic 112–126; BP diastolic 73–86; PULSE 66–87; RESP 16; TEMP 36.6–36.9; O2SAT 94–100; BMI 25.2
--- NOTE | 2024-11-28 11:10 | EKG12_ITS ---
Test Reason : P Blood Pressure : */* mmHG Vent. Rate : 83 BPM Atrial Rate : 83 BPM P-R Int : 138 ms QRS Dur : 90 ms QT Int : 366 ms P-R-T Axes : 77 59 79 degrees QTcB Int : 430 ms Normal sinus rhythm Nonspecific ST and T wave abnormality Abnormal ECG When compared with ECG of 09-Aug-2023 23:02, Vent. rate has increased by 33 bpm Confirmed by WILL MCELROY, SASCHA ([id number]), editor city KENDALL YEH ([id number]) on 11/30/2024 12:52:52 PM Referred By: Gregorio Donahue Confirmed By: SASCHA SOLIS MD
[2024-11-28] MEDS: 0.9% Normal Saline (1000mL) 1,000 ML 15 ML IV (11:23)
--- NOTE | 2024-11-28 11:36 | PCM.PRE.AN2 ---
ASA Classification* ASA Classification ASA Classification: 2 Assessment & Plan Anesthesia* Anesthesia Assessment Anesthesia Assessment: Discussed sedation and/or anesthesia options, risks, benefits, and alternatives with patient/parents/legal guardian/POA. Questions invited. The patient/parents/legal guardian/POA seems to understand and agrees to proceed with anesthesia plan. Reviewed the physical assessment, medical history, allergy history and patient home medications list prior to surgery/procedure/anesthetic and documented any changes. Performed airway and anesthesia risk assessments. Anesthesia Type Anesthesia Type: General History Source History Obtained from:: Patient and Chart Anesthesia Focused Assessment* Temperature: 97.9 F Pulse Rate: 83 Blood Pressure: 113/73 Respiratory Rate: 16 Pulse Ox: 100 Oxygen Delivery Method: Room Air Airway Assessment Mouth opens: >3 cm Mallampati Score: II Teeth Condition: Intact and Caps/Crowns (Patient has been years on the top front incisors.) Neck Range of motion (ROM): Full ROM Focused Labs Anesthesia Preop lab: CBC WBC 6.3 K/mm3 (4.4-11.0) 08/17/23 06:20 08/17/23 RBC 3.71 M/mm3 (4.2-5.4) L 08/17/23 06:20 08/17/23 Hgb 9.8 g/dL (12.0-15.0) L 08/17/23 06:20 08/17/23 Hct 31.2 % (37-47) L 08/17/23 06:20 08/17/23 Plt Count 277 K/mm3 (150-450) 08/17/23 06:20 08/17/23 CHEMISTRY Potassium 3.4 mmol/L (3.5-5.1) L 08/17/23 06:20 08/17/23 Sodium 143 mmol/L (136-145) 08/17/23 06:20 08/17/23 Magnesium 1.9 mg/dL (1.6-2.6) 08/16/23 04:45 08/16/23 Phosphorus 3.2 mg/dL (2.5-4.9) 08/16/23 04:45 08/16/23 BUN 2 mg/dL (7-18) L 08/17/23 06:20 08/17/23 Creatinine 0.49 mg/dL (0.55-1.02) L 08/17/23 06:20 08/17/23 Glucose 108 mg/dL (74-106) H 08/17/23 06:20 08/17/23 TSH 1.59 uIU/mL (0.358-3.74) 08/10/23 04:10 08/10/23 COAG Pre-Assessment Diagnosis/Proposed Procedure Planned Operative Procedure(s): ORIF, CLAVICLE, LEFT Anesthesia History Anesthesia History - oracle hrms developer: Anesthesia History - oracle hrms developer Hx Hospitalization No 11/27/24 12:07 Any Problems With Anesthesia No 11/27/24 12:07 Cholinesterase deficiency No 11/27/24 12:07 You/Your Family Experience No 11/27/24 12:07 fever (hyperthermia) with Relationship mother 03/18/17 22:30 Recent Exposure to Contagious No 11/28/24 11:20 Disease Does patient have nerve No 11/27/24 12:07 stimulator Patient instructed to have device shut off --Does patient have Pacemaker No 11/28/24 11:20 or ICD? When Was Last Pacemaker Check QUESTION #4 FULL TEXT: You/Your Family Experience fever (hyperthermia) with Anesthesia Last Oral Intake Last Oral intake: Last Oral Intake NPO since 18:00 11/28/24 11:20 Meds taken in AM with sips of Yes 11/28/24 11:20 water? Meds patient instructed to OMPRAZOLE, HYOSCYAMINE 11/28/24 11:20 take am of surgery LUBIPROSTONE PONV PONV - oracle hrms developer: PONV - oracle hrms developer Female Yes 11/27/24 12:07 HX of Motion Sickness No 11/27/24 12:07 HX of N/V After Surgery Yes 11/27/24 12:07 Non-Smoker Yes 11/27/24 12:07 Duration of Surgery greater No 11/27/24 12:07 than 60 minutes Number of Risk Factors 3 11/27/24 12:07 PONV Score Moderate Risk 11/27/24 12:07 Height & Weight Height & Weight: Anesthesia: Height & Weight Height 5 ft 10 in 11/28/24 11:20 Weight: 80 kg 11/28/24 11:20 Body Mass Index (BMI) 25.2 11/28/24 11:20 Respiratory Assessment Respiratory Assessment - oracle hrms developer: Respiratory Tract Infection Hx - oracle hrms developer Hx Respiratory Tract Infection No 11/27/24 12:07 STOP Sleep Apnea STOP Sleep Apnea - oracle hrms developer: STOP Sleep Apnea - oracle hrms developer Hx Hypertension No 11/27/24 12:07 Hx Sleep Apnea No 11/27/24 12:07 CPAP No 08/10/23 13:50 BIPAP No 03/12/20 14:44 Do you snore loudly (louder No 11/27/24 12:07 than talking or can be heard Do you often feel tired/ No 11/27/24 12:07 fatigued/ sleepy during daytime? Has anyone observed you stop No 11/27/24 12:07 breathing during sleep? STOP Results Negative 11/27/24 12:07 QUESTION #5 FULL TEXT : Do you snore loudly (louder than talking or can be heard through closed doors)? Tobacco Use History Tobacco Use History - oracle hrms developer: Tobacco Use History - oracle hrms developer Tobacco Use Smoking Status Never smoker 11/27/24 12:07 Hx Tobacco Use No 11/27/24 12:07 Years Smoking Packs Smoked per Day Smoking Cessation Date was within the last 15 years Hx Smoking Cessation Date Hx Smoking Cessation Counseling Hematologic Medial History Hematologic Hx - oracle hrms developer: Hematologic Medical Hx - legal stenographer Hx of Blood Transfusion No 11/27/24 12:07 Hx of Transfusion in last 3 No 11/27/24 12:07 Months Date of Last Transfusion (if within last 3 months) Ever experience any problems No 11/27/24 12:07 with transfusion(s)? Specify any problems Hx of Preganancy in last 3 No 11/27/24 12:07 Months Nurse Filling Out Transfusion JZOLLRAUL 11/27/24 12:07 & Questions: Date: 11/27/24 11/27/24 12:07 Time: 12:08 11/27/24 12:07 Patient unable to answer at this time (ie. confused, unrespo /Reproduction History /Reproductive History - oracle hrms developer: /Reproductive Hx- oracle hrms developer Hx Now No 11/27/24 12:07 Gestational Age (in weeks): EDC: Hx Hx Para Hx Section SAB No 11/27/24 12:07 Active Medications Active Medications: Current Medications Generic Name Dose Route Start Last Admin Trade Name Freq PRN Reason Stop Dose Admin Sodium Chloride 1,000 mls @ 15 mls/hr 11/28/24 11:00 11/28/24 11:23 IV 15 mls/hr .Q48H MONIQUE Administration PFSH Medical History Anxiety Non-smoker History of echocardiogram Bowel obstruction Pituitary abnormality GERD (gastroesophageal reflux disease) Frequent headaches Gastrointestinal problem UTI (urinary tract infection) Small bowel obstruction Pituitary tumor Home Medications ?Medication ?Instructions ?Recorded ?Last Taken ?Type hyoscyamine sulfate 0.125 mg 0.125 mg sublingual Q4H PRN PRN 03/12/20 03/12/20 History sublingual tablet stomach multivitamin-ferrous 1 ea PO DAILY supplement 03/12/20 03/11/20 History fumarate-folic acid 18 mg-400 mcg tablet lubiprostone 24 mcg capsule 24 mcg PO BID 11/08/24 11/28/24 History magnesium 200 mg tablet 400 mg PO QDAY 11/08/24 Unknown History magnesium hydroxide 400 mg/5 mL 5 ml PO QDAY PRN constipation 11/08/24 Unknown History oral suspension (Milk of Magnesia) omeprazole 20 mg capsule,delayed 20 mg PO QDAY 11/08/24 11/28/24 History release tumeric 1 tab PO DAILY 11/08/24 Unknown History Allergy/AdvReac Type Severity Reaction Status Date / Time oxycodone AdvReac Mild Nausea/Vom/ Verified 11/28/24 11:19 Diarrhea Family History Mother Anxiety Arthritis Depression Diabetes Hypertension High cholesterol Mental disorder Pulmonary fibrosis Father Asthma Arthritis Diabetes Cancer skin Hypertension Grandfather Cancer prostate Myocardial infarction Grandmother Myocardial infarction Diabetes Surgical History H/O abdominal surgery H/O hernia repair History of partial surgical removal of colon S/P laparotomy with lysis of adhesions Status post Yomaira fundoplication History of bowel resection Social History Smoking Status: Never smoker alcohol intake: never substance use type: does not use what type of physical activity do you participate in: walking frequency: 5-6 times per week Review of Systems (Anesthesia) ROS Narrative System reviewed and no additional complaints, except as documented.
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
[2024-11-28] MEDS: Cefazolin 2 GM in Syringe IV (12:42)
--- NOTE | 2024-11-28 13:40 | RAD_ITS ---
PROCEDURE: Fluoroscopy use. 11/28/2024 REASON FOR EXAM: Left clavicle fracture TECHNIQUE: 4 spot images were obtained during left clavicle open reduction and internal fixation. 34 seconds of fluoroscopic time utilized. COMPARISON: Clavicle radiographs 11/25/2024 FINDINGS: 4 intraoperative spot images were obtained during mid left clavicle fracture repair. A fixation plate projects over the fracture site of the mid left clavicle. RAD/Clavicle IMPRESSION: Documentation of fluoroscopy use during left clavicle fracture repair. Please see the operative note for details. Reading Location: [facility]
[2024-11-28] MEDS: Bupiv/Epi 0.25% 30 ML Vial (14:39)
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
--- NOTE | 2024-11-28 14:56 | PCM.POST.ANE ---
Anesthesia: Postop Eval I Current Vital Signs Temperature: 98 F Pulse Rate: 87 Blood Pressure: 115/86 Respiratory Rate: 16 Pulse Ox: 95 Assessment Airway patent: Yes Spontaneous unlabored respirations: Yes nausea: No Vomiting: No Anesthesia Complication: No Fluid Hydration Crystalloid volume administer (ml): 1,400 Total IV fluid infused: 1,400 Progress Note Anesthesia document: Postop Eval 1 completed: Yes
--- NOTE | 2024-11-28 14:59 | DCINST_ITS ---
Discharge Instructions Diet Discharge Diet: No restrictions Dressing / Incision Call your doctor if you observe: Shortness of breath and Chest pain Additional Dressing/Incision Instructions:: Must keep shoulder clean. Keep dressing on 5 days then may remove prior to first shower at that point may shower daily with warm water and antibacterial soap over incision however do not submerge in tub pool or other. There are white Steri-Strips over incision these should be left on after outer dressing is removed and it is okay to get these wet after the initial 5 days postop. They will fall off on their own replace with light dressing if needed for drainage. Keep covered if not and and a clean area must keep incision clean as possible to avoid infection. May remove sling as it is for comfort only encourage shoulder and arm range of motion immediately however no weight to the operative upper extremity no pushing or pulling with operative extremity. Call with any questions or concerns only take pain medication as prescribed do not mix pain medications with medications you have had previously. Okay to take Tylenol and or [id number]-[id number] NSAID in addition to narcotic. Narcotic can be addictive and abusive do not mix with alcohol and only take as prescribed. Follow-up in my office in 2 weeks for wound check or sooner if any questions or concerns. Follow Up Care Please Follow Up With: Gregorio Donahue DO When: 2 weeks Test Results: Test results from this visit will be discussed in further detail at your follow- up appointment, if applicable. Discharge Plan Admission Primary Reason for Your Visit: Left clavicle ORIF Attending Provider: Gregorio Donahue Primary Care Provider: Roderick Wellington Instructions Print Language: [place] Islander Discharge Orders/Prescriptions Prescriptions: New hydrocodone-acetaminophen 5-325 mg tablet 1 - 2 tab PO Q4H PRN (Reason: pain) 4 Days Qty: 20 0RF cephalexin 500 mg capsule 1,000 mg PO Q8H Qty: 4 0RF Rx Instructions: Take 2 tabs before you go to bed and 2 tabs after 5 AM morning after surgery when you wake up ondansetron 4 mg tablet,disintegrating 4 mg PO Q6H PRN (Reason: nausea and vomiting) Qty: 15 1RF No Action lubiprostone 24 mcg capsule 24 mcg PO BID omeprazole 20 mg capsule,delayed release(DR/EC) 20 mg PO QDAY magnesium hydroxide [Milk of Magnesia] 400 mg/5 mL suspension 5 ml PO QDAY PRN (Reason: constipation) magnesium 200 mg tablet 400 mg PO QDAY tumeric 1 tab PO DAILY hyoscyamine sulfate 0.125 MG tablet, sublingual 0.125 mg sublingual Q4H PRN PRN (Reason: stomach) lqzkynrtqjbb-[id number]-tjzzi acid 1 EACH tablet 1 ea PO DAILY Referrals / Follow Up: Roderick Wellington MD [Primary Care Provider] - Disposition Disposition (needs filled in before D/C Order can be placed): Home, Self Care
--- NOTE | 2024-11-28 15:04 | RAD_ITS ---
PROCEDURE: Left clavicle radiographs, two views 11/28/2024 REASON FOR EXAM: Postoperative evaluation TECHNIQUE: Two views of the left clavicle were obtained. COMPARISON: 11/25/2024 FINDINGS: Two views of the left clavicle were obtained. The included lungs are clear. There is now a fixation plate and multiple screws supporting a minimally displaced oblique fracture of the mid left clavicle. Significant reduction of the displacement of the major fracture fragments present on the prior study. Some foci of air density projecting over the supraclavicular soft tissues on the current study, likely due to recent surgical procedure. RAD/Clavicle IMPRESSION: Interval open reduction and internal fixation of mid left clavicle fracture. T here is near anatomic alignment of the fracture fragments of the mid left clavicle. Reading Location: [facility]
--- NOTE | 2024-11-28 20:30 | POSTOPAN2_ITS ---
Anesthesia Postop Eval I Sum Postop Eval Completion status Anesthesia document: Postop Eval 1 completed: Yes Anesthesia Postop Eval I Summary Anesthesia Postop Eval I Summary: Anesthesia Postop Eval I: Assessment Summary Airway patent Yes 11/28/24 14:56 FREIGHT [email or web address] Spontaneous unlabored Yes 11/28/24 14:56 FREIGHT [email or web address] [email or web address] respirations Mental status nausea No 11/28/24 14:56 FREIGHT [email or web address] Vomiting No 11/28/24 14:56 FREIGHT [email or web address] Anesthesia Postop Eval I: Fluid Summary Crystalloid volume administer 1,400 11/28/24 14:56 FREIGHT SHIPPING [email or web address] (ml) Colloids volume administered ( ml) Blood Product volume administered (ml) Total IV fluid infused 1,400 11/28/24 14:56 FREIGHT [email or web address] Anesthesia Postop Eval I: Summary Notes Anesthesia Complication No 11/28/24 14:56 [email or web address] [email or web address] Anesthesia Complication Comment: Post-operative progress note Anesthesia: Postop Eval II Evaluation Mental status: Awake and Calm Pain Level: 5 nausea: No Vomiting: No Complications Anesthesia Complication: No
--- NOTE | 2024-11-28 20:30 | PCM.POSTANE2 ---
Anesthesia Postop Eval I Sum Postop Eval Completion status Anesthesia document: Postop Eval 1 completed: Yes Anesthesia Postop Eval I Summary Anesthesia Postop Eval I Summary: Anesthesia Postop Eval I: Assessment Summary Airway patent Yes 11/28/24 14:56 [email or web address] Spontaneous unlabored Yes 11/28/24 14:56 BROADCAST [email or web address] respirations Mental status nausea No 11/28/24 14:56 BROADCAST [email or web address] Vomiting No 11/28/24 14:56 BROADCAST [email or web address] Anesthesia Postop Eval I: Fluid Summary Crystalloid volume administer 1,400 11/28/24 14:56 [email or web address] (ml) Colloids volume administered ( ml) Blood Product volume administered (ml) Total IV fluid infused 1,400 11/28/24 14:56 BROADCAST [email or web address] Anesthesia Postop Eval I: Summary Notes Anesthesia Complication No 11/28/24 14:56 BROADCAST [email or web address] Anesthesia Complication Comment: Post-operative progress note Anesthesia: Postop Eval II Evaluation Mental status: Awake and Calm Pain Level: 5 nausea: No Vomiting: No Complications Anesthesia Complication: No
== END 2024-11-28 17:29 | disposition home or self-care (01) ==
LOC: SDC 10:51 → AC 10:52
PROVIDERS: PCP Family Medicine; Referring Provider Orthopaedic Surgery; Visit Provider Orthopaedic Surgery
PROC: (CPT 23515; principal; 2024-11-28 12:10)
DX: S42.022A Displaced fracture of shaft of left clavicle, initial encounter for closed fracture (principal); V43.52XA Car driver injured in collision with other type car in traffic accident, initial encounter; K21.9 Gastro-esophageal reflux disease without esophagitis
CPT/HCPCS: 23515; 00450; 73000; 76000; 93005; C1713; J2405

== ENCOUNTER → 2025-02-06 | Outpatient (CLI) | payer BC, SELFPAY ==
[2025-02-06 09:56] LABS: Absolute Lymphocyte Count 1.53 X10^3/uL (0.83-4.51); Absolute Neutrophil Count 2.6 X10^3/uL (2.0-7.7); Basophil# 0.05 X10^3/uL; Basophil% 1.1 % (0-1); Eosinophil# 0.08 X10^3/uL; Eosinophils% 1.7 % (0-5); Hemoglobin 12.4 g/dL (12.0-15.0); Lymphocyte # 1.53 X10^3/ul (0.83-4.51); Lymphocyte % 32.8 % (19-41); Mean Corpuscular Hgb 25.6 pg (27.0-32.0); Mean Corpuscular Volume 82.5 fL (81-99); Mean Platelet Vol. 9.5 fl (6.2-12.0); Monocyte# 0.43 X10^3/uL; Monocyte% 9.2 % (0-10); NRBC Flagged by Analyzer 0 % (0-5); Neutrophil # 2.57 X10^3/uL (2.7-7.7); Platelet Count 293 K/mm3 (150-450); RBC Distribution Width CV 15.6 % (11.6-14.6); RBC Distribution Width SD 47.4 fl (35.1-43.9); Red Blood Count 4.85 M/mm3 (4.2-5.4); White Blood Count 4.7 K/mm3 (4.4-11.0)
[2025-02-06 10:36] LABS: Hepatitis B Surface Antibody Nonreactive
[2025-02-06 15:32] LABS: ALB/GLOB Ratio 1.7 RATIO (0.9-2.4); AST(SGOT) 15 U/L (<=31); Alanine Aminotransfer ALT/SGPT 13 U/L (<=34); Albumin, Serum 4.5 g/dL (3.5-5.0); Alkaline Phosphatase 52 U/L (35-104); Anion Gap 10 (5-15); BUN 17 mg/dL (4-19); BUN/Creat Ratio 23.7 RATIO (10-20); Calcium,Total 9.4 mg/dL (7.6-11.0); Carbon Dioxide 25.6 mmol/L (21.0-32.0); Chloride 104 mmol/L (98-108); Creatinine, Serum 0.71 mg/dL (0.70-1.20); EST Glomerular Filtration Rate 101 (>60); Globulin 2.7 g/dL (2.2-4.2); Glucose 95 mg/dL (70-99); Hepatitis B Surface Antigen Nonreactive (Nonreactive); Hepatitis C Antibody Nonreactive (Nonreactive); Protein, Total 7.1 g/dL (5.9-8.4); Sodium Level 139 mmol/L (133-145); Total Bilirubin 0.32 mg/dL (0.00-1.30)
[2025-02-07 05:07] LABS: Hepatitis A AB, Total Negative (Negative); Hepatitis B Core Ab Total Negative (Negative)
== END | disposition home or self-care (01) ==
PROVIDERS: PCP Family Medicine; Referring Provider Nurse Practitioner Acute Care; Visit Provider Nurse Practitioner Acute Care
DX: K76.0 Fatty (change of) liver, not elsewhere classified (principal); K59.09 Other constipation; K63.8219 Small intestinal bacterial overgrowth, unspecified
CPT/HCPCS: 36415; 80053; 84443; 85025; 86704; 86706; 86708; 86803; 87340

== ENCOUNTER 2025-05-22 15:30 | Outpatient (RCR) | payer BC, SELFPAY ==
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
--- NOTE | 2025-05-22 17:05 | HP.PTDCSUM ---
Discharge Summary D/C summary: It has been my pleasure to treat JENNA RUCKER referred by Dr. Gregorio Donahue DO, with the diagnosis of L clavicle fracture nonunion, R piriformis syndrome for a total of 7 visit(s). Discharge Date: 05/22/25 Please see the following information for a summary of their discharge status. Subjective Subjective: Getting better, not limping anymore. Jogged around property first time in a while last night. L shoulder tight but not painful, activitiy normal. R hip: getting there and much better, 4/10 if lies on side then gone. Activities with hip are mostly normal, avoids squatting to get things low. Hip 80% better. has shoulder strengthening. Pain L clavicle area.: Pain Intensity (Out of 10): 3 R hip: Pain Intensity (Out of 10): 1 Overall Improvement % Improvement: 80 Objective Objective/Function: Full aROM L shoulder adn no pain with strength. Walking without antalgia and standing SLS without trendelenbeerg. Feeling good and willing to cotninue via HEP vs more thrapy. Goals Goal 1:: Slep without waking due to hip or shoulder pain and get up without stiffness. Goal Progress: Goal Met Goal 2:: I appropriate HEP for B shoulder RC, postural strength and hip stretching adn strength to minimize future problems. 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 Goal Progress: Goal Met Goal 4:: Pt feel shoulder strength 90% better adn confidence with lifting on the farm. Goal Progress: 80% Plan Plan: d/c D/C Information Discharge Comments: Will continue via HEP d/c sentence: If there are questions or concerns regarding this patient's physical therapy, please feel free to call me at [phone]. Thank you for the referral of this patient. Sincerely, Berny Harmon, DPT, OCS, CSCS Balance/Gait/Functional tests Balance/Special Test Scores Lower Extremity Functional Score: 67 Quick DASH Score: 56.8175 Improvement % Improvement: 80
== END 2025-05-22 19:00 | disposition home or self-care (01) ==
LOC: PT 15:30
PROVIDERS: PCP Family Medicine; Referring Provider Orthopaedic Surgery; Visit Provider Orthopaedic Surgery
DX: S42.021K Displaced fracture of shaft of right clavicle, subsequent encounter for fracture with nonunion (principal); G57.01 Lesion of sciatic nerve, right lower limb; M62.89 Other specified disorders of muscle; M54.50 Low back pain, unspecified; G89.29 Other chronic pain
CPT/HCPCS: 97110; 97140; 97162; 97164